=== PATIENT | male | born 1975 | race Caucasian/White ===

== ENCOUNTER 2016-11-11 07:56 | Emergency (ER) | payer BC ==
[~2016-11-11] VITALS: Ht 182.9 cm; Wt 151.4 kg
[~2016-11-11 07:56] MED LIST: CLIN300C10 PO; INSDGI SC; LCTX PO; METF-383 PO; NVLGI SC; OMEP40CA41 PO; ZOLP10TA6 PO
[2016-11-11 08:00] VITALS: TEMP 37.1; Ht 182.9 cm; Wt 151.4 kg
[2016-11-11] MEDS ORDERED: SULF1TAB92 PO (08:16)
[2016-11-11] MEDS ORDERED: TERB1CRE TOP (08:17)
[2016-11-11] MEDS ORDERED: METH4PAK PO (09:12)
[2016-11-11 09:22] VITALS: BP 142/102; PULSE 85; O2SAT 93
--- NOTE | 2016-11-11 15:18 | EMERGENCY ROOM VISIT NOTE ---
History First contact with patient: 08:17 Chief Complaint: RASH Stated Complaint: RASH ON LEG AFTER STARTING NEW MEDICATION History of Present Illness The patient is a 41 year old male who presents to the Emergency Room with complaints of rash in his right proximal leg. He was started on Bactrim yesterday after having an ingrown toe on the right great toe as well as a possible infection behind his left ear. these infections both have better. he' s had no fever or systemic complaints here. he has no chest pain or shortness of breath. No headache, neck pain, or stiffness. No chest pain or shortness breath. Minimal nausea which he tends to get. He has never had problems like this before. No other new all her kids or exposures. Review of Systems As above. All other systems reviewed were negative unless otherwise stated in history. At least 10 were reviewed Past Medical/Surgical History Medical Problems: (1) Hardy esophagus (2) Cellulitis (3) Chest pain (4) DM2 (diabetes mellitus, type 2) (5) GERD (gastroesophageal reflux disease) (6) HLD (hyperlipidemia) (7) Left bundle branch block (LBBB) on electrocardiogram (8) Obesity (9) Sarcoidosis (10) Second degree AV block, Mobitz type II Surgical Problems: (1) H/O esophagogastroduodenoscopy (2) Hx of tonsillectomy (3) S/P cholecystectomy Old medical records were reviewed. Nurse's notes were reviewed and I agree with. Family History Diabetes mellitus FHx: gallbladder disease FHx: heart disease Social History Smoking Status: Never Smoker Alcohol Use: none Drug Use: none Marital Status: Housing Status: lives with family Occupation Status: employed Current/Historical Medications Scheduled Insulin Aspart (Novolog), 50 UNITS SC WM Insulin Glargine (Lantus), 50 UNITS SC BID Metformin Hcl (Glucophage), 850 MG PO BID Methylprednisolone (Medrol Dosepak), 0 PO DAILY Omeprazole (Prilosec), 40 MG PO BID Terbinafine Hcl (Topical) ([facility]il [facility]), Unknown Dose TOP DAILY Trimethoprim/Sulfamethoxazole (Bactrim 400MG/80MG), 1 TAB PO Q12H Scheduled PRN Zolpidem Tartrate (Zolpidem Tartrate), 10 MG PO HS PRN for Insomnia Allergies Coded Allergies: Perflutren (Unverified Allergy, Severe, BACK PAIN, 11/11/16) Propylene Glycol (Unverified Allergy, Severe, BACK PAIN, 11/11/16) Exenatide (Verified Allergy, Unknown, RASH, 11/11/16) Phenol (Verified Allergy, Unknown, RASH, 11/11/16) Statins (Unverified Allergy, Unknown, ACHE PAIN , 11/11/16) Physical Exam Vital Signs Date Time Temp Pulse Resp B/P Pulse Ox O2 Delivery O2 Flow Rate FiO2 11/11/16 09:22 85 20 142/102 93 11/11/16 08:00 37.1 107 20 157/94 94 Room Air Pain Rating (0-10): 0 Physical Exam General: Well developed well nourished in no acute distress, breathing comfortably on room air. Normal speech HEENT: Normal cephalic atraumatic. Pupils are equal round and reactive to light. Scxlera anicteric. Posterior oropharynx is wide open. Speaking and swallowing without difficulty.. Extraocular movements are intact. Oropharynx is pink with moist mucous membranes. No swelling of the mouth lips or tongue. Neck: Supple with a midline trachea. No meningeal signs or stiffness, no JVD or bruits. No Stridor. Chest: Clear to auscultation bilaterally. No wheezes or rhonchi. No increased work of breathing. Heart: Regular rate and rhythm without murmurs or gallops. Abdomen: Soft nontender, nondistended without rebound guarding or rigidity. Extremities: No cyanosis clubbing or edema. No calf tenderness or assymetry Spine/Back. Non tender to palpation. No CVA tenderness Skin: Good turgor without rashes. Neurologic exam: Cranial nerves two through 12 are intact. Motor and sensation are intact and symmetrical throughout. Medical Decision & Procedures Medications Administered Medications (Trade) Dose Ordered Sig/Jhon Route Start Time Stop Time Status Last Admin Dose Admin Prednisone (PredniSONE TAB) 60 mg NOW STAT PO 11/11/16 09:09 11/11/16 09:10 DC 11/11/16 09:18 60 MG Medical Decision Differential diagnosis includes: Allergic reaction, infection, rash This patient comes in having noticed a rash in his right groin. On closer exam ,he does have some circular spots on his torso as well and extremities. It does not involve the mucous membranes or palms or soles. I think this is most likely drug eruption from the Bactrim. His ingrown toenail looks looks great and without infection and his ear also well. I will have him stop the Bactrim. He was given prednisone here as well as for Medrol Dosepak and he drove so could not give him any Benadryl but I told him to take this when he gets home and do not take before drinking, driving, working. He was encouraged to return if: Shortness of breath, worsening of symptoms, fever or chills, any new problems concerns. he was also told that he is likely allergic to sulfa/ Bactrim and do not take these medications until recheck by parts identification technician. The patient follow with his doctor within the next couple days for recheck and return ER if: Worsening of symptoms, not tolerating fluids, short of breath, any new problems concerns Impression Primary Impression: Allergic reaction caused by a drug Additional Impression: Rash Departure Information Dispostion Home / Self-Care Condition FAIR Prescriptions Methylprednisolone (MEDROL DOSEPAK) 4 Mg Jacoby 0 PO DAILY, #1 PKT Prov: Robert Mitchell M.D. 11/11/16 Referrals Tj Mace M.D. (PCP) Forms WORK / SCHOOL INSTRUCTIONS, HOME CARE DOCUMENTATION FORM, IMPORTANT VISIT INFORMATION Patient Instructions My [facility] Additional Instructions Stop the Bactrim. You are likely allergic to Bactrim (sulfa). Do not take these medications and less to get rechecked by an parts identification technician first. Itching or rash -Use Benadryl/diphenhydramine 25-50 mg every 8 hours. It may make you drowsy do not take before drinking, driving, working. Use Medrol Dosepak as directed- steroid. It may make your blood sugar run a little high. Return if: Worsening of symptoms, shortness of breath, fever or chills, if occultly speaking or swallowing, difficulty speaking or swallowing, any new problems or concerns. Problem Qualifiers
[2017-04-26] MEDS ORDERED: METF1000 PO (08:15)
== END 2016-11-11 09:25 | disposition home or self-care (01) ==
LOC: C.EDB 07:57 → C.EDA 09:25
DX: T78.40XA Allergy, unspecified, initial encounter (principal); X58.XXXA Exposure to other specified factors, initial encounter; R21 Rash and other nonspecific skin eruption; K21.9 Gastro-esophageal reflux disease without esophagitis; E11.9 Type 2 diabetes mellitus without complications; E78.5 Hyperlipidemia, unspecified; Z86.19 Personal history of other infectious and parasitic diseases; Z90.49 Acquired absence of other specified parts of digestive tract; Z98.890 Other specified postprocedural states; Z79.4 Long term (current) use of insulin; Z79.84 Long term (current) use of oral hypoglycemic drugs; Z79.899 Other long term (current) drug therapy; Z88.8 Allergy status to other drugs, medicaments and biological substances; Z83.3 Family history of diabetes mellitus; Z83.79 Family history of other diseases of the digestive system; Z82.49 Family history of ischemic heart disease and other diseases of the circulatory system

== ENCOUNTER 2017-07-31 19:28 | Emergency (ER) | payer BC ==
[~2017-07-31] VITALS: Ht 182.9 cm; Wt 151.6 kg
[~2017-07-31 19:28] MED LIST changes: -CLIN300C10 PO; -LCTX PO; -METF-383 PO; +METF1000 PO; +TERB1CRE TOP
[2017-07-31 19:33] VITALS: TEMP 36.7; Ht 182.9 cm; Wt 151.6 kg
[2017-07-31] MEDS ORDERED: PROPARACAINE HCL 0.5% OP SOLN 15 ML BTL OP STA (19:44)
[2017-07-31] MEDS ORDERED: NVLGI/PEN SC (19:51)
[2017-07-31] MEDS ORDERED: INSDGIPEN SC (19:51)
[2017-07-31] MEDS ORDERED: CPROT OPR (19:52)
[2017-07-31] MEDS ORDERED: KETOROLAC TROMETHAMINE 60 MG/2 ML VIAL IM STA (20:04)
[2017-07-31 20:34] VITALS: BP 145/76; PULSE 72; O2SAT 98
--- NOTE | 2017-07-31 23:13 | EMERGENCY ROOM VISIT NOTE ---
ED Visit Note First contact with patient: 19:42 CHIEF COMPLAINT: Eye pain HISTORY OF PRESENT ILLNESS: This 41-year-old male patient presents to the emergency department complaining of pain in the right eye that began earlier today when he accidentally was struck by his car door. Evidently the wind blew his car door shut as he was exiting, causing injury to the eye.. There has been a constant moderate pain and irritation, redness and tearing in the eye. There is a mild blurring of vision at times and light bothers the eye. The vision has been decreased over all. The patient does not wear contacts. He initially went to a local urgent care clinic, where he was diagnosed with a corneal abrasion and started on Ciloxan eyedrops. The patient went home, and states that he had severe worsening of his pain. The patient rates the pain as sharp and 9/10. The patient has not had previous injuries to this eye. Tetanus shot is reporteldly up to date. REVIEW OF SYSTEMS: A 6 system review of systems was completed with positives and pertinent negatives listed in the HPI. ALLERGIES: See EMR MEDICATIONS: See EMR PMH: No pertinent chronic medical disease SOCIAL HISTORY: Lives locally PHYSICAL EXAM: Vital Signs: Reviewed Nurse's notes, vital signs stable. Visual acuity unable to perform the right eye. GENERAL: This is a white male, in no acute distress, but who is uncomfortable from the eye problem. Well-developed well-nourished. EYES: The pupils are equal round and reactive to light and accommodation. EOMs are full and without tenderness. There is discharge of clear tears from the right eye which is injected. There is no foreign body visible under the eyelid even after lid eversion. Funduscopic exam reveals no hemorrhages, papilledema, or other abnormalities. No foreign body was seen embedded in the cornea under slit lamp exam. The cornea was clear and no hyphema was seen. Fluorescein uptake was observed with ultraviolet light significant for a corneal abrasion essentially from 3:00 to 9:00. EMERGENCY DEPARTMENT COURSE: Physical exam and history were performed. Nursing notes and EMR were reviewed. The patient has a clear corneal abrasion involving roughly 50% of the inferior aspect of the cornea. There does not appear to be perforation, foreign body, or laceration. The patient's primary concern is pain control, and Alcaine drops did completely resolve his discomfort. I discussed options of care with the patient, and will give him 60 mg IM Toradol here in the department. The patient was offered a home narcotics as his abrasion is rather large, and he may feel better with this. The patient evidently is extremely sensitive to narcotics, and does not wish to take any of these. He may continue ibuprofen and Tylenol at home. The patient will likely need to see ophthalmology in the morning, and he was given information to help facilitate this. The patient was certainly invited back to the ER with any new , worsening, or concerning symptoms. Problem List Medical Problems: (1) Hardy esophagus Status: Chronic (2) DM2 (diabetes mellitus, type 2) Status: Chronic (3) GERD (gastroesophageal reflux disease) Status: Chronic (4) HLD (hyperlipidemia) Status: Chronic (5) Obesity Status: Chronic (6) Sarcoidosis Status: Chronic Surgical Problems: (1) H/O esophagogastroduodenoscopy Status: Chronic (2) Hx of tonsillectomy Status: Chronic (3) S/P cholecystectomy Status: Chronic Current/Historical Medications Scheduled Ciprofloxacin-Hydrocortisone (Cipro Hc Otic), 1 DOSE OPR UD Insulin Aspart (Novolog Flexpen), 50 UNITS SC TIDM Insulin Glargine (Lantus Solostar), 50 UNITS SC BID Metformin Hcl (Glucophage), 1,000 MG PO BID Omeprazole (Prilosec), 40 MG PO BID Scheduled PRN Zolpidem Tartrate (Zolpidem Tartrate), 10 MG PO HS PRN for Insomnia Allergies Coded Allergies: Perflutren (Unverified Allergy, Severe, BACK PAIN, 07/31/17) Propylene Glycol (Unverified Allergy, Severe, BACK PAIN, 07/31/17) Exenatide (Verified Allergy, Unknown, RASH, 07/31/17) Phenol (Verified Allergy, Unknown, RASH, 07/31/17) Statins (Unverified Allergy, Unknown, ACHE PAIN , 07/31/17) Sulfa Antibiotics (Verified Allergy, Unknown, HIVES, 07/31/17) Vital Signs Date Time Temp Pulse Resp B/P (MAP) Pulse Ox O2 Delivery O2 Flow Rate FiO2 07/31/17 20:34 72 16 145/76 98 07/31/17 19:33 36.7 96 18 154/90 93 Room Air Medications Administered Medications (Trade) Dose Ordered Sig/Jhon Route Start Time Stop Time Status Last Admin Dose Admin Proparacaine HCl (Alcaine 0.5% Oph Soln) 2 drops NOW STAT OP 07/31/17 19:44 07/31/17 19:45 DC 07/31/17 19:44 2 DROPS Ketorolac Tromethamine (Toradol Inj) 60 mg NOW STAT IM 07/31/17 20:04 07/31/17 20:05 DC 07/31/17 20:04 60 MG Departure Information Impression Primary Impression: Right corneal abrasion Dispostion Home / Self-Care Condition GOOD Referrals Primitivo Woodward D.O. Forms HOME CARE DOCUMENTATION FORM, IMPORTANT VISIT INFORMATION Patient Instructions My [facility] Additional Instructions You were seen and evaluated today on an emergency basis only. This is not a substitute for, or an effort to provide, complete comprehensive medical care. It is not possible to recognize and treat all injuries or illnesses in a single emergency department visit. For this reason it is recommended that you followup with Ophthalmology, Dr. Woodward's office, for ongoing care and evaluation. Call the office first thing tomorrow and let them know you were seen in the emergency department to help facilitate care. For baseline pain relief you may alternate ibuprofen and acetaminophen every 4 hours for pain control. Take 600 mg ibuprofen (Advil) and then 4 hours later take 1000 mg acetaminophen (Tylenol). Do not take more than 3000 mg acetaminophen in a single day. Continue your Cipro eyedrops as prescribed You are welcome to return to the emergency department anytime with new, worsening, or concerning symptoms.
== END 2017-07-31 20:35 | disposition home or self-care (01) ==
LOC: C.EDB 19:28 → C.EDD 20:35
DX: S05.01XA Injury of conjunctiva and corneal abrasion without foreign body, right eye, initial encounter (principal); V48.4XXA Person boarding or alighting a car injured in noncollision transport accident, initial encounter; K22.70 Barrett's esophagus without dysplasia; E11.9 Type 2 diabetes mellitus without complications; K21.9 Gastro-esophageal reflux disease without esophagitis; E78.5 Hyperlipidemia, unspecified; E66.9 Obesity, unspecified; D86.9 Sarcoidosis, unspecified; Z79.4 Long term (current) use of insulin; Z79.84 Long term (current) use of oral hypoglycemic drugs

== ENCOUNTER 2017-09-05 20:18 | Emergency (ER) | payer BC ==
[~2017-09-05] VITALS: Ht 182.9 cm; Wt 127.1 kg
[~2017-09-05 20:18] MED LIST changes: +CPROT OPR; -INSDGI SC; -METF1000 PO; -NVLGI SC; -OMEP40CA41 PO; -TERB1CRE TOP; -ZOLP10TA6 PO
[2017-09-05 20:21] VITALS: TEMP 36.9; Ht 182.9 cm; Wt 127.1 kg
[2017-09-05] MEDS ORDERED: CLOTRIMAZOLE 1% CR 15 GM TUBE EXT ONE (20:45)
--- NOTE | 2017-09-05 20:47 | EMERGENCY ROOM VISIT NOTE ---
History First contact with patient: 20:25 Chief Complaint: RASH Stated Complaint: RASH ON INSIDE OF R GROIN History of Present Illness The patient is a 42 year old male who presents to the Emergency Room with complaints of a rash in the groin area for the last 3 days. It does not itch. It eisenberg when he washes it. He has been trying Lotrimin cream once daily with no relief. The patient has a history of diabetes. He was recently on an antibiotic. He denies any fever or chills. His blood sugars have been high. Review of Systems 6 system review negative. Please see pertinent positives in the history of present illness section. Past Medical/Surgical History Medical Problems: (1) Hardy esophagus (2) Cellulitis (3) Chest pain (4) DM2 (diabetes mellitus, type 2) (5) GERD (gastroesophageal reflux disease) (6) HLD (hyperlipidemia) (7) Left bundle branch block (LBBB) on electrocardiogram (8) Obesity (9) Sarcoidosis (10) Second degree AV block, Mobitz type II Surgical Problems: (1) H/O esophagogastroduodenoscopy (2) Hx of tonsillectomy (3) S/P cholecystectomy Family History Diabetes mellitus FHx: gallbladder disease FHx: heart disease Social History Smoking Status: Never Smoker Alcohol Use: none Drug Use: none Marital Status: Housing Status: lives with family Occupation Status: employed Current/Historical Medications Scheduled Insulin Aspart (Novolog Flexpen), 50 UNITS SC TIDM Insulin Glargine (Lantus Solostar), 50 UNITS SC BID Metformin Hcl (Glucophage), 1,000 MG PO BID Omeprazole (Prilosec), 40 MG PO BID Scheduled PRN Zolpidem Tartrate (Zolpidem Tartrate), 10 MG PO HS PRN for Insomnia Physical Exam Vital Signs Date Time Temp Pulse Resp B/P (MAP) Pulse Ox O2 Delivery O2 Flow Rate FiO2 09/05/17 21:17 96 18 146/92 96 09/05/17 20:21 36.9 101 20 162/108 95 Room Air Physical Exam VITALS: Vitals are noted on the nurse's note and reviewed by myself. Vital signs stable. GENERAL: 42-year-old male, in no acute distress, nondiaphoretic, well-developed well-nourished. SKIN: Erythematous, well demarcated, slightly raised area approximately 8 cm in diameter in the right groin extending into the right testicle. Skin is intact. HEAD: Normocephalic atraumatic. MUSCULOSKELETAL: Strength 5/5 throughout. NEURO: Patient was alert and oriented to person place and time. Normal sensation to touch. No focal neurological deficits. Medical Decision & Procedures Medications Administered Medications (Trade) Dose Ordered Sig/Jhon Route Start Time Stop Time Status Last Admin Dose Admin Clotrimazole (Lotrimin 1% Crm) 1 appln NOW ONCE EXT 09/05/17 20:45 09/05/17 20:46 DC 09/05/17 20:45 1 APPLN ED Course The patient was seen and examined He was given clotrimazole cream. Discharge instructions were reviewed, and he was discharged in good condition Medical Decision Differential diagnosis: Tinea cruris, Milana dermatitis, bacterial etiology This patient is a 42-year-old male that presents to the emergency department with a rash in the groin area. He has a history of diabetes. His blood sugars have been elevated. His physical exam was consistent with tinea cruris. He was given clotrimazole cream to use twice daily for 2-3 weeks. He will be discharged home with close follow-up from his primary care physician. He was comfortable with this plan. He agrees to return with any new or worsening symptoms. This chart was completed in part utilizing [employer] Speech Voice Recognition software. Attempts were made to minimize the grammatical errors, random word insertions, pronoun errors and incomplete sentences. Any formal questions or concerns about the content, text or information contained within the body of this dictation should be directly addressed to the provider for clarification. Medication Reconcilliation Current Medication List: was personally reviewed by [place] Blood Pressure Screening Patient's blood pressure: Elevated blood pressure Blood pressure disposition: Did not require urgent referral Impression Primary Impression: Tinea cruris Departure Information Dispostion Home / Self-Care Condition GOOD Referrals Tj Mace M.D. (PCP) Patient Instructions My [facility] Additional Instructions Please apply the cream to the affected area twice daily for 2-3 weeks. Try to keep the area clean and dry. Please follow-up with your primary care physician within one week for recheck. Do not hesitate to return to the emergency department with any new, worsening or concerning symptoms.
[2017-09-05 21:17] VITALS: BP 146/92; PULSE 96; O2SAT 96
[2017-12-02] MEDS ORDERED: METF1000 PO (08:15)
[2018-02-01] MEDS ORDERED: Lamisil Cream TD (07:22)
[2018-02-01] MEDS ORDERED: Cephalexin PO (07:22)
[2018-02-01] MEDS ORDERED: ALUMSUS2 PO (07:22)
[2018-02-01] MEDS ORDERED: BCTROWC EXT (07:22)
[2018-02-01] MEDS ORDERED: IBUP-1050 PO (07:23)
[2018-02-01] MEDS ORDERED: POLY335019 PO (07:23)
[2018-02-01] MEDS ORDERED: [UNRECOGNIZED DRUG - CODE] (07:23)
[2018-02-01] MEDS ORDERED: MOML PO (07:23)
[2018-02-01] MEDS ORDERED: ONDA4TAB65 PO (07:23)
[2018-02-01] MEDS ORDERED: TPRSR25 PO (11:04)
== END 2017-09-05 21:18 | disposition home or self-care (01) ==
LOC: C.EDB 20:19 → C.EDD 21:18
DX: B35.6 Tinea cruris (principal); E11.9 Type 2 diabetes mellitus without complications; E78.5 Hyperlipidemia, unspecified; K21.9 Gastro-esophageal reflux disease without esophagitis; K22.70 Barrett's esophagus without dysplasia; Z86.19 Personal history of other infectious and parasitic diseases; Z90.49 Acquired absence of other specified parts of digestive tract; Z98.890 Other specified postprocedural states; Z79.4 Long term (current) use of insulin; Z79.84 Long term (current) use of oral hypoglycemic drugs; Z79.899 Other long term (current) drug therapy; Z83.3 Family history of diabetes mellitus; Z83.79 Family history of other diseases of the digestive system; Z82.49 Family history of ischemic heart disease and other diseases of the circulatory system

== ENCOUNTER 2017-11-17 09:57 | Emergency (ER) | payer BC ==
[~2017-11-17] VITALS: Ht 182.9 cm; Wt 149.6 kg
[~2017-11-17 09:57] MED LIST changes: -CPROT OPR; +INSDGIPEN SC; +METF1000 PO; +NVLGI/PEN SC; +OMEP40CA41 PO; +ZOLP10TA6 PO
[2017-11-17 10:06] VITALS: TEMP 36.7; Ht 182.9 cm; Wt 149.6 kg
[2017-11-17] MEDS ORDERED: SODIUM CHLORIDE 0.9% 1000ML 1,000 ML IV STA (10:23)
[2017-11-17] MEDS ORDERED: GI COCKTAIL PO STA (10:23)
[2017-11-17] MEDS ORDERED: FAMOTIDINE 20 MG TAB PO ONE (10:30)
--- NOTE | 2017-11-17 10:44 | EMERGENCY ROOM VISIT NOTE ---
History Report prepared by Sarah: Mary Jane Mueller Under the Supervision of: Dr. Jeff Infante M.D. First contact with patient: 10:12 Chief Complaint: THROAT PAIN/INJURY Stated Complaint: TIGHTNESS IN THROAT AND JAW PAIN History of Present Illness The patient is a 42 year old male who presents to the Emergency Room with complaints of persistent throat tightness starting this morning. The patient woke up with this throat tightness and jaw pain which he describes as a muscle ache. He has a history of reflux and feels that his symptoms are consistent with his reflux. The patient presents to the ED today because he has a history of 2nd degree heart block and pacemaker placement. With his heart block, he felt like he would pass out and notes that today's symptoms are different. He does feel fatigued, like he has a cold without the congestion. He denies any fever, chills, cough, congestion, nausea, or vomiting. He has not noticed any abdominal pain. He has a history of cholecystectomy and sarcoidosis. He becomes SOB with his sarcoidosis, but has not experienced this in several years. He denies any history of [place]. Source of History: patient Onset: this morning Position: throat Quality: other (tightness) Timing: other (persistent) Associated Symptoms: + fatigue, No fevers, No chills, No cough, No SOB, No nausea, No vomiting, No abdominal pain Note: Pt reports jaw pain. Review of Systems See HPI for pertinent positives and negatives. A total of ten systems were reviewed and were otherwise negative. Past Medical & Surgical Medical Problems: (1) Hardy esophagus (2) Cellulitis (3) Chest pain (4) DM2 (diabetes mellitus, type 2) (5) GERD (gastroesophageal reflux disease) (6) HLD (hyperlipidemia) (7) Left bundle branch block (LBBB) on electrocardiogram (8) Obesity (9) Sarcoidosis (10) Second degree AV block, Mobitz type II Surgical Problems: (1) H/O esophagogastroduodenoscopy (2) Hx of tonsillectomy (3) S/P cholecystectomy Family History Diabetes mellitus FHx: gallbladder disease FHx: heart disease Social History Smoking Status: Never Smoker Alcohol Use: none Drug Use: none Marital Status: Housing Status: lives with family Occupation Status: employed Current/Historical Medications Scheduled Insulin Aspart (Novolog Flexpen), 50 UNITS SC TIDM Insulin Glargine (Lantus Solostar), 50 UNITS SC BID Metformin Hcl (Glucophage), 1,000 MG PO BID Omeprazole (Prilosec), 40 MG PO BID Zolpidem Tartrate (Zolpidem Tartrate), 10 MG PO HS Allergies Coded Allergies: Exenatide (Verified Allergy, Unknown, RASH, 11/17/17) Phenol (Verified Allergy, Unknown, RASH, 11/17/17) Sulfa Antibiotics (Verified Allergy, Unknown, HIVES, 11/17/17) Perflutren (Unverified Adverse Reaction, Unknown, BACK PAIN, 11/17/17) Propylene Glycol (Unverified Adverse Reaction, Unknown, BACK PAIN, 11/17/17 ) Statins (Unverified Adverse Reaction, Unknown, ACHE PAIN , 11/17/17) Physical Exam Vital Signs Date Time Temp Pulse Resp B/P (MAP) Pulse Ox O2 Delivery O2 Flow Rate FiO2 11/17/17 13:31 88 18 146/93 93 11/17/17 12:01 167/97 11/17/17 12:00 89 19 94 Room Air 11/17/17 11:31 153/96 11/17/17 11:30 90 20 93 Room Air 11/17/17 11:01 175/111 11/17/17 11:00 Room Air 93 11/17/17 11:00 96 11/17/17 10:59 99 18 188/100 93 Room Air 11/17/17 10:58 94 Room Air 11/17/17 10:06 36.7 87 17 173/113 96 Room Air Physical Exam GENERAL: Awake, alert, well-appearing, in no distress HENT: Normocephalic, atraumatic. Dry mucous membranes. EYES: Normal conjunctiva. Sclera non-icteric. NECK: Supple. No nuchal rigidity. FROM. No JVD. RESPIRATORY: Clear to auscultation. CARDIAC: Regular rate, normal rhythm. Extremities warm and well perfused. Pulses equal. ABDOMEN: Soft, non-distended. Mild epigastric discomfort. No discrete tenderness. No rebound or guarding. No masses. RECTAL: Deferred. MUSCULOSKELETAL: Chest examination reveals no tenderness. The back is symmetrical on inspection without obvious abnormality. There is no CVA tenderness to palpation. No joint edema. LOWER EXTREMITIES: Calves are equal size bilaterally and non-tender. No edema. No discoloration. NEURO: Normal sensorium. No sensory or motor deficits noted. SKIN: No rash or jaundice noted. Medical Decision & Procedures ER Provider Diagnostic Interpretation: Radiology results as stated below per my review and radiologist interpretation: CHEST ONE VIEW PORTABLE CLINICAL HISTORY: 42 years-old Male presenting with CHEST PAIN. TECHNIQUE: Portable upright AP view of the chest was obtained. COMPARISON: 02/24/2016. FINDINGS: Image quality degraded by patient body habitus and portable technique. Left subclavian pacer with leads to the right atrium and right ventricular apex. Cardiac silhouette moderately enlarged as on prior exam. Mild pulmonary vascular prominence, unchanged. Lungs and pleural spaces clear. Osseous structures normal. Upper abdomen normal. IMPRESSION: 1. Cardiomegaly. Otherwise no acute cardiopulmonary disease. Electronically signed by: Erlin Galindo M.D. 11/17/2017 10:41 AM Dictated Date/Time: 11/17/2017 10:40 AM Laboratory Results 11/17/17 11:05 Red Blood Count 6.00, Mean Corpuscular Volume 78.0, Mean Corpuscular Hemoglobin 28.7, Mean Corpuscular Hemoglobin Concent 36.8, Mean Platelet Volume 9.3, Neutrophils (%) (Auto) 63.4, Lymphocytes (%) (Auto) 26.2, Monocytes (%) (Auto) 7.6, Eosinophils (%) (Auto) 2.0, Basophils (%) (Auto) 0.5, Neutrophils # (Auto) 4.20, Lymphocytes # (Auto) 1.73, Monocytes # (Auto) 0.50, Eosinophils # (Auto) 0.13, Basophils # (Auto) 0.03 11/17/17 11:05 Test 11/17/17 11:05 11/17/17 11:18 White Blood Count 6.61 K/uL (4.8-10.8) Red Blood Count 6.00 M/uL (4.7-6.1) Hemoglobin 17.2 g/dL (14.0-18.0) Hematocrit 46.8 % (42-52) Mean Corpuscular Volume 78.0 fL (80-100) Mean Corpuscular Hemoglobin 28.7 pg (25-34) Mean Corpuscular Hemoglobin Concent 36.8 g/dl (32-36) Platelet Count 205 K/uL (130-400) Mean Platelet Volume 9.3 fL (7.4-10.4) Neutrophils (%) (Auto) 63.4 % Lymphocytes (%) (Auto) 26.2 % Monocytes (%) (Auto) 7.6 % Eosinophils (%) (Auto) 2.0 % Basophils (%) (Auto) 0.5 % Neutrophils # (Auto) 4.20 K/uL (1.4-6.5) Lymphocytes # (Auto) 1.73 K/uL (1.2-3.4) Monocytes # (Auto) 0.50 K/uL (0.11-0.59) Eosinophils # (Auto) 0.13 K/uL (0-0.5) Basophils # (Auto) 0.03 K/uL (0-0.2) RDW Standard Deviation 36.5 fL (36.4-46.3) RDW Coefficient of Variation 13.0 % (11.5-14.5) Immature Granulocyte % (Auto) 0.3 % Immature Granulocyte # (Auto) 0.02 K/uL (0.00-0.02) Anion Gap 9.0 mmol/L (3-11) Est Creatinine Clear Calc Drug Dose 144.8 ml/min Estimated GFR () 108.2 Estimated GFR (Non- 93.4 BUN/Creatinine Ratio 17.0 (10-20) Calcium Level 9.2 mg/dl (8.5-10.1) Total Bilirubin 0.8 mg/dl (0.2-1) Direct Bilirubin 0.2 mg/dl (0-0.2) Aspartate Amino Transf (AST/SGOT) 20 U/L (15-37) Alanine Aminotransferase (ALT/SGPT) 39 U/L (12-78) Alkaline Phosphatase 145 U/L (45-117) Troponin I < 0.015 ng/ml (0-0.045) Total Protein 7.5 gm/dl (6.4-8.2) Albumin 3.8 gm/dl (3.4-5.0) Lipase 196 U/L (73-393) Bedside Glucose 293 mg/dl (70-99) Laboratory results reviewed by me Medications Administered Medications (Trade) Dose Ordered Sig/Jhon Route Start Time Stop Time Status Last Admin Dose Admin Sodium Chloride 1,000 ml @ 999 mls/hr Q1H1M STAT IV 11/17/17 10:23 11/17/17 11:23 DC 11/17/17 11:21 999 MLS/HR Famotidine (Pepcid Tab) 20 mg NOW ONCE PO 11/17/17 10:30 11/17/17 10:31 DC 11/17/17 11:14 20 MG Lidocaine HCl (Viscous Lidocaine 2% Soln) 20 ml STK-MED ONCE .ROUTE 11/17/17 11:11 11/17/17 11:12 DC 11/17/17 11:38 10 ML Al Hydroxide/Mg Hydroxide (Maalox Susp) 30 ml ONE ONCE PO 11/17/17 11:33 11/17/17 11:34 DC 11/17/17 11:37 30 ML ECG Per My Interpretation Indication: chest pain Rate (beats per minute): 89 Rhythm: other (atrially sensed, ventricularly paced) Findings: no acute ischemic change, no ectopy, other (normal axis) ED Course 1016: The patient was evaluated in room C12B. A complete history and physical exam was performed. 1244: I reevaluated the patient. Discussed results and discharge instructions: He verbalized understanding and agreement. The patient is ready for discharge. Medical Decision I reviewed the patient's past medical history, medications, and the nursing notes as described above. Differential diagnosis: Etiologies such as cardiac ischemia, aortic dissection, pulmonary embolism, pneumonia, pneumothorax, musculoskeletal, infections, pericarditis, myocarditis , esophageal rupture, gastrointestinal, as well as others were entertained. The patient is a 42-year-old gentleman with a past medical history of heart block status post pacemaker who presents emergency department with neck pain/ burning that began since he woke this morning per hpi. Of note the patient reports a history of reflux and has had similar symptoms like this in the past however wanted to make sure everything else was "okay". The patient is well- appearing, no acute distress, afebrile stable vital signs. On exam, the patient has mild epigastric discomfort but no discrete tenderness. EKG negative for acute ischemia. Troponin negative in the setting of greater than 6 hours of symptoms. Thus unlikely to be cardiac related. Chest x-ray negative. Labs otherwise unremarkable including WBC within normal limits. Patient with resolved symptoms after Pepcid and GI cocktail. Thus, symptoms most likely related to reflux. Findings and plan for follow-up reviewed with patient. Patient agreeable and d/c'd per discharge instructions. Medication Reconcilliation Current Medication List: was personally reviewed by me Blood Pressure Screening Patient's blood pressure: Elevated blood pressure Blood pressure disposition: Referred to PCP Impression Primary Impression: Chest pain Additional Impression: GERD (gastroesophageal reflux disease) Scribe Attestation The scribe's documentation has been prepared under my direction and personally reviewed by me in its entirety. I confirm that the note above accurately reflects all work, treatment, procedures, and medical decision making performed by me. Departure Information Dispostion Home / Self-Care Referrals Tj Mace M.D. (PCP) Patient Instructions ED GERD, My [facility] Additional Instructions Please follow up with your primary care physician in the next 1-3 days for re- evaluation. Your symptoms were most likely due to your reflux. Otherwise, your exam, EKG, chest xray, and lab results did not show signs of an emergent condition at this time. Continue your Prilosec. Add Mylanta as needed. If symptoms persist he may additionally try Pepcid. Drink plenty of fluids to ensure hydration. Return to the emergency department for worsening symptoms as described in the accompanying instructions. Problem Qualifiers
[2017-11-17 10:58] VITALS: O2SAT 94
[2017-11-17] MEDS ORDERED: LIDOCAINE HCL 2% VISC SOLN 20 ML UDC ONE (11:11)
[2017-11-17] MEDS ORDERED: ALUMINUM/MAGNESIUM SUSP 30 ML UDC ONE (11:12)
[2017-11-17 11:24] LABS: BASO % 0.5 %; BASO ABS # 0.03 K/uL (0-0.2); EOS ABS # 0.13 K/uL (0-0.5); HEMATOCRIT 46.8 % (42-52); HEMOGLOBIN 17.2 g/dL (14.0-18.0); IG# 0.02 K/uL (0.00-0.02); LYMPH % 26.2 %; LYMPH ABS # 1.73 K/uL (1.2-3.4); MEAN CORPUSCULAR HEMOGLOBIN 28.7 pg (25-34); MEAN CORPUSCULAR HGB CONC 36.8 g/dl (32-36); MEAN PLATELET VOLUME 9.3 fL (7.4-10.4); MONO % 7.6 %; NEUT % 63.4 %; PLATELET COUNT 205 K/uL (130-400); RED CELL DISTRIBUTION WIDTH SD 36.5 fL (36.4-46.3); WHITE BLOOD COUNT 6.61 K/uL (4.8-10.8)
[2017-11-17] MEDS ORDERED: ALUMINUM/MAGNESIUM SUSP 30 ML UDC PO ONE (11:33)
[2017-11-17 11:49] LABS: ALBUMIN 3.8 gm/dl (3.4-5.0); ALT/SGPT 39 U/L (12-78); BLOOD UREA NITROGEN 17 mg/dl (7-18); CALCIUM 9.2 mg/dl (8.5-10.1); CARBON DIOXIDE 27 mmol/L (21-32); CREATININE 0.98 mg/dl (0.60-1.40); GLUCOSE 294 mg/dl (70-99); LIPASE 196 U/L (73-393); SODIUM 135 mmol/L (136-145)
[2017-11-17 11:54] LABS: ALKALINE PHOSPHATASE 145 U/L (45-117); AST/SGOT 20 U/L (15-37); TOTAL PROTEIN 7.5 gm/dl (6.4-8.2)
[2017-11-17 13:31] VITALS: BP 146/93; PULSE 88; O2SAT 93
== END 2017-11-17 13:15 | disposition home or self-care (01) ==
LOC: C.EDB 09:59 → C.EDC 13:15
DX: R07.89 Other chest pain (principal); K21.9 Gastro-esophageal reflux disease without esophagitis; R03.0 Elevated blood-pressure reading, without diagnosis of hypertension; E11.9 Type 2 diabetes mellitus without complications; Z79.4 Long term (current) use of insulin; I44.7 Left bundle-branch block, unspecified; I44.1 Atrioventricular block, second degree; E66.9 Obesity, unspecified; D86.9 Sarcoidosis, unspecified; K22.70 Barrett's esophagus without dysplasia; E78.5 Hyperlipidemia, unspecified; Z90.49 Acquired absence of other specified parts of digestive tract; Z95.0 Presence of cardiac pacemaker; Z87.2 Personal history of diseases of the skin and subcutaneous tissue; Z83.3 Family history of diabetes mellitus; Z82.49 Family history of ischemic heart disease and other diseases of the circulatory system; Z83.79 Family history of other diseases of the digestive system; Z88.2 Allergy status to sulfonamides; Z91.041 Radiographic dye allergy status; Z88.8 Allergy status to other drugs, medicaments and biological substances

== ENCOUNTER 2017-12-02 19:29 | Emergency (ER) | payer BC ==
[~2017-12-02] VITALS: Ht 182.9 cm; Wt 152.6 kg
[~2017-12-02 19:29] MED LIST changes: -INSDGIPEN SC; -NVLGI/PEN SC; -OMEP40CA41 PO; -ZOLP10TA6 PO
[2017-12-02 19:34] VITALS: TEMP 36.7; Ht 182.9 cm; Wt 152.6 kg
[2017-12-02] MEDS ORDERED: NVLGI/PEN SC (19:51)
[2017-12-02] MEDS ORDERED: INSDGIPEN SC (19:51)
--- NOTE | 2017-12-02 20:11 | EMERGENCY ROOM VISIT NOTE ---
History Report prepared by Sarah: Ann Smith Under the Supervision of: Dr. Unruly Franco M.D. First contact with patient: 19:47 Chief Complaint: SHORTNESS OF BREATH Stated Complaint: SHORT OF BREATH History of Present Illness The patient is a 42 year old male who presents to the Emergency Room with complaints of shortness of breath beginning at [address]. He reports he was watching a baseball game when he suddenly began coughing and feeling short of breath. He states his episodes of intermittent SOB start with a cough and then end in a wheeze. He denies any hematochezia, chest pain, hemoptysis, melena, syncope, nausea vomiting or diarrhea. Patient does have a history of having hypertension, sarcoidosis, and having a pacemaker placed. Source of History: patient Onset: [address] [employer] Position: chest Symptom Intensity: Timing: intermittent Associated Symptoms: No LOC, No chest pain, No hematochezia Review of Systems See HPI for pertinent positives and negatives. A total of ten systems were reviewed and were otherwise negative. Past Medical & Surgical Medical Problems: (1) Hardy esophagus (2) Cellulitis (3) Chest pain (4) DM2 (diabetes mellitus, type 2) (5) GERD (gastroesophageal reflux disease) (6) HLD (hyperlipidemia) (7) Left bundle branch block (LBBB) on electrocardiogram (8) Obesity (9) Sarcoidosis (10) Second degree AV block, Mobitz type II Surgical Problems: (1) H/O esophagogastroduodenoscopy (2) Hx of tonsillectomy (3) S/P cholecystectomy Family History Diabetes mellitus FHx: gallbladder disease FHx: heart disease Social History Smoking Status: Never Smoker Alcohol Use: none Drug Use: none Marital Status: Housing Status: lives with family Occupation Status: employed Current/Historical Medications Scheduled Insulin Aspart (Novolog Flexpen), 50 UNITS SC TIDM Insulin Glargine (Lantus Solostar), 50 UNITS SC BID Metformin Hcl (Glucophage), 1,000 MG PO BID Omeprazole (Prilosec), 40 MG PO BID Zolpidem Tartrate (Zolpidem Tartrate), 10 MG PO HS Allergies Coded Allergies: Exenatide (Verified Allergy, Unknown, RASH, 11/17/17) Phenol (Verified Allergy, Unknown, RASH, 11/17/17) Sulfa Antibiotics (Verified Allergy, Unknown, HIVES, 3/15/18) Perflutren (Unverified Adverse Reaction, Unknown, BACK PAIN, 11/17/17) Propylene Glycol (Unverified Adverse Reaction, Unknown, BACK PAIN, 11/17/17 ) Statins (Unverified Adverse Reaction, Unknown, ACHE PAIN , 11/17/17) Physical Exam Vital Signs Date Time Temp Pulse Resp B/P (MAP) Pulse Ox O2 Delivery O2 Flow Rate FiO2 12/03/17 00:28 100 16 176/105 97 12/02/17 22:25 99 18 184/102 95 Room Air 12/02/17 21:22 99 12/02/17 21:17 100 18 172/101 94 Room Air 12/02/17 20:36 101 18 169/107 95 Room Air 12/02/17 20:30 95 Room Air 12/02/17 20:30 95 Room Air 12/02/17 19:34 36.7 100 24 165/106 94 Room Air Physical Exam Physical Exam GENERAL: he is oriented to person, place, and time. he appears well-developed and well-nourished. He does not appear distressed. ____ HENT: Exam performed. Head: Normocephalic and atraumatic. Right Ear: External ear normal. No mastoid tenderness. Left Ear: External ear normal. No mastoid tenderness. Mouth/Throat: The oropharynx is clear and moist. No trismus in the jaw. No dental abscesses or uvula swelling. No oropharyngeal exudate or tonsillar abscesses. ____ EYES: Conjunctivae and EOM are normal. Pupils are equal, round, and reactive to light. Right eye exhibits no discharge. Left eye exhibits no discharge. No scleral icterus. ____ NECK: Normal range of motion. Neck supple. No JVD present. No spinous process tenderness present. No carotid bruit present. No rigidity. No tracheal deviation and normal range of motion present. No Brudzinski's sign and no Kernig 's sign noted. ____ CV: Normal rate, regular rhythm, normal heart sounds and intact distal pulses. There is no peripheral edema. Palpable radial pulses bue. ____ PULM/CHEST: Effort normal and breath sounds normal. No respiratory distress. No stridor. He has no wheezes. He has no rales. Chest Wall: He exhibits no tenderness. ____ ABD: The abdomen is soft and obese. Bowel sounds are normal. He has no distension. No mass is present. There is no tenderness. There is no rebound, no guarding, no Gonzalez's sign and no tenderness at McBurney's point. Rovsig negative MUSC/SKEL: Normal range of motion. There is no peripheral edema, tenderness or deformity. LYMPH: No cervical adenopathy. ____ NEURO: He is alert and oriented to person, place, and time. He has normal strength. No cranial nerve deficit or sensory deficit. Coordination and gait normal. GCS eye subscore is 4. GCS verbal subscore is 5. GCS motor subscore is 6. Cerebellar tests wnl. ____ SKIN: Skin is warm and dry. He is not diaphoretic. ____ PSYCH: He has a normal mood and affect. His behavior is normal. Judgment and thought content normal. ____ Medical Decision & Procedures ER Provider Diagnostic Interpretation: Radiology results as stated below per my review and radiologist interpretation: CT ANGIOGRAM OF THE CHEST CLINICAL HISTORY: Dyspnea. COMPARISON STUDY: Chest x-ray dated 12/02/2017. Chest CT dated 09/05/2007. TECHNIQUE: Following the IV administration of 106 cc of Optiray 320, CT angiogram of the chest was performed from the upper abdomen to the thoracic inlet utilizing the pulmonary embolus protocol. Images are reviewed in the axial, sagittal, and coronal planes. 3-D MIPS images are created and assessed. IV contrast was administered without complication. A dose lowering technique was utilized adhering to the principles of ALARA. The examination is modestly degraded by motion artifact. CT DOSE: 831.33 mGy.cm FINDINGS: Thyroid: Imaged portions of the thyroid gland appear enlarged and heterogeneous and attenuation. Thoracic aorta: The thoracic aorta is normal in caliber and demonstrates standard 3-vessel arch anatomy. No dissection is seen. Pulmonary vasculature: The pulmonary trunk is normal in caliber. There are no filling defects identified in main, lobar, or segmental pulmonary branches to suggest pulmonary embolus. Heart: A 2-lead cardiac pacemaker is in place. The heart is enlarged and without pericardial effusion. Lungs and pleural spaces: No airspace consolidation or pleural effusion is identified. Diffuse intralobular septal thickening is identified and there is dependent atelectasis. Mild diffuse bronchial thickening is observed. Scattered tiny calcified granulomas are identified. The trachea and central airways are clear. Mediastinum: There is mediastinal lymphadenopathy. Right peritracheal nodes measure up to 2.4 cm short axis. Prevascular nodes measure up to 2.1 cm in short axis. A subcarinal node measures up to 3.5 cm in short axis. Shara: There is hilar adenopathy. Right hilar nodes measure up to 2.7 cm in short axis, and left hilar nodes measure up to 2.2 cm in short axis. Axillae: There is no axillary lymphadenopathy. Upper abdomen: Cholecystectomy clips are noted. There is a small hiatal hernia. The liver is enlarged and steatotic. The spleen is enlarged, measuring over 15 cm in length. Skeletal structures: No lytic or blastic bony lesions are seen. IMPRESSION: 1. There is no evidence of pulmonary embolus in the main, lobar, or segmental pulmonary arteries. 2. Cardiomegaly and cardiac pacemaker. Findings suggest congestive failure. Clinical correlation will be required. 3. There is bulky mediastinal and hilar adenopathy. This is nonspecific and has significantly increased from 2008, and could be on a reactive basis, represent a lymphoproliferative disorder, or possibly sarcoidosis. Correlation with clinical findings and the patient medical history will be required. Consider pulmonology follow-up. 4. Splenomegaly. 5. Hepatomegaly and hepatic steatosis. 6. There is no airspace consolidation or pleural effusion. Electronically signed by: Gulshan Zhong M.D. 12/02/2017 9:18 PM Dictated Date/Time: 12/02/2017 9:11 PM SINGLE VIEW CHEST CLINICAL HISTORY: Atypical chest pain. FINDINGS: An AP, portable, upright chest radiograph is compared to study dated 11/17/2017. A 2-lead cardiac pacemaker is unchanged in position and partially obscures the left mid chest. The heart is enlarged. There is pulmonary vascular congestion with evidence of mild interstitial edema. There is bibasilar atelectasis. No large pleural effusion is identified. No pneumothorax is seen. The bony thorax is grossly intact. IMPRESSION: 1. Cardiomegaly and cardiac pacemaker. There is evidence of congestive failure and mild interstitial edema. 2. No airspace consolidation or large pleural effusion is identified. Electronically signed by: Gulshan Zhong M.D. 12/02/2017 8:53 PM Dictated Date/Time: 12/02/2017 8:52 PM Laboratory Results 12/02/17 20:00 Red Blood Count 6.32, Mean Corpuscular Volume 79.3, Mean Corpuscular Hemoglobin 28.6, Mean Corpuscular Hemoglobin Concent 36.1, Mean Platelet Volume 9.9, Neutrophils (%) (Auto) 67.9, Lymphocytes (%) (Auto) 22.4, Monocytes (%) (Auto) 7.5, Eosinophils (%) (Auto) 1.7, Basophils (%) (Auto) 0.1, Neutrophils # (Auto) 4.71, Lymphocytes # (Auto) 1.56, Monocytes # (Auto) 0.52, Eosinophils # (Auto) 0.12, Basophils # (Auto) 0.01 12/02/17 20:00 Test 12/02/17 20:00 12/02/17 23:08 White Blood Count 6.95 K/uL (4.8-10.8) Red Blood Count 6.32 M/uL (4.7-6.1) Hemoglobin 18.1 g/dL (14.0-18.0) Hematocrit 50.1 % (42-52) Mean Corpuscular Volume 79.3 fL (80-100) Mean Corpuscular Hemoglobin 28.6 pg (25-34) Mean Corpuscular Hemoglobin Concent 36.1 g/dl (32-36) Platelet Count 204 K/uL (130-400) Mean Platelet Volume 9.9 fL (7.4-10.4) Neutrophils (%) (Auto) 67.9 % Lymphocytes (%) (Auto) 22.4 % Monocytes (%) (Auto) 7.5 % Eosinophils (%) (Auto) 1.7 % Basophils (%) (Auto) 0.1 % Neutrophils # (Auto) 4.71 K/uL (1.4-6.5) Lymphocytes # (Auto) 1.56 K/uL (1.2-3.4) Monocytes # (Auto) 0.52 K/uL (0.11-0.59) Eosinophils # (Auto) 0.12 K/uL (0-0.5) Basophils # (Auto) 0.01 K/uL (0-0.2) RDW Standard Deviation 37.2 fL (36.4-46.3) RDW Coefficient of Variation 13.1 % (11.5-14.5) Immature Granulocyte % (Auto) 0.4 % Immature Granulocyte # (Auto) 0.03 K/uL (0.00-0.02) Anion Gap 6.0 mmol/L (3-11) Est Creatinine Clear Calc Drug Dose 130.4 ml/min Estimated GFR () 94.1 Estimated GFR (Non- 81.2 BUN/Creatinine Ratio 13.0 (10-20) Calcium Level 8.7 mg/dl (8.5-10.1) Pro-B-Type Natriuretic Peptide 246 pg/ml (0-450) Troponin I < 0.015 ng/ml (0-0.045) Laboratory results reviewed by me Medications Administered Medications (Trade) Dose Ordered Sig/Jhon Route Start Time Stop Time Status Last Admin Dose Admin Aspirin (Aspirin Chew) 324 mg NOW STAT PO 12/02/17 20:27 12/02/17 20:29 DC 12/02/17 20:35 324 MG ECG Per My Interpretation Indication: SOB/dyspnea Rate (beats per minute): 99 Rhythm: other (atrial sense paced rhythm) Findings: other (IL intervals 154, QRS 206, QTC 556) Comparison ECG Date: 02/24/2016 Change: no significant change ED Course 1951: The patient was evaluated in room B9. A complete history and physical exam was performed. EMR reviewed. Patient had a cardiac cath done by Dr. Allen on January 20, 2016 which showed no significant coronary artery disease. 2026: Aspirin 324 mg PO 2204: Vital signs are stable. Patients CTA of the chest negative for PE. Troponin negative. CTA of the chest did show cardiomegaly with findings suggestive of congestive heart failure. Patient states he has no history of congestive heart failure. He has not been experiencing any swelling. Pro BNP was added which was 246. Patient was offered observation in the hospital to rule out ACS. Patient states he prefers not to be admitted to the hospital. Repeat troponin will be ordered and if negative, he will be discharged and will follow up with cardiology. If troponin positive, the patient will be admitted to the hospital. Patient is in agreement with this plan. Medical Decision Vital signs are stable. Patients CTA of the chest negative for PE. Troponin negative. CTA of the chest did show cardiomegaly with findings suggestive of congestive heart failure. Patient states he has no history of congestive heart failure. He has not been experiencing any swelling. Pro BNP was added which was 246. Patient was offered observation in the hospital to rule out ACS. Patient states he prefers not to be admitted to the hospital. Repeat troponin will be ordered and if negative, he will be discharged and will follow up with cardiology. If troponin positive, the patient will be admitted to the hospital. Patient is in agreement with this plan. Medication Reconcilliation Current Medication List: was personally reviewed by me Blood Pressure Screening Patient's blood pressure: Elevated blood pressure Blood pressure disposition: Elevated BP felt to be situational Impression Primary Impression: Dyspnea Scribe Attestation The scribe's documentation has been prepared under my direction and personally reviewed by me in its entirety. I confirm that the note above accurately reflects all work, treatment, procedures, and medical decision making performed by me. The chart was completed utilizing [employer] Speech voice recognition software. Grammatical errors, random word insertions, pronoun errors, and incomplete sentences are an occasional consequence of this system due to software limitations, ambient noise, and hardware issues. Any formal questions or concerns about the content, text, or information contained within the body of this dictation should be directly addressed to the physician for clarification. Departure Information Referrals Tj Mace M.D. (PCP) Patient Instructions My [facility] Problem Qualifiers Primary Impression: Dyspnea Dyspnea type: unspecified Qualified Codes: R06.00 - Dyspnea, unspecified
[2017-12-02] MEDS ORDERED: ASPIRIN 81 MG CHEW PO STA (20:27)
[2017-12-02 20:30] VITALS: O2SAT 95
[2017-12-02 20:34] LABS: BASO % 0.1 %; BASO ABS # 0.01 K/uL (0-0.2); EOS % 1.7 %; EOS ABS # 0.12 K/uL (0-0.5); HEMATOCRIT 50.1 % (42-52); HEMOGLOBIN 18.1 g/dL (14.0-18.0); IG# 0.03 K/uL (0.00-0.02); LYMPH % 22.4 %; LYMPH ABS # 1.56 K/uL (1.2-3.4); MEAN CELL VOLUME 79.3 fL (80-100); MEAN CORPUSCULAR HEMOGLOBIN 28.6 pg (25-34); MEAN CORPUSCULAR HGB CONC 36.1 g/dl (32-36); MEAN PLATELET VOLUME 9.9 fL (7.4-10.4); MONO % 7.5 %; MONO ABS # 0.52 K/uL (0.11-0.59); NEUT % 67.9 %; NEUT ABS # 4.71 K/uL (1.4-6.5); PLATELET COUNT 204 K/uL (130-400); RED CELL DISTRIBUTION WIDTH CV 13.1 % (11.5-14.5); RED CELL DISTRIBUTION WIDTH SD 37.2 fL (36.4-46.3); WHITE BLOOD COUNT 6.95 K/uL (4.8-10.8)
[2017-12-02] MEDS ORDERED: OPTIRAY 320 IV PRN (20:45)
[2017-12-02 20:49] LABS: BLOOD UREA NITROGEN 14 mg/dl (7-18); CALCIUM 8.7 mg/dl (8.5-10.1); CARBON DIOXIDE 29 mmol/L (21-32); GLUCOSE 293 mg/dl (70-99)
[2017-12-02 20:53] LABS: POTASSIUM 4.1 mmol/L (3.5-5.1); SODIUM 133 mmol/L (136-145)
--- NOTE | 2017-12-02 20:54 | DIAGNOSTIC IMAGING REPORT ---
SINGLE VIEW CHEST CLINICAL HISTORY: Atypical chest pain. FINDINGS: An AP, portable, upright chest radiograph is compared to study dated 11/17/2017. A 2-lead cardiac pacemaker is unchanged in position and partially obscures the left mid chest. The heart is enlarged. There is pulmonary vascular congestion with evidence of mild interstitial edema. There is bibasilar atelectasis. No large pleural effusion is identified. No pneumothorax is seen. The bony thorax is grossly intact. IMPRESSION: 1. Cardiomegaly and cardiac pacemaker. There is evidence of congestive failure and mild interstitial edema. 2. No airspace consolidation or large pleural effusion is identified. Electronically signed by: Gulshan Zhong M.D. 12/02/2017 8:53 PM Dictated Date/Time: 12/02/2017 8:52 PM
--- NOTE | 2017-12-02 21:20 | DIAGNOSTIC IMAGING REPORT ---
CT ANGIOGRAM OF THE CHEST CLINICAL HISTORY: Dyspnea. COMPARISON STUDY: Chest x-ray dated 12/02/2017. Chest CT dated 09/05/2007. TECHNIQUE: Following the IV administration of 106 cc of Optiray 320, CT angiogram of the chest was performed from the upper abdomen to the thoracic inlet utilizing the pulmonary embolus protocol. Images are reviewed in the axial, sagittal, and coronal planes. 3-D MIPS images are created and assessed. IV contrast was administered without complication. A dose lowering technique was utilized adhering to the principles of ALARA. The examination is modestly degraded by motion artifact. CT DOSE: 831.33 mGy.cm FINDINGS: Thyroid: Imaged portions of the thyroid gland appear enlarged and heterogeneous and attenuation. Thoracic aorta: The thoracic aorta is normal in caliber and demonstrates standard 3-vessel arch anatomy. No dissection is seen. Pulmonary vasculature: The pulmonary trunk is normal in caliber. There are no filling defects identified in main, lobar, or segmental pulmonary branches to suggest pulmonary embolus. Heart: A 2-lead cardiac pacemaker is in place. The heart is enlarged and without pericardial effusion. Lungs and pleural spaces: No airspace consolidation or pleural effusion is identified. Diffuse intralobular septal thickening is identified and there is dependent atelectasis. Mild diffuse bronchial thickening is observed. Scattered tiny calcified granulomas are identified. The trachea and central airways are clear. Mediastinum: There is mediastinal lymphadenopathy. Right peritracheal nodes measure up to 2.4 cm short axis. Prevascular nodes measure up to 2.1 cm in short axis. A subcarinal node measures up to 3.5 cm in short axis. Shara: There is hilar adenopathy. Right hilar nodes measure up to 2.7 cm in short axis, and left hilar nodes measure up to 2.2 cm in short axis. Axillae: There is no axillary lymphadenopathy. Upper abdomen: Cholecystectomy clips are noted. There is a small hiatal hernia. The liver is enlarged and steatotic. The spleen is enlarged, measuring over 15 cm in length. Skeletal structures: No lytic or blastic bony lesions are seen. IMPRESSION: 1. There is no evidence of pulmonary embolus in the main, lobar, or segmental pulmonary arteries. 2. Cardiomegaly and cardiac pacemaker. Findings suggest congestive failure. Clinical correlation will be required. 3. There is bulky mediastinal and hilar adenopathy. This is nonspecific and has significantly increased from 2007, and could be on a reactive basis, represent a lymphoproliferative disorder, or possibly sarcoidosis. Correlation with clinical findings and the patient medical history will be required. Consider pulmonology follow-up. 4. Splenomegaly. 5. Hepatomegaly and hepatic steatosis. 6. There is no airspace consolidation or pleural effusion. Electronically signed by: Gulshan Zhong M.D. 12/02/2017 9:18 PM Dictated Date/Time: 12/02/2017 9:11 PM
[2017-12-02] MEDS ORDERED: ZOLP10TA6 PO (22:34)
[2017-12-02] MEDS ORDERED: OMEP40CA41 PO (22:34)
[2017-12-03 00:28] VITALS: BP 176/105; PULSE 100; O2SAT 97
--- NOTE | 2017-12-03 00:28 | EMERGENCY ROOM VISIT NOTE ---
ED Visit Note First contact with patient: 23:52 This patient was signed out to me at change of shift awaiting results of the second troponin. This value remained negative and unchanged from the first troponin. I reviewed instructions with the patient. I also reviewed the results of his CAT scan again as he had some specific questions. The patient was asked to follow-up with Dr. Sosa who is his machinist helper.
== END 2017-12-03 00:26 | disposition home or self-care (01) ==
LOC: C.EDB 19:31
DX: R06.00 Dyspnea, unspecified (principal); I10 Essential (primary) hypertension; D86.9 Sarcoidosis, unspecified; Z95.0 Presence of cardiac pacemaker; E11.9 Type 2 diabetes mellitus without complications; K21.9 Gastro-esophageal reflux disease without esophagitis; E78.5 Hyperlipidemia, unspecified; E66.9 Obesity, unspecified; Z90.49 Acquired absence of other specified parts of digestive tract; Z83.3 Family history of diabetes mellitus; Z79.4 Long term (current) use of insulin; Z79.84 Long term (current) use of oral hypoglycemic drugs; Z79.899 Other long term (current) drug therapy; Z88.2 Allergy status to sulfonamides; Z88.8 Allergy status to other drugs, medicaments and biological substances

== ENCOUNTER 2017-12-12 09:04 | Emergency (ER) | payer BC ==
[~2017-12-12] VITALS: Ht 182.9 cm; Wt 147.6 kg
[~2017-12-12 09:04] MED LIST changes: +INSDGIPEN SC; +NVLGI/PEN SC; +OMEP40CA41 PO; +ZOLP10TA6 PO
[2017-12-12 09:12] VITALS: TEMP 37; O2SAT 94; Ht 182.9 cm; Wt 147.6 kg
--- NOTE | 2017-12-12 09:45 | EMERGENCY ROOM VISIT NOTE ---
History Report prepared by Sarah: Lior Michele Under the Supervision of: Dr. Paolo Marcus M.D. First contact with patient: 09:35 Chief Complaint: DIARRHEA Stated Complaint: DIARRHEA Nursing Triage Summary: Pt states last night was admitted with c. diff. States diarrhea started at 0600, has had 3-4 episodes. Mild nausea. Denies pain. History of Present Illness The patient is a 42 year old white male with a past medical history of wright esophagus, cellulitis, chest pain, DM2 (diabetes mellitus, type 2), GERD ( gastroesophageal reflux disease), HLD (hyperlipidemia), left bundle branch block (LBBB) on electrocardiogram, obesity, sarcoidosis, second degree AV block , Mobitz type II who presents to the Emergency Room with concerns over intermittent bouts of diarrhea this morning that first onset at 0600, 3.5 hours ago. The patient states that he woke up from sleep this morning with the urge to have a bowel movement, this stool was loose. Since 0600 the patient has had 3 further bowel movements that were "close to watery." He is concerned as his was in the department last night and diagnosed with C. difficile. He has experienced a little bit of nausea but has not vomited. There has not been any blood in the stool. The patient noted that he was actually constipated over the past couple of days. He has not had any recent antibiotic use, and he has not traveled recently. Source of History: patient Onset: 3.5 hours [employer] Position: abdomen Quality: other (Diarrhea) Timing: intermittent Associated Symptoms: + nausea, No vomiting Review of Systems See HPI for pertinent positives and negatives. A total of ten systems were reviewed and were otherwise negative. Past Medical & Surgical Medical Problems: (1) Wright esophagus (2) Cellulitis (3) Chest pain (4) DM2 (diabetes mellitus, type 2) (5) GERD (gastroesophageal reflux disease) (6) HLD (hyperlipidemia) (7) Left bundle branch block (LBBB) on electrocardiogram (8) Obesity (9) Sarcoidosis (10) Second degree AV block, Mobitz type II Surgical Problems: (1) H/O esophagogastroduodenoscopy (2) Hx of tonsillectomy (3) S/P cholecystectomy Family History Diabetes mellitus FHx: gallbladder disease FHx: heart disease Social History Smoking Status: Never Smoker Alcohol Use: none Drug Use: none Marital Status: Housing Status: lives with family Occupation Status: employed Current/Historical Medications Scheduled Insulin Aspart (Novolog Flexpen), 50 UNITS SC TIDM Insulin Glargine (Lantus Solostar), 50 UNITS SC BID Metformin Hcl (Glucophage), 1,000 MG PO BID Omeprazole (Prilosec), 40 MG PO BID Zolpidem Tartrate (Zolpidem Tartrate), 10 MG PO HS Allergies Coded Allergies: Exenatide (Verified Allergy, Unknown, RASH, 11/17/17) Phenol (Verified Allergy, Unknown, RASH, 11/17/17) Sulfa Antibiotics (Verified Allergy, Unknown, HIVES, 11/17/17) Perflutren (Unverified Adverse Reaction, Unknown, BACK PAIN, 11/17/17) Propylene Glycol (Unverified Adverse Reaction, Unknown, BACK PAIN, 11/17/17 ) Statins (Unverified Adverse Reaction, Unknown, ACHE PAIN , 11/17/17) Physical Exam Vital Signs Date Time Temp Pulse Resp B/P (MAP) Pulse Ox O2 Delivery O2 Flow Rate FiO2 12/12/17 11:51 78 19 151/101 Room Air 12/12/17 09:12 37.0 99 18 152/91 94 Room Air Physical Exam GENERAL: Awake, alert, well-appearing, NAD HENT: Normocephalic, atraumatic. EYES: Normal conjunctiva. Sclera non-icteric. NECK: Supple. No nuchal rigidity. FROM. RESPIRATORY: CTAB, no rhonchi, wheezing, crackles CARDIAC: RRR, no MRG, device in L chest ABDOMEN: Obese, Soft, NTND, BS+ MSK: No chest wall TTP, no LE edema NEURO: GCS 15, CN 2-12 intact, moves all 4s on command SKIN: No rash or jaundice noted. Medical Decision & Procedures Laboratory Results Date/Time Source Procedure Growth Status 12/12/17 09:50 Stool C.difficile Toxin B Gene (PCR) - Final No C. difficile toxin B gene detected Complete ED Course 0939: The patient was evaluated in room A3. A complete history and physical exam was performed. 1204: I reevaluated the patient. Discussed results and discharge instructions: He verbalized understanding and agreement. The patient is ready for discharge. Medical Decision The patient is a 42 year old white male with a past medical history of wright esophagus, cellulitis, chest pain, DM2 (diabetes mellitus, type 2), GERD ( gastroesophageal reflux disease), HLD (hyperlipidemia), left bundle branch block (LBBB) on electrocardiogram, obesity, sarcoidosis, second degree AV block , Mobitz type II who presents to the Emergency Room with concerns over intermittent bouts of diarrhea this morning that first onset at 0600, 3.5 hours ago. Differential diagnosis: Etiologies such as metabolic, infection, hypo/hyperglycemia, electrolyte abnormalities, cardiac sources, intracerebral event, toxicologic, neurologic, as well as others were entertained. Patient was seen and evaluated the bedside. Patient to present as the patient is noted that they have had worsening bowel movements 3 this morning that were loose and watery. Of note the patient's was recently admitted for C. difficile colitis. Patient denies any nausea vomiting. Patient denies any blood in the stool. Patient did have a stool sample sent for C. difficile. This was negative. Patient was told to continue good hand hygiene and was discharged home. Patient was given strict follow-up, discharge, and return precautions. All questions were answered. Patient was deemed suitable for outpatient follow-up at this time. Patient agreed with the plan of care and was safely discharged home. Medication Reconcilliation Current Medication List: was personally reviewed by me Blood Pressure Screening Patient's blood pressure: Elevated blood pressure Blood pressure disposition: Referred to PCP Impression Primary Impression: Acute diarrhea Scribe Attestation The scribe's documentation has been prepared under my direction and personally reviewed by me in its entirety. I confirm that the note above accurately reflects all work, treatment, procedures, and medical decision making performed by me. Departure Information Dispostion Home / Self-Care Referrals Tj Mace M.D. (PCP) Patient Instructions Diarrhea, Diet High Fiber, My [facility] [employer] Additional Instructions Please return to the emergency department if you have worsening or recurrent symptoms not amenable to at-home treatment. Please call for a follow-up appointment with her primary care physician. Please take your medications as prescribed. If you have other concerns and/or complaints please feel free to also call your primary care physician's office or return the ED for further evaluation, management, and treatment. Take your medications as prescribed. You have been examined and treated today on an emergency basis only. This is not a substitute for, or an effort to provide, complete comprehensive medical care. It is impossible to recognize and treat all injuries or illnesses in a single emergency department visit. It is therefore important that you follow up closely with [facility], your PCP, and/or your specialist(s). Call as soon as possible for an appointment. Thank you for your time and consideration. I look forward to speaking with you again soon. Please don't hesitate to call us if you have any questions.
[2017-12-12 11:51] VITALS: BP 151/101; PULSE 78
== END 2017-12-12 12:06 | disposition home or self-care (01) ==
LOC: C.EDB 09:05 → C.EDA 12:06
DX: R19.7 Diarrhea, unspecified (principal); K22.70 Barrett's esophagus without dysplasia; K21.9 Gastro-esophageal reflux disease without esophagitis; E78.5 Hyperlipidemia, unspecified; E11.9 Type 2 diabetes mellitus without complications; D86.9 Sarcoidosis, unspecified; Z83.79 Family history of other diseases of the digestive system; Z79.4 Long term (current) use of insulin; Z79.899 Other long term (current) drug therapy; Z88.2 Allergy status to sulfonamides; Z88.8 Allergy status to other drugs, medicaments and biological substances; Z91.048 Other nonmedicinal substance allergy status

== ENCOUNTER 2017-12-31 00:38 | Emergency (ER) | payer BC ==
[~2017-12-31] VITALS: Ht 182.9 cm; Wt 143.2 kg
[2017-12-31 00:40] VITALS: TEMP 37; Ht 182.9 cm; Wt 143.2 kg
--- NOTE | 2017-12-31 01:07 | EMERGENCY ROOM VISIT NOTE ---
History Report prepared by Sarah: Iza Cross Under the Supervision of: Dr. Mylene Hopkins D.O. First contact with patient: 00:57 Chief Complaint: CARDIAC ASSESSMENT Stated Complaint: NAUSEA, UNCOMFORTABLE FEELING IN CHEST History of Present Illness The patient is a 42 year old male who presents to the Emergency Room with complaints of intermittent heaviness sensation in his chest since 0700 yesterday morning. He reports back pain as well. He has a history of CHF. He states that he does not feel right. He had an echocardiogram December 22, 2017, which showed an EF of 32%. He also reports nausea that began at the same time as the chest fullness yesterday morning. He reports having these symptoms six times a day. He states that he has taken Zofran. He took baby Aspirin at 1600 yesterday, though no relief. He usually takes Ambien at night, though he did not take it tonight. He states that he has a pacemaker and he was catheterized in January 2016. He states that he is expected to have another stress test next week. He denies any recent shortness of breath. He states that he has felt better since his last visit to the ED. He notes that he felt "shitty" after finding out he has CHF. He notes that his chest pain may be related to anxiety. He reports a recent 15 pound weight loss. He denies any cough. He notes the pain is worsened when he lies down. He denies any clutching pain in his chest. He has a history Hardy's esophagus and acid reflux. Source of History: patient Onset: 0700 yesterday morning Position: chest Quality: other (heaviness) Timing: intermittent Associated Symptoms: + nausea, + back pain, No SOB Note: Notes recent weight loss and anxiety. Review of Systems See HPI for pertinent positives & negatives. A total of 10 systems reviewed and were otherwise negative. Past Medical & Surgical Medical Problems: (1) Allergic reaction caused by a drug (2) Hardy esophagus (3) Cellulitis (4) Chest pain (5) CHF (congestive heart failure) (6) DM2 (diabetes mellitus, type 2) (7) GERD (gastroesophageal reflux disease) (8) HLD (hyperlipidemia) (9) Left bundle branch block (LBBB) on electrocardiogram (10) Obesity (11) Pacemaker (12) Rash (13) Sarcoidosis (14) Second degree AV block, Mobitz type II Surgical Problems: (1) H/O esophagogastroduodenoscopy (2) Hx of tonsillectomy (3) S/P cholecystectomy Family History Diabetes mellitus FHx: gallbladder disease FHx: heart disease Social History Smoking Status: Never Smoker Alcohol Use: none Drug Use: none Marital Status: Housing Status: lives with family Occupation Status: employed Current/Historical Medications Scheduled Aspirin (Aspirin Ec), 81 MG PO DAILY Insulin Aspart (Novolog Flexpen), 50 UNITS SC TIDM Insulin Glargine (Lantus Solostar), 50 UNITS SC BID Metformin Hcl (Glucophage), 1,000 MG PO BID Omeprazole (Prilosec), 40 MG PO BID Zolpidem Tartrate (Zolpidem Tartrate), 10 MG PO HS Allergies Coded Allergies: Exenatide (Verified Allergy, Unknown, RASH, 11/17/17) Phenol (Verified Allergy, Unknown, RASH, 11/17/17) Sulfa Antibiotics (Verified Allergy, Unknown, HIVES, 11/17/17) Perflutren (Unverified Adverse Reaction, Unknown, BACK PAIN, 11/17/17) Propylene Glycol (Unverified Adverse Reaction, Unknown, BACK PAIN, 11/17/17 ) Statins (Unverified Adverse Reaction, Unknown, ACHE PAIN , 11/17/17) Physical Exam Vital Signs Date Time Temp Pulse Resp B/P (MAP) Pulse Ox O2 Delivery O2 Flow Rate FiO2 12/31/17 03:30 92 20 130/72 95 12/31/17 01:38 92 18 133/77 96 Room Air 12/31/17 00:58 98 12/31/17 00:40 37.0 93 20 153/111 95 Room Air Physical Exam HEENT: Head - normocephalic and atraumatic Pupils are equal, round, and reactive to light. Extraocular eye muscles are intact, and sclera are anicteric. Nose - moist nasal mucosa without discharge. Mouth - moist buccal mucosa. Oropharynx is nonerythematous and there is no tonsillar exudate or edema noted. Neck: Supple; no JVD, nuchal rigidity, cervical lymphadenopathy, or auscultated bruits. Heart: Regular rate and rhythm. There is a normal S1 and S2 with no murmurs, clicks, or gallops appreciated. Lungs: Clear to auscultation bilaterally with no wheezes, rales, or rhonchi. Abdomen: Soft, completely nontender, nondistended, with good bowel sounds. There are no palpable pulsatile masses or hepatosplenomegaly. There is no guarding, rigidity, or rebound noted. Extremities: No evidence of cyanosis, clubbing, or edema. There are easily palpable peripheral pulses. Skin: warm and dry with good turgor and no rashes. Medical Decision & Procedures Laboratory Results 12/31/17 00:55 Red Blood Count 6.29, Mean Corpuscular Volume 78.1, Mean Corpuscular Hemoglobin 28.6, Mean Corpuscular Hemoglobin Concent 36.7, Mean Platelet Volume 9.4, Neutrophils (%) (Auto) 65.3, Lymphocytes (%) (Auto) 23.6, Monocytes (%) (Auto) 9.0, Eosinophils (%) (Auto) 1.7, Basophils (%) (Auto) 0.1, Neutrophils # (Auto) 5.09, Lymphocytes # (Auto) 1.84, Monocytes # (Auto) 0.70, Eosinophils # (Auto) 0.13, Basophils # (Auto) 0.01 12/31/17 00:55 Test 12/31/17 00:55 12/31/17 01:11 White Blood Count 7.79 K/uL (4.8-10.8) Red Blood Count 6.29 M/uL (4.7-6.1) Hemoglobin 18.0 g/dL (14.0-18.0) Hematocrit 49.1 % (42-52) Mean Corpuscular Volume 78.1 fL (80-100) Mean Corpuscular Hemoglobin 28.6 pg (25-34) Mean Corpuscular Hemoglobin Concent 36.7 g/dl (32-36) Platelet Count 214 K/uL (130-400) Mean Platelet Volume 9.4 fL (7.4-10.4) Neutrophils (%) (Auto) 65.3 % Lymphocytes (%) (Auto) 23.6 % Monocytes (%) (Auto) 9.0 % Eosinophils (%) (Auto) 1.7 % Basophils (%) (Auto) 0.1 % Neutrophils # (Auto) 5.09 K/uL (1.4-6.5) Lymphocytes # (Auto) 1.84 K/uL (1.2-3.4) Monocytes # (Auto) 0.70 K/uL (0.11-0.59) Eosinophils # (Auto) 0.13 K/uL (0-0.5) Basophils # (Auto) 0.01 K/uL (0-0.2) RDW Standard Deviation 36.8 fL (36.4-46.3) RDW Coefficient of Variation 13.1 % (11.5-14.5) Immature Granulocyte % (Auto) 0.3 % Immature Granulocyte # (Auto) 0.02 K/uL (0.00-0.02) Anion Gap 6.0 mmol/L (3-11) Est Creatinine Clear Calc Drug Dose 135.8 ml/min Estimated GFR () 103.1 Estimated GFR (Non- 89.0 BUN/Creatinine Ratio 14.5 (10-20) Calcium Level 9.3 mg/dl (8.5-10.1) Pro-B-Type Natriuretic Peptide 268 pg/ml (0-450) Bedside Troponin I < 0.030 ng/ml (0-0.045) Laboratory results per my review. Medications Administered Medications (Trade) Dose Ordered Sig/Jhon Route Start Time Stop Time Status Last Admin Dose Admin Ondansetron HCl (Zofran Inj) 4 mg NOW STAT IV 12/31/17 01:46 12/31/17 01:47 DC 12/31/17 02:41 4 MG Al Hydroxide/Mg Hydroxide (Maalox Susp) 30 ml NOW STAT PO 12/31/17 01:46 12/31/17 01:47 DC 12/31/17 02:41 30 ML Procedure 0146: Ordered Maalox 30 ml PO, Lidocaine 10 ml PO, and Zofran 4 mg IV ECG Per My Interpretation Indication: chest pain Rate (beats per minute): 100 Rhythm: other (AV-paced rhythm ) Findings: nonspecific-ST abn, no acute ischemic change, no ectopy ED Course 0100: Past medical records reviewed. The patient was evaluated in room B5. A complete history and physical exam was performed. IV lock was established. Laboratory studies were drawn as above. A 12-lead EKG was obtained. 0146: The patient began to complain of heartburn and nausea. I ordered Maalox 30 ml PO, Lidocaine 10 ml PO, and Zofran 4 mg IV 0254: I reassessed the patient at this time. I ordered a GI cocktail, though he only wanted the Maalox portion. He states that this instantly relieved his symptoms in his chest. I discussed the results and treatment plan with the patient. I answered all pertaining questions that he had. He expressed understanding and verbalized agreement. The patient will be discharged home. Medical Decision The patient is a 42 year old male who presents to the ED with chest heaviness. Differential diagnosis includes cardiac ischemia, ACS, anxiety, and worsening heart failure. Lab results showed: BNP 268. POC Troponin <0.030. Glucose 212. Normal renal function. Stable H&H. Normal WBC. \\\\This is a 42-year-old male patient with a who was recently diagnosed with congestive heart failure. He presents to the emergency department with some substernal chest discomfort and epigastric pain. He admits that he has become quite anxious with regards to symptoms in his chest after recently being diagnosed with heart failure. I explained to the patient that he has a normal-appearing paced cardiac rhythm and a negative troponin. The patient is scheduled to have a cardiac stress test next week and then Dr. Sosa plans to arrange for an update to his pacemaker. The patient was told return to the emergency department if he had any worsening symptoms. Medication Reconcilliation Current Medication List: was personally reviewed by me Blood Pressure Screening Patient's blood pressure: Elevated blood pressure Blood pressure disposition: Elevated BP felt to be situational Impression Primary Impression: Substernal chest pain Additional Impression: Epigastric pain Scribe Attestation The scribe's documentation has been prepared under my direction and personally reviewed by me in its entirety. I confirm that the note above accurately reflects all work, treatment, procedures, and medical decision making performed by me. Departure Information Dispostion Home / Self-Care Referrals Tj Mace M.D. (PCP) Forms IMPORTANT VISIT INFORMATION Patient Instructions ED Epigastric Pain [facility], GERD, [facility] Additional Instructions Rest. Take blood sugar meds. Follow up with your stress test next week Problem Qualifiers
[2017-12-31 01:20] LABS: BASO % 0.1 %; BASO ABS # 0.01 K/uL (0-0.2); EOS % 1.7 %; EOS ABS # 0.13 K/uL (0-0.5); HEMATOCRIT 49.1 % (42-52); IG# 0.02 K/uL (0.00-0.02); LYMPH % 23.6 %; LYMPH ABS # 1.84 K/uL (1.2-3.4); MEAN CELL VOLUME 78.1 fL (80-100); MEAN CORPUSCULAR HEMOGLOBIN 28.6 pg (25-34); MEAN CORPUSCULAR HGB CONC 36.7 g/dl (32-36); MEAN PLATELET VOLUME 9.4 fL (7.4-10.4); NEUT % 65.3 %; NEUT ABS # 5.09 K/uL (1.4-6.5); PLATELET COUNT 214 K/uL (130-400); RED CELL DISTRIBUTION WIDTH CV 13.1 % (11.5-14.5); RED CELL DISTRIBUTION WIDTH SD 36.8 fL (36.4-46.3); WHITE BLOOD COUNT 7.79 K/uL (4.8-10.8)
[2017-12-31 01:28] LABS: CALCIUM 9.3 mg/dl (8.5-10.1); CREATININE 1.02 mg/dl (0.60-1.40); POTASSIUM 3.7 mmol/L (3.5-5.1)
[2017-12-31] MEDS ORDERED: LIDOCAINE HCL 2% VISC SOLN 20 ML UDC PO STA (01:46)
[2017-12-31] MEDS ORDERED: ALUMINUM/MAGNESIUM SUSP 30 ML UDC PO STA (01:46)
[2017-12-31] MEDS ORDERED: ONDANSETRON INJ 2 MG/ML 2 ML VIAL IV STA (01:46)
[2017-12-31] MEDS ORDERED: ASPI81TA28 PO (02:00)
[2017-12-31 03:30] VITALS: BP 130/72; PULSE 92; O2SAT 95
== END 2017-12-31 03:30 | disposition home or self-care (01) ==
LOC: C.EDB 00:40
DX: R07.2 Precordial pain (principal); R10.13 Epigastric pain; R11.0 Nausea; K21.9 Gastro-esophageal reflux disease without esophagitis; I50.9 Heart failure, unspecified; K22.70 Barrett's esophagus without dysplasia; E11.9 Type 2 diabetes mellitus without complications; Z79.4 Long term (current) use of insulin; E66.9 Obesity, unspecified; I44.7 Left bundle-branch block, unspecified; I44.1 Atrioventricular block, second degree; Z95.0 Presence of cardiac pacemaker; Z79.82 Long term (current) use of aspirin; Z82.49 Family history of ischemic heart disease and other diseases of the circulatory system; Z88.8 Allergy status to other drugs, medicaments and biological substances; Z88.2 Allergy status to sulfonamides; Z91.041 Radiographic dye allergy status

== ENCOUNTER 2018-01-04 21:58 | Emergency (ER) | payer BC ==
[~2018-01-04] VITALS: Ht 182.9 cm; Wt 143.6 kg
[~2018-01-04 21:58] MED LIST changes: +ASPI81TA28 PO
[2018-01-04 22:11] VITALS: TEMP 36.8; Ht 182.9 cm; Wt 143.6 kg
[2018-01-04] MEDS ORDERED: ONDANSETRON INJ 2 MG/ML 2 ML VIAL IV STA (22:25)
[2018-01-04] MEDS ORDERED: ALUMINUM/MAGNESIUM SUSP 30 ML UDC PO STA (22:25)
--- NOTE | 2018-01-04 22:35 | EMERGENCY ROOM VISIT NOTE ---
History Report prepared by Sarah: Iza Cross Under the Supervision of: Dr. Robert Mitchell M.D. First contact with patient: 22:19 Chief Complaint: CARDIAC ASSESSMENT Stated Complaint: NAUSEA,SWEATING, L ARM NUMBNESS History of Present Illness The patient is a 42 year old male who presents to the Emergency Room with complaints of persistent epigastric abdominal pain since this afternoon. He was recently seen in the ED for similar symptoms. He notes the pain is similar to his previous symptoms. He has acid reflux. He takes Prilosec twice a day. He has a history of DM. He denies any fever, chest pain, or cough. He reports nausea for one month. He has a history of CHF. He recently had an echocardiogram and had 32% EF. He states he recently had a stress test today, though is pacemaker shut down and his blood pressure dropped. He notes he felt so lightheaded he nearly passed out. He reports current lightheadedness and arm numbness. He reports anxiety. He denies any shortness of breath. Source of History: patient Onset: since this afternoon Position: abdomen (epigastric) Timing: other (persistent) Associated Symptoms: + nausea, + numbness (arm), No fevers, No cough, No chest pain, No SOB Note: Notes lightheadedness, anxiety, and near-syncope. Review of Systems See HPI for pertinent positives & negatives. A total of 10 systems reviewed and were otherwise negative. Past Medical & Surgical Medical Problems: (1) Allergic reaction caused by a drug (2) Hardy esophagus (3) Cellulitis (4) Chest pain (5) CHF (congestive heart failure) (6) DM2 (diabetes mellitus, type 2) (7) GERD (gastroesophageal reflux disease) (8) HLD (hyperlipidemia) (9) Left bundle branch block (LBBB) on electrocardiogram (10) Obesity (11) Pacemaker (12) Rash (13) Sarcoidosis (14) Second degree AV block, Mobitz type II Surgical Problems: (1) H/O esophagogastroduodenoscopy (2) Hx of tonsillectomy (3) S/P cholecystectomy Old medical records were reviewed. Nurse's notes were reviewed and I agree with. Family History Diabetes mellitus FHx: gallbladder disease FHx: heart disease Social History Smoking Status: Never Smoker Alcohol Use: none Drug Use: none Marital Status: Housing Status: lives with family Occupation Status: employed Current/Historical Medications Scheduled Aspirin (Aspirin Ec), 81 MG PO DAILY Insulin Aspart (Novolog Flexpen), 50 UNITS SC TIDM Insulin Glargine (Lantus Solostar), 50 UNITS SC BID Metformin Hcl (Glucophage), 1,000 MG PO BID Omeprazole (Prilosec), 40 MG PO BID Zolpidem Tartrate (Zolpidem Tartrate), 10 MG PO HS Allergies Coded Allergies: Exenatide (Verified Allergy, Unknown, RASH, 11/17/17) Phenol (Verified Allergy, Unknown, RASH, 11/17/17) Sulfa Antibiotics (Verified Allergy, Unknown, HIVES, 11/17/17) Perflutren (Unverified Adverse Reaction, Unknown, BACK PAIN, 11/17/17) Propylene Glycol (Unverified Adverse Reaction, Unknown, BACK PAIN, 11/17/17 ) Statins (Unverified Adverse Reaction, Unknown, ACHE PAIN , 11/17/17) Physical Exam Vital Signs Date Time Temp Pulse Resp B/P (MAP) Pulse Ox O2 Delivery O2 Flow Rate FiO2 01/05/18 00:32 86 20 165/86 96 01/04/18 23:38 87 16 150/86 96 Room Air 01/04/18 22:26 97 01/04/18 22:24 96 Room Air 01/04/18 22:11 36.8 93 19 161/98 96 Room Air Physical Exam General: Non-ill appearing middle-aged male in no acute distress. HEENT: Normal cephalic atraumatic. Pupils are equal round and reactive to light. Extraocular movements are intact. Oropharynx is pink with moist mucous membranes. No swelling of the mouth lips or tongue. Neck: Supple with a midline trachea. No meningeal signs or stiffness, no JVD or bruits. No Stridor. Chest: Clear to auscultation bilaterally. No wheezes or rhonchi. No increased work of breathing. Pacemaker in left chest. Heart: regular rate and rhythm. Abdomen: Soft nontender, nondistended without rebound guarding or rigidity. Extremities: No cyanosis clubbing or edema. No calf tenderness or assymetry Spine/Back. Non tender to palpation. No CVA tenderness Skin: Good turgor without rashes. Neurologic exam: Cranial nerves two through 12 are intact. Motor and sensation are intact and symmetrical throughout. Medical Decision & Procedures ER Provider Diagnostic Interpretation: Radiology results as stated below per my review and radiologist interpretation: SINGLE VIEW CHEST CLINICAL HISTORY: Atypical chest pain. FINDINGS: An AP, portable, upright chest radiograph is compared to chest x-ray and chest CT dated 12/02/2017. The examination is degraded by portable technique and apical lordotic positioning. A 2-lead cardiac pacemaker is unchanged in position and partially obscures the left upper chest. The heart is enlarged. The pulmonary vasculature is noncongested. The lungs and pleural spaces are clear. No pneumothorax is seen. The bony thorax is grossly intact. IMPRESSION: 1. Cardiomegaly and cardiac pacemaker. There is no radiographic evidence of congestive failure. 2. No airspace consolidation or large pleural effusion is identified. Electronically signed by: Gulshan Zhong M.D. 01/04/2018 11:18 PM Dictated Date/Time: 01/04/2018 11:17 PM Laboratory Results 01/04/18 22:41 Red Blood Count 6.20, Mean Corpuscular Volume 78.1, Mean Corpuscular Hemoglobin 28.2, Mean Corpuscular Hemoglobin Concent 36.2, Mean Platelet Volume 9.6 01/04/18 22:33 Test 01/04/18 22:33 01/04/18 22:41 01/04/18 22:42 Anion Gap 9.0 mmol/L (3-11) Est Creatinine Clear Calc Drug Dose 134.6 ml/min Estimated GFR () 101.9 Estimated GFR (Non- 87.9 BUN/Creatinine Ratio 12.9 (10-20) Calcium Level 8.9 mg/dl (8.5-10.1) Total Bilirubin 1.1 mg/dl (0.2-1) Direct Bilirubin 0.2 mg/dl (0-0.2) Aspartate Amino Transf (AST/SGOT) 19 U/L (15-37) Alanine Aminotransferase (ALT/SGPT) 35 U/L (12-78) Alkaline Phosphatase 139 U/L (45-117) Pro-B-Type Natriuretic Peptide 575 pg/ml (0-450) Total Protein 7.9 gm/dl (6.4-8.2) Albumin 4.0 gm/dl (3.4-5.0) Lipase 141 U/L (73-393) White Blood Count 7.01 K/uL (4.8-10.8) Red Blood Count 6.20 M/uL (4.7-6.1) Hemoglobin 17.5 g/dL (14.0-18.0) Hematocrit 48.4 % (42-52) Mean Corpuscular Volume 78.1 fL (80-100) Mean Corpuscular Hemoglobin 28.2 pg (25-34) Mean Corpuscular Hemoglobin Concent 36.2 g/dl (32-36) Platelet Count 228 K/uL (130-400) Mean Platelet Volume 9.6 fL (7.4-10.4) RDW Standard Deviation 36.8 fL (36.4-46.3) RDW Coefficient of Variation 13.1 % (11.5-14.5) Neutrophils % (Manual) 62.5 % Lymphocytes % (Manual) 11.6 % Monocytes % (Manual) 8.0 % Eosinophils % (Manual) 3.6 % Neutrophils # (Manual) 4.38 K/uL (1.4-6.5) Total Absolute Neutrophils 4.38 K/uL (1.4-6.5) Lymphocytes # (Manual) 0.81 K/uL (1.2-3.4) Total Absolute Lymphocytes 1.82 K/uL (1.2-3.4) Monocytes # (Manual) 0.56 K/uL (0.11-0.59) Eosinophils # (Manual) 0.25 K/uL (0-0.5) Percent Large Granular Lymphocytes 14.3 % Absolute Large Granular Lymphocytes 1.00 K/uL Red Blood Cell Morphology Unremarkable Bedside Troponin I < 0.030 ng/ml (0-0.045) Laboratory studies as stated above per my review. Medications Administered Medications (Trade) Dose Ordered Sig/Jhon Route Start Time Stop Time Status Last Admin Dose Admin Ondansetron HCl (Zofran Inj) 4 mg NOW STAT IV 01/04/18 22:25 01/04/18 22:27 DC 01/04/18 22:45 4 MG Al Hydroxide/Mg Hydroxide (Maalox Susp) 30 ml NOW STAT PO 01/04/18 22:25 01/04/18 22:27 DC 01/04/18 22:45 30 ML ECG Per My Interpretation Indication: abdominal pain Rate (beats per minute): 94 Rhythm: other (ventricular paced ) Findings: no acute ischemic change, no ectopy Change: no significant change (when compared to 12/31/2017) ED Course 2220: Past medical records reviewed. The patient was evaluated in room C3, and a complete history and physical examination were performed. 2225: Ordered Maalox 30 ml PO and Zofran 4 mg IV 0031: I reassessed the patient at this time. He is feeling better and resting comfortably. I discussed the results and treatment plan with the patient. I answered all pertaining questions that he had. He expressed understanding and verbalized agreement. The patient will be discharged home. Medical Decision Differentials include, but are not limited to: ACS, arrhythmia anxiety, GERD, and electrolyte or metabolic abnormality. This patient comes in as described above. He has some epigastric discomfort and nausea. He has had this frequently lately. He does have anxiety and has these symptoms when he has anxiety. He has been seen here several times for this . he had a stress test done yesterday and today however he was unable to complete it due to his pacemaker not being able to achieve adequate heart rate. He had a negative cath done 2 years ago without any blockages. He was given a GI cocktail and Zofran is feeling better. EKG shows a paced rhythm. troponin is normal .chest x-ray shows cardiomegaly without congestive heart failure changes. he has no acute electrolyte or metabolic abnormality. We did interrogate his pacemaker and there is no issues with this. 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 Medication Reconcilliation Current Medication List: was personally reviewed by me Blood Pressure Screening Patient's blood pressure: Elevated blood pressure Blood pressure disposition: Referred to PCP Impression Primary Impression: Epigastric abdominal pain Additional Impression: Anxiety Scribe Attestation The scribe's documentation has been prepared under my direction and personally reviewed by me in its entirety. I confirm that the note above accurately reflects all work, treatment, procedures, and medical decision making performed by me. Departure Information Dispostion Home / Self-Care Referrals Oesterling, Tj,M.D. (PCP) Forms IMPORTANT VISIT INFORMATION Patient Instructions My [facility] Additional Instructions Rest. Use Maalox if needed Return if: Worsening of symptoms, increasing pain, any new problems or concerns Follow-up with your doctor tomorrow for recheck Problem Qualifiers
[2018-01-04 23:12] LABS: CALCIUM 8.9 mg/dl (8.5-10.1); CREATININE 1.03 mg/dl (0.60-1.40); POTASSIUM 3.9 mmol/L (3.5-5.1)
[2018-01-04 23:17] LABS: TOTAL PROTEIN 7.9 gm/dl (6.4-8.2)
--- NOTE | 2018-01-04 23:19 | DIAGNOSTIC IMAGING REPORT ---
SINGLE VIEW CHEST CLINICAL HISTORY: Atypical chest pain. FINDINGS: An AP, portable, upright chest radiograph is compared to chest x-ray and chest CT dated 12/02/2017. The examination is degraded by portable technique and apical lordotic positioning. A 2-lead cardiac pacemaker is unchanged in position and partially obscures the left upper chest. The heart is enlarged. The pulmonary vasculature is noncongested. The lungs and pleural spaces are clear. No pneumothorax is seen. The bony thorax is grossly intact. IMPRESSION: 1. Cardiomegaly and cardiac pacemaker. There is no radiographic evidence of congestive failure. 2. No airspace consolidation or large pleural effusion is identified. Electronically signed by: Gulshan Zhong M.D. 01/04/2018 11:18 PM Dictated Date/Time: 01/04/2018 11:17 PM
[2018-01-04 23:24] LABS: HEMATOCRIT 48.4 % (42-52); HEMOGLOBIN 17.5 g/dL (14.0-18.0); MEAN CELL VOLUME 78.1 fL (80-100); MEAN CORPUSCULAR HEMOGLOBIN 28.2 pg (25-34); MEAN CORPUSCULAR HGB CONC 36.2 g/dl (32-36); MEAN PLATELET VOLUME 9.6 fL (7.4-10.4); PLATELET COUNT 228 K/uL (130-400); RED CELL DISTRIBUTION WIDTH CV 13.1 % (11.5-14.5); RED CELL DISTRIBUTION WIDTH SD 36.8 fL (36.4-46.3); WHITE BLOOD COUNT 7.01 K/uL (4.8-10.8)
[2018-01-05 00:32] VITALS: BP 165/86; PULSE 86; O2SAT 96
== END 2018-01-05 00:40 | disposition home or self-care (01) ==
LOC: C.EDB 22:00 → C.EDC 01-05 00:40
DX: R10.13 Epigastric pain (principal); F41.9 Anxiety disorder, unspecified; R03.0 Elevated blood-pressure reading, without diagnosis of hypertension; R11.0 Nausea; K21.9 Gastro-esophageal reflux disease without esophagitis; E11.9 Type 2 diabetes mellitus without complications; I50.9 Heart failure, unspecified; E78.5 Hyperlipidemia, unspecified; Z95.0 Presence of cardiac pacemaker; Z79.899 Other long term (current) drug therapy; Z79.82 Long term (current) use of aspirin; Z79.4 Long term (current) use of insulin; Z79.84 Long term (current) use of oral hypoglycemic drugs; Z88.2 Allergy status to sulfonamides; Z91.041 Radiographic dye allergy status; Z91.048 Other nonmedicinal substance allergy status; Z82.49 Family history of ischemic heart disease and other diseases of the circulatory system

== ENCOUNTER 2018-01-17 03:07 | Emergency (ER) | payer BC ==
[~2018-01-17] VITALS: Ht 182.9 cm; Wt 142.6 kg
[2018-01-17 03:11] VITALS: TEMP 36.5; Ht 182.9 cm; Wt 142.6 kg
[2018-01-17] MEDS ORDERED: ALUMINUM/MAGNESIUM SUSP 30 ML UDC PO STA (03:41)
[2018-01-17] MEDS ORDERED: LOSA1TAB PO (04:04)
[2018-01-17 04:10] LABS: BASO % 0.3 %; BASO ABS # 0.02 K/uL (0-0.2); EOS % 1.7 %; EOS ABS # 0.11 K/uL (0-0.5); HEMATOCRIT 48.7 % (42-52); HEMOGLOBIN 17.9 g/dL (14.0-18.0); IG# 0.01 K/uL (0.00-0.02); LYMPH ABS # 1.44 K/uL (1.2-3.4); MEAN CELL VOLUME 77.4 fL (80-100); MEAN CORPUSCULAR HEMOGLOBIN 28.5 pg (25-34); MEAN CORPUSCULAR HGB CONC 36.8 g/dl (32-36); MEAN PLATELET VOLUME 9.2 fL (7.4-10.4); MONO % 8.8 %; MONO ABS # 0.58 K/uL (0.11-0.59); PLATELET COUNT 224 K/uL (130-400); RED CELL DISTRIBUTION WIDTH CV 12.9 % (11.5-14.5); RED CELL DISTRIBUTION WIDTH SD 36.3 fL (36.4-46.3); WHITE BLOOD COUNT 6.56 K/uL (4.8-10.8)
[2018-01-17 04:30] LABS: ALBUMIN 3.8 gm/dl (3.4-5.0); ALT/SGPT 37 U/L (12-78); AST/SGOT 20 U/L (15-37); BLOOD UREA NITROGEN 9 mg/dl (7-18); CALCIUM 8.7 mg/dl (8.5-10.1); CARBON DIOXIDE 26 mmol/L (21-32); CREATININE 0.93 mg/dl (0.60-1.40); GLUCOSE 183 mg/dl (70-99); LIPASE 111 U/L (73-393); POTASSIUM 3.8 mmol/L (3.5-5.1); SODIUM 137 mmol/L (136-145)
[2018-01-17 04:35] LABS: ALKALINE PHOSPHATASE 138 U/L (45-117); TOTAL PROTEIN 7.9 gm/dl (6.4-8.2)
[2018-01-17] MEDS ORDERED: OPTIRAY 320 IV PRN (05:30)
--- NOTE | 2018-01-17 06:30 | EMERGENCY ROOM VISIT NOTE ---
History First contact with patient: 03:19 Chief Complaint: ABDOMINAL PAIN Stated Complaint: SPASMS AND MILD PAIN JUST BELOW CHEST Nursing Triage Summary: pt c/o epigastric "spasms" that began tuesday, worse last night, and continued this morning. states "positioning" makes pain worse. pt associates nausea and constipation. denies diarrhea, vomiting, urinary symptoms. pt with cardiac hx, has pacemaker with schedule to replace it on . upon assessment, pt alert and oriented x4. breathing WNL, lungs clear, diminished in bases. abd rounded, bowel sounds WNL, abd soft, nontender. pt rates pain 2/10. History of Present Illness The patient is a 42 year old male who presents to the Emergency Room with complaints of epigastric abdominal pain. The patient reports he has been here multiple times within the past few months for some similar complaints. He states that he is having spasms in his epigastric region. He rates the discomfort a 3/10. His symptoms started 3 days ago but were initially intermittent. They have become worse tonight. He does report a history of Hardy's esophagus and acid reflux and takes Prilosec, 40 mg twice daily for this. He additionally takes Maalox as needed for symptoms, but has not taken it recently. He does report a cardiac history and has a pacemaker, which is scheduled to be replaced in 2 weeks. He has had an echocardiogram and stress test recently. He denies nausea/vomiting, constipation or diarrhea. He denies urinary symptoms. Review of Systems A complete 10 point review of systems was reviewed with the patient with pertinent positives and negatives as per history of present illness. All else were negative. Past Medical/Surgical History Medical Problems: (1) Allergic reaction caused by a drug (2) Hardy esophagus (3) Cellulitis (4) Chest pain (5) CHF (congestive heart failure) (6) DM2 (diabetes mellitus, type 2) (7) GERD (gastroesophageal reflux disease) (8) HLD (hyperlipidemia) (9) Left bundle branch block (LBBB) on electrocardiogram (10) Obesity (11) Pacemaker (12) Rash (13) Sarcoidosis (14) Second degree AV block, Mobitz type II Surgical Problems: (1) H/O esophagogastroduodenoscopy (2) Hx of tonsillectomy (3) S/P cholecystectomy Family History Diabetes mellitus FHx: gallbladder disease FHx: heart disease Social History Smoking Status: Never Smoker Alcohol Use: none Drug Use: none Marital Status: Housing Status: lives with family Occupation Status: employed Current/Historical Medications Scheduled Aspirin (Aspirin Ec), 81 MG PO QPM Insulin Aspart (Novolog Flexpen), 50 UNITS SC TIDM Insulin Glargine (Lantus Solostar), 50 UNITS SC BID Losartan Potassium (Cozaar), 25 MG PO DAILY Metformin Hcl (Glucophage), 1,000 MG PO BID Omeprazole (Prilosec), 40 MG PO BID Zolpidem Tartrate (Zolpidem Tartrate), 10 MG PO HS Scheduled PRN Aluminum/Magnesium/Simeth (Maalox Max Susp), 1 DOSE PO TID PRN for HEARTBURN Physical Exam Vital Signs Date Time Temp Pulse Resp B/P (MAP) Pulse Ox O2 Delivery O2 Flow Rate FiO2 01/17/18 06:54 89 18 150/86 97 01/17/18 06:36 89 18 150/86 97 Room Air 01/17/18 04:44 85 16 140/81 96 Room Air 01/17/18 03:11 36.5 90 20 160/94 95 Room Air Physical Exam VITALS: Vitals are noted on the nurse's note and reviewed by myself. Vital signs stable. GENERAL: This is a 42-year-old male, in no acute distress, nondiaphoretic, well- developed well-nourished. SKIN: The skin was without rashes. MOUTH: Mucous membranes moist. HEART: Regular rate and rhythm without murmurs gallops or rubs. LUNGS: Clear to auscultation bilaterally without wheezes, rales or rhonchi. ABDOMEN: Positive bowel sounds x 4. Soft, mild epigastric tenderness to palpation. No guarding or rebound tenderness. NEURO: Patient was alert and oriented to person place and time. Medical Decision & Procedures ER Provider Diagnostic Interpretation: CT ABDOMEN & PELVIS With Contrast: COMPARISON: CT abdomen and pelvis 07/26/2010 IMPRESSION: Grossly stable right greater than left perinephric reticulation which may reflect chronic renal disease. No clear CT evidence of pyelonephritis, however, correlate clinically. Diverticulosis without diverticulitis. No free fluid, free air, small bowel obstruction, acute appendicitis, hydroureteronephrosis, or biliary ductal dilatation. Mild diffuse soft tissue edema. INCIDENTAL FINDINGS: Possible small sliding hiatus hernia. Stable 4.4 mm noncalcified right lower lobe pulmonary nodule. Stable partially visualized posterior mediastinal lymph nodes or other soft tissue density. Prior cholecystectomy. Small fat-containing umbilical and inguinal hernias. Atherosclerosis without abdominal aortic aneurysm. Radiologist: Jesus Dempsey M.D. Laboratory Results 01/17/18 03:55 Red Blood Count 6.29, Mean Corpuscular Volume 77.4, Mean Corpuscular Hemoglobin 28.5, Mean Corpuscular Hemoglobin Concent 36.8, Mean Platelet Volume 9.2, Neutrophils (%) (Auto) 67.0, Lymphocytes (%) (Auto) 22.0, Monocytes (%) (Auto) 8.8, Eosinophils (%) (Auto) 1.7, Basophils (%) (Auto) 0.3, Neutrophils # (Auto) 4.40, Lymphocytes # (Auto) 1.44, Monocytes # (Auto) 0.58, Eosinophils # (Auto) 0.11, Basophils # (Auto) 0.02 01/17/18 03:55 Test 01/17/18 03:55 White Blood Count 6.56 K/uL (4.8-10.8) Red Blood Count 6.29 M/uL (4.7-6.1) Hemoglobin 17.9 g/dL (14.0-18.0) Hematocrit 48.7 % (42-52) Mean Corpuscular Volume 77.4 fL (80-100) Mean Corpuscular Hemoglobin 28.5 pg (25-34) Mean Corpuscular Hemoglobin Concent 36.8 g/dl (32-36) Platelet Count 224 K/uL (130-400) Mean Platelet Volume 9.2 fL (7.4-10.4) Neutrophils (%) (Auto) 67.0 % Lymphocytes (%) (Auto) 22.0 % Monocytes (%) (Auto) 8.8 % Eosinophils (%) (Auto) 1.7 % Basophils (%) (Auto) 0.3 % Neutrophils # (Auto) 4.40 K/uL (1.4-6.5) Lymphocytes # (Auto) 1.44 K/uL (1.2-3.4) Monocytes # (Auto) 0.58 K/uL (0.11-0.59) Eosinophils # (Auto) 0.11 K/uL (0-0.5) Basophils # (Auto) 0.02 K/uL (0-0.2) RDW Standard Deviation 36.3 fL (36.4-46.3) RDW Coefficient of Variation 12.9 % (11.5-14.5) Immature Granulocyte % (Auto) 0.2 % Immature Granulocyte # (Auto) 0.01 K/uL (0.00-0.02) Anion Gap 9.0 mmol/L (3-11) Est Creatinine Clear Calc Drug Dose 148.5 ml/min Estimated GFR () 115.3 Estimated GFR (Non- 99.5 BUN/Creatinine Ratio 9.7 (10-20) Calcium Level 8.7 mg/dl (8.5-10.1) Total Bilirubin 1.1 mg/dl (0.2-1) Aspartate Amino Transf (AST/SGOT) 20 U/L (15-37) Alanine Aminotransferase (ALT/SGPT) 37 U/L (12-78) Alkaline Phosphatase 138 U/L (45-117) Troponin I < 0.015 ng/ml (0-0.045) Total Protein 7.9 gm/dl (6.4-8.2) Albumin 3.8 gm/dl (3.4-5.0) Globulin 4.1 gm/dl (2.5-4.0) Albumin/Globulin Ratio 0.9 (0.9-2) Lipase 111 U/L (73-393) Medications Administered Medications (Trade) Dose Ordered Sig/Jhon Route Start Time Stop Time Status Last Admin Dose Admin Al Hydroxide/Mg Hydroxide (Maalox Susp) 30 ml NOW STAT PO 01/17/18 03:41 01/17/18 03:43 DC 01/17/18 03:51 30 ML ECG Per My Interpretation Indication: abdominal pain Rate (beats per minute): 84 Rhythm: other (paced rhythm) Change: no significant change Medical Decision Differential diagnosis includes GERD, gastritis, pancreatitis, aortic dissection , ruptured aortic aneurysm, diverticulitis, bowel obstruction, among others. The patient is a 42-year-old male who presents today complaining of epigastric abdominal pain. Patient has been here multiple times in the past few months with some similar complaints. He does have Hardy's esophagus and GERD and takes Prilosec twice daily. Labs revealed no leukocytosis, anemia or concerning electrolyte abnormalities. Alkaline phosphatase is slightly elevated but appears to be baseline for the patient. Troponin is not elevated. EKG shows a paced rhythm. Abdominal CT does not show any apparent acute findings, specifically no aortic dissection. Patient felt slightly better after receiving Maalox. He is extremely anxious regarding his symptoms and I do feel this is likely contributing somewhat to his symptoms. He was reassured regarding today's workup and encouraged to follow-up with his PCP as an outpatient. The patient's case was reviewed with Dr. Ordaz, ED attending physician, who agreed with my assessment and treatment plan. Based on the patient's presentation and work up, I feel the patient is stable for outpatient treatment. The patient was educated to return to the emergency department for any worsening of their current condition or new/concerning symptoms. He will follow up with his PCP. Medication Reconcilliation Current Medication List: was personally reviewed by me Blood Pressure Screening Patient's blood pressure: Elevated blood pressure Blood pressure disposition: Elevated BP felt to be situational Impression Primary Impression: Epigastric abdominal pain Departure Information Dispostion Home / Self-Care Condition GOOD Referrals Tj Mace M.D. (PCP) Patient Instructions My [facility] Additional Instructions You have been treated in the Emergency Department for your Abdominal Pain. Laboratory results and imaging studies have ruled out any emergent causes for your abdominal pain which would warrant admission or surgery. For pain control, you can use the following [id number] medicines (if >12 yo): - Regular strength (325mg/tab) Tylenol (acetaminophen) 2 tabs every 4-6 hours as needed. Do not exceed 12 tablets in a 24 hour period. Avoid taking more than 4 grams (4000 mg) of Tylenol per day. This includes any other sources of acetaminophen you may take on a regular basis. Drink plenty of water and stay well hydrated. As with any trip to the Emergency Department, you should follow-up with your Primary Care Provider from today's visit. Contact them this morning to schedule a follow-up appointment. Return to the emergency department if your symptoms persist despite treatment plan outlined above or if the following symptoms occur: Worsening pain, vomiting , fevers, or any other new/concerning symptoms.
[2018-01-17 06:54] VITALS: BP 150/86; PULSE 89; O2SAT 97
--- NOTE | 2018-01-17 07:35 | DIAGNOSTIC IMAGING REPORT ---
ABDOMEN AND PELVIS CT WITH IV CONTRAST CT DOSE: 1740.97 mGy.cm HISTORY: epigastric pain TECHNIQUE: Multiaxial CT images of the abdomen and pelvis were performed following the use of intravenous contrast. A dose lowering technique was utilized adhering to the principles of ALARA. COMPARISON STUDY: Pelvis CT 02/24/2016. Abdomen and pelvis CT 07/26/2010. FINDINGS: Stable 5 mm nodule within the right lower lobe. Therefore, this is likely benign. Pacemaker wires are noted. Mild lower mediastinal and hilar lymphadenopathy remains unchanged. No pneumoperitoneum. No pneumatosis. No suspicious lytic or blastic osseous lesions. Cholecystectomy. The liver, pancreas, and adrenal glands are unremarkable. The kidneys enhance normally. No hydronephrosis. Table bilateral perinephric edema which is likely chronic. A single mildly enlarged left perirectal lymph node has increased in size. This measures 18 x 11 mm. The bladder is unremarkable. Colonic diverticulosis. No bowel wall thickening or obstruction. Normal appendix. Increase in size in the single gastric pattern lymph node which measures 13 mm, previous measuring 10 mm. The spleen remains enlarged measuring 14 cm in length. Slight increase in size and a single right external iliac lymph node measuring 18 x 13 mm. IMPRESSION: 1. No bowel wall thickening or obstruction. 2. Normal appendix. 3. Colonic diverticulosis. 4. Stable partially visualized mediastinal and bilateral hilar lymphadenopathy. There are 3 abdominal/pelvic lymph nodes which have increased in size as described above. The spleen remains mildly enlarged. These findings are nonspecific, however, a low-grade lymphoma cannot be excluded. Electronically signed by: Daljit Nuñez M.D. 01/17/2018 7:34 AM Dictated Date/Time: 01/17/2018 7:25 AM
[2018-01-17] MEDS ORDERED: ALUMSUS2 PO (08:53)
== END 2018-01-17 06:57 | disposition home or self-care (01) ==
LOC: C.EDB 03:08 → C.EDA 06:57
DX: R10.13 Epigastric pain (principal); Z95.0 Presence of cardiac pacemaker; K21.9 Gastro-esophageal reflux disease without esophagitis; K22.70 Barrett's esophagus without dysplasia; I50.9 Heart failure, unspecified; E11.9 Type 2 diabetes mellitus without complications; E78.5 Hyperlipidemia, unspecified; E66.9 Obesity, unspecified; Z90.49 Acquired absence of other specified parts of digestive tract; Z83.3 Family history of diabetes mellitus; Z83.79 Family history of other diseases of the digestive system; Z79.82 Long term (current) use of aspirin; Z79.4 Long term (current) use of insulin; Z79.84 Long term (current) use of oral hypoglycemic drugs

== ENCOUNTER 2018-04-30 06:08 | Emergency (ER) | payer BC ==
[~2018-04-30] VITALS: Ht 182.9 cm; Wt 146.2 kg
[~2018-04-30 06:08] MED LIST changes: +ALUMSUS2 PO; +BCTROWC EXT; +Cephalexin PO; +IBUP-1050 PO; +LOSA1TAB PO; +Lamisil Cream TD; +MOML PO; +ONDA4TAB65 PO; +POLY335019 PO; +TPRSR25 PO; +[UNRECOGNIZED DRUG - CODE]
[2018-04-30 06:12] VITALS: TEMP 36.5; Ht 182.9 cm; Wt 146.2 kg
[2018-04-30] MEDS ORDERED: KETOROLAC TROMETHAMINE 60 MG/2 ML VIAL IM STA (06:59)
[2018-04-30] MEDS ORDERED: AMOXICILLIN/CLAVULANATE TAB 875 MG TAB PO ONE (07:00)
[2018-04-30] MEDS ORDERED: AMOX875T PO (07:07)
[2018-04-30] MEDS ORDERED: KETO10TA PO (07:08)
--- NOTE | 2018-04-30 07:09 | EMERGENCY ROOM VISIT NOTE ---
History Report prepared by Scribe: Michelle Rausch Under the Supervision of: Dr. Kieran Desai D.O. First contact with patient: 06:50 Chief Complaint: DENTAL PAIN Stated Complaint: DENTAL PAIN Nursing Triage Summary: left lower tooth pain, seen t urgent care last night and wanted him to started on antibiotic but unable to get it filled and tylenol not helping the pain, pt c/o pain now into nack and whole face History of Present Illness The patient is a 42 year old male who presents to the Emergency Room with complaints of constant tooth and facial pain beginning 2 days ago. He describes the pain as throbbing, and notes Tylenol did not relieve his symptoms. The patient was seen in [facility] last night, but has not begun taking the antibiotic as prescribed as all the pharmacies were close following his appointment. Source of History: patient Onset: 2 days ago Position: teeth, other (face) Quality: other (throbbing) Timing: constant Modifying Factors (Relieving): other (not relieved by Tylenol) Review of Systems See HPI for pertinent positives & negatives. A total of 10 systems reviewed and were otherwise negative. Past Medical & Surgical Medical Problems: (1) Allergic reaction caused by a drug (2) Hardy esophagus (3) Cellulitis (4) Chest pain (5) CHF (congestive heart failure) (6) DM2 (diabetes mellitus, type 2) (7) GERD (gastroesophageal reflux disease) (8) HLD (hyperlipidemia) (9) Left bundle branch block (LBBB) on electrocardiogram (10) NICM (nonischemic cardiomyopathy) (11) Obesity (12) Pacemaker (13) Rash (14) Sarcoidosis (15) Second degree AV block, Mobitz type II Surgical Problems: (1) H/O esophagogastroduodenoscopy (2) Hx of tonsillectomy (3) S/P cholecystectomy Family History Diabetes mellitus FHx: gallbladder disease FHx: heart disease Social History Smoking Status: Never Smoker Alcohol Use: none Drug Use: none Marital Status: Housing Status: lives with family Occupation Status: employed Current/Historical Medications Scheduled Amoxicillin & Pot Clavulanate (Augmentin 875-125 mg), 875 MG PO BID Aspirin (Aspirin Ec), 81 MG PO QPM Ibuprofen (Advil), 200-600 MG PO Q4H Insulin Aspart (Novolog Flexpen), 50 UNITS SC TIDM Insulin Glargine (Lantus Solostar), 50 UNITS SC BID Losartan Potassium (Cozaar), 25 MG PO DAILY Metformin Hcl (Glucophage), 1,000 MG PO BID Metoprolol Succinate (Metoprolol Succinate ER), 25 MG PO QAM Omeprazole (Prilosec), 40 MG PO BID Polyethylene Glycol 3350 (Miralax), 17 GM PO DAILY Zolpidem Tartrate (Zolpidem Tartrate), 10 MG PO HS [Cephalexin], 1 TAB PO TID [Lamisil Cream], 1 APPLN TD BID Scheduled PRN Aluminum/Magnesium/Simeth (Maalox Max Susp), 1 DOSE PO TID PRN for HEARTBURN Ketorolac (Toradol), 10 MG PO Q6H PRN for Pain Magnesium Hydroxide (Milk Of Magnesia), 30 ML PO DAILY PRN for Heartburn Mupirocin (Bactroban 2% Oint), 1 APPLN EXT BID PRN for Affected Skin Folds Ondansetron Hcl (Zofran), 1 TAB PO Q6H PRN for Nausea Oxymetazoline HCl (Vicks Sinex Severe Nasal), 1 SPRAY NA DAILY PRN for Nasal Congestion Allergies Coded Allergies: Exenatide (Verified Allergy, Unknown, DIFFICULTY BREATHING, 01/17/18) Phenol (Verified Allergy, Unknown, DIFFICULTY BREATHING, 01/17/18) Sulfa Antibiotics (Verified Allergy, Unknown, HIVES, 01/17/18) Perflutren (Verified Adverse Reaction, Severe, BACK PAIN, 02/01/18) Propylene Glycol (Verified Adverse Reaction, Unknown, BACK PAIN, 02/01/18) Statins (Verified Adverse Reaction, Unknown, ACHE PAIN , 02/01/18) Physical Exam Vital Signs Date Time Temp Pulse Resp B/P (MAP) Pulse Ox O2 Delivery O2 Flow Rate FiO2 04/30/18 07:11 99 18 154/102 95 Room Air 04/30/18 06:12 36.5 97 18 159/93 94 Room Air Physical Exam CONSTITUTIONAL/VITAL SIGNS: Reviewed / noted above. GENERAL: Non-toxic in appearance. INTEGUMENTARY: Warm, dry, and Wolverine. HEAD: Normocephalic. EYES: without scleral icterus or trauma. ENT/OROPHARYNX: clear and moist. LYMPHADENOPATHY/NECK: Is supple without lymphadenopathy or meningismus. RESPIRATORY: Lungs clear and equal. CARDIOVASCULAR: Regular rate and rhythm. GI/ABDOMEN: Soft and nontender. No organomegaly or pulsatile mass. No rebound or guarding. Normal bowel sounds. EXTREMITIES: Warm and well perfused. BACK: No CVA tenderness. NEUROLOGICAL: Intact without focal deficits. PSYCHIATRIC: normal affect. MUSCULOSKELETAL: Normally developed with good muscle tone. Medical Decision & Procedures Medications Administered Medications (Trade) Dose Ordered Sig/Jhon Route Start Time Stop Time Status Last Admin Dose Admin Ketorolac Tromethamine (Toradol Inj) 60 mg NOW STAT IM 04/30/18 06:59 04/30/18 07:02 DC 04/30/18 07:08 60 MG Amoxicillin/ Clavulanate Potassium (Augmentin Tab) 875 mg ONE ONCE PO 04/30/18 07:00 04/30/18 07:02 DC 04/30/18 07:09 875 MG ED Course 0656: Previous medical records were reviewed. The patient was evaluated in room B11B. A complete history and physical examination was performed. I discussed the results and findings with the patient. He verbalized agreement of the treatment plan. The patient was discharged home. 0659: Ordered Toradol Inj 60 mg IM, Augmentin Tab 875 mg PO. Medical Decision Differential considered: dental abscess, dental caries, infection. This is a 42-year-old male who presents to the ED with a chief complaint of left lower jaw pain. The patient states that he has had the symptoms for a couple of days. He was seen in urgent care yesterday and was given a prescription for clindamycin but has not yet started. He came here because he was not able to get the prescription filled last night. The patient still having pain in his pain seems to be worse with laying down. His physical exam was unremarkable. He has no obvious abscess on exam. He has no significant facial swelling. He does have some sensitivity to the left posterior molar just anterior to the last tooth. The patient's exam is otherwise unremarkable. There is no swelling under the tongue, swelling of the face, neck or any redness. He was started on Augmentin. He was given an IM shot of Toradol. He was felt to be stable for discharge. Prescriptions for Augmentin and Toradol. Medication Reconcilliation Current Medication List: was personally reviewed by me Blood Pressure Screening Patient's blood pressure: Elevated blood pressure Blood pressure disposition: Elevated BP felt to be situational Impression Primary Impression: Face pain Additional Impression: Pain, dental Scribe Attestation The scribe's documentation has been prepared under my direction and personally reviewed by me in its entirety. I confirm that the note above accurately reflects all work, treatment, procedures, and medical decision making performed by me. Departure Information Dispostion Home / Self-Care Prescriptions Ketorolac (Toradol) 10 Mg Tab 10 MG PO Q6H Y for Pain, #20 TAB Prov: Kieran Desai D.O. 04/30/18 Amoxicillin & Pot Clavulanate (Augmentin 875-125 mg) 1 Tab Tab 875 MG PO BID, #20 TAB Prov: Kieran Desai D.O. 04/30/18 Referrals Tj Mace M.D. (PCP) Forms HOME CARE DOCUMENTATION FORM, IMPORTANT VISIT INFORMATION Patient Instructions My [facility] Additional Instructions Augmentin as prescribed for infection. Toradol as prescribed for pain. Don't take Motrin or Advil when on Toradol. See a dentist VANESA. Problem Qualifiers
[2018-04-30 07:11] VITALS: BP 154/102; PULSE 99; O2SAT 95
== END 2018-04-30 07:23 | disposition home or self-care (01) ==
LOC: C.EDB 06:08
DX: K08.89 Other specified disorders of teeth and supporting structures (principal); R51 Headache; I50.9 Heart failure, unspecified; E11.9 Type 2 diabetes mellitus without complications; K21.9 Gastro-esophageal reflux disease without esophagitis; E78.5 Hyperlipidemia, unspecified; E66.9 Obesity, unspecified; Z95.0 Presence of cardiac pacemaker; D86.9 Sarcoidosis, unspecified; K22.70 Barrett's esophagus without dysplasia; Z79.82 Long term (current) use of aspirin; Z79.4 Long term (current) use of insulin; Z79.899 Other long term (current) drug therapy; Z88.2 Allergy status to sulfonamides; Z88.8 Allergy status to other drugs, medicaments and biological substances

== ENCOUNTER 2018-05-02 20:50 | Emergency (ER) | payer BC ==
[~2018-05-02] VITALS: Ht 182.9 cm; Wt 146.6 kg
[~2018-05-02 20:50] MED LIST changes: +AMOX875T PO; +KETO10TA PO
[2018-05-02 20:58] VITALS: TEMP 37; Ht 182.9 cm; Wt 146.6 kg
[2018-05-02] MEDS ORDERED: KETO10TA PO (21:39)
[2018-05-02] MEDS ORDERED: NVLG SC (21:39)
[2018-05-02] MEDS ORDERED: LOSA1TAB38 PO (21:39)
[2018-05-02] MEDS ORDERED: METF-384 PO (21:39)
[2018-05-02] MEDS ORDERED: INSDGI SC (21:39)
[2018-05-02] MEDS ORDERED: CHOL20007 PO (21:39)
[2018-05-02] MEDS ORDERED: ZOLP10TA PO (21:39)
[2018-05-02] MEDS ORDERED: ASPI81TA28 PO (21:39)
[2018-05-02] MEDS ORDERED: CLIN150C PO (21:39)
[2018-05-02] MEDS ORDERED: OMEP40CA41 PO (21:39)
[2018-05-02] MEDS ORDERED: SPIR25TA PO (21:39)
--- NOTE | 2018-05-02 22:05 | EMERGENCY ROOM VISIT NOTE ---
History First contact with patient: 21:17 Chief Complaint: ALLERGIC REACTION Stated Complaint: TINGLING MOUTH SORE THROAT AFTER TAKING ANTIBIOTIC Nursing Triage Summary: dentist changed augmentin to clindamycin now tongue is " burning" denies resp difficulty. History of Present Illness The patient is a 42 year old male who presents to the Emergency Room with complaints of tingling and burning sensation in his mouth after taking clindamycin. The patient denies any throat or chest tightness. Patient denies any lip swelling. The patient states that he was seen here on Tuesday for a tooth abscess and was placed on Augmentin. He saw his dentist yesterday and was told to continue the Augmentin and he has an appointment with the oral surgeon tomorrow. This morning when he woke up he had more swelling in the left lower jaw and therefore he called his dentist. He was instructed to discontinue the Augmentin which she had already taken 1 dose in the a.m. yesterday prior to calling his dentist. His dentist placed him on clindamycin. He took 2 doses initially earlier today and then at approximately 730 he took another dose and then noticed the tingling and burning in his mouth. The patient states he always has some difficulty with breathing because he has sarcoidosis and a heart condition. Review of Systems 10 system review was performed and was negative unless stated otherwise history of present illness. Past Medical/Surgical History Medical Problems: (1) Allergic reaction caused by a drug (2) Hardy esophagus (3) Cellulitis (4) Chest pain (5) CHF (congestive heart failure) (6) DM2 (diabetes mellitus, type 2) (7) GERD (gastroesophageal reflux disease) (8) HLD (hyperlipidemia) (9) Left bundle branch block (LBBB) on electrocardiogram (10) NICM (nonischemic cardiomyopathy) (11) Obesity (12) Pacemaker (13) Rash (14) Sarcoidosis (15) Second degree AV block, Mobitz type II Surgical Problems: (1) H/O esophagogastroduodenoscopy (2) Hx of tonsillectomy (3) S/P cholecystectomy Family History Diabetes mellitus FHx: gallbladder disease FHx: heart disease Social History Smoking Status: Never Smoker Alcohol Use: none Drug Use: none Marital Status: Housing Status: lives with family Occupation Status: employed Current/Historical Medications Scheduled Aspirin (Aspirin Ec), 81 MG PO DAILY Cholecalciferol (Vitamin D3), 2,000 INTER.UNIT PO DAILY Clindamycin Hcl (Cleocin), Unknown Dose PO UD Insulin Aspart (Novolog), 50 UNITS SC WM Insulin Glargine (Lantus), 50 UNITS SC BID Losartan Potassium (Cozaar), 100 MG PO DAILY Metformin Hcl (Glucophage), 1,000 MG PO BID Omeprazole (Prilosec), 40 MG PO BID Spironolactone (Aldactone), 25 MG PO DAILY Zolpidem Tartrate (Ambien), 10 MG PO HS Scheduled PRN Ketorolac Tromethamine (Toradol), 10 MG PO UD PRN for Pain Physical Exam Vital Signs Date Time Temp Pulse Resp B/P (MAP) Pulse Ox O2 Delivery O2 Flow Rate FiO2 05/02/18 20:58 37.0 94 18 208/120 94 Room Air Physical Exam GENERAL: 42-year-old obese white male appears in no acute distress. MENTAL Status: Alert and oriented 3. MOUTH: No lip swelling noted. Left lower molar with surrounding edema but no palpable abscess. PHARYNX: No erythema or edema noted. Airway is adequate. FACE: Some facial swelling noted over the left jaw consistent with a left lower molar. No erythema noted NECK: Supple, no lymphadenopathy noted. No carotid bruits noted. LUNGS: Breath sounds are distant bilaterally. No audible wheezes CARDIAC: Regular rate and rhythm without murmur. Pulses is full and equal throughout. SKIN: No rashes noted Medical Decision & Procedures ED Course The patient was evaluated. The patient drove himself to the emergency room therefore he was not given any Benadryl while in the emergency room. He did not have any serious signs of allergic reaction. I instructed the patient not to take clindamycin in the future. He was discharged home in stable condition. Medical Decision Differential diagnosis include allergic reaction to antibiotic, food allergy, [place] Drug Monitoring Program Search Results: patient reviewed within database Medication Reconcilliation Current Medication List: was personally reviewed by me Impression Primary Impression: Allergic reaction caused by a drug Additional Impression: Elevated blood pressure reading Departure Information Dispostion Home / Self-Care Condition GOOD Referrals Tj Mace M.D. (PCP) Forms HOME CARE DOCUMENTATION FORM, IMPORTANT VISIT INFORMATION Patient Instructions ED Allergic Reaction Drug [facility] Additional Instructions Discontinue the clindamycin. Do not take clindamycin in the future. Resume Augmentin tomorrow. Keep scheduled appointment with oral surgeon tomorrow. Take Benadryl 50 mg before you go to bed tonight. If you experience any throat tightness, chest tightness return to the ER immediately. Also recommend follow- up with your family doctor in the next 1-2 days for blood pressure check. Your blood pressure was elevated while in the emergency room. Problem Qualifiers Primary Impression: Allergic reaction caused by a drug Encounter type: initial encounter Qualified Codes: T78.40XA - Allergy, unspecified, initial encounter
[2018-05-02 22:35] VITALS: BP 175/108; PULSE 78; O2SAT 98
== END 2018-05-02 22:15 | disposition home or self-care (01) ==
LOC: C.EDB 20:51 → C.EDD 22:15
DX: T78.40XA Allergy, unspecified, initial encounter (principal); X58.XXXA Exposure to other specified factors, initial encounter; R03.0 Elevated blood-pressure reading, without diagnosis of hypertension; K22.70 Barrett's esophagus without dysplasia; I50.9 Heart failure, unspecified; E11.9 Type 2 diabetes mellitus without complications; K21.9 Gastro-esophageal reflux disease without esophagitis; E78.5 Hyperlipidemia, unspecified; I44.7 Left bundle-branch block, unspecified; E66.9 Obesity, unspecified; Z79.82 Long term (current) use of aspirin; Z79.4 Long term (current) use of insulin; Z79.899 Other long term (current) drug therapy

== ENCOUNTER 2021-01-06 18:36 | Inpatient (IN) ==
[2021-01-06 19:13] LABS: Basophils # (auto) 0.01 K/uL (0-0.2); Basophils % (auto) 0.1 %; Eosinophils # (auto) 0.18 K/uL (0-0.5); Eosinophils % (auto) 2.7 %; Hematocrit (blood only) 43.1 % (42-52); Hemoglobin 15.5 g/dL (14.0-18.0); Immature Granulocytes # (auto) 0.01 K/uL (0.00-0.02); Immature Granulocytes % (auto) 0.1 %; Lymphocytes # (auto) 1.24 K/uL (1.2-3.4); Lymphocytes % (auto) 18.5 %; Mean Corpuscular Hemoglobin 28.5 pg (25-34); Mean Corpuscular Volume 79.2 fL (80-100); Mean Platelet Volume 9.6 fL (7.4-10.4); Monocytes # (auto) 0.66 K/uL (0.11-0.59); Monocytes % (auto) 9.9 %; Neutrophils % (auto) 68.7 %; Platelet Count 256 K/uL (130-400); RDW Coefficient of Variation 13.2 % (11.5-14.5); RDW Standard Deviation 37.9 fL (36.4-46.3); Red Blood Count 5.44 M/uL (4.7-6.1)
[2021-01-06] MEDS ORDERED: SODIUM CHLORIDE 0.9% 1000ML 1,000 ML IV SCH (19:15)
[2021-01-06 19:16] LABS: iSTAT Creatinine 1.8 mg/dl (0.6-1.3); iSTAT Hemoglobin 15.3 g/dl (14.0-18.0); iSTAT Ionized Calcium 1.22 mmol/l (1.12-1.32); iSTAT Potassium 4.3 mmol/L (3.3-5.0)
--- NOTE | 2021-01-06 19:19 | Emergency Department Note ---
History of Present Illness General Chief complaint: Stroke/CVA Symptoms Stated complaint: DOUBLE VISION, STROKE SYMPTOMS Time Seen by Provider: 01/06/21 18:44 History of Present Illness Provider complaint: Vision problem Onset (ago): day(s) 9 Location: head and eyes Maximum Pain Intensity: 0 Current Pain Intensity: 0 45-year-old male presents emergency department difficulty seeing. Patient reports he has been having blurry vision with distance for the last 9 days. He is now saying that he is also having some double vision. Patient is reporting some difficulty walking and talking also which are new. Patient states he followed up with the eye doctor after his ER visit over the weekend and the eye doctor told him his eyes were fine he had an outpatient CAT scan done today which showed abnormalities and he was referred to the emergency department. Home Medications Medication Instructions Recorded Confirmed Type Lantus Solostar U-100 Insulin See Rx Instructions .ROUTE .COMPLEX 05/13/18 01/06/21 History aspirin 81 mg PO QAM 05/13/18 01/06/21 History cholecalciferol (vitamin D3) 2,000 unit PO QAM 05/13/18 01/06/21 History [Vitamin D3] insulin aspart U-100 [Novolog 16 - 20 unit SUBCUT AC 05/13/18 01/06/21 History Flexpen U-100 Insulin] omeprazole 40 mg PO QAM 05/13/18 01/06/21 History zolpidem [Ambien] 10 mg PO HS PRN 05/13/18 01/06/21 History amlodipine 10 mg tablet 10 mg PO PM tab 08/05/20 01/06/21 History carvedilol 25 mg PO BID 11/05/20 01/06/21 History ezetimibe 10 mg PO DAILY 01/06/21 01/06/21 History losartan 50 mg PO QAM 01/06/21 01/06/21 History omega-3 acid ethyl esters 1 cap PO BID 01/06/21 01/06/21 History spironolactone 25 mg PO QAM 01/06/21 01/06/21 History torsemide 20 mg PO UD PRN 01/06/21 01/06/21 History Allergies Allergy/AdvReac Type Severity Reaction Status Date / Time doxycycline Allergy Mild Hives Verified 01/06/21 19:37 exenatide Allergy Unknown DIFFICULTY Verified 01/06/21 19:37 BREATHING phenol Allergy Unknown DIFFICULTY Verified 01/06/21 19:37 BREATHING Sulfa (Sulfonamide Allergy Unknown HIVES Verified 01/06/21 19:37 Antibiotics) perflutren AdvReac Severe BACK PAIN Verified 01/06/21 19:37 clindamycin AdvReac Mild other Verified 01/06/21 19:37 ciprofloxacin [From Cipro] AdvReac Unknown fast heart Verified 01/06/21 19:37 rate propylene glycol AdvReac Unknown BACK PAIN Verified 01/06/21 19:37 Khgaast-Wes-Buo Reductase AdvReac Unknown ACHE PAIN Verified 01/06/21 19:37 Inhibitor Past Med/Surg History Medical History Acquired deformity of left foot Acquired deformity of right foot 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 Sosa Nausea and vomiting after administration of anesthetic agent Neuropathic ulcer of toe of left foot Neuropathic ulcer of toe of left foot NICM (nonischemic cardiomyopathy) Obesity Obstructive sleep apnea Pacemaker 01/2016 Pancreatitis Pulmonary sarcoidosis Second degree AV block, Mobitz type II Tinea cruris Surgical History H/O esophagogastroduodenoscopy History of cardiac cath 01/2016 @ [facility]--no stents History of lung biopsy sarcoidosis History of tonsillectomy and adenoidectomy History of wisdom tooth extraction Hx of appendectomy (12/07/19) Laparoscopic Appendectomy Dr. Bañuelos 12/07/19 Hx of tonsillectomy S/P cholecystectomy Family History Father Family history of diabetes mellitus Mother Family history of diabetes mellitus Aunt Family history of diabetes mellitus Uncle Family history of diabetes mellitus Grandmother (Maternal) Family history of diabetes mellitus Other No family history of adverse response to anesthesia Social History Smoking Status: Never smoker Second Hand Exposure: Yes (FATHER SMOKED); Hx Alcohol Use: No Hx Substance Use: No Preferred Language: Omani Communication Ability: Effective [employer] [place] Required: No Beliefs That Will Affect Care: None Current Living Situation: Family Current Living Situation Comment: Yeyo Son Feels Safe at Home: Yes Assistive Devices: None Review of Systems A total of 10 systems reviewed and were otherwise negative Physical Exam Vital Signs Vital Signs - 24 hr 01/06/21 18:39 01/06/21 18:44 01/06/21 18:47 Temperature 37 C Temperature Source Temporal Artery Scan Pulse Rate 71 77 78 Pulse Rate [Apical] Pulse Rate from SpO2 Sensor 77 78 Pulse Rhythm [Apical] Pulse Strength [Apical] Respiratory Rate 18 15 16 Respiratory Effort / Characteristics Non-Labored Respiratory Depth Normal Respiratory Pattern Blood Pressure 171/93 H 175/100 H Blood Pressure [Right Arm] Blood Pressure Mean 119 125 Blood Pressure Mean [Right Arm] Blood Pressure Position [Right Arm] Pulse Oximetry 97 97 97 Oxygen Delivery Method Sepsis Recent Fever Within 48 Hours No Sepsis New/Unexplained Change in Mental Status No Sepsis Action Taken by Nursing No Action Required 01/06/21 18:50 01/06/21 19:00 01/06/21 19:10 Temperature Temperature Source Pulse Rate 75 71 74 Pulse Rate [Apical] Pulse Rate from SpO2 Sensor 75 70 Pulse Rhythm [Apical] Pulse Strength [Apical] Respiratory Rate 14 18 16 Respiratory Effort / Characteristics Respiratory Depth Respiratory Pattern Blood Pressure 188/90 H Blood Pressure [Right Arm] Blood Pressure Mean 122 Blood Pressure Mean [Right Arm] Blood Pressure Position [Right Arm] Pulse Oximetry 95 94 Oxygen Delivery Method Sepsis Recent Fever Within 48 Hours Sepsis New/Unexplained Change in Mental Status Sepsis Action Taken by Nursing 01/06/21 19:20 01/06/21 19:30 01/06/21 19:40 Temperature Temperature Source Pulse Rate 64 69 67 Pulse Rate [Apical] Pulse Rate from SpO2 Sensor 66 70 67 Pulse Rhythm [Apical] Pulse Strength [Apical] Respiratory Rate 16 14 17 Respiratory Effort / Characteristics Respiratory Depth Respiratory Pattern Blood Pressure 161/84 H Blood Pressure [Right Arm] Blood Pressure Mean 109 Blood Pressure Mean [Right Arm] Blood Pressure Position [Right Arm] Pulse Oximetry 93 93 96 Oxygen Delivery Method Sepsis Recent Fever Within 48 Hours Sepsis New/Unexplained Change in Mental Status Sepsis Action Taken by Nursing 01/06/21 19:50 01/06/21 20:00 01/06/21 20:01 Temperature Temperature Source Pulse Rate 70 76 65 Pulse Rate [Apical] Pulse Rate from SpO2 Sensor 70 Pulse Rhythm [Apical] Pulse Strength [Apical] Respiratory Rate 19 18 18 Respiratory Effort / Characteristics Respiratory Depth Respiratory Pattern Blood Pressure 202/114 H Blood Pressure [Right Arm] Blood Pressure Mean 143 Blood Pressure Mean [Right Arm] Blood Pressure Position [Right Arm] Pulse Oximetry 95 Oxygen Delivery Method Sepsis Recent Fever Within 48 Hours Sepsis New/Unexplained Change in Mental Status Sepsis Action Taken by Nursing 01/06/21 20:44 Temperature Temperature Source Pulse Rate Pulse Rate [Apical] 63 Pulse Rate from SpO2 Sensor Pulse Rhythm [Apical] Regular Pulse Strength [Apical] Normal Respiratory Rate 18 Respiratory Effort / Characteristics Non-Labored Respiratory Depth Normal Respiratory Pattern Regular Blood Pressure Blood Pressure [Right Arm] 189/109 H Blood Pressure Mean Blood Pressure Mean [Right Arm] 135 Blood Pressure Position [Right Arm] Sitting Pulse Oximetry 96 Oxygen Delivery Method Room Air Sepsis Recent Fever Within 48 Hours Sepsis New/Unexplained Change in Mental Status Sepsis Action Taken by Nursing Physical Exam GENERAL: He is oriented to person, place, and time. He appears well-developed and well-nourished. He does not appear distressed. HENT: Exam performed. - Head: Normocephalic and atraumatic. - Right Ear: External ear normal. No mastoid tenderness. - Left Ear: External ear normal. No mastoid tenderness. - Mouth/Throat: The oropharynx is clear and moist. No trismus in the jaw. No dental abscesses or uvula swelling. No oropharyngeal exudate or tonsillar abscesses. EYES: Conjunctivae and EOM are normal. Pupils are equal, round, and reactive to light. Right eye exhibits no discharge. Left eye exhibits no discharge. No scleral icterus. NECK: Normal range of motion. Neck supple. No JVD present. No spinous process tenderness present. No carotid bruit present. No rigidity. No tracheal deviation and normal range of motion present. No Brudzinski's sign and no Kernig's sign noted. CV: Normal rate, regular rhythm, normal heart sounds and intact distal pulses. There is no peripheral edema. Palpable radial pulses bue. PULM/CHEST: Effort normal and breath sounds normal. No respiratory distress. No stridor. He has no wheezes. He has no rales. - Chest Wall: He exhibits no tenderness. ABD: The abdomen is soft. Bowel sounds are normal. He has no distension. No mass is present. There is no tenderness. There is no rebound, no guarding, no Gonzalez's sign and no tenderness at McBurney's point. Rovsig negative. MUSC/SKEL: Normal range of motion. There is no peripheral edema, tenderness or deformity. LYMPH: No cervical adenopathy. NEURO: He is alert and oriented to person, place, and time. He has normal strength. No cranial nerve deficit or sensory deficit. GCS eye subscore is 4. GCS verbal subscore is 5. GCS motor subscore is 6. Cerebellar tests wnl. NIHSS: 0 SKIN: Skin is warm and dry. He is not diaphoretic. PSYCH: He has a normal mood and affect. Behavior is normal. Judgment and thought content normal. Course Course 1843: The patient was evaluated in room A1. A complete history and physical exam was performed Vital signs stable. NIHSS 0. EMR reviewed. I evaluated this patient in the emergency department 2 days ago on January 04, 2021. At that time the patient stated he was having troubles with long distance vision for over the last week. That time he had a stroke scale of 0 and no neurological deficit. Given the stroke scale is 0 and his symptoms were going on for the last week it is not thought that the patient was having an acute stroke and thus it was thought that the patient was having problems with vision he was discharged and diagnosed with myopia told to follow-up with his PCP and eye doctor. The patient states he went to his eye doctor today who told him his eyes were fine. Patient states he went to his PCP ordered a CT scan of his head today. [employer] resource conservation manager was able to obtain the CT scan those conductreinaldo Yuan and it reads as follows: Bilateral occipital lobe hypodensity and loss of desai-white differentiation is incompletely evaluated, and could represent cytotoxic edema due to CVA or artifact from adjacent skull base, among other entities. Pacemaker device noted on November 2019 chest x-ray. Brain MR without contrast under cardiology supervision is recommended, provided pacemaker device is MR-compatible, and no additional contraindication to MR aside from pacemaker device is present. Head/neck CT angiogram with contrast is recommended if pacemaker device is not MR-compatible. The CT scan was read by Dr. Figueroa at 1723. Patient states that he has a loose pacemaker lead in his chest and his been denied MRIs in the past due to this. Chest x-ray is reviewed in the past there is no mention of leads that are out of place. I did discuss this with radiology Dr. Mcmillan and both he and I agree that if the patient has a history of having a loose lead we should not proceed with MRI at this time especially since patient is not a TPA candidate since his symptoms were gone for more than a week. Were planning on conducting a CT angio of the head and neck however the patient has a POC creatinine of 1.8. Patient does have a history of CKD and in the past his creatinine has been elevated in the 1.8-2.4 range. I did discuss this with the patient and both he and I feel that given that his symptoms have been off the last week and he is not a TPA candidate we did not want a proceed with CT angio and damage to keep patient's kidneys even further. We will plan on admitting the patient to the [facility] team. If the lab creatinine is within normal limits we will proceed with angios however if not will admit to the [facility] team for neurology evaluation. 1953: Vital signs improved. On reassessment the patient continues have no focal neurological deficit. NIHSS 0. Patient reports he feels much better. I did inform him of the plan to admit him to the hospital under the [facility] hospitalist team. Patient states his symptoms have resolved and he feels much better and is asking if he can go home. I explained to him that given the readings of his CAT scan that were done outpatient would be best to have him evaluated by neurology in the morning. Patient is not a TPA candidate today or when he presented to ER 2 days ago given that he stated his symptoms all began more than 7 days ago. Administered Medications Sodium Chloride (Nss 1000ml) 1,000 mls @ 125 mls/hr IV .Q8H BRENNAN Stop: 02/05/21 19:14 Last Admin: 01/06/21 19:45 Dose: 125 mls/hr Documented by: [id number] Medical Decision Making Laboratory Data Result diagrams: 01/06/21 18:56 01/06/21 18:56 Lab Results 01/06/21 01/06/21 01/06/21 Range/Units 18:56 18:56 18:56 WBC 6.70 (4.8-10.8) K/uL RBC 5.44 (4.7-6.1) M/uL Hgb 15.5 (14.0-18.0) g/dL POC Hgb (14.0-18.0) g/dl Hct 43.1 (42-52) % POC Hct (42-52) % MCV 79.2 L (80-100) fL MCH 28.5 (25-34) pg MCHC 36.0 (32-36) g/dL RDW Std Deviation 37.9 (36.4-46.3) fL RDW Coeff of Titi 13.2 (11.5-14.5) % Plt Count 256 (130-400) K/uL MPV 9.6 (7.4-10.4) fL Immature Gran % (Auto) 0.1 % Neut % (Auto) 68.7 % Lymph % (Auto) 18.5 % [place] % (Auto) 9.9 % Eos % (Auto) 2.7 % Baso % (Auto) 0.1 % Neut # (Auto) 4.60 (1.4-6.5) K/uL Lymph # (Auto) 1.24 (1.2-3.4) K/uL [place] # (Auto) 0.66 H (0.11-0.59) K/uL Eos # (Auto) 0.18 (0-0.5) K/uL Baso # (Auto) 0.01 (0-0.2) K/uL Immature Gran # (Auto) 0.01 (0.00-0.02) K/uL PT 10.3 (9.0-12.0) Seconds INR 1.0 (0.9-1.1) APTT 27.3 (21.0-31.0) Seconds PTT Ratio 1.0 POC Sodium (135-144) mmol/L Sodium 139 (136-145) mmol/L POC Potassium (3.3-5.0) mmol/L Potassium 4.2 (3.5-5.1) mmol/L POC Chloride (101-112) mmol/L Chloride 107 (98-107) mmol/L Carbon Dioxide 26 (21-32) mmol/L POC Total CO2 (24-31) mmol/L Anion Gap 6.0 (3-11) POC Anion Gap (16-25) mmol/L POC BUN (7-18) mg/dl BUN 25 H (7-18) mg/dl Creatinine 1.81 H (0.6-1.4) mg/dl POC Creatinine (0.6-1.3) mg/dl Est Cr Clr Drug Dosing 74.3 ml/min Est GFR ( Amer) 50.5 Est GFR (Non-Af Amer) 43.5 BUN/Creatinine Ratio 13.5 (10-20) Glucose 122 H (70-99) mg/dl POC Glucose (other) (70-99) mg/dl Calcium 9.7 (8.5-10.1) mg/dl POC Ioniz Calcium Jason (1.12-1.32) mmol/l COVID-19 Eval Order SARS-CoV-2 (PCR) (Negative) Influenza Type A (PCR) (Neg) Influenza Type B (PCR) (Neg) RSV (RT-PCR) (Neg) 01/06/21 01/06/21 01/06/21 Range/Units 19:04 19:55 19:55 WBC (4.8-10.8) K/uL RBC (4.7-6.1) M/uL Hgb (14.0-18.0) g/dL POC Hgb 15.3 (14.0-18.0) g/dl Hct (42-52) % POC Hct 45 (42-52) % MCV (80-100) fL MCH (25-34) pg MCHC (32-36) g/dL RDW Std Deviation (36.4-46.3) fL RDW Coeff of Titi (11.5-14.5) % Plt Count (130-400) K/uL MPV (7.4-10.4) fL Immature Gran % (Auto) % Neut % (Auto) % Lymph % (Auto) % [place] % (Auto) % Eos % (Auto) % Baso % (Auto) % Neut # (Auto) (1.4-6.5) K/uL Lymph # (Auto) (1.2-3.4) K/uL [place] # (Auto) (0.11-0.59) K/uL Eos # (Auto) (0-0.5) K/uL Baso # (Auto) (0-0.2) K/uL Immature Gran # (Auto) (0.00-0.02) K/uL PT (9.0-12.0) Seconds INR (0.9-1.1) APTT (21.0-31.0) Seconds PTT Ratio POC Sodium 140 (135-144) mmol/L Sodium (136-145) mmol/L POC Potassium 4.3 (3.3-5.0) mmol/L Potassium (3.5-5.1) mmol/L POC Chloride 105 (101-112) mmol/L Chloride (98-107) mmol/L Carbon Dioxide (21-32) mmol/L POC Total CO2 26 (24-31) mmol/L Anion Gap (3-11) POC Anion Gap 14.0 L (16-25) mmol/L POC BUN 25 H (7-18) mg/dl BUN (7-18) mg/dl Creatinine (0.6-1.4) mg/dl POC Creatinine 1.8 H (0.6-1.3) mg/dl Est Cr Clr Drug Dosing ml/min Est GFR ( Amer) Est GFR (Non-Af Amer) BUN/Creatinine Ratio (10-20) Glucose (70-99) mg/dl POC Glucose (other) 125 H (70-99) mg/dl Calcium (8.5-10.1) mg/dl POC Ioniz Calcium Jason 1.22 (1.12-1.32) mmol/l COVID-19 Eval Order CovFluRsv at [facility] SARS-CoV-2 (PCR) NEGATIVE (Negative) Influenza Type A (PCR) Negative (Neg) Influenza Type B (PCR) Negative (Neg) RSV (RT-PCR) Negative (Neg) Imaging Data Radiologist's Impression: Chest X-Ray 01/06/21 19:06 XR chest 1V portable CLINICAL HISTORY: Difficulty with speech vision and gait COMPARISON STUDY: 10/22/2020 FINDINGS: The heart is enlarged. There is a left subclavian pacer/defibrillator. There is no failure. There is no focal pulmonary consolidation. There are no pleural effusions.[ IMPRESSION: Mild cardiomegaly. No acute findings. ACT 112: Negative or not required by law. Electronically signed by: Rory Aguirre M.D. 01/06/2021 7:32 PM MDM Narrative 1844: The patient was evaluated in room A1. A complete history and physical exam was performed Vital signs stable. NIHSS 0. EMR reviewed. I evaluated this patient in the emergency department 2 days ago on January 04, 2021. At that time the patient stated he was having troubles with long distance vision for over the last week. That time he had a stroke scale of 0 and no neurological deficit. Given the stroke scale is 0 and his symptoms were going on for the last week it is not thought that the patient was having an acute stroke and thus it was thought that the patient was having problems with vision he was discharged and diagnosed with myopia told to follow-up with his PCP and eye doctor. The patient states he went to his eye doctor today who told him his eyes were fine. Patient states he went to his PCP ordered a CT scan of his head today. [employer] resource conservation manager was able to obtain the CT scan those elver Yuan and it reads as follows: Bilateral occipital lobe hypodensity and loss of desai-white differentiation is incompletely evaluated, and could represent cytotoxic edema due to CVA or artifact from adjacent skull base, among other entities. Pacemaker device noted on November 2019 chest x-ray. Brain MR without contrast under cardiology supervision is recommended, provided pacemaker device is MR-compatible, and no additional contraindication to MR aside from pacemaker device is present. Head/neck CT angiogram with contrast is recommended if pacemaker device is not MR-compatible. The CT scan was read by Dr. Figueroa at 1723. Patient states that he has a loose pacemaker lead in his chest and his been denied MRIs in the past due to this. Chest x-ray is reviewed in the past there is no mention of leads that are out of place. I did discuss this with radiology Dr. Mcmillan and both he and I agree that if the patient has a history of having a loose lead we should not proceed with MRI at this time especially since patient is not a TPA candidate since his symptoms were gone for more than a week. Were planning on conducting a CT angio of the head and neck however the patient has a POC creatinine of 1.8. Patient does have a history of CKD and in the past his creatinine has been elevated in the 1.8-2.4 range. I did discuss this with the patient and both he and I feel that given that his symptoms have been off the last week and he is not a TPA candidate we did not want a proceed with CT angio and damage to keep patient's kidneys even further. We will plan on admitting the patient to the [facility] team. If the lab creatinine is within normal limits we will proceed with angios however if not will admit to the [facility] team for neurology evaluation. 1953: Vital signs improved. On reassessment the patient continues have no focal neurological deficit. NIHSS 0. Patient reports he feels much better. I did inform him of the plan to admit him to the hospital under the [facility] hospitalist team. Patient states his symptoms have resolved and he feels much better and is asking if he can go home. I explained to him that given the readings of his CAT scan that were done outpatient would be best to have him evaluated by neurology in the morning. Patient is not a TPA candidate today or when he presented to ER 2 days ago given that he stated his symptoms all began more than 7 days ago. Impression & Plan Visual problems, Abnormal CT of the head, Stroke-like symptoms Discharge Plan Visit Data Chief Complaint: Stroke/CVA Symptoms Stated Complaint: DOUBLE VISION, STROKE SYMPTOMS ED Provider: Unruly Franco Discharge Problem: Visual problems, Abnormal CT of the head, Stroke-like symptoms Patient Disposition: Admitted As Inpatient Forms Stand Alone Forms: My [facility] Prescriptions Prescriptions: No Action omeprazole 40 mg Capsule,Delayed Release(Dr/Ec) 40 mg PO QAM RF: 0 aspirin 81 mg Tablet,Delayed Release (Dr/Ec) 81 mg PO QAM RF: 0 zolpidem [Ambien] 10 mg Tablet 10 mg PO HS PRN (Reason: Insomnia) RF: 0 insulin aspart U-100 [Novolog Flexpen U-100 Insulin] 100 unit/mL Insulin Pen 16 - 20 unit SUBCUT AC RF: 0 Lantus Solostar U-100 Insulin 100 unit/mL (3 mL) Insulin Pen See Rx Instructions .ROUTE .COMPLEX RF: 0 cholecalciferol (vitamin D3) [Vitamin D3] 2,000 unit Capsule 2,000 unit PO QAM RF: 0 amlodipine 10 mg tablet 10 mg PO PM RF: 0 carvedilol 25 mg tablet 25 mg PO BID RF: 0 torsemide 20 mg tablet 20 mg PO UD PRN (Reason: Fluid Retention) RF: 0 ezetimibe 10 mg tablet 10 mg PO DAILY RF: 0 omega-3 acid ethyl esters 1 gram capsule 1 cap PO BID RF: 0 losartan 50 mg tablet 50 mg PO QAM RF: 0 spironolactone 25 mg tablet 25 mg PO QAM RF: 0 Referrals Referrals: Tj Mace MD [Primary Care Provider] -
[2021-01-06 19:24] LABS: Partial Thromboplastin Time 27.3 Seconds (21.0-31.0); Prothrombin Time 10.3 Seconds (9.0-12.0)
[2021-01-06 19:30] LABS: BUN Creatinine Ratio 13.5 (10-20); Calcium 9.7 mg/dl (8.5-10.1); Creatinine Clr Calc Pharmacy 74.3 ml/min; Est GFR (African American) 50.5; Est GFR (Non-African American) 43.5; Potassium 4.2 mmol/L (3.5-5.1)
--- NOTE | 2021-01-06 19:33 | XRay Report ---
XR chest 1V portable CLINICAL HISTORY: Difficulty with speech vision and gait COMPARISON STUDY: 10/22/2020 FINDINGS: The heart is enlarged. There is a left subclavian pacer/defibrillator. There is no failure. There is no focal pulmonary consolidation. There are no pleural effusions.[ IMPRESSION: Mild cardiomegaly. No acute findings. ACT 112: Negative or not required by law. Electronically signed by: Rory Aguirre M.D. 01/06/2021 7:32 PM
[2021-01-06 20:51] LABS: Influenza A virus by PCR Negative (Neg); Influenza B virus by PCR Negative (Neg); RSV by PCR Negative (Neg); SARS CoV2 RNA(COVID-19) InHosp NEGATIVE (Negative)
[2021-01-06] MEDS ORDERED: ACETAMINOPHEN 325 MG TAB PO PRN (22:11)
[2021-01-06] MEDS ORDERED: hydrALAZINE HCL 20 MG/ML VIAL IV PRN (22:11)
[2021-01-06] MEDS ORDERED: ONDANSETRON INJ 2 MG/ML 2 ML VIAL IV PRN (22:11)
[2021-01-06] MEDS ORDERED: CLOPIDOGREL BISULFATE 75 MG TAB PO ONE (22:11)
[2021-01-06] MEDS ORDERED: amLODIPine BESYLATE 5 MG TAB PO SCH (22:11)
[2021-01-06] MEDS ORDERED: NITROGLYCERIN SL 0.4 MG/TAB TAB SL PRN (22:11)
[2021-01-06] MEDS ORDERED: TORSEMIDE 20 MG TAB PO PRN (22:11)
[2021-01-06] MEDS ORDERED: ZOLPIDEM TARTRATE 10 MG TAB PO PRN (22:11)
[2021-01-06] MEDS ORDERED: PHARMACIST DISCHARGE MED REC CONSULT PRN (22:11)
[2021-01-06] MEDS ORDERED: POLYETHYLENE (MIRALAX) 17 GM PACK PO PRN (22:11)
[2021-01-06] MEDS ORDERED: INSULIN GLARGINE SOLOSTAR 100 UNITS/ML 3 ML PEN SC STA (23:03)
[2021-01-06] MEDS ORDERED: CARBOHYDRATES FOR HYPOGLYCEMIA PO PRN (23:15)
[2021-01-06] MEDS ORDERED: GLUCOSE 40% GEL 15 GM TUBE PO PRN (23:15)
[2021-01-06] MEDS ORDERED: GLUCAGON FOR INJ 1 MG VIAL IM PRN (23:15)
[2021-01-06] MEDS ORDERED: DEXTROSE 50% 50 ML SYRINGE IV PRN (23:15)
[2021-01-06] MEDS ORDERED: GLUCOSE 10 TABS/TUBE PO PRN (23:15)
[2021-01-06] MEDS: INSULIN ASPART 100 UNITS/ML 3 ML PEN SC SCH (23:30)
[2021-01-06] MEDS: carvediloL 25 MG TAB PO SCH (23:30)
[2021-01-06] MEDS: INSULIN GLARGINE 100 UNIT/ML VIAL SC SCH (23:31)
--- NOTE | 2021-01-07 03:38 | History and Physical Report ---
DATE OF ADMISSION: 01/06/2021 CHIEF COMPLAINT: Stroke-like symptoms. 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 The patient since about 9 days ago, a couple of Saturdays ago started having problem with distant vision and was advised by PCP to see ophthalmology, but as he was not getting ophthalmology appointment soon, he came to he ER On 01/04/2021, as rest of the exam was fine he was advised to follow with ophthalmology, saw funeral assistant and they said that vision was okay.But since weekend having possibly double vision and some slight weakness in the right side and also some slurred speech and then he went to PCP yesterday and CAT scan was done as outpatient, which is showing questionable lesions in the bilateral occipital region, so he was advised to come to the ER. In the ER currently, his speech is improved. He still has some blurred/ double vision. Right sided weakness is same. He is talking fine, alert and oriented. He could not get MRI in the past because of his pacemaker was upgraded to bilateral pacemaker, he has a pacemaker lead present in the chest and he was denied MRIs in the past. ER talked to the radiologist and also they did not want to proceed with MRI at this time. Since he is also not a Tpa candidate as he has symptoms for some time CT with contrast was not done because of his renal function. Currently, patient is resting comfortably and hemodynamically stable. Denies any headache, no earache, no runny nose, no sore throat, no cough, no dysphagia. No chest pain, no shortness of breath, no nausea, no abdominal pain. Normal bowel and bladder movements. No blood in the stools or black stools. No swelling in the legs. No rash seen. The patient was somewhat tearful that his in last September. He is currently living alone. ALLERGIES: DOXYCYCLINE, SULFA, BYETTA, CIPROFLOXACIN, CLINDAMYCIN, CRESTOR, DEFINITY, FLAGYL, PHENOL, PROPYLENE GLYCOL, SIMVASTATIN. PAST MEDICAL HISTORY: As mentioned above. PAST SURGICAL HISTORY: Upper endoscopy, bronchoscopy, insertion of dual chamber pacemaker, laparoscopic cholecystectomy, tonsillectomy. MEDICATIONS: Currently the patient is on amlodipine 10 mg p.o. p.m., aspirin 81 mg p.o. a.m., Coreg 25 mg p.o. b.i.d., vitamin B12 2000 units p.o. a.m., Zetia 10 mg p.o. daily, insulin NovoLog sliding scale, Lantus 60 units b.i.d., losartan 50 mg p.o. a.m., omega fish oil 1 capsule p.o. b.i.d., omeprazole 40 mg p.o. a.m., spironolactone 25 mg p.o. a.m., furosemide as needed, Ambien 10 mg p.o. at bedtime p.r.n. FAMILY HISTORY: Significant for father had alcoholism, heart disorder, at age of 49; mother has alcoholism, obesity, diabetes; maternal grandmother had diabetes. SOCIAL HISTORY: Currently . No smoking, no alcohol, no drug use. REVIEW OF SYSTEMS: As per HPI. Rest of the review of systems negative. PHYSICAL EXAMINATION: GENERAL: The patient is morbidly obese, not in acute distress. VITAL SIGNS: Temperature 37, pulse 63, respiratory rate 18, blood pressure 189/109, oxygen 96% on room air. HEENT: Pupils equal, round, and reactive to light. Oral mucosa moist. vision is fine. peripheral vision ok. no nystagmus NECK: No JVD or neck masses. CARDIOVASCULAR: S1, S2 heard, regular rate and rhythm. No murmur, no gallop. RESPIRATORY SYSTEM: Normal AP diameter. No accessory muscle use. No wheezing, no crackles. ABDOMEN: Soft, bowel sounds present, nontender. No distension seen. CENTRAL NERVOUS SYSTEM: Cranial nerves II-XII grossly intact. No facial droop seen. Speech clear. Power 5/5 in all extremities. Sensation is intact. No pronator drift. Able to lift lower extremities and hold. Coordination was normal. Position sense intact. EXTREMITIES: No edema, no erythema. LABORATORY DATA: WBC 6.7, hemoglobin 15.5, hematocrit 43.1, platelets 256. PT 10.3, INR 1, APTT 27.3. Sodium 139, potassium 4.2, chloride 107, bicarbonate 26, BUN 25, creatinine 1.8, serum glucose 102, calcium 9.7. SARS-CoV-2 PCR negative. Influenza A and B PCR negative, RSV PCR negative. IMAGING DATA: Chest x-ray, mild cardiomegaly, no acute findings. ASSESSMENT AND PLAN: This is a 45-year-old male who presents with stroke-like symptoms. 1. Stroke-like symptoms going on for last 9 days. The patient initially had distant vision problems and since last weekend is having some double vision and also some slurred speech. The slurred speech improved. Having subjective right-sided weakness. CAT as an outpatient yesterday showed some bilateral occipital lesions. Could not do MRI because of retained pacemaker lead and also could not do CT scan with contrast because of his kidney function and also the patient is out time window for any intervention. Patient on aspirin and Zetia. Will add Plavix. We will do the stroke workup with repeat CT of the head in the morning, echocardiogram, carotid Doppler, speech evaluation, and neuro evaluation in a.m. and PT and OT. Monitor in the tele floor. 2. History of diabetes: Continue home Lantus 60units bid and ISS. Follow hba1c levels 3. History of nonischemic cardiomyopathy: EF of about 45%, on Coreg and spironolactone and Losartan. Torsemide as needed. Will monitor. 4. History of hypertension: On amlodipine, Coreg, losartan, spironolactone. will place on IV hydralazine p.r.n. Monitor the blood pressure. 5. Morbid obesity: Needs counseling. 6. Gastroesophageal reflux disease: Continue omeprazole. 7. History of Mobitz type 2 block status post permanent pacemaker and upgraded to biventricular ICD on 01/22/2016. 8. History of pulmonary sarcoidosis. 9. History of diabetic neuropathy: PT and OT when stable. 10. History of pulmonary hypertension: Currently stable. 11. History of chronic kidney disease stage III: Baseline creatinine around 1.9-2.0, currently creatinine of 1.8. Will follow the labs. 12. Deep venous thrombosis prophylaxis: Sequential compression devices for now. 13. Disposition: Closely monitor in the tele floor. Level 1 full code. Expect to discharge home and follow with the family doctor. PT and OT prior to discharge. Social service to help with discharge planning. TEDDY
[2021-01-07 06:44] LABS: Basophils # (auto) 0.01 K/uL (0-0.2); Basophils % (auto) 0.1 %; Eosinophils # (auto) 0.23 K/uL (0-0.5); Eosinophils % (auto) 3.2 %; Hematocrit (blood only) 41.3 % (42-52); Hemoglobin 14.2 g/dL (14.0-18.0); Immature Granulocytes # (auto) 0.01 K/uL (0.00-0.02); Immature Granulocytes % (auto) 0.1 %; Lymphocytes # (auto) 1.39 K/uL (1.2-3.4); Mean Corpuscular Hemoglobin 27.4 pg (25-34); Mean Corpuscular Hgb Conc 34.4 g/dL (32-36); Mean Corpuscular Volume 79.6 fL (80-100); Mean Platelet Volume 9.6 fL (7.4-10.4); Monocytes # (auto) 0.79 K/uL (0.11-0.59); Monocytes % (auto) 10.8 %; Neutrophils # (auto) 4.87 K/uL (1.4-6.5); Neutrophils % (auto) 66.8 %; Platelet Count 206 K/uL (130-400); RDW Coefficient of Variation 13.1 % (11.5-14.5); RDW Standard Deviation 37.8 fL (36.4-46.3); Red Blood Count 5.19 M/uL (4.7-6.1)
--- NOTE | 2021-01-07 06:45 | Ultrasound Report ---
CAROTID ARTERY ULTRASOUND CLINICAL HISTORY: cva? COMPARISON STUDY: None. TECHNIQUE: Real-time, grayscale, and color Doppler sonography of the carotid and vertebral arteries w as performed. Images were viewed in the transverse and longitudinal planes. FINDINGS: There is minimal atherosclerotic plaque. Velocity measurements are listed below. COMMON CAROTID PEAK SYSTOLIC VELOCITY (CM/S): RIGHT 83 LEFT 81 ICA PEAK SYSTOLIC VELOCITY (CM/S): RIGHT 74 LEFT 101 Systolic ratios between the internal to common carotid arteries are normal. Antegrade flow is seen in the vertebral arteries. The external carotid arteries are patent. Incidental note is made of a 3.6 x 1.7 x 1.7 cm hypoechoic mass which contains calcifications within the right lateral neck. This is located lateral to the right common carotid artery. A few echogenic n odules within the left neck are also noted. These are indeterminate. Note is made of a 3.6 x 2.5 x 1. 7 cm ill-defined hypoechoic nodule within the posterior aspect of the right thyroid lobe which contai ns numerous calcifications. IMPRESSION: 1. No evidence for a hemodynamically significant stenosis. 2. 3.6 x 2.5 x 1.7 cm ill-defined right lobe thyroid nodule which contains numerous calcifications. I n addition, 3.6 x 1.7 x 1.7 cm hypoechoic right neck mass which favors a pathologic lymph node. Overa ll, these findings are suspicious for right lobe thyroid malignancy with pathologic lymphadenopathy. However, the lymphadenopathy is nonspecific given thoracic lymphadenopathy on chest CT of December [address] of the neck with contrast is recommended. In addition, nonemergent ultrasound guided fine-n eedle aspiration of the right level 4 lymph node and right lobe thyroid nodule is recommended. ACT 112: Positive. There are findings on this exam that require communication between the performing entity and the patient following Patient Test Result Information Act ([place] Act 112) guidelines. Electronically signed by: Arden Vidal M.D. 01/07/2021 6:44 AM
[2021-01-07 07:49] LABS: BUN Creatinine Ratio 14.4 (10-20); Calcium 8.9 mg/dl (8.5-10.1); Creatinine Clr Calc Pharmacy 78.3 ml/min; Est GFR (African American) 54.1; Est GFR (Non-African American) 46.6; Potassium 3.4 mmol/L (3.5-5.1)
[2021-01-07] MEDS: carvediloL 25 MG TAB PO SCH (08:06)
[2021-01-07] MEDS: INSULIN ASPART 100 UNITS/ML 3 ML PEN SC SCH ×3 (08:07→17:34)
[2021-01-07] MEDS: INSULIN GLARGINE 100 UNIT/ML VIAL SC SCH (08:08)
--- NOTE | 2021-01-07 08:59 | CT Scan Report ---
CT OF THE HEAD WITHOUT CONTRAST CLINICAL HISTORY: cva? COMPARISON STUDY: Head CT September 09, 2020. CT DOSE: 614.27 mGy.cm TECHNIQUE: Helical axial images of the head were obtained without IV contrast. Automated exposure con trol was utilized for the study. A dose lowering technique was utilized adhering to the principles o f ALARA. FINDINGS: No acute intracranial hemorrhage, midline shift or mass effect is present. Ventricular syst em is normal. Basilar cisterns are patent. There are no extra-axial collections. Note is made of a 1. 1 cm hypodensity within the central neftaly on image 1232. This is new since prior head CT. There are no findings to suggest acute dural sinus thrombosis or acute territorial infarct. There are no signific ant calvarial abnormalities. IMPRESSION: 1.1 cm hypodensity within the central neftaly. This is new since CT of September 09, 2020. Thi s could reflect an age indeterminate infarct or pontine myelinolysis. MRI of the brain is recommended . ACT 112: Negative or not required by law. Electronically signed by: Arden Vidal M.D. 01/07/2021 8:58 AM
[2021-01-07] MEDS ORDERED: CHOLECALCIFEROL 1,000 UNITS 25 MCG TAB PO SCH (09:00)
[2021-01-07] MEDS ORDERED: LOSARTAN POTASSIUM 50 MG TAB PO SCH (09:00)
[2021-01-07] MEDS ORDERED: EZETIMIBE 10 MG TABLET PO SCH (09:00)
[2021-01-07] MEDS ORDERED: CLOPIDOGREL BISULFATE 75 MG TAB PO SCH (09:00)
[2021-01-07] MEDS ORDERED: ASPIRIN 81 MG ECTAB PO SCH (09:00)
[2021-01-07] MEDS ORDERED: SPIRONOLACTONE 25 MG TAB PO SCH (09:00)
[2021-01-07] MEDS ORDERED: PANTOprazole 40 MG TAB PO SCH (09:00)
[2021-01-07] MEDS ORDERED: POTASSIUM CHLORIDE CRTAB 20 MEQ TABCR PO ONE (09:30)
[2021-01-07 09:32] LABS: Estimated Average Glucose 220 mg/dl; Hemoglobin A1C 9.3 % (4.5-5.6)
--- NOTE | 2021-01-07 11:22 | Electrocardiogram Report ---
Test Reason : Blood Pressure : / mmHG Vent. Rate : 073 BPM Atrial Rate : 073 BPM P-R Int : 140 ms QRS Dur : 172 ms QT Int : 470 ms P-R-T Axes : 010 -73 077 degrees QTc Int : 517 ms Atrial-sensed ventricular-paced rhythm Biventricular pacemaker detected Abnormal ECG When compared with ECG of 05-NOV-2020 20:17, Vent. rate has decreased BY 15 BPM Confirmed by Jean Marie Herrera ([id number]) on 01/07/2021 11:22:43 AM Referred By: REFERRED SELF Confirmed By:Jean Marie Herrera
--- NOTE | 2021-01-07 12:08 | Consultation Report ---
DATE OF CONSULTATION: 01/07/2021 NEUROLOGY CONSULTATION NOTE CHIEF COMPLAINT: Dysarthria, double vision. HISTORY OF PRESENT ILLNESS: A 45-year-old male admitted to the Emergency Department last evening for intermittent and persistent symptoms over the last 7-10 days, described as intermittent speech difficulty and double vision that improves with closing one eye. He denies any history of similar symptoms. He does have multiple comorbidities including sarcoidosis resulting in a cardiac pacemaker as well as a known diabetic polyneuropathy with known history of dizziness and gait difficulty. Today or this morning, he reports feeling much better, although he does not feel like his speech is back to baseline. His vision has also improved to some degree and he is able to keep both eyes open. Vision still improved with closing one eye. He is seeing double. He denies any weakness in the arms or legs. He denies any facial droop. He denies any trouble swallowing. He has not been compliant with his aspirin at home as he states he had ran out of this medication. His blood glucoses have been out of control in the past, although somewhat improved recently with hemoglobin A1c in the 8s. He was recently seen by Krysta Gama with a normal eye exam. He was referred by his PCP for a CAT scan, which showed an abnormal finding in the bilateral posterior fossa area and then was directed to go to the Emergency Department for further evaluation. The outside CT scan showed bilateral occipital lobe hypodensities and loss of desai-white differentiation is incompletely evaluated and could represent cytotoxic edema due to stroke or artifact from the skull base. It was recommended to consider an MRI if possible pending the cardiac pacemaker. Neurology was consulted upon admission. ALLERGIES: DOXYCYCLINE, PHENOL, SULFA ANTIBIOTICS, CLINDAMYCIN, CIPROFLOXACIN, PROPYLENE GLYCOL, STATIN MEDICATIONS, EXENATIDE. PAST MEDICAL HISTORY: Insulin-dependent diabetes, obesity, diabetic polyneuropathy, hyperlipidemia, pulmonary sarcoidosis, nonischemic cardiomyopathy, Mobitz type 2 second-degree heart block, intraventricular block, hypertension, gastroesophageal reflux disease, and history of chronic cholecystitis. PAST SURGICAL HISTORY: Upper endoscopy, bronchoscopy, insertion of dual chamber pacemaker, laparoscopic cholecystectomy, tonsillectomy. HOME MEDICATIONS: Amlodipine 10 mg, aspirin 81 mg daily, Coreg 25 mg twice daily, vitamin B12, Zetia, insulin Lantus 60 units twice daily, losartan, omeprazole, spironolactone, furosemide, Ambien. FAMILY HISTORY: Significant for father had alcoholism, heart disorder and at the age of 49. Mother had alcoholism, obesity, diabetes. Maternal grandmother had diabetes. SOCIAL HISTORY: He is currently . He is a nonsmoker. No alcohol, no drug use. He drives a van for living. REVIEW OF SYSTEMS: All review of systems was performed and negative except as noted above in the HPI including dizziness, gait difficulty, diplopia, dysarthria, numbness. PHYSICAL EXAMINATION: VITAL SIGNS: Blood pressure 134/70, pulse is 67, respiratory rate is 20, temperature is 36.6 degrees Celsius, oxygen saturation is 96% on room air. Of note, earlier in the admission, blood pressures were systolics in the 180s and diastolics in the low 100s. GENERAL: The patient appears stated age, he is obese and appears well-nourished. He is in no acute distress. HEENT: His head is normocephalic and atraumatic. His eyes showed normal conjunctivae with a mild left eye ptosis. NECK: Supple. LUNGS: Respiratory effort is normal. CARDIAC: Pulses are normal. ABDOMEN: Nontender. SKIN: Shows no rash. PSYCHIATRIC: Shows a normal mood and affect. Appearance: He is in no distress. NEUROLOGIC: He is awake, alert and oriented to person, place and time. His memory is normal. His attention is normal. His knowledge is appropriate. His comprehension is intact and he can repeat. His speech is clear. No visual defect on confrontation. His pupils are symmetric and reactive to light. His extraocular muscles are intact. No facial asymmetry. Intact hearing. Palate is symmetric. Good shoulder shrug. Tongue is midline without abrasion. Gait is wide based and he is able to stand with his feet together. He has some mild ataxia with [id number] testing bilaterally with no tremor. Sensation is reduced in the feet. Muscle tone is normal. Muscle strength is 5/5 throughout. Reflexes are hypoactive. Edwardo sign is negative. DIAGNOSTIC TESTING AND LABORATORY VALUES: WBC 7.30, RBC 5.19, platelet count 206. Sodium is 139, potassium 3.4, BUN is 25, creatinine is 1.71, estimated GFR is 46.6, glucose is 104. Hemoglobin A1c is 9.3. Triglycerides are 335, cholesterol is 246. Urinalysis shows 3+ glucose. COVID-19 is negative. IMAGING: Head CT non-contrast: No acute intracranial hemorrhage, midline shift or mass effect is present. Ventricular system is normal. There are no extraaxial collections. A 1.1 cm hypodensity within the central neftaly. This is new since the CT on 09/09/2020. This could reflect an age-indeterminate infarct or pontine myelinolysis. MRI of the brain is recommended. Carotid ultrasound showed no evidence for hemodynamically significant stenosis. There is a 3.6 x 2.5 x 1.7 cm ill-defined right lobe thyroid nodule in addition to a 3.6 x 1.7 x 1.7 right neck mass, which favors a pathologic lymph node. Overall, these findings are suspicious for a right lobe thyroid malignancy with pathological lymphadenopathy. CT head non-contrast performed on 01/06/2021 shows bilateral occipital lobe hypodensity and loss of desai-white differentiation is incompletely evaluated and could represent cytotoxic edema due to CVA or artifact from adjacent skull base. Mild chronic brain parenchymal volume loss. ASSESSMENT AND PLAN: A 45-year-old male with multiple medical comorbidities including poorly controlled insulin-dependent type 2 diabetes with diabetic polyneuropathy and chronic kidney disease as well as pulmonary sarcoidosis and nonischemic cardiomyopathy with heart block, status post a pacemaker, admitted with acute-onset binocular diplopia, dysarthria, and intermittent right arm weakness. Symptoms have been ongoing for the last 10 days, although improving. On admission, the patient's blood pressures were elevated with systolic blood pressures in the 180s and the diastolics above 100s. Outside CT head noncontrast showed some ill-defined lucencies in the bilateral occipital lobes, which were likely artifactual, although cannot completely exclude PRES in the setting of high blood pressure. However, the PRES is less consistent with his clinical history. Clinical history is concerning for an acute stroke. I did review both his CT head noncontrast this morning as well as his previous scan on the and there is a small lacunar-appearing infarct in the neftaly or brainstem. This does appear to be a small vessel ischemic stroke. He certainly does have risk factors including poorly controlled diabetes. Given his glomerular filtration rate in the 40s as well as his creatinine of 1.71, I do believe the patient would be eligible for a CTA of the head and neck with contrast. It may be of benefit to discuss with nephrology prior to administration of contrast. For now, the patient does appear improved, although still having double vision that improves with closing one eye and left eye ptosis. No noticeable weakness. Overall, his gait does appear consistent with a sensory neuropathy. I would recommend starting dual antiplatelet therapy for 21 days, aspirin 81 mg daily and Plavix 75 mg daily. After 21 days, I would recommend continuing Plavix 75 mg daily. Most recent hemoglobin A1c was 9.1. Goal hemoglobin A1c is 7. The patient may benefit from an endocrinology consultation at some point. Although as I said the patient is intolerant of statins due to muscle aches, the patient may benefit from starting a low-dose Lipitor 20 mg daily. Blood pressure is currently improved. Would recommend systolic blood pressure less than 140, diastolic blood pressure less than 90. Otherwise, would recommend physical therapy and occupational therapy for any rehabilitation needs. The patient will require outpatient neurology followup in 8 weeks. Neurology will continue to follow while the patient is admitted, although he is requesting to leave. Should the patient be discharged, I will arrange for followup in my office as an outpatient.
--- NOTE | 2021-01-07 17:20 | Hospitalist Progress Note ---
Date of Service January 07, 2021 Assessment & Plan (1) Stroke-like symptoms: Present on admission with double vision associated with right side weakness and slurred speech Possible related to CVA CT head showed 1.1 cm hypodensity within the central neftaly. This is new since CT of September 09, 2020. Carotid doppler showed No evidence for a hemodynamically significant stenosis. Echo showed grossly normal valvular structure and function. Left ventricular systolic function is low normal with ejection fraction 45 to 50%. The interatrial septum is intact with no evidence for atrial septal defect Neuro on board recommended to continue aspirin and plavix for 21 days; hen After 21 days to continue Plavix 75 mg daily. Hx statin intolerance (Pt said that he tried 3 statins in the past), She was started on Zetia PT/OT eval Will continue PT/OT outpatient Follow up with neurology in 8 weeks Thyroid Nodule carotid doppler showed 3.6 x 2.5 x 1.7 cm ill-defined right lobe thyroid nodule which contains numerous calcifications. In addition, 3.6 x 1.7 x 1.7 cm hypoechoic right neck mass which favors a pathologic lymph node. CT of the neck with contrast is recommended but pt has hx CKD with creatinine 1.7 Will need a nonemergent ultrasound guided fine-needle aspiration of the right level 4 lymph node and right lobe thyroid nodule is recommended, pcp will refer it HTN Continue Amlodipine and spironolactone and carvedilol Will increase Losartan to 100mg daily BP goal to be under 140 sbp Continue monitor BP Diabetes type 2 Hab1c 9.3 on 05/10/21 Continue insulin Continue monitor BS History of Mobitz type 2 block status post permanent pacemaker and upgraded to biventricular ICD on 01/22/2016. Stable Chronic kidney disease stage III: Baseline creatinine around 1.9-2.0, currently creatinine of 1.7 Continue to avoid nephrotoxic agents DVT px on SCDs Disposition Discharge home today Admission and Anticipated Discharge Date Admission Date: January 06, 2021 Subjective Pt was seen and examined for follow for stroke like symptoms Sitting at the edge of the bed with no distress Pt said that he feels much better He said double vision improves He wants to go home today He said that he did not sleep last night by being in the hospital He requested to be discharge home today Denies any chest pain, palpitation, dizziness and SOB Review of Systems Review of Systems: All systems reviewed & are unremarkable except as noted in Subjective Physical Exam Physical Exam: General- No acute distress Head- atraumatic Eyes- PERRL, EOMI, ENT- oropharynx clear Neck- supple, no JVD Lungs- clear to auscultation Heart- regular rhythm; no murmur Abdomen- normal bowel sounds, soft, nontender Extremities- no calf tenderness Neuro- alert, oriented x 3; PERRL, EOMI; no facial palsy; no dysarthria Skin- warm & dry Results & Data Results & Data ([facility]) Vital Signs (Past 12 Hours) Vital Signs Temp Pulse Resp BP Pulse Ox 01/07/21 15:56 36.8 C 61 20 155/83 H 94 01/07/21 11:26 36.3 C L 62 18 111/64 97 01/07/21 07:33 36.6 C 67 20 134/70 96
[2021-01-07] MEDS ORDERED: STROKE PATIENT DISCHARGE STA (17:56)
--- NOTE | 2021-01-11 07:57 | Discharge Summary ---
Date of Service January 07, 2021 Admission HPI Per Admitting Provider CHIEF COMPLAINT: Stroke-like symptoms. 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 The patient since about 9 days ago, a couple of days ago started having problem with distant vision and was advised by PCP to see ophthalmology, but as he was not getting ophthalmology appointment soon, he came to he ER On 01/04/2021, as rest of the exam was fine he was advised to follow with ophthalmology, saw briquetter operator and they said that vision was okay.But since weekend having possibly double vision and some slight weakness in the right side and also some slurred speech and then he went to PCP yesterday and CAT scan was done as outpatient, which is showing questionable lesions in the bilateral occipital region, so he was advised to come to the ER. In the ER currently, his speech is improved. He still has some blurred/ double vision. Right sided weakness is same. He is talking fine, alert and oriented. He could not get MRI in the past because of his pacemaker was upgraded to bilateral pacemaker, he has a pacemaker lead present in the chest and he was denied MRIs in the past. ER talked to the radiologist and also they did not want to proceed with MRI at this time. Since he is also not a Tpa candidate as he has symptoms for some time CT with contrast was not done because of his renal function. Currently, patient is resting comfortably and hemodynamically stable. Denies any headache, no earache, no runny nose, no sore throat, no cough, no dysphagia. No chest pain, no shortness of breath, no nausea, no abdominal pain. Normal bowel and bladder movements. No blood in the stools or black stools. No swelling in the legs. No rash seen. The patient was somewhat tearful that his in last September. He is currently living alone. Admission Exam Per Admitting Provider GENERAL: The patient is morbidly obese, not in acute distress. VITAL SIGNS: Temperature 37, pulse 63, respiratory rate 18, blood pressure 189/109, oxygen 96% on room air. HEENT: Pupils equal, round, and reactive to light. Oral mucosa moist. vision is fine. peripheral vision ok. no nystagmus NECK: No JVD or neck masses. CARDIOVASCULAR: S1, S2 heard, regular rate and rhythm. No murmur, no gallop. RESPIRATORY SYSTEM: Normal AP diameter. No accessory muscle use. No wheezing, no crackles. ABDOMEN: Soft, bowel sounds present, nontender. No distension seen. CENTRAL NERVOUS SYSTEM: Cranial nerves II-XII grossly intact. No facial droop seen. Speech clear. Power 5/5 in all extremities. Sensation is intact. No pronator drift. Able to lift lower extremities and hold. Coordination was normal. Position sense intact. EXTREMITIES: No edema, no erythema. Principal Diagnosis Stroke-like symptoms Thyroid Nodule Hypertension Diabetes type 2 History of Mobitz type 2 block Chronic kidney disease stage III: Discharge Exam General- No acute distress Head- atraumatic Eyes- PERRL, EOMI, ENT- oropharynx clear Neck- supple, no JVD Lungs- clear to auscultation Heart- regular rhythm; no murmur Abdomen- normal bowel sounds, soft, nontender Extremities- no calf tenderness Neuro- alert, oriented x 3; PERRL, EOMI; no facial palsy; no dysarthria Skin- warm & dry Discharge Data Allergies Allergy/AdvReac Type Severity Reaction Status Date / Time doxycycline Allergy Mild Hives Verified 01/06/21 19:37 exenatide Allergy Unknown DIFFICULTY Verified 01/06/21 19:37 BREATHING phenol Allergy Unknown DIFFICULTY Verified 01/06/21 19:37 BREATHING Sulfa (Sulfonamide Allergy Unknown HIVES Verified 01/06/21 19:37 Antibiotics) perflutren AdvReac Severe BACK PAIN Verified 01/06/21 19:37 clindamycin AdvReac Mild other Verified 01/06/21 19:37 ciprofloxacin [From Cipro] AdvReac Unknown fast heart Verified 01/06/21 19:37 rate propylene glycol AdvReac Unknown BACK PAIN Verified 01/06/21 19:37 Akyfsqc-Xww-Hht Reductase AdvReac Unknown ACHE PAIN Verified 01/06/21 19:37 Inhibitor Consultations 01/06/21 19:31 ED Decision to Admit Stat 01/07/21 08:00 Consult Neurology Routine Ordered Studies 01/06/21 22:11 US carotid doppler BI Routine 01/07/21 08:00 CT head/brain wo con Routine CT OF THE HEAD WITHOUT CONTRAST CLINICAL HISTORY: cva? COMPARISON STUDY: Head CT September 09, 2020. CT DOSE: 614.27 mGy.cm TECHNIQUE: Helical axial images of the head were obtained without IV contrast. Automated exposure control was utilized for the study. A dose lowering technique was utilized adhering to the principles of ALARA. FINDINGS: No acute intracranial hemorrhage, midline shift or mass effect is present. Ventricular system is normal. Basilar cisterns are patent. There are no extra-axial collections. Note is made of a 1.1 cm hypodensity within the central neftaly on image 1232. This is new since prior head CT. There are no findings to suggest acute dural sinus thrombosis or acute territorial infarct. There are no significant calvarial abnormalities. IMPRESSION: 1.1 cm hypodensity within the central neftaly. This is new since CT of September 09, 2020. This could reflect an age indeterminate infarct or pontine my elinolysis. MRI of the brain is recommended. ACT 112: Negative or not required by law. Electronically signed by: Arden Vidal M.D. 01/07/2021 8:58 AM Dictated: 01/07/21 0833Transcribed: 01/07/21 0849 CAROTID ARTERY ULTRASOUND CLINICAL HISTORY: cva? COMPARISON STUDY: None. TECHNIQUE: Real-time, grayscale, and color Doppler sonography of the carotid and vertebral arteries was performed. Images were viewed in the transverse and longitudinal planes. FINDINGS: There is minimal atherosclerotic plaque. Velocity measurements are listed below. COMMON CAROTID PEAK SYSTOLIC VELOCITY (CM/S): RIGHT 83 LEFT 81 ICA PEAK SYSTOLIC VELOCITY (CM/S): RIGHT 74 LEFT 101 Systolic ratios between the internal to common carotid arteries are normal. Antegrade flow is seen in the vertebral arteries. The external carotid arteries are patent. Incidental note is made of a 3.6 x 1.7 x 1.7 cm hypoechoic mass which contains calcifications within the right lateral neck. This is located lateral to the right common carotid artery. A few echogenic nodules within the left neck are also noted. These are indeterminate. Note is made of a 3.6 x 2.5 x 1.7 cm ill- defined hypoechoic nodule within the posterior aspect of the right thyroid lobe which contains numerous calcifications. IMPRESSION: 1. No evidence for a hemodynamically significant stenosis. 2. 3.6 x 2.5 x 1.7 cm ill-defined right lobe thyroid nodule which contains numerous calcifications. In addition, 3.6 x 1.7 x 1.7 cm hypoechoic right neck mass which favors a pathologic lymph node. Overall, these findings are suspicious for right lobe thyroid malignancy with pathologic lymphadenopathy. However, the lymphadenopathy is nonspecific given thoracic lymphadenopathy on chest CT of December 02, 2017. A CT of the neck with contrast is recommended. In addition, nonemergent ultrasound guided fine-needle aspiration of the right level 4 lymph node and right lobe thyroid nodule is recommended. ACT 112: Positive. There are findings on this exam that require communication between the performing entity and the patient following Patient Test Result Information Act ([place] Act 112) guidelines. Electronically signed by: Arden Vidal M.D. 01/07/2021 6:44 AM Dictated: 01/07/21631Transcribed: 01/07/21631 XR chest 1V portable CLINICAL HISTORY: Difficulty with speech vision and gait COMPARISON STUDY: 10/22/2020 FINDINGS: The heart is enlarged. There is a left subclavian pacer/defibrillator. There is no failure. There is no focal pulmonary consolidation. There are no pleural effusions.[ IMPRESSION: Mild cardiomegaly. No acute findings. ACT 112: Negative or not required by law. Electronically signed by: Rory Aguirre M.D. 01/06/2021 7:32 PM Dictated: 01/06/211929Transcribed: 01/06/211929 Diabetes Follow up Diabetes Follow-up Needed for HgbA1c >9% Hospital Course (1) Stroke-like symptoms: Present on admission with double vision associated with right side weakness and slurred speech Possible related to CVA CT head showed 1.1 cm hypodensity within the central neftaly. This is new since CT of September 09, 2020. Carotid doppler showed No evidence for a hemodynamically significant stenosis. Echo showed grossly normal valvular structure and function. Left ventricular systolic function is low normal with ejection fraction 45 to 50%. The interatrial septum is intact with no evidence for atrial septal defect Neuro on board recommended to continue aspirin and plavix for 21 days; hen After 21 days to continue Plavix 75 mg daily. Hx statin intolerance (Pt said that he tried 3 statins in the past), She was started on Zetia PT/OT eval Will continue PT/OT outpatient Follow up with neurology in 8 weeks Thyroid Nodule carotid doppler showed 3.6 x 2.5 x 1.7 cm ill-defined right lobe thyroid nodule which contains numerous calcifications. In addition, 3.6 x 1.7 x 1.7 cm hypoechoic right neck mass which favors a pathologic lymph node. CT of the neck with contrast is recommended but pt has hx CKD with creatinine 1.7 Will need a nonemergent ultrasound guided fine-needle aspiration of the right level 4 lymph node and right lobe thyroid nodule is recommended, pcp will refer it HTN Continue Amlodipine and spironolactone and carvedilol Will increase Losartan to 100mg daily BP goal to be under 140 sbp Continue monitor BP Diabetes type 2 Hab1c 9.3 on 05/10/21 Continue insulin Continue monitor BS History of Mobitz type 2 block status post permanent pacemaker and upgraded to biventricular ICD on 01/22/2016. Stable Chronic kidney disease stage III: Baseline creatinine around 1.9-2.0, currently creatinine of 1.7 Continue to avoid nephrotoxic agents DVT px on SCDs Disposition Discharge home today Total Time Total Time Spent Total Time Spent (In Minutes): 35 minutes Total Time Includes: Examination of the Patient, Discharge Planning, Medication Reconciliation, Communication With Other Providers and Other Discharge Plan Discharge Items Patient Disposition: Home - Self-Care Reason For Visit: STROKE LIKE SYMPTOMS Discharge Diagnosis: Stroke-like symptoms Thyroid Nodule Hypertension Diabetes type 2 History of Mobitz type 2 block Chronic kidney disease stage III: Activity: Resume your previous activity Non-emergency contact: Primary Care Provider, Neurologist and Cloth Dyeing Range Tender Call non-emergency contact if: your temperature is above 101 Follow-up/Referrals: Tj Mace MD [Primary Care Provider] - Diet: Carb Consistent or DM2 Addtl Attending Provider Instructions: Follow up with your primary care provider in 1 week ( Office will call you for the appointment) Follow up with neurology in [address] Dempsey ( Office will call you for the appointment) You have a right lobe thyroid nodule which contains numerous calcifications. You will need referral from your primary care provider to get arranged for ultrasound guided fine-needle aspiration. Losartan for your blood pressure increased to 100mg daily Continue monitor your blood pressure and bring your blood pressure log at your next appointment with your provider Continue monitor your blood sugar and bring your blood sugar log at your next appointment with your provider Follow a healthy diabetes diet and limited your concentrated sweet intake Continue physical therapy outpatient Continue Plavix and aspirin for 21 days; then after 21 days, continue Plavix alone Fall precaution Pending Studies at Discharge: No Stand-Alone Forms: [facility] [email or web address], Smoking Cessation Medications and DC Order Prescriptions: New clopidogrel 75 mg Tablet 75 mg PO QAM 30 Days Qty: 30 RF: 0 losartan 100 mg tablet 100 mg PO DAILY Qty: 30 RF: 0 Continued omeprazole 40 mg Capsule,Delayed Release(Dr/Ec) 40 mg PO QAM RF: 0 aspirin 81 mg Tablet,Delayed Release (Dr/Ec) 81 mg PO QAM RF: 0 zolpidem [Ambien] 10 mg Tablet 10 mg PO HS PRN (Reason: Insomnia) RF: 0 insulin aspart U-100 [Novolog Flexpen U-100 Insulin] 100 unit/mL Insulin Pen 16 - 20 unit SUBCUT AC RF: 0 Lantus Solostar U-100 Insulin 100 unit/mL (3 mL) Insulin Pen See Rx Instructions .ROUTE .COMPLEX RF: 0 cholecalciferol (vitamin D3) [Vitamin D3] 2,000 unit Capsule 2,000 unit PO QAM RF: 0 amlodipine 10 mg tablet 10 mg PO PM RF: 0 carvedilol 25 mg tablet 25 mg PO BID RF: 0 torsemide 20 mg tablet 20 mg PO UD PRN (Reason: Fluid Retention) RF: 0 ezetimibe 10 mg tablet 10 mg PO DAILY RF: 0 omega-3 acid ethyl esters 1 gram capsule 1 cap PO BID RF: 0 spironolactone 25 mg tablet 25 mg PO QAM RF: 0 Discontinued losartan 50 mg tablet 50 mg PO QAM RF: 0 Discharge Orders: Discharge Order (Routine); Ordered 01/07/21 Ordered By: Henok Thomas Admission Data Admit Date/Time: 01/06/21 20:32 Attending Provider: Henok Thomas Admit Provider: Mitchell Wilkerson Primary Care Provider: Tj Mace Other Providers: Mitchell Wilkerson ; Loan Luna ; Leonardo Cortes ; Loan Dominguez ; Jono Dempsey Other Interventions: Discharge Summary Assessment (RN) Last Done: 01/07/21 17:58
== END 2021-01-07 18:40 | disposition home or self-care (01) | DRG 65 ==
LOC: ED 18:36 → 2S 20:32

== ENCOUNTER 2022-11-18 12:43 | Observation (INO) ==
--- NOTE | 2022-11-18 13:23 | CT Scan Report ---
CT OF THE HEAD WITHOUT CONTRAST CLINICAL HISTORY: Neuro deficit, acute, stroke suspected. Right-sided weakness. COMPARISON STUDY: Head CT January 28, 2021 and November 17, 2021. CT DOSE: 1575.59 mGy.cm TECHNIQUE: Helical axial images of the head were obtained without IV contrast. Automated exposure con trol was utilized for the study. A dose lowering technique was utilized adhering to the principles o f ALARA. FINDINGS: No acute intracranial hemorrhage, midline shift or mass effect is present. The ventricular system is unremarkable. The basal cisterns are patent. No extra-axial collections are present. There are no findings to suggest acute dural sinus thrombosis or acute territorial infarct. No significant calvarial abnormalities are present. Visualized portions of the sinuses and mastoid air cells are marcell ar. IMPRESSION: No acute intracranial findings. ACT 112: Negative or not required by law. Electronically signed by: Arden Vidal M.D. 11/18/2022 1:22 PM
--- NOTE | 2022-11-18 13:27 | XRay Report ---
XR chest 1V portable HISTORY: Stroke symptoms. Altered mental status. COMPARISON: Chest 10/18/2022. FINDINGS: No pneumothorax. No pleural effusions. There is left-sided pacemaker/defibrillator. The hea rt remains top normal in size. The left lung is clear. No evidence for pulmonary edema. There is a ri ght basilar airspace opacity which is new from the prior study. IMPRESSION: A new right basilar airspace opacity consistent with a pneumonia. Recommend one month chest x-ray fol low-up to ensure resolution. ACT 112: Negative or not required by law. Electronically signed by: Daljit Nuñez M.D. 11/18/2022 1:26 PM
--- NOTE | 2022-11-18 14:55 | Emergency Department Note ---
Impression & Plan Brain TIA ED Provider Note INFORMANT: Patient ED PROVIDER(S): Kieran Desai DO CHIEF COMPLAINT: TIA symptoms PLAN: Disposition: Admission Outpatient prescription management: none Discussion with: I spoke with the hospitalist, who will see the patient for admission/observation and further evaluation and consultation. I spoke with the teleneurologist, Dr. Florez, who recommended some IV fluids but otherwise continue current management and work up for TIA. MEDICAL DECISION MAKING: This is a 47-year-old male who presents to the ED with a chief complaint of TIA symptoms. The patient states that around noon. He came in about 1-1 and half hours after onset of symptoms. His main symptoms at onset were inability to control his right arm and hand, right leg weakness and difficulty with speaking. He states that he was not able to come up with the right words to say when he wanted to say them. The symptoms had mostly resolved upon his arrival. His only symptoms upon my evaluation was some mild diminished right articulation officer strength and a little bit of word finding issues but otherwise nothing significant. Stroke scale is 2-3. A stroke alert was called in triage. The patient had a noncontrast CT scan of the brain that did not show any acute findings. His t welve-lead EKG shows a paced ventricular rhythm at a rate of 79. Patient had a previous stroke per his history. He was unable to have MRIs due to his pacemaker. The patient states that he is significantly improved. His vital signs here reveal some hypertension. BSG here was 337. A chest x-ray did show a right lower lobe infiltrate per radiologist, however the patient denies having any respiratory symptoms that would be concerning for pneumonia. He states that he did have a cold with a runny nose a couple of weeks ago but that has since improved. CBC did not show any concerning leukocytosis or anemia. Coagulation studies were normal. I did speak with the hospitalist about the patient. They will see the patient for further inpatient evaluation and care. Triage Nursing notes reviewed. Vital Signs: reviewed Prior /Outside records reviewed: Internal medicine note from January 2021 shows previous stroke. Differential diagnosis: CVA, TIA, intracranial hemorrhage, other. Diagnostics, as interpreted by me: 12 lead ECG: Paced ventricular rhythm at a rate of 79. No ST elevation. No PVCs. Cardiac Monitoring ordered: Paced ventricular rhythm in the 70s. Medical decision rules: none Imaging studies: Noncontrast CT scan of the brain: No acute disease. No intracranial hemorrhage. Chest x-ray: Right lower lobe infiltrate. Procedures: none. Critical care: none. HPI: See MDM above. PAST MEDICAL HISTORY: See Below PAST SURGICAL HISTORY: See Below SOCIAL HISTORY: See Below HOME MEDICATIONS: See Below ALLERGIES: See Below VITALS: See Below PHYSICAL EXAMINATION: See MDM for positive findings otherwise unremarkable. CONSTITUTIONAL/VITAL SIGNS: Reviewed GENERAL:done as appropriate INTEGUMENTARY: done as appropriate HEAD: done as appropriate EYES: done as appropriate RESPIRATORY: done as appropriate CARDIOVASCULAR:done as appropriate GI/ABDOMEN:done as appropriate EXTREMITIES: done as appropriate NEUROLOGICAL: done as appropriate PSYCHIATRIC:done as appropriate MUSCULOSKELETAL:done as appropriate TRIAGE NURSING DOCUMENTATION REVIEWED. 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 Sosa Nausea and vomiting after administration of anesthetic agent Neuropathic ulcer of toe of left foot Neuropathic ulcer of toe of left foot NICM (nonischemic cardiomyopathy) Obesity Obstructive sleep apnea Pacemaker 01/2016 Pancreatitis Pulmonary sarcoidosis Second degree AV block, Mobitz type II Stroke-like symptoms Tinea cruris Visual problems Surgical History H/O esophagogastroduodenoscopy History of cardiac cath 01/2016 @ [facility]--no stents History of lung biopsy sarcoidosis History of tonsillectomy and adenoidectomy History of wisdom tooth extraction Hx of appendectomy (12/07/19) Laparoscopic Appendectomy Dr. Bañuelos 12/07/19 Hx of tonsillectomy S/P cholecystectomy Family History Father Family history of diabetes mellitus Mother Family history of diabetes mellitus Aunt Family history of diabetes mellitus Uncle Family history of diabetes mellitus Grandmother (Maternal) Family history of diabetes mellitus Other No family history of adverse response to anesthesia Social History Smoking Status: Never smoker Second Hand Exposure: No; Hx Alcohol Use: No Hx Substance Use: No Preferred Language: Belarusian Communication Ability: Effective Hem Marker Required: No Beliefs That Will Affect Care: None Current Living Situation: Family Current Living Situation Comment: Step Son Feels Safe at Home: Yes Assistive Devices: None Allergies Allergies Allergy/AdvReac Type Severity Reaction Status Date / Time exenatide Allergy Severe DIFFICULTY Verified 02/23/22 17:49 BREATHING phenol Allergy Severe DIFFICULTY Verified 02/23/22 17:49 BREATHING Sulfa (Sulfonamide Allergy Intermediate HIVES Verified 02/23/22 17:49 Antibiotics) doxycycline Allergy Mild Hives Verified 02/23/22 17:49 perflutren AdvReac Severe BACK PAIN Verified 02/23/22 17:49 ciprofloxacin [From Cipro] AdvReac Intermediate fast heart Verified 02/23/22 17:49 rate propylene glycol AdvReac Intermediate BACK PAIN Verified 02/23/22 17:49 Dvcizvb-LQT-[id number] Reductase AdvReac Intermediate ACHE PAIN Verified 02/23/22 17:49 Inhibitor [Hytsams-Uzq-Dtl Reductase Inhibitor] clindamycin AdvReac Mild MOUTH Verified 02/23/22 17:49 BURNING Home Meds Home Medications Medication Instructions Recorded Confirmed cholecalciferol (vitamin D3) 50 2,000 unit PO QAM 05/13/18 02/23/22 mcg (2,000 unit) capsule (Vitamin D3) insulin aspart U-100 100 unit/mL 0 unit subcut AC 05/13/18 02/23/22 (3 mL) subcutaneous pen (Novolog FlexPen U-100 Insulin aspart) insulin glargine 100 unit/mL (3 60 unit subcut BID 05/13/18 02/23/22 mL) subcutaneous pen (Lantus Solostar U-100 Insulin) omeprazole 40 mg capsule,delayed 40 mg PO QAM 05/13/18 02/23/22 release zolpidem 10 mg tablet (Ambien) 10 mg PO HS 05/13/18 02/23/22 carvedilol 25 mg tablet 50 mg PO BID 11/05/20 02/23/22 ezetimibe 10 mg tablet 10 mg PO QAM 05/04/21 06/21/22 spironolactone 25 mg tablet 12.5 mg PO 3XWK 01/06/21 02/23/22 amlodipine 5 mg tablet 5 mg PO HS 06/30/21 02/23/22 clopidogrel 75 mg tablet 75 mg PO QAM 06/30/21 02/23/22 loratadine 10 mg tablet (Claritin) 10 mg PO DAILY PRN Allergy Symptoms 06/30/21 02/23/22 famotidine 20 mg tablet 20 mg PO HS 09/01/21 02/23/22 losartan 100 mg tablet 100 mg PO QAM 09/01/21 02/23/22 levothyroxine 175 mcg tablet 175 mcg PO DAILYBB 02/23/22 02/23/22 Previous Rx's Medication Instructions Recorded amoxicillin 875 mg-potassium 1 tab PO BID #14 tabs 02/23/22 clavulanate 125 mg tablet amoxicillin 875 mg-potassium 1 tab PO BID #6 tabs 02/27/22 clavulanate 125 mg tablet Results & Data (ED) Vital Signs Vital Signs - 24 hr 11/18/22 12:48 11/18/22 13:09 11/18/22 12:56 Temperature 36.3 C L Temperature Source Skin Pulse Rate 76 Pulse Rate [Apical] 80 Pulse Rhythm [Apical] Regular Respiratory Rate 20 22 Respiratory Effort / Characteristics Non-Labored Spontaneous Non-Labored Spontaneous Respiratory Depth Normal Normal Blood Pressure 103/65 Blood Pressure [Left Arm] 166/82 H Blood Pressure Mean 77 Blood Pressure Mean [Left Arm] 110 Pulse Oximetry 94 93 Oxygen Delivery Method Room Air Room Air Room Air Oxygen Flow Rate 94 Sepsis Recent Fever Within 48 Hours No Sepsis New/Unexplained Change in Mental Status N/A Sepsis Action Taken by Nursing No Action Required 11/18/22 13:08 11/18/22 13:17 11/18/22 13:18 Temperature Temperature Source Pulse Rate 79 81 80 Pulse Rate [Apical] Pulse Rhythm [Apical] Respiratory Rate 20 20 Respiratory Effort / Characteristics Respiratory Depth Blood Pressure 156/81 H Blood Pressure [Left Arm] Blood Pressure Mean 106 Blood Pressure Mean [Left Arm] Pulse Oximetry 93 93 Oxygen Delivery Method Room Air Room Air Oxygen Flow Rate Sepsis Recent Fever Within 48 Hours Sepsis New/Unexplained Change in Mental Status Sepsis Action Taken by Nursing 11/18/22 14:19 Temperature Temperature Source Pulse Rate 78 Pulse Rate [Apical] Pulse Rhythm [Apical] Respiratory Rate 20 Respiratory Effort / Characteristics Respiratory Depth Blood Pressure 163/77 H Blood Pressure [Left Arm] Blood Pressure Mean 105 Blood Pressure Mean [Left Arm] Pulse Oximetry 94 Oxygen Delivery Method Room Air Oxygen Flow Rate Sepsis Recent Fever Within 48 Hours Sepsis New/Unexplained Change in Mental Status Sepsis Action Taken by Nursing Laboratory Data 11/18/22 13:06 11/18/22 13:06 Lab Results 11/18/22 11/18/22 11/18/22 Range/Units 13:06 13:06 13:06 WBC 11.36 H (4.8-10.8) K/ul RBC 5.01 (4.70-6.10) M/uL Hgb 13.9 L (14.0-18.0) g/dl Hct 39.8 L (42.0-52.0) % MCV 79.4 L (80.0-100.0) fL MCH 27.7 (25.0-34.0) pg MCHC 34.9 (32.0-36.0) g/dL RDW Std Deviation 35.4 L (36.4-46.3) fL RDW Coeff of Titi 12.4 (11.5-14.5) % Plt Count 209 (130-400) K/uL MPV 10.3 (9.4-12.4) fL PT 10.4 (9.0-12.0) Seconds INR 1.0 (0.9-1.1) APTT 26.3 (21.0-31.0) Seconds PTT Ratio 1.0 POC Glucose 337 H* (70-99) mg/dl Imaging Data Radiologist's Impression: Chest X-Ray 11/18/22 12:56 XR chest 1V portable HISTORY: Stroke symptoms. Altered mental status. COMPARISON: Chest 10/18/2022. FINDINGS: No pneumothorax. No pleural effusions. There is left-sided pacemaker/defibrillator. The heart remains top normal in size. The left lung is clear. No evidence for pulmonary edema. There is a right basilar airspace opacity which is new from the prior study. IMPRESSION: A new right basilar airspace opacity consistent with a pneumonia. Recommend one month chest x-ray follow-up to ensure resolution. ACT 112: Negative or not required by law. Electronically signed by: Daljit Nuñez M.D. 11/18/2022 1:[address] 11/18/22 12:56 CT OF THE HEAD WITHOUT CONTRAST CLINICAL HISTORY: Neuro deficit, acute, stroke suspected. Right-sided weakness. COMPARISON STUDY: Head CT January 28, 2021 and November 17, 2021. CT DOSE: 1575.59 mGy.cm TECHNIQUE: Helical axial images of the head were obtained without IV contrast. Automated exposure control was utilized for the study. A dose lowering technique was utilized adhering to the principles of ALARA. FINDINGS: No acute intracranial hemorrhage, midline shift or mass effect is present. The ventricular system is unremarkable. The basal cisterns are patent. No extra-axial collections are present. There are no findings to suggest acute dural sinus thrombosis or acute territorial infarct. No significant calvarial abnormalities are present. Visualized portions of the sinuses and mastoid air cells are clear. IMPRESSION: No acute intracranial findings. ACT 112: Negative or not required by law. Electronically signed by: Arden Vidal M.D. 11/18/2022 1:22 PM Discharge Plan Visit Data Chief Complaint: TIA Symptoms Stated Complaint: TIA SYMPTOMS ED Provider: Kieran Desai Discharge Problem: Brain TIA Patient Disposition: Being Evaluated by Hospitalist Forms Stand Alone Forms: My [facility] [employer] Prescriptions Prescriptions: No Action omeprazole 40 mg Capsule,Delayed Release(Dr/Ec) 40 mg PO QAM zolpidem [Ambien] 10 mg Tablet 10 mg PO HS insulin aspart U-100 [Novolog FlexPen U-100 Insulin] 100 unit/mL Insulin Pen 0 unit SUBCUT AC Rx Instructions: PER PT "DON'T TAKE DIRECTED". insulin glargine [Lantus Solostar U-100 Insulin] 100 unit/mL (3 mL) Insulin Pen 60 unit subcut BID Rx Instructions: 60 unit subcutaneously every morning,60 units subcutanelously every evening cholecalciferol (vitamin D3) [Vitamin D3] 2,000 unit Capsule 2,000 unit PO QAM carvedilol 25 mg tablet 50 mg PO BID ezetimibe 10 mg tablet 10 mg PO QAM spironolactone 25 mg tablet 12.5 mg PO 3XWK Rx Instructions: PT TAKES Tue famotidine 20 mg Tablet 20 mg PO HS losartan 100 mg tablet 100 mg PO QAM levothyroxine 175 mcg tablet 175 mcg PO DAILYBB amoxicillin-pot clavulanate 875-125 mg tablet 1 tab PO BID Qty: 14 0RF amlodipine 5 mg Tablet 5 mg PO HS clopidogrel 75 mg tablet 75 mg PO QAM loratadine [Claritin] 10 mg Tablet 10 mg PO DAILY PRN (Reason: Allergy Symptoms) amoxicillin-pot clavulanate 875-125 mg tablet 1 tab PO BID Qty: 6 0RF Referrals Referrals: Tj Mace MD [Primary Care Provider] -
[2022-11-18 14:57] LABS: Partial Thromboplastin Time 26.3 Seconds (21.0-31.0); Prothrombin Time 10.4 Seconds (9.0-12.0)
[2022-11-18 14:58] LABS: Hematocrit (blood only) 39.8 % (42.0-52.0); Hemoglobin 13.9 g/dl (14.0-18.0); Mean Corpuscular Hemoglobin 27.7 pg (25.0-34.0); Mean Corpuscular Hgb Conc 34.9 g/dL (32.0-36.0); Mean Corpuscular Volume 79.4 fL (80.0-100.0); Mean Platelet Volume 10.3 fL (9.4-12.4); Platelet Count 209 K/uL (130-400); RDW Coefficient of Variation 12.4 % (11.5-14.5); RDW Standard Deviation 35.4 fL (36.4-46.3); Red Blood Count 5.01 M/uL (4.70-6.10); White Blood Count 11.36 K/ul (4.8-10.8)
[2022-11-18] MEDS ORDERED: SODIUM CHLORIDE 0.9% 1000ML 500 ML IV ONE (15:00)
--- NOTE | 2022-11-18 15:06 | History & Physical Report ---
Date of Service November 18, 2022 Assessment & Plan (1) Brain TIA: Plan: - Admit to med tele observation - Stroke order set completed, no indication for thrombolytic - CT head reviewed and is negative, repeat tomorrow at noon - MRI cannot be done secondary to pacemaker/defibrillator - Tele-neurology contacted by the ER- Recs continuing plavix, will give dose now along with baby aspirin and continue with morning meds - Neurology consulted - PT/OT consults placed - Symptoms have resolved at this point (2) HTN (hypertension): Plan: - Hold antihypertensives, will place on IV labetalol as needed with holding parameters with blood pressure acutely elevated 203/148, allowing for some permissive hypertension in the setting of possible acute stroke (3) Diabetes mellitus: Plan: - Cont Lantus 60 mg BID, novolog 22 U TID with meals as outpatient but will use ISS here - A1C and lipids with am labs -Consult glycemic pharmacy and cosmetology educator (4) HLD (hyperlipidemia): Plan: - Cont statin therapy (5) Second degree AV block, Mobitz type II: (6) ICD (implantable cardioverter-defibrillator) in place: (7) Pacemaker: Plan: - Check 2 D echo with recurrent TIA like symptoms - No chest pain, shortness of breath - EKG reviewed and is negative for acute signs of ischemia -shows atrial sensed ventricular paced rhythm, biventricular pacemaker, QTc is 511, avoid QTc prolonging agents - Patient notes that he has been taking Zofran at home, will require discussion of other antiemetic if needed at home (8) Obesity: Plan: - BMI of 45.4, diet and exercise to be encouraged throughout hospital stay (9) Hypothyroidism: Plan: - Check TSH - Levothyroxine 250 mcg daily DVT ppx: - teds, scds, Plavix CODE: DNR/DNI Dispo: From home, likely to remain in the hospital x 1-2 days A total of 79 minutes were spent with greater than 50% of that time face to face with the patient, personally reviewing all current laboratories, imaging studies, past medication reconciliation, outpatient chart review, and discussion with specialists to collaborate care for the patient with attending. Please see attending documentation for corrections and/or additions. History of Present Illness Chief Complaint: Stroke like symptoms Primary Care Provider: Tj Mace MD This is a 47-year-old male with PMHx of nonischemic cardiomyopathy, HTN, HLD, cardioverter/defibrillator and biventricular pacemaker, Mobitz type II, GERD, morbid obesity with a BMI of 45, history of CVA in January 2020, chronic tyrel cystitis, who presents to the ER with acute onset of right arm, hand and leg weakness and inability to speak this morning right before noon. He has been maintained on Plavix and is taking it regularly. Patient notes that he woke up around 10 AM in his normal state of health and took his morning levothyroxine, without difficulty. Then within the hour he noticed he had difficulty moving his right hand his right arm, and had weakness in the right leg. He was unable to ambulate. He admitted to having some dizziness but is at this point resolved. He also found that he was unable to speak. These are all symptoms which were similar from his previous stroke, except at that point he also had double vision. He denies any visual disturbances today. Patient arrived via EMS and states that his symptoms slowly improved once he arrived to the ER. He is unable to have an MRI secondary to pacemaker. At present his symptoms have completely resolved. He notes that he has some residual dysarthria where he occasionally slurs a word here or there which is from previous stroke as well. He also notes he has some baseline numbness in the right extremities residual from that time as well. CT of the head is negative. He admits to having COVID around October 17, and had cold-like symptoms at that point time however these are completely resolved. CXR shows a possible right lower lobe pneumonia, patient denies any fevers, chills or sweats, respiratory symptoms or any shortness of breath or chest pain. Pt notes his sugar has not been able to be read because his apolinar sensor stopped working approximately 1.5 weeks ago. He has had 3 apolinar sensors fail in the past few months for unknown reason. He does take his Lantus twice daily as scheduled, but reports poor compliance with NovoLog during the day. Patient notes that his 3 years ago, and occasionally there is a stepchild that stays with him in his home. He becomes tearful when telling me about this event. Allergies Allergy/AdvReac Type Severity Reaction Status Date / Time exenatide Allergy Severe DIFFICULTY Verified 11/18/22 16:14 BREATHING phenol Allergy Severe DIFFICULTY Verified 11/18/22 16:14 BREATHING Sulfa (Sulfonamide Allergy Intermediate HIVES Verified 11/18/22 16:14 Antibiotics) doxycycline Allergy Mild Hives Verified 11/18/22 16:14 perflutren AdvReac Severe BACK PAIN Verified 11/18/22 16:14 ciprofloxacin [From Cipro] AdvReac Intermediate fast heart Verified 11/18/22 16:14 rate propylene glycol AdvReac Intermediate BACK PAIN Verified 11/18/22 16:14 Mhnxkmc-IUF-MxF Reductase AdvReac Intermediate ACHE PAIN Verified 11/18/22 16:14 Inhibitor [Gsdciit-Hpr-Eya Reductase Inhibitor] clindamycin AdvReac Mild MOUTH Verified 11/18/22 16:14 BURNING cefuroxime AdvReac Severe Verified 11/18/22 16:14 heart burn Home Medications Medication Instructions Recorded Confirmed Type azelastine 137 mcg (0.1 %) nasal 1 spray intranasal AMHS 11/18/22 11/18/22 History spray aerosol carvedilol 25 mg tablet 50 mg PO BID 11/18/22 11/18/22 History cholecalciferol (vitamin D3) 50 50 mcg PO DAILY 11/18/22 11/18/22 History mcg (2,000 unit) capsule (Vitamin D3) clopidogrel 75 mg tablet 75 mg PO DAILY 11/18/22 11/18/22 History ezetimibe 10 mg tablet 10 mg PO DAILY 11/18/22 11/18/22 History famotidine 20 mg tablet 20 mg PO BID 11/18/22 11/18/22 History insulin aspart U-100 100 unit/mL 22 unit subcut TIDM 11/18/22 11/18/22 History (3 mL) subcutaneous pen insulin glargine 100 unit/mL (3 60 unit subcut BID 11/18/22 11/18/22 History mL) subcutaneous pen (Lantus Solostar U-100 Insulin) ipratropium bromide 21 mcg (0.03 2 spray intranasal BID 11/18/22 11/18/22 History %) nasal spray levothyroxine 200 mcg tablet 200 mcg PO DAILY 11/18/22 11/18/22 History levothyroxine 50 mcg tablet 50 mcg PO DAILY 11/18/22 11/18/22 History losartan 100 mg tablet 50 mg PO AMPM 11/18/22 11/18/22 History omeprazole 40 mg capsule,delayed 40 mg PO QAM 11/18/22 11/18/22 History release ondansetron 4 mg disintegrating 4 mg PO TID PRN Nausea 11/18/22 11/18/22 History tablet zolpidem 10 mg tablet 10 mg PO HS 11/18/22 11/18/22 History Past Med/Surg History Medical History (Updated 11/18/22 @ 16:25 by Cecilia Duffy PA-C) Abnormal CT of the head Acquired deformity of left foot Acquired deformity of right foot 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 Sosa Nausea and vomiting after administration of anesthetic agent Neuropathic ulcer of toe of left foot Neuropathic ulcer of toe of left foot NICM (nonischemic cardiomyopathy) Obesity Obstructive sleep apnea Pacemaker 01/2016 Pancreatitis Pulmonary sarcoidosis Second degree AV block, Mobitz type II Stroke-like symptoms Tinea cruris Visual problems Surgical History H/O esophagogastroduodenoscopy History of cardiac cath 01/2016 @ [facility]--no stents History of lung biopsy sarcoidosis History of tonsillectomy and adenoidectomy History of wisdom tooth extraction Hx of appendectomy (12/07/19) Laparoscopic Appendectomy Dr. Bañuelos 12/07/19 Hx of tonsillectomy S/P cholecystectomy Family History Father Family history of diabetes mellitus Mother Family history of diabetes mellitus Aunt Family history of diabetes mellitus Uncle Family history of diabetes mellitus Grandmother (Maternal) Family history of diabetes mellitus Other No family history of adverse response to anesthesia Social History Smoking Status: Never smoker Second Hand Exposure: No; Hx Alcohol Use: No Hx Substance Use: No Preferred Language: Togolese Communication Ability: Effective Shop Coordinator Required: No Beliefs That Will Affect Care: None Current Living Situation: Family Current Living Situation Comment: Step Son Feels Safe at Home: Yes Assistive Devices: None Review of Systems Review of Systems: Constitutional: No fever, sweats or chills Eyes: No diplopia, no worsening or blurred vision ENT: normal hearing, no trouble swallowing Respiratory: No cough, sputum, dyspnea at rest or on exertion Cardiovascular: No chest pain, tightness or palpitations Abdomen: No pain, nausea, vomiting, diarrhea or constipation Musculoskeletal: No joint pain, calf pain, swelling Neurologic: As per HPI. Psychiatric: No anxiety or depression, appropriate tearfulness when discussing his 's which occurred 3 years ago. Skin: No rash or itch Physical Exam Physical Exam: General: awake, alert, no apparent distress, obese with BMI of 45 Head: Normocephalic, atraumatic ENT: PERRL, EOMI, no pharyngeal exudate, mucous membranes moist, + large neck, unable to appreciate if any JVD Chest: Clear to auscultation, on room air, no adventitious breath sounds Cardiac: Regular rate and rhythm, no murmur, no JVD, normal peripheral pulses, good capillary refill Abdominal: NABS x 4 quadrants, soft, nondistended, nontender to palpation, no rebound or guarding Extremities: Normal inspection, no peripheral edema or erythema, calfs nontender to palpation Psych: Normal mood and affect Neuro: AAO x 3, strength intact bilaterally and rated 5/5, cranial nerves II through XII intact, negative pronator drift, able to perform [id number] testing, can perform rapid alternating movements without difficulty, no motor deficits, speech is clear with occasional slurred word, no peripheral sensory deficits Results & Data Results & Data Vital Signs (Past 12 Hours) Vital Signs Temp Pulse Pulse Resp BP BP Pulse Ox 11/18/22 14:19 78 20 163/77 H 94 11/18/22 13:18 80 20 156/81 H 93 11/18/22 13:17 81 20 93 11/18/22 13:08 79 11/18/22 12:56 11/18/22 13:09 80 22 166/82 H 93 11/18/22 12:48 36.3 C L 76 20 103/65 94 O2 Del Method O2 Flow Rate 11/18/22 14:19 Room Air 11/18/22 13:18 Room Air 11/18/22 13:17 Room Air 11/18/22 13:08 11/18/22 12:56 Room Air 94 11/18/22 13:09 Room Air 11/18/22 12:48 Room Air Laboratory Results 11/18/22 11/18/22 11/18/22 13:06 13:06 13:06 WBC RBC Hgb Hct MCV MCH MCHC RDW Std Deviation RDW Coeff of Titi Plt Count MPV PT 10.4 INR 1.0 APTT 26.3 PTT Ratio 1.0 Sodium 133 L Potassium 4.5 Chloride 100 Carbon Dioxide 25 Anion Gap 8 BUN 35 H Creatinine 2.26 H Est Cr Clr Drug Dosing 60.0 Est GFR ( Amer) 38.1 Est GFR (Non-Af Amer) 32.8 BUN/Creatinine Ratio 15.5 Glucose 338 H* POC Glucose 337 H* Calcium 8.9 Magnesium 1.7 Total Bilirubin 0.7 AST 18 ALT 20 Alkaline Phosphatase 124 H Total Protein 7.6 Albumin 4.0 Globulin 3.6 Albumin/Globulin Ratio 1.1 11/18/22 13:06 WBC 11.36 H RBC 5.01 Hgb 13.9 L Hct 39.8 L MCV 79.4 L MCH 27.7 MCHC 34.9 RDW Std Deviation 35.4 L RDW Coeff of Titi 12.4 Plt Count 209 MPV 10.3 PT INR APTT PTT Ratio Sodium Potassium Chloride Carbon Dioxide Anion Gap BUN Creatinine Est Cr Clr Drug Dosing Est GFR ( Amer) Est GFR (Non-Af Amer) BUN/Creatinine Ratio Glucose POC Glucose Calcium Magnesium Total Bilirubin AST ALT Alkaline Phosphatase Total Protein Albumin Globulin Albumin/Globulin Ratio Diagnostic Findings Chest X-Ray 11/18/22 12:56 XR chest 1V portable HISTORY: Stroke symptoms. Altered mental status. COMPARISON: Chest 10/18/2022. FINDINGS: No pneumothorax. No pleural effusions. There is left-sided pacemaker/defibrillator. The heart remains top normal in size. The left lung is clear. No evidence for pulmonary edema. There is a right basilar airspace opacity which is new from the prior study. IMPRESSION: A new right basilar airspace opacity consistent with a pneumonia. Recommend one month chest x-ray follow-up to ensure resolution. ACT 112: Negative or not required by law. Electronically signed by: Daljit Nuñez M.D. 11/18/2022 1:[address] 11/18/22 12:56 CT OF THE HEAD WITHOUT CONTRAST CLINICAL HISTORY: Neuro deficit, acute, stroke suspected. Right-sided weakness. COMPARISON STUDY: Head CT January 28, 2021 and November 17, 2021. CT DOSE: 1575.59 mGy.cm TECHNIQUE: Helical axial images of the head were obtained without IV contrast. Automated exposure control was utilized for the study. A dose lowering technique was utilized adhering to the principles of ALARA. FINDINGS: No acute intracranial hemorrhage, midline shift or mass effect is present. The ventricular system is unremarkable. The basal cisterns are patent. No extra-axial collections are present. There are no findings to suggest acute dural sinus thrombosis or acute territorial infarct. No significant calvarial abnormalities are present. Visualized portions of the sinuses and mastoid air cells are clear. IMPRESSION: No acute intracranial findings. ACT 112: Negative or not required by law. Electronically signed by: Arden Vidal M.D. 11/18/2022 1:22 PM Code Status & VTE Plan Code Status DNR/DNI-discussed with the patient at bedside. Reports that he would not want any aggressive measures. Supervising Physician Co-Signing Physician Notes Patient is a 47-year-old male with history of nonischemic cardiomyopathy, hypertension, hyperlipidemia, recent COVID infection in October, GERD, sarcoidosis, heart block S/P AICD, CKD stage III, diabetes mellitus and other medical problems presents with history of strokelike symptoms. Patient admits to have sudden onset of right upper and lower extremity weakness associated with aphasia when she noticed today afternoon. He regularly takes Plavix. Given history of statin intolerance, currently patient takes ezetimibe. Patient states having similar symptoms in the past associated with double vision but currently denies any change in vision during this episode. Currently speech is clear and back to baseline and he states that his aphasia lasted for about 1-1/2 to 2 hours. Denies any history of fall, head trauma, bowel or bladder incontinence. States having chronic diabetic neuropathy resulting in upper extremity numbness which she feels is slightly worse today. Please review HPI for complete details of presentation. I personally reviewed blood work, imaging studies, EKG. CT head showed no acute intracranial abnormalities. Chest x-ray showed right basilar opacity, patient denies any respiratory symptoms. On exam patient is obese, no apparent distress, normocephalic atraumatic, EOMI, normal breath sounds, clear to auscultation, S1-S2, no murmur, no pedal edema, abdomen soft, nontender, normal bowel sounds, alert, awake, oriented, grossly no focal deficits, clear speech. Patient is admitted for management of TIA. Cannot obtain MRI due to pacemaker. CTA head and neck pending. We will repeat CT head tomorrow. We will add aspirin and continue Plavix. Neurology consulted. Hold home antihypertensives to allow permissive hypertension. Echo ordered. No indication for antibiotics currently for opacity on chest x-ray given asymptomatic. Check procalcitonin. Patient has poorly controlled diabetes. clinical trial educator consulted. I personally reviewed the record. Patient is interviewed and examined at bedside. Patient's care is coordinated with Cecilia Duffy PA-C. Please refer to the documentation above for details of patient's presentation and for discussion of other issues. (2) HTN (hypertension) Hypertension type: unspecified Qualified Code(s): I10 - Essential (primary) hypertension (8) Obesity Obesity classification: unspecified obesity classification Obesity type: unspecified obesity type Serious obesity comorbidity presence: unspecified whether serious comorbidity present Qualified Code(s): E66.9 - Obesity, unspecified
[2022-11-18 15:13] LABS: Albumin Globulin Ratio 1.1 (0.9-2); BUN Creatinine Ratio 15.5 (10-20); Bilirubin,Total 0.7 mg/dl (0.2-1.0); Calcium 8.9 mg/dl (8.5-10.1); Est GFR (African American) 38.1 ml/min; Est GFR (Non-African American) 32.8 ml/min; Globulin 3.6 gm/dl (2.5-4.0); Magnesium 1.7 mg/dl (1.7-2.4); Potassium 4.5 mmol/L (3.5-5.1); Total Protein 7.6 gm/dl (6.0-8.3)
[2022-11-18 15:59] LABS: Influenza A virus by PCR Negative (Neg); Influenza B virus by PCR Negative (Neg); RSV by PCR Negative (Neg)
[2022-11-18 16:02] LABS: SARS CoV2 RNA(COVID-19) Ceph POSITIVE (Negative)
[2022-11-18] MEDS ORDERED: CLOPIDOGREL BISULFATE 75 MG TAB PO ONE (16:27)
[2022-11-18] MEDS ORDERED: ASPIRIN 81 MG ECTAB PO STA ×2 (17:35→18:20)
[2022-11-18] MEDS ORDERED: PHARMACIST DISCHARGE MED REC CONSULT PRN (18:20)
[2022-11-18] MEDS ORDERED: GLUCOSE 10 TAB/TUBE PO PRN (18:20)
[2022-11-18] MEDS ORDERED: ACETAMINOPHEN 325 MG TAB PO PRN (18:20)
[2022-11-18] MEDS ORDERED: PHARMACY GLYCEMIC MGMT CONSULT PRN (18:20)
[2022-11-18] MEDS ORDERED: GLUCOSE 40% GEL 15 GM TUBE PO PRN (18:20)
[2022-11-18] MEDS ORDERED: GLUCAGON FOR INJ 1 MG VIAL SQ PRN (18:20)
[2022-11-18] MEDS ORDERED: DEXTROSE 50% 50 ML SYRINGE IV PRN (18:20)
[2022-11-18] MEDS ORDERED: CARBOHYDRATES FOR HYPOGLYCEMIA PO PRN (18:20)
[2022-11-18] MEDS ORDERED: LABETALOL HCL IV 5 MG/ML 20ML IV PRN (18:20)
[2022-11-18] MEDS ORDERED: LANTUS PER UNIT CHARGE SQ SCH (20:00)
[2022-11-18] MEDS ORDERED: ZOLPIDEM TARTRATE 10 MG TAB PO SCH (21:00)
[2022-11-18] MEDS: IPRATROPIUM BROMIDE NASAL SPRAY 0.06% 15ML NAE SCH (21:07)
[2022-11-18] MEDS: AZELASTINE HCL 0.1% NASAL 200 SPRAYS/27,400 MCG BTL SCH (21:14)
[2022-11-18] MEDS: FAMOTIDINE 20 MG TAB PO SCH (21:15)
[2022-11-18] MEDS: INSULIN ASPART PER UNIT CHARGE SC SCH (22:35)
[2022-11-19] MEDS: INSULIN ASPART PER UNIT CHARGE SC SCH ×4 (00:12→17:00)
[2022-11-19] MEDS ORDERED: INSULIN ASPART PER UNIT CHARGE SC SCH ×2 (02:00→07:30)
[2022-11-19] MEDS ORDERED: LEVOTHYROXINE SODIUM 200 MCG TABLET PO SCH (06:30)
[2022-11-19] MEDS ORDERED: LEVOTHYROXINE SODIUM 50 MCG TABLET PO SCH (06:30)
[2022-11-19 08:15] LABS: Basophils # (auto) 0.03 K/uL (0-0.2); Basophils % (auto) 0.5 %; Eosinophils # (auto) 0.16 K/uL (0-0.50); Eosinophils % (auto) 2.4 %; Hematocrit (blood only) 39.2 % (42.0-52.0); Hemoglobin 13.8 g/dl (14.0-18.0); Immature Granulocytes # (auto) 0.04 K/uL (0.01-0.20); Immature Granulocytes % (auto) 0.6 %; Lymphocytes # (auto) 0.87 K/uL (1.2-3.4); Lymphocytes % (auto) 13.2 %; Mean Corpuscular Hgb Conc 35.2 g/dL (32.0-36.0); Mean Corpuscular Volume 79.7 fL (80.0-100.0); Monocytes % (auto) 9.1 %; Neutrophils # (auto) 4.91 K/uL (1.40-6.50); Neutrophils % (auto) 74.2 %; Platelet Count 220 K/uL (130-400); RDW Coefficient of Variation 12.5 % (11.5-14.5); RDW Standard Deviation 35.7 fL (36.4-46.3); Red Blood Count 4.92 M/uL (4.70-6.10); White Blood Count 6.61 K/ul (4.8-10.8)
[2022-11-19] MEDS: FAMOTIDINE 20 MG TAB PO SCH (08:24)
[2022-11-19] MEDS: IPRATROPIUM BROMIDE NASAL SPRAY 0.06% 15ML NAE SCH (08:25)
[2022-11-19] MEDS: AZELASTINE HCL 0.1% NASAL 200 SPRAYS/27,400 MCG BTL SCH (08:25)
[2022-11-19 08:33] LABS: BUN Creatinine Ratio 16.1 (10-20); Calcium 8.7 mg/dl (8.5-10.1); Chol HDL Ratio 5.4 (0-5); Creatinine Clr Calc Pharmacy 63.9 ml/min; Est GFR (African American) 44.4 ml/min; Est GFR (Non-African American) 38.3 ml/min; Magnesium 1.8 mg/dl (1.7-2.4); Phosphorus 3.1 mg/dl (2.5-4.9); Potassium 3.9 mmol/L (3.5-5.1)
--- NOTE | 2022-11-19 08:55 | Pharmacy Report ---
Pharmacy Glycemic Short Note 2 - Date of Service November 19, 2022 - Glycemic Short BSG Results (Last 24 hours): 11/18/22 11/18/22 11/18/22 13:06 13:06 17:24 Glucose 338 H* POC Glucose 337 H* 300 H 11/18/22 11/18/22 11/19/22 20:11 20:56 02:30 Glucose POC Glucose 279 H 285 H 218 H 11/19/22 11/19/22 07:17 07:29 Glucose 158 H POC Glucose 174 H OUTPATIENT ANTIDIABETIC REGIMEN: * Lantus 60 units SC BID * Novolog 22 units SC TIDM HbA1c: 10.9% (11/19/22) ASSESSMENT: * MM is a 47 year old male who presented to ED on 11/18/22 with stroke-like symptoms (right arm, hand, and leg weakness + inability to speak) * Patient with insulin-dependent T2DM on large doses of insulin (A1c currently pending) * Hyperglycemia noted on presentation (> 300 mg/dL) * Per admitting provider, patient is noncompliant with Novolog and Lizz sensor is currently broken * supervisor hand silvering consulted * Will utilize home insulin total daily dose to develop initial insulin regimen (~50/50 basal/bolus split) * Downtrend noted at lunch to 110 mg/dL, will loosen Novolog now and scale evening Lantus to reduce risk of hypoglycemia PLAN FOR INPATIENT GLYCEMIC CONTROL: * Basal insulin * Lantus 45 units SC x 1 this morning * Lantus 0-45 units SC HS * Bolus insulin * NovoLog per scale ACHS or Q6hrs while NPO * Goal Range: Low 110 mg/dL - High 140 mg/dL * Correction Factor: 15 mg/dL/unit * Nutritional / Prandial insulin per carb ratio of 1 unit per 6 grams CHO consumed
[2022-11-19] MEDS ORDERED: CLOPIDOGREL BISULFATE 75 MG TAB PO SCH (09:00)
[2022-11-19] MEDS ORDERED: CHOLECALCIFEROL 1,000 UNITS 25 MCG TAB PO SCH (09:00)
[2022-11-19] MEDS ORDERED: ASPIRIN 81 MG ECTAB PO SCH (09:00)
[2022-11-19] MEDS ORDERED: PANTOprazole 40 MG TAB PO SCH (09:00)
[2022-11-19] MEDS ORDERED: LANTUS PER UNIT CHARGE SQ SCH ×2 (09:00→21:00)
[2022-11-19] MEDS ORDERED: EZETIMIBE 10 MG TABLET PO SCH (09:00)
--- NOTE | 2022-11-19 10:06 | Neurology Consultation ---
Date of Consultation November 19, 2022 Assessment & Plan (1) Brain TIA: Plan 47-year-old male presenting with TIA characterized by right hemiparesis and aphasia, largely resolved, back to baseline. Does have chronic residual very mild right hemiparesis and aphasia due to a previous left hemispheric stroke per history. Unable to have MRI as ICD wires are not MRI compatible. Unable to have CT angiography due to renal failure. A carotid ultrasound completed nearly 2 years ago did not reveal any evidence of significant stenosis at that time. No known history of atrial fibrillation in this patient. Stroke risk factors include insulin-dependent diabetes mellitus, hypertension and hyperlipidemia. He has a history of intolerance to statins and has been taking Zetia as an outpatient. He has also been taking clopidogrel. I agree with the addition of daily low-dose aspirin to patient's current medication regimen. We will continue with dual antiplatelet therapy, daily low- dose aspirin and clopidogrel for 3 weeks, after which we will transition back to clopidogrel monotherapy. Continue medical management of hypertension, permissive hypertension appropriate for the time being, systolic blood pressure 140 to 160 mmHg. Would recommend checking an up-to-date carotid Doppler. Follow-up with repeat CT of the head to be done this afternoon. Reconsider utilizing a statin in this patient to improve his LDL, goal LDL less than 70. (Currently on Zetia only.) Consultations with PT/OT/speech therapy. No further immediate recommendations. History of Present Illness Reason for Consultation: TIA Requesting Physician: Cecilia Duffy PA-C Attending Physician: Masood Upton MD History of Present Illness The patient is a 47-year-old male who presented to the emergency department yesterday with a chief complaint of inability to move the right arm and leg and difficulty speaking beginning about 90 minutes prior. He had difficulty with word finding and had near complete flaccid weakness of the right arm, perhaps only moderate weakness of the right leg. His symptoms were perhaps improved by the time he was evaluated in the emergency department exhibiting only mild reduced strategic debriefing officer strength for the right hand and subtle word finding difficulty. Patient does have a prior history of stroke with residual mild weakness for the right hand and arm and subtle difficulty with expressive speech at baseline. He was not considered an appropriate candidate for thrombolytic therapy. He was admitted for further evaluation and management of TIA. He has been fairly hypertensive with a blood pressure as high as 216/114 in the context of his current admission, although improved this morning. He has been afebrile. A CT of the head was negative for hemorrhage or acute process. He has been unable to have IV contrast/CT angiography due to renal failure. I did independently review the CT of the head. Again, there is no evidence of hemorrhage or acute process. Furthermore, there does not appear to be any evidence of a significant chronic large territory infarct. The patient remarks that he feels as if he is back to his baseline with no recurrence of significant right-sided weakness. Again, he does have mild chronic weakness or loss of facility of the right hand and chronic mild difficulty with expressive speech which are evident at baseline. Allergies Allergy/AdvReac Type Severity Reaction Status Date / Time exenatide Allergy Severe DIFFICULTY Verified 11/18/22 16:14 BREATHING phenol Allergy Severe DIFFICULTY Verified 11/18/22 16:14 BREATHING Sulfa (Sulfonamide Allergy Intermediate HIVES Verified 11/18/22 16:14 Antibiotics) doxycycline Allergy Mild Hives Verified 11/18/22 16:14 perflutren AdvReac Severe BACK PAIN Verified 11/18/22 16:14 ciprofloxacin [From Cipro] AdvReac Intermediate fast heart Verified 11/18/22 16:14 rate propylene glycol AdvReac Intermediate BACK PAIN Verified 11/18/22 16:14 Huyxuym-KVK-ExA Reductase AdvReac Intermediate ACHE PAIN Verified 11/18/22 16:14 Inhibitor [Grtxtox-Wcg-Qdn Reductase Inhibitor] clindamycin AdvReac Mild MOUTH Verified 11/18/22 16:14 BURNING cefuroxime AdvReac Severe Verified 11/18/22 16:14 heart burn Home Medications Medication Instructions Recorded Confirmed Type azelastine 137 mcg (0.1 %) nasal 1 spray intranasal AMHS 11/18/22 11/18/22 History spray aerosol carvedilol 25 mg tablet 50 mg PO BID 11/18/22 11/18/22 History cholecalciferol (vitamin D3) 50 50 mcg PO DAILY 11/18/22 11/18/22 History mcg (2,000 unit) capsule (Vitamin D3) clopidogrel 75 mg tablet 75 mg PO DAILY 11/18/22 11/18/22 History ezetimibe 10 mg tablet 10 mg PO DAILY 11/18/22 11/18/22 History famotidine 20 mg tablet 20 mg PO BID 11/18/22 11/18/22 History insulin aspart U-100 100 unit/mL 22 unit subcut TIDM 11/18/22 11/18/22 History (3 mL) subcutaneous pen insulin glargine 100 unit/mL (3 60 unit subcut BID 11/18/22 11/18/22 History mL) subcutaneous pen (Lantus Solostar U-100 Insulin) ipratropium bromide 21 mcg (0.03 2 spray intranasal BID 11/18/22 11/18/22 History %) nasal spray levothyroxine 200 mcg tablet 200 mcg PO DAILY 11/18/22 11/18/22 History levothyroxine 50 mcg tablet 50 mcg PO DAILY 11/18/22 11/18/22 History losartan 100 mg tablet 50 mg PO AMPM 11/18/22 11/18/22 History omeprazole 40 mg capsule,delayed 40 mg PO QAM 11/18/22 11/18/22 History release ondansetron 4 mg disintegrating 4 mg PO TID PRN Nausea 11/18/22 11/18/22 History tablet zolpidem 10 mg tablet 10 mg PO HS 11/18/22 11/18/22 History Patient History Medical History (Updated 11/18/22 @ 16:25 by Cecilia Duffy PA-C) Abnormal CT of the head Acquired deformity of left foot Acquired deformity of right foot 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 Sosa Nausea and vomiting after administration of anesthetic agent Neuropathic ulcer of toe of left foot Neuropathic ulcer of toe of left foot NICM (nonischemic cardiomyopathy) Obesity Obstructive sleep apnea Pacemaker 01/2016 Pancreatitis Pulmonary sarcoidosis Second degree AV block, Mobitz type II Stroke-like symptoms Tinea cruris Visual problems Surgical History H/O esophagogastroduodenoscopy History of cardiac cath 01/2016 @ [facility]--no stents History of lung biopsy sarcoidosis History of tonsillectomy and adenoidectomy History of wisdom tooth extraction Hx of appendectomy (12/07/19) Laparoscopic Appendectomy Dr. Bañuelos 12/07/19 Hx of tonsillectomy S/P cholecystectomy Family History Father Family history of diabetes mellitus Mother Family history of diabetes mellitus Aunt Family history of diabetes mellitus Uncle Family history of diabetes mellitus Grandmother (Maternal) Family history of diabetes mellitus Other No family history of adverse response to anesthesia Social History Smoking Status: Never smoker Second Hand Exposure: Yes (Father); Tobacco Cessation Education Requested by Patient: No Hx Alcohol Use: No Hx Substance Use: No Preferred Language: Bulgarian Communication Ability: Effective Stamping Die Maker Bench Required: No Beliefs That Will Affect Care: None Current Living Situation: Family Current Living Situation Comment: Stepchild lives with him Other Information That Helps Us Care for You: No Feels Safe at Home: Yes Safety Concerns: Feels Safe At This Time Assistive Devices: None Review of Systems Constitutional: no fever and no chills Eyes: no blind spots and no diplopia Ear, Nose, Mouth, Throat: no hearing loss Respiratory: no cough and no dyspnea Cardiovascular: no chest pain and no palpitations Gastrointestinal: no nausea and no vomiting Genitourinary: no dysuria Musculoskeletal: no neck pain and no myalgia Integumentary: no rash and no lesions Neurologic: as per Subjective / HPI Psychiatric: no depression and no anxiety Hematologic / Lymphatic: no easy bleeding and no easy bruising Exam (Neuro) Constitutional: well developed and well nourished; no acute distress Eyes: normal visual franco by confrontation, PERRL and EOM intact bilaterally; no papilledema Cardiovascular: Vessels: no carotid bruit Neurologic: Oriented to:: Person, Place and Time Memory: Short Term Intact and Remote Intact Attention: Span Intact and Concentration Intact Speech Fluency: Dysfluency; negative Dysarthria Speech Aphasia: Aphasia (mild expressive aphasia, few paraphasic errors) Fund of Knowledge: Current Events, Past History and Vocabulary Cranial Nerves: Normal II, III, IV, , V, VII, VIII, IX, X, XI and XII Motor Strength: Normal Lower Extremities, Normal Upper Extremities and Hemiparesis (mild, decreased facility right hand) Laterality: Right Motor Tone: Normal Lower Extremities and Normal Upper Extremities Muscle Bulk/Involuntary Movements: No Involuntary Movements; negative Muscle Atrophy Sensation: Light Touch Intact, Pain/Temperature Intact, Vibration Intact and Proprioception Intact Coordination: Normal and Finger-Nose Abnormal Laterality: Right; negative Limited Balance or Heel-Larose Abnormal Deep Tendon Reflexes: Rt Triceps: 2+, Lt Triceps: 2+, Rt Biceps: 1+, Lt Biceps: 2+, Rt Brachioradialis: 2+, Lt Brachioradialis: 2+, Rt Patellar: 1+, Lt Patellar: 2+, Rt Ankle: 1+ and Lt Ankle: 1+ Details: Gait cannot be tested Results & Data Vital Signs (Past 12 Hours) Vital Signs Temp Pulse Pulse Resp BP Pulse Ox O2 Del Method 11/19/22 07:51 67 11/19/22 06:30 36.5 C 72 20 138/72 95 Room Air 11/18/22 21:59 65 11/18/22 22:44 Room Air 11/18/22 22:44 36.9 C 72 14 143/87 H 95 Room Air Laboratory Results WBC 6.61, hemoglobin 13.8, hematocrit 39.2, platelet count 220, sodium 137, potassium 3.9, BUN 32, creatinine 1.99, glucose 158, calcium 8.7, magnesium 1.8, triglycerides 186, cholesterol 182, LDL 111, VLDL 37, HDL 34, TSH 3.191, SARS-CoV-[address] PCR [address] Findings [address] of the head reviewed and is as described in the HPI. I independently reviewed the images. Carotid Doppler completed in January 2021 was negative for vascular stenosis although did reveal a right thyroid nodule, suspicious for malignancy. Electrocardiogram revealed an atrial sensed ventricular paced rhythm, 79 bpm PG Care Time/CCT Total # of Minutes Spent Total Time Spent with Patient: 60 minutes Coding Level of Care Code 49127 INT INP/OBS CARE 2/55MIN Diagnoses Brain TIA G45.9
[2022-11-19 10:33] LABS: Estimated Average Glucose 266 mg/dl; Hemoglobin A1C 10.9 % (4.5-5.6)
--- NOTE | 2022-11-19 13:31 | CT Scan Report ---
CT head/brain wo con CLINICAL HISTORY: 47 years-old Male with Stroke like symptoms. Acute strokelike symptoms TECHNIQUE: Multiple axial CT images of the head were obtained without contrast. A dose lowering tech nique was utilized adhering to the principles of ALARA. CT DOSE: 614.27 mGy.cm COMPARISON: 11/18/2022. FINDINGS: No acute intracranial hemorrhage, midline shift, intracranial mass, hydrocephalus, territorial ischem ia or abnormal extra-axial collection. Mildly motion degraded exam. Cerebral vascular calcifications. The calvarium is intact. The paranasal sinuses, mastoid air cells, and middle ear cavities are clear . IMPRESSION: No acute intracranial abnormality. ACT 112: Negative or not required by law. The above report was generated using voice recognition software. It may contain grammatical, syntax o r spelling errors. Electronically signed by: Sahil Trammell M.D. 11/19/2022 1:30 PM
--- NOTE | 2022-11-19 14:46 | Ultrasound Report ---
US carotid doppler BI CLINICAL HISTORY: 47 years-old Male with TIA. Acute strokelike symptoms COMPARISON: 01/06/2021 TECHNIQUE: Multiple real time sonographic images of the carotid bifurcations were obtained assessing desai scale, color Doppler and spectral wave form appearance FINDINGS: RIGHT CAROTID: The peak systolic velocity measured within the right ICA is 67 cm/sec. The end diast olic velocity measured 20 cm/sec. The ICA to CCA ratio measured 1.0 which correlates with a stenosis of 0-50%. LEFT CAROTID: The peak systolic velocity measured within the left ICA is 77 cm/sec. The end diastol ic velocity measured 27 cm/sec. The ICA to CCA ratio measured 1.0 which correlates with a stenosis of 0-50%. There is normal antegrade vertebral flow bilaterally. IMPRESSION: 1. No hemodynamically significant stenosis or significant atherosclerotic plaquing. 2. Normal antegrade vertebral flow bilaterally. ACT 112: Negative or not required by law. The above report was generated using voice recognition software. It may contain grammatical, syntax o r spelling errors. Electronically signed by: Sahil Trammell M.D. 11/19/2022 2:44 PM
--- NOTE | 2022-11-19 14:48 | Pharmacy Report ---
- Date of Service November 19, 2022 - Pharmacy CVA/TIA Medication Review Medications to Prevent Stroke handout has been added to the patients discharge packet. Antiplatelet(s) * Aspirin 81 mg PO daily + clopidogrel 75 mg PO daily x 3 weeks, then clopidogrel monotherapy Cholesterol * Ezetimibe 10 mg PO daily * Patient reports statin intolerance, neurology recommending for patient to reconsider using statin given LDL goal of 70 not achieved currently DVT Prophylaxis * SCD knee Therapeutic Anticoagulation * No history of Afib/Aflutter noted Type 2 Diabetes * Patient has T2DM, but per Dr. Upton, a diabetes medication with proven CVD benefit will be deferred to their outpatient provider due to familiarity with risks/benefits of such therapies. "Medications to prevent stroke" handout has already been added to the patient's discharge packet, which instructs the patient to follow up with their outpatient provider to evaluate which diabetes medication with proven CVD benefit is best for them
[2022-11-19] MEDS ORDERED: STROKE PATIENT DISCHARGE STA ×2 (14:54→16:13)
--- NOTE | 2022-11-19 14:58 | Discharge Summary ---
Date of Service November 19, 2022 Admission HPI Per Admitting Provider This is a 47-year-old male with PMHx of nonischemic cardiomyopathy, HTN, HLD, cardioverter/defibrillator and biventricular pacemaker, Mobitz type II, GERD, morbid obesity with a BMI of 45, history of CVA in January 2020, chronic cholecystitis, who presents to the ER with acute onset of right arm, hand and leg weakness and inability to speak this morning right before noon. He has been maintained on Plavix and is taking it regularly. Patient notes that he woke up around 10 AM in his normal state of health and took his morning levothyroxine, without difficulty. Then within the hour he noticed he had difficulty moving his right hand his right arm, and had weakness in the right leg. He was unable to ambulate. He admitted to having some dizziness but is at this point resolved. He also found that he was unable to speak. These are all symptoms which were similar from his previous stroke, except at that point he also had double vision. He denies any visual disturbances today. Patient arrived via EMS and states that his symptoms slowly improved once he arrived to the ER. He is unable to have an MRI secondary to pacemaker. At present his symptoms have completely resolved. He notes that he has some residual dysarthria where he occasionally slurs a word here or there which is from previous stroke as well. He also notes he has some baseline numbness in the right extremities residual from that time as well. CT of the head is negative. He admits to having COVID around October 17, and had cold-like symptoms at that point time however these are completely resolved. CXR shows a possible right lower lobe pneumonia, patient denies any fevers, chills or sweats, respiratory symptoms or any shortness of breath or chest pain. Pt notes his sugar has not been able to be read because his apolinar sensor stopped working approximately 1.5 weeks ago. He has had 3 apolinar sensors fail in the past few months for unknown reason. He does take his Lantus twice daily as scheduled, but reports poor compliance with NovoLog during the day. Patient notes that his 3 years ago, and occasionally there is a stepchild that stays with him in his home. He becomes tearful when telling me about this event. Admission Exam Per Admitting Provider General: awake, alert, no apparent distress, obese with BMI of 45 Head: Normocephalic, atraumatic ENT: PERRL, EOMI, no pharyngeal exudate, mucous membranes moist, + large neck, unable to appreciate if any JVD Chest: Clear to auscultation, on room air, no adventitious breath sounds Cardiac: Regular rate and rhythm, no murmur, no JVD, normal peripheral pulses, good capillary refill Abdominal: NABS x 4 quadrants, soft, nondistended, nontender to palpation, no rebound or guarding Extremities: Normal inspection, no peripheral edema or erythema, calfs nontender to palpation Psych: Normal mood and affect Neuro: AAO x 3, strength intact bilaterally and rated 5/5, cranial nerves II through XII intact, negative pronator drift, able to perform sxzv-ch-lbgp testing, can perform rapid alternating movements without difficulty, no motor deficits, speech is clear with occasional slurred word, no peripheral sensory deficits Principal Diagnosis Transient ischemic attack Discharge Exam Constitutional: WD/WN, vitals as above, NAD, sitting up in bed, pleasant, conversing easily Respiratory: normal respiratory effort, lungs clear to auscultation, no wheeze, rales, rhonchi. Normal insp/exp effort, no accessory muscle use Cardiovascular: RRR, no murmur, no edema Vessels: no JVD or carotid bruit Chest: normal inspection of chest Abdomen: normal bowel sounds, soft, nontender, no hepatosplenomegaly Musculoskeletal: no cyanosis or clubbing, extremities motor strength 5/5 Skin: no rashes, warm and dry normal turgor Neurologic: Mild expressive aphasia. Cranial nerves II through XII normal. Slight weakness noted in right hand. Sensation grossly intact. Psychiatric: A+Ox3, euthymic affect Lymphatic: no cervical or axillary lymphadenopathy : deferred Discharge Data Allergies Allergy/AdvReac Type Severity Reaction Status Date / Time exenatide Allergy Severe DIFFICULTY Verified 11/18/22 16:14 BREATHING phenol Allergy Severe DIFFICULTY Verified 11/18/22 16:14 BREATHING Sulfa (Sulfonamide Allergy Intermediate HIVES Verified 11/18/22 16:14 Antibiotics) doxycycline Allergy Mild Hives Verified 11/18/22 16:14 perflutren AdvReac Severe BACK PAIN Verified 11/18/22 16:14 ciprofloxacin [From Cipro] AdvReac Intermediate fast heart Verified 11/18/22 16:14 rate propylene glycol AdvReac Intermediate BACK PAIN Verified 11/18/22 16:14 Dmjarxz-RKY-KgL Reductase AdvReac Intermediate ACHE PAIN Verified 11/18/22 16:14 Inhibitor [Bmyqagy-Vgi-Itl Reductase Inhibitor] clindamycin AdvReac Mild MOUTH Verified 11/18/22 16:14 BURNING cefuroxime AdvReac Severe Verified 11/18/22 16:14 heart burn Consultations 11/18/22 14:57 ED Decision to Admit Stat 11/18/22 18:20 Consult Neurology Routine Ordered Studies 11/18/22 12:56 CT head/brain wo con Stat 11/19/22 10:34 US carotid doppler BI Routine 11/19/22 12:00 CT head/brain wo con Routine Hospital Course (1) Brain TIA: (2) HTN (hypertension): (3) Diabetes mellitus: (4) HLD (hyperlipidemia): (5) Second degree AV block, Mobitz type II: (6) ICD (implantable cardioverter-defibrillator) in place: (7) Pacemaker: (8) Obesity: (9) Hypothyroidism: Plan Patient is a 47-year-old male with PMHx of nonischemic cardiomyopathy, HTN, HLD, cardioverter/defibrillator and biventricular pacemaker, Mobitz type II, GERD, morbid obesity with a BMI of 45, history of CVA in January 2020, chronic cholecystitis, who presents to the ER with acute onset of right arm, hand and leg weakness and inability to speak this morning right before noon. Patient arrived to ED via EMS; his symptoms had resolved once he arrived to the ED. Stroke alert was called in the ED; he was evaluated by telestroke. CT head on admission did not show any acute intracranial findings. MRI was not able to performed as his pacemaker was not compatible. He was admitted to telemetry floor for further monitoring and an evaluation. Permissive hypertension was allowed. Patient was evaluated by neurology. He was recommended to undergo repeat CT head; no significant findings were seen. He also underwent carotid Doppler which were negative for any significant finding. Patient was started on aspirin; to be taken for 21 days with Plavix. His A1c was found to be 10.9; he was counseled regarding diet and exercise. Patient was discharged home with instruction to follow-up with his primary care doctor to discuss long-term care regarding diabetes mellitus Patient has a follow-up with cardiology to discuss lipid-lowering agents and blood pressure management. Total Time Total Time Spent Total Time Spent (In Minutes): 40 Total Time Includes: Examination of the Patient, Discharge Planning, Medication Reconciliation, Communication With Other Providers and Other Discharge Plan Discharge Items Patient Disposition: Home - Self-Care Reason For Visit: STROKE RULE OUT Discharge Diagnosis: Transient ischemic attack Activity: Resume your previous activity Non-emergency contact: Primary Care Provider Call non-emergency contact if: you have any medication questions and your symptoms worsen Follow-up/Referrals: Tj Mace MD [Primary Care Provider] - (Your doctor's office will call you with a hospital follow up appointment. ) Diet: Regular Addtl Attending Provider Instructions: You were admitted to the hospital with transient ischemic attack. CT of the head was done which ruled out stroke. You were evaluated by neurologist during the hospitalization. You are prescribed aspirin 81 mg to be taken till December 08 (total of 3 weeks) along with Plavix. After that, continue to take Plavix. Start taking your antihypertensive medication tomorrow. Your hemoglobin A1c was found to be 10.9; you will benefit from addition of GLP1 agonist or SGLT 2 inhibitor. Please discuss this with her primary care doctor/certified novell administrator. A follow-up with your primary care doctor will be set up for you. Pending Studies at Discharge: No Stand-Alone [facility], Smoking Cessation, Medications to Prevent Stroke Medications and DC Order Prescriptions: New aspirin 81 mg tablet,chewable 81 mg PO DAILY 20 Days Qty: 20 0RF Continued carvedilol 25 mg tablet 50 mg PO BID clopidogrel 75 mg tablet 75 mg PO DAILY omeprazole 40 mg capsule,delayed release(DR/EC) 40 mg PO QAM famotidine 20 mg tablet 20 mg PO BID levothyroxine 50 mcg tablet 50 mcg PO DAILY Rx Instructions: Take with 200 mcg tab levothyroxine 200 mcg tablet 200 mcg PO DAILY zolpidem 10 mg tablet 10 mg PO HS ondansetron 4 mg tablet,disintegrating 4 mg PO TID PRN (Reason: Nausea) insulin aspart U-100 100 unit/mL (3 mL) insulin pen 22 unit SUBCUT TIDM insulin glargine [Lantus Solostar U-100 Insulin] 100 unit/mL (3 mL) insulin pen 60 unit SUBCUT BID azelastine 137 mcg (0.1 %) aerosol,spray 1 spray INTRANASAL AMHS losartan 100 mg tablet 50 mg PO AMPM ipratropium bromide 21 mcg (0.03 %) spray,non-aerosol 2 spray INTRANASAL BID ezetimibe 10 mg tablet 10 mg PO DAILY cholecalciferol (vitamin D3) [Vitamin D3] 50 mcg (2,000 unit) Capsule 50 mcg PO DAILY Discharge Orders: Discharge Order (Routine); Ordered 11/19/22 Ordered By: Masood Upton Admission Data Admit Date/Time: 11/18/22 15:46 Attending Provider: Masood Upton Admit Provider: Lev Wilson Primary Care Provider: Tj Mace Other Providers: Lev Wilson ; Leonardo Garcias
--- NOTE | 2022-11-20 00:42 | Electrocardiogram Report ---
Test Reason : Blood Pressure : / mmHG Vent. Rate : 079 BPM Atrial Rate : 079 BPM P-R Int : 172 ms QRS Dur : 132 ms QT Int : 446 ms P-R-T Axes : -02 234 047 degrees QTc Int : 511 ms Poor data quality, interpretation may be adversely affected Atrial-sensed ventricular-paced rhythm Biventricular pacemaker detected Abnormal ECG When compared with ECG of 18-OCT-2022 07:06, No significant change was found Confirmed by Young Allen ([id number]) on 11/20/2022 12:42:29 AM Referred By: REFERRED SELF Confirmed By:Young Allen
== END 2022-11-19 17:15 | disposition home or self-care (01) | DRG 69 ==
LOC: ED 12:43 → SUATTDRO 15:46 → EDINP 15:46 → INTOOBSV 15:46 → 2W 20:06

== ENCOUNTER 2025-07-24 20:22 | Inpatient (IN) ==
[2025-07-24] MEDS: MIDAZOLAM HCL 1 MG/ML 2ML VIAL IV STA (20:37)
--- NOTE | 2025-07-24 21:03 | Emergency Department Note ---
Impression & Plan Closed fracture dislocation of right ankle, Fall from standing ED Provider Note HISTORY OF PRESENT ILLNESS: Patient is a 49-year-old male presenting with right ankle deformity after a fall. Patient reports he was walking when he slipped on ice and his ankle had an immediate pain and deformity. He states that he fell onto his buttocks. Denies striking his head or loss of consciousness. Reports that the fall happened about 20 to 30 minutes ago. He states he is on aspirin and Plavix. Patient states that he has had a stroke previously and has deficits on his right side. He states he is normally ambulatory without any assistive devices. He states that he has neuropathy so he does not feel much in his right lower extremity. He is complaining of a 1 out of 10 pressure-like pain sensation in his right ankle. He states that with his obvious deformity, he decided to come be evaluated. ROS: as above PHYSICAL EXAM: Constitutional: Patient appears in no acute distress. HENT: Head: Normocephalic and atraumatic. Eyes: EOMI, PERRL Mouth/Throat: Mucous membranes moist. Neck: Trachea midline. Neck supple. Cardiovascular: Paced rhythm. No murmurs, rubs or gallops. Intact distal pulses. Pulmonary/Chest: No respiratory distress. Breath sounds clear and equal bilaterally. No wheezes or rales. No chest wall tenderness to palpation. Abdominal: Abdomen soft, no tenderness, rebound or guarding. Musculoskeletal: - RLE: Obvious deformity to the right lower extremity. Patient's ankle is externally rotated. Intact DP pulse. Patient is able to wiggle toes. Foot is warm to the touch. Patient does have an old scab without any active bleeding or significant burrowing of the wound at the medial malleolus. Skin: Warm and dry. No rash, erythema, pallor or cyanosis Psychiatric: Appropriate mood and affect for situation. Neurological: Alert and keenly responsive. CN II-XII grossly intact, moving all extremities equally and fully. MDM: - Vitals signs showed hypertension - History obtained via patient. History as above. - Chronic conditions affecting care: morbid obesity; CVA; GERD; HTN; HLD; DM-2; CKD - Differential diagnoses include, but are not limited to: Ankle fracture; ligamentous injury; ankle dislocation; vascular injury - Order placed for continuous cardiac monitoring. At this time, monitor showed rate of 73 bpm with paced rhythm, per my interpretation. - External medical records reviewed. Discharge summary dated 11/19/2022 was reviewed. Patient was admitted at that time for strokelike symptoms and diagnosed with a TIA. - EKG image interpreted by myself showed paced rhythm. Rate 65 bpm. - Laboratory workup interpreted by myself showed normal WBC; stable electrolytes; CKD (Cr 3.10) - Xray imaging of right ankle shows a fracture dislocation, per my interpretation. - Patient was given 100 mcg of IV fentanyl and 2 mg IV Versed. His ankle was reduced by myself. Please see procedure note. Post reduction x-ray showed improved alignment. However, on application of the splint and then repeat imaging after the splint application, it does appear that the patient dislocated again slightly. 3 attempts were made to reduce the ankle by myself again, but still unable to fully anatomically aligned the fracture dislocation. - Discussed case with ortho maintenance controller, Dr. Rendon, at 21:12. Plans to come and attempt to reduce the ankle as well. - Patient attempted to ambulate with crutches to remain nonweightbearing on his right lower extremity. However, given his previous stroke deficits, he is quite unstable on the crutches. Will plan to admit to hospitalist service. - Discussed case with orthopedist, Dr. Jordan, at 21:41. He agrees with splint application and admission to medicine and he will see the as consult in the morning. Recommended the patient be n.p.o. at midnight. - Patient was hypertensive in the emergency department. He was given his home antihypertensive medications, he reports he has not taken them yet this evening. - Discussion was had with nurse outreach case manager about patient's case and need for admission - Hospitalist, Dr. Fish, consulted for admission - Patient admitted to [facility] hospitalist service for further evaluation and management. 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 Ian CASTILLO-19 (Acute) Brain TIA (Acute) Acute renal failure superimposed on stage 3b chronic kidney disease Labile blood pressure VELMA (acute kidney injury) (Acute) HTN (hypertension) (Acute) Pulmonary sarcoidosis Acute renal failure Diabetes mellitus (Acute) Sleep disturbances (Acute) Obstructive sleep apnea Loss of protective sensation of skin of foot Tinea pedis Diabetic peripheral neuropathy associated with type 2 diabetes mellitus Diabetic foot ulcer associated with type 2 diabetes mellitus Hypertension (Chronic) NICM (nonischemic cardiomyopathy) GERD (gastroesophageal reflux disease) (Chronic) HLD (hyperlipidemia) (Chronic) Obesity (Chronic) Hardy esophagus (Chronic) Pacemaker (Chronic) 01/2016 S/P cholecystectomy (Chronic) H/O esophagogastroduodenoscopy (Chronic) Medical History Stroke-like symptoms Abnormal CT of the head Visual problems Pulmonary sarcoidosis Obstructive sleep apnea Neuropathic ulcer of toe of left foot Neuropathic ulcer of toe of left foot Acquired hallux valgus of right foot Acquired deformity of left foot Acquired deformity of right foot Diabetes mellitus with diabetic polyneuropathy Callus Hallux valgus (acquired), left foot Nausea and vomiting after administration of anesthetic agent History of anesthesia reaction difficulty getting enough anesthesia to get asleep and then stay asleep Chronic back pain Pancreatitis Hypertension 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 Ian ANSARI (nonischemic cardiomyopathy) Second degree AV block, Mobitz type II Tinea cruris Pacemaker 01/2016 Hardy esophagus Obesity HLD (hyperlipidemia) GERD (gastroesophageal reflux disease) Surgical History Hx of appendectomy (12/07/19) Laparoscopic Appendectomy Dr. Bañuelos 12/07/19 History of lung biopsy sarcoidosis History of wisdom tooth extraction History of tonsillectomy and adenoidectomy History of cardiac cath 01/[address] [facility]--no stents H/O esophagogastroduodenoscopy S/P cholecystectomy Hx of tonsillectomy Family History Father Family history of diabetes mellitus Mother Family history of diabetes mellitus Aunt Family history of diabetes mellitus Uncle Family history of diabetes mellitus Grandmother (Maternal) Family history of diabetes mellitus Other No family history of adverse response to anesthesia Social History Smoking Status: Never smoker Second Hand Exposure: Yes (Father); Do You Dip or Chew Tobacco: No; Hx Alcohol Use: No Hx Substance Use: No Preferred Language: Faroese Communication Ability: Effective Open [employer] Required: No Beliefs That Will Affect Care: None Current Living Situation: Family Current Living Situation Comment: Stepchild lives with him Feels Safe at Home: Yes Assistive Devices: None Allergies Allergies Allergy/AdvReac Type Severity Reaction Status Date / Time exenatide Allergy Severe DIFFICULTY Verified 07/24/23 12:29 BREATHING phenol Allergy Severe DIFFICULTY Verified 07/24/23 12:29 BREATHING Sulfa (Sulfonamide Allergy Intermediate HIVES Verified 07/24/23 12:29 Antibiotics) doxycycline Allergy Mild Hives Verified 07/24/23 12:29 perflutren AdvReac Severe BACK PAIN Verified 07/24/23 12:29 ciprofloxacin [From Cipro] AdvReac Intermediate fast heart Verified 07/24/23 12:29 rate propylene glycol AdvReac Intermediate BACK PAIN Verified 07/24/23 12:29 Jodokad-ZAL-EhZ Reductase AdvReac Intermediate ACHE PAIN Verified 07/24/23 12:29 Inhibitor [Oqvwqiw-Cbt-Zdf Reductase Inhibitor] clindamycin AdvReac Mild MOUTH Verified 07/24/23 12:29 BURNING cefuroxime AdvReac Severe Verified 07/24/23 12:29 heart burn Home Meds Home Medications Medication Instructions Recorded Confirmed azelastine 137 mcg (0.1 %) nasal 1 spray intranasal AMHS PRN 11/18/22 07/24/25 spray Congestion carvedilol 25 mg tablet 50 mg PO BID 11/18/22 07/24/25 cholecalciferol (vitamin D3) 50 50 mcg PO HS 11/18/22 07/24/25 mcg (2,000 unit) capsule (Vitamin D3) clopidogrel 75 mg tablet 75 mg PO DAILY 11/18/22 07/24/25 ezetimibe 10 mg tablet (Zetia) 10 mg PO DAILY 11/18/22 07/24/25 famotidine 20 mg tablet 20 mg PO HS 11/18/22 07/24/25 insulin aspart U-100 100 unit/mL 22 - 30 unit subcut TIDM 11/18/22 07/24/25 (3 mL) subcutaneous pen (Novolog FlexPen U-100 Insulin aspart) insulin glargine 100 unit/mL (3 60 - 70 unit subcut BID 11/18/22 07/24/25 mL) subcutaneous pen (Lantus Solostar U-100 Insulin) ipratropium bromide 21 mcg (0.03 2 spray intranasal BID 11/18/22 07/24/25 %) nasal spray levothyroxine 200 mcg tablet See Rx Instructions .Route .COMPLEX 11/18/22 07/24/25 omeprazole 40 mg capsule,delayed 40 mg PO QAM 11/18/22 07/24/25 release ondansetron 4 mg disintegrating 4 mg PO TID PRN Nausea 11/18/22 07/24/25 tablet zolpidem 10 mg tablet (Ambien) 10 mg PO HS 11/18/22 07/24/25 amlodipine 2.5 mg tablet See Rx Instructions .Route .COMPLEX 07/24/23 07/24/25 atorvastatin 10 mg tablet 10 mg PO QAM 07/24/23 07/24/25 furosemide 20 mg tablet 20 mg PO .// PRN Sleep 07/24/23 07/24/25 levothyroxine 75 mcg tablet See Rx Instructions .Route .COMPLEX 07/24/23 07/24/25 losartan 50 mg tablet 50 mg PO DAILY 07/24/23 07/24/25 metformin 500 mg tablet,extended 1,000 mg PO BID 07/24/23 07/24/25 release 24 hr Results & Data (ED) Vital Signs Vital Signs - 24 hr 07/24/25 20:23 07/24/25 20:28 07/24/25 20:33 Temperature 36.5 C 36.9 C Temperature Source Temporal Artery Scan Axillary Pulse Rate 72 72 Pulse Rate from SpO2 Sensor 71 Pulse Rhythm Regular Pulse Strength Normal Respiratory Rate 18 13 Respiratory Effort / Characteristics Non-Labored Spontaneous Respiratory Depth Normal Respiratory Pattern Regular Blood Pressure 198/95 H 186/94 H Blood Pressure Mean 129 124 Pulse Oximetry 99 99 Oxygen Delivery Method Room Air Room Air Oxygen Flow Rate Sepsis Recent Fever Within 48 Hours No Sepsis New/Unexplained Change in Mental Status No Sepsis Action Taken by Nursing No Action Required Oxygen Flow Rate - Titration Pulse Oximetry Post Tiitration 07/24/25 20:39 07/24/25 20:42 07/24/25 20:50 Temperature Temperature Source Pulse Rate 74 70 68 Pulse Rate from SpO2 Sensor 68 69 68 Pulse Rhythm Pulse Strength Respiratory Rate 18 17 14 Respiratory Effort / Characteristics Respiratory Depth Respiratory Pattern Blood Pressure 202/93 H 192/94 H Blood Pressure Mean 129 128 Pulse Oximetry 97 99 99 Oxygen Delivery Method Nasal Cannula Room Air Nasal Cannula Oxygen Flow Rate 2 2 Sepsis Recent Fever Within 48 Hours Sepsis New/Unexplained Change in Mental Status Sepsis Action Taken by Nursing Oxygen Flow Rate - Titration Pulse Oximetry Post Tiitration 07/24/25 21:00 07/24/25 21:00 07/24/25 21:00 Temperature 36.7 C Temperature Source Oral Pulse Rate 67 Pulse Rate from SpO2 Sensor 66 Pulse Rhythm Pulse Strength Respiratory Rate 14 Respiratory Effort / Characteristics Respiratory Depth Respiratory Pattern Blood Pressure 186/92 H Blood Pressure Mean 123 Pulse Oximetry 100 100 Oxygen Delivery Method Room Air Room Air Nasal Cannula Oxygen Flow Rate 2 Sepsis Recent Fever Within 48 Hours Sepsis New/Unexplained Change in Mental Status Sepsis Action Taken by Nursing Oxygen Flow Rate - Titration 0 Pulse Oximetry Post Tiitration 98 07/24/25 21:06 07/24/25 21:30 07/24/25 22:00 Temperature 36.9 C Temperature Source Oral Pulse Rate 65 67 Pulse Rate from SpO2 Sensor 64 66 Pulse Rhythm Pulse Strength Respiratory Rate 14 15 Respiratory Effort / Characteristics Respiratory Depth Respiratory Pattern Blood Pressure 188/79 H 183/104 H Blood Pressure Mean 115 130 Pulse Oximetry 99 98 Oxygen Delivery Method Room Air Room Air Oxygen Flow Rate Sepsis Recent Fever Within 48 Hours Sepsis New/Unexplained Change in Mental Status Sepsis Action Taken by Nursing Oxygen Flow Rate - Titration Pulse Oximetry Post Tiitration 07/24/25 22:00 Temperature Temperature Source Pulse Rate 73 Pulse Rate from SpO2 Sensor 73 Pulse Rhythm Pulse Strength Respiratory Rate 19 Respiratory Effort / Characteristics Respiratory Depth Respiratory Pattern Blood Pressure 186/100 H Blood Pressure Mean 128 Pulse Oximetry 98 Oxygen Delivery Method Room Air Oxygen Flow Rate Sepsis Recent Fever Within 48 Hours Sepsis New/Unexplained Change in Mental Status Sepsis Action Taken by Nursing Oxygen Flow Rate - Titration Pulse Oximetry Post Tiitration Laboratory Data 07/24/25 20:33 07/24/25 20:33 Lab Results 07/24/25 07/24/25 Range/Units 20:33 20:35 WBC 6.61 (4.8-10.8) K/ul RBC 4.48 L (4.70-6.10) M/uL Hgb 12.8 L (14.0-18.0) g/dL POC Hgb 12.6 L (14.0-18.0) g/dl Hct 36.7 L (42.0-52.0) % POC Hct 37 L (42-52) % MCV 81.9 (80.0-100.0) fL MCH 28.6 (25.0-34.0) pg MCHC 34.9 (32.0-36.0) g/dL RDW Std Deviation 38.0 (36.4-46.3) fL RDW Coeff of [place]iti 12.6 (11.5-14.5) % Plt Count 224 (130-400) K/uL MPV 9.9 (9.4-12.4) fL Immature Gran % (Auto) 0.3 % Neut % (Auto) 72.6 % Lymph % (Auto) 12.3 % [place] % (Auto) 11.8 % Eos % (Auto) 2.7 % Baso % (Auto) 0.3 % Neut # (Auto) 4.80 (1.40-6.50) K/uL Lymph # (Auto) 0.81 L (1.20-3.40) K/uL [place] # (Auto) 0.78 H (0.11-0.59) K/uL Eos # (Auto) 0.18 (0.00-0.50) K/uL Baso # (Auto) 0.02 (0.00-0.20) K/uL Immature Gran # (Auto) 0.02 (0.01-0.20) K/uL POC Sodium 138 (135-144) mmol/L Sodium 137 (136-145) mmol/L POC Potassium 4.8 (3.3-5.0) mmol/L Potassium 4.7 (3.5-5.1) mmol/L POC Chloride 107 (101-112) mmol/L Chloride 103 (98-107) mmol/L Carbon Dioxide 24 (21-32) mmol/L POC Total CO2 22 L (24-31) mmol/L Anion Gap 10 (3-11) POC Anion Gap 15.0 L (16-25) mmol/L POC BUN 48 H (7-18) mg/dl BUN 47 H (6-23) mg/dl Creatinine 3.10 H (0.6-1.4) mg/dl POC Creatinine 3.4 H (0.6-1.3) mg/dl Est Cr Clr Drug Dosing 40.8 ml/min eGFR 23.44 BUN/Creatinine Ratio 15.2 (10-20) Glucose 262 H (70-99(Fasting)) mg/dl POC Glucose (other) 252 H (70-99) mg/dl Calcium 9.5 (8.6-10.3) mg/dl POC Ioniz Calcium Jason 1.19 (1.12-1.32) mmol/l Total Bilirubin 0.6 (0.2-1.0) mg/dl AST 16 (13-39) U/L ALT 20 (7-52) U/L Alkaline Phosphatase 136 H (34-104) U/L Total Protein 7.7 (6.0-8.3) gm/dl Albumin 3.9 (3.4-5.0) gm/dl Globulin 3.8 (2.5-4.0) gm/dl Albumin/Globulin Ratio 1.0 (0.9-2) Administered Medications Discontinued Medications Fentanyl Citrate (Fentanyl Citrate Pf 100 Mcg/2 Ml Vial) 100 mcg IV NOW STA Stop: 07/24/25 20:31 Last Admin: 07/24/25 20:36 Dose: 100 mcg Documented By: YAMILE Midazolam HCl (Midazolam Hcl 1 Mg/Ml 2ml Vial) 2 mg IV NOW STA Stop: 07/24/25 20:31 Last Admin: 07/24/25 20:37 Dose: 2 mg Documented By: YAMILE Imaging Data Radiologist's Impression: Ankle X-Ray 07/24/25 20:29 Exam(s): XR RIGHT ANKLE, 2 views EXAM: XR Right Ankle, 2 Views CLINICAL HISTORY: R ankle pain. TECHNIQUE: Frontal and lateral views of the right ankle. COMPARISON: No relevant prior studies available. FINDINGS: Bones/joints: Fracture dislocation involving the ankle. There are displaced fractures involving the medial and lateral malleoli. The talus is completely posterolaterally displaced in relation to the distal tibia. Soft tissues: Dysmorphic soft tissues overlying the fracture. No obvious bone exposure subcutaneous emphysema. Vasculature: Regional arterial calcification. IMPRESSION: Fracture dislocation involving the ankle. There are displaced fractures involving the medial and lateral malleoli. The talus is completely posterolaterally displaced in relation to the distal tibia. Electronically signed by: Dick Malin MD 07/24/25 21:44 PM Ankle X-Ray 07/24/25 20:52 Exam(s): XR RIGHT ANKLE, 2 views EXAM: XR Right Ankle, 2 Views CLINICAL HISTORY: post reduction. TECHNIQUE: Frontal and lateral views of the right ankle. COMPARISON: 2030 FINDINGS: Bones/joints: There has been interval reduction in the right ankle dislocation with some persistent lateral subluxation of the talus in relation to the tibia. The avulsed medial malleolar fracture fragment in the oblique fracture involving the distal fibular metaphysis are better delineated with improved alignment. There is approximately 25% posterior displacement of the distal fibular fracture fragment without significant angulation. Soft tissues: Soft tissue fullness. No radiopaque foreign body or subcutaneous emphysema. IMPRESSION: Interval reduction in the previously noted right ankle dislocation fracture, as detailed above. Electronically signed by: Dick Malin MD 07/24/25 21:47 PM Discharge Plan Visit Data Chief Complaint: Fall Stated Complaint: RT ANKLE INJURY, SLIPPED ON ICE 0.5 HR AGO, ON BT ED Provider: Kayla Diaz Discharge Problem: Closed fracture dislocation of right ankle, Fall from standing Patient Disposition: Admitted As Inpatient Condition: Fair Forms Stand Alone Forms: [facility] Prescriptions Prescriptions: No Action losartan 50 mg tablet 50 mg PO DAILY atorvastatin 10 mg tablet 10 mg PO QAM Rx Instructions: Tuesday ONLY amlodipine 2.5 mg tablet See Rx Instructions .ROUTE .COMPLEX Rx Instructions: 2.5mg at bedtime levothyroxine 75 mcg tablet See Rx Instructions .ROUTE .COMPLEX Rx Instructions: Take 75mcg tablet w/ 200mcg tablet by mouth once every morning to equal 275mcg furosemide 20 mg tablet 20 mg PO .M/W/F PRN (Reason: Sleep) metformin 500 mg tablet extended release 24 hr 1,000 mg PO BID carvedilol 25 mg tablet 50 mg PO BID clopidogrel 75 mg tablet 75 mg PO DAILY omeprazole 40 mg capsule,delayed release(DR/EC) 40 mg PO QAM famotidine 20 mg tablet 20 mg PO HS levothyroxine 200 mcg tablet See Rx Instructions .ROUTE .COMPLEX Rx Instructions: Take 200mcg tablet w/ 75mcg tablet by mouth once every morning to equal 275mcg zolpidem [Ambien] 10 mg tablet 10 mg PO HS ondansetron 4 mg tablet,disintegrating 4 mg PO TID PRN (Reason: Nausea) insulin aspart U-100 [Novolog FlexPen U-100 Insulin] 100 unit/mL (3 mL) insulin pen 22 - 30 unit SUBCUT TIDM insulin glargine [Lantus Solostar U-100 Insulin] 100 unit/mL (3 mL) insulin pen 60 - 70 unit SUBCUT BID Rx Instructions: 80 units at night azelastine 137 mcg (0.1 %) aerosol,spray 1 spray INTRANASAL AMHS PRN (Reason: Congestion) ipratropium bromide 21 mcg (0.03 %) spray,non-aerosol 2 spray INTRANASAL BID ezetimibe [Zetia] 10 mg tablet 10 mg PO DAILY cholecalciferol (vitamin D3) [Vitamin D3] 50 mcg (2,000 unit) Capsule 50 mcg PO HS Referrals Referrals: Tj Mace MD [Primary Care Provider] -
[2025-07-24 21:46] LABS: Alanine Aminotransferase 20.0 U/L (7-52); Albumin Globulin Ratio 1.0 (0.9-2); Albumin Level 3.9 gm/dl (3.4-5.0); Alkaline Phosphatase 136.0 U/L (34-104); Anion Gap 10.0 (3-11); Bilirubin,Total 0.6 mg/dl (0.2-1.0); Blood Urea Nitrogen 47.0 mg/dl (6-23); Calcium 9.5 mg/dl (8.6-10.3); Carbon Dioxide 24.0 mmol/L (21-32); Chloride 103.0 mmol/L (98-107); Creatinine Clr Calc Pharmacy 40.8 ml/min; Globulin 3.8 gm/dl (2.5-4.0); Glucose 262.0 mg/dl (70-99(Fasting)); Hematocrit (blood only) 36.7 % (42.0-52.0); Hemoglobin 12.8 g/dL (14.0-18.0); Immature Granulocytes # (auto) 0.02 K/uL (0.01-0.20); Immature Granulocytes % (auto) 0.3 %; Mean Corpuscular Hemoglobin 28.6 pg (25.0-34.0); Mean Corpuscular Volume 81.9 fL (80.0-100.0); Platelet Count 224 K/uL (130-400); Potassium 4.7 mmol/L (3.5-5.1); RDW Standard Deviation 38.0 fL (36.4-46.3); Red Blood Count 4.48 M/uL (4.70-6.10); Sodium 137.0 mmol/L (136-145); Total Protein 7.7 gm/dl (6.0-8.3); White Blood Count 6.61 K/ul (4.8-10.8)
--- NOTE | 2025-07-24 21:46 | XRay Report ---
Exam(s): XR RIGHT ANKLE, 2 views EXAM: XR Right Ankle, 2 Views CLINICAL HISTORY: R ankle pain. TECHNIQUE: Frontal and lateral views of the right ankle. COMPARISON: No relevant prior studies available. FINDINGS: Bones/joints: Fracture dislocation involving the ankle. There are displaced fractures involving the medial and lateral malleoli. The talus is completely posterolaterally displaced in relation to the distal tibia. Soft tissues: Dysmorphic soft tissues overlying the fracture. No obvious bone exposure subcutaneous emphysema. Vasculature: Regional arterial calcification. IMPRESSION: Fracture dislocation involving the ankle. There are displaced fractures involving the medial and lateral malleoli. The talus is completely posterolaterally displaced in relation to the distal tibia. Electronically signed by: Dick Malin MD 07/24/25 21:44 PM
--- NOTE | 2025-07-24 21:48 | XRay Report ---
Exam(s): XR RIGHT ANKLE, 2 views EXAM: XR Right Ankle, 2 Views CLINICAL HISTORY: post reduction. TECHNIQUE: Frontal and lateral views of the right ankle. COMPARISON: 2030 FINDINGS: Bones/joints: There has been interval reduction in the right ankle dislocation with some persistent lateral subluxation of the talus in relation to the tibia. The avulsed medial malleolar fracture fragment in the oblique fracture involving the distal fibular metaphysis are better delineated with improved alignment. There is approximately 25% posterior displacement of the distal fibular fracture fragment without significant angulation. Soft tissues: Soft tissue fullness. No radiopaque foreign body or subcutaneous emphysema. IMPRESSION: Interval reduction in the previously noted right ankle dislocation fracture, as detailed above. Electronically signed by: Dick Malin MD 07/24/25 21:47 PM
[2025-07-24] MEDS ORDERED: HYDROmorphone INJ 1 MG/ML SYRINGE IV PRN (22:38)
--- NOTE | 2025-07-24 22:53 | XRay Report ---
Exam(s): XR RIGHT ANKLE, 2 views EXAM: XR Right Ankle, 2 Views CLINICAL HISTORY: post reduction. TECHNIQUE: Frontal and lateral views of the right ankle. COMPARISON: 2036 hours FINDINGS: Artifacts: Overlying splint artifact. Bones/joints: No appreciable alteration in appearance in the alignment of the right ankle when compared to the previous examination. The previously noted avulsion fracture involving the medial malleolus and distal fibular metaphysis is again noted. Soft tissues: Limited. No change. IMPRESSION: In splint views. Electronically signed by: Dick Malin MD 07/24/25 22:52 PM
[2025-07-24] MEDS: ATORVASTATIN 10 MG TAB PO ONE (22:56)
--- NOTE | 2025-07-24 22:58 | History & Physical Report ---
Date of Service July 24, 2025 Assessment & Plan (1) Asymptomatic hypertensive urgency: Plan: Assessment and plan below following discussion of case with ED provider and reviewing patient history/pertinent normal/abnormal diagnostic test results. Hypertensive urgency Traumatic right ankle fracture chronic systolic heart failure secondary to nonischemic cardiomyopathy status post ICD (EF 40%, TTE 2024), patient euvolemic to dry 2AVB status post PPM hyperlipidemia, on statin Rx pulmonary sarcoidosis, pulmonary hypertension, probable GONZALO (not on CPAP), no recent follow-up with [facility] specialist hx CVA, patient describes TIA symptoms from 2 weeks ago, imaging negative for new stroke ARF on CRI chronic anemia, hemoglobin at baseline DM 2 insulin requiring, suboptimal control as of recent hemoglobin A1c of 9.7 last July 2025 papillary cancer status post RAIU/surgery postsurgical hypothyroidism, low TSH with normal free T4 on today's blood work hx right great toe osteomyelitis status post antibiotic Rx (2024) Admit to med/tele given uncontrolled BP Facilitate nighttime blood pressure meds and titrate as needed Orthopedics consult re: traumatic right ankle fracture (Patient already seen at the ER by Dr. Rendon. N.p.o. status after midnight and holding off antiplatelet/anticoagulant medications recommended in anticipation of procedure in AM.) High risk for cardiac complications resulting from prospective procedure Revised Cardiac Risk Index (RCRI): 1. High-risk type of surgery (examples include vascular and any open intraperitoneal or intrathoracic procedures). No 2. History of ischemic heart disease (history of myocardial infarction or positive exercise test, current compliant of chest pain considered to be secondary to myocardial ischemia, use of nitrate therapy, or ECG with pathological Q waves; do not count prior coronary revascularization procedure unless one of the other criteria for ischemic heart disease is present). No 3. History of heart failure. Yes 4. History of cerebrovascular disease. Yes 5. Diabetes mellitus requiring treatment with insulin. Yes 6. Preoperative serum creatinine >2.0. Yes Pt has revised cardiac index score of 4 points. (Class IV Risk.) 10 % 30-day risk of , MO, or cardiac arrest. Cardiology consult for preop eval given significant RCRI. Resume antiplatelet Rx for secondary stroke prevention once bleeding risk is deemed to be minimal/negligible following Orthopedics follow-up eval. Baseline UA, monitor creatinine response to IVF, hold ARB for now until creatinine back to baseline, renal ultrasound if with progressive kidney dysfunction Basal bolus insulin adjusted for n.p.o. status after midnight, ISS BG goal 110- 140, carb count coverage DVT prophylaxis. SCDs re: possible procedure Full code Text document was generated using [employer] voice recognition software. It may contain grammatical or spelling errors. Kindly contact undersigned for clarification of any documentation item in question. History of Present Illness Chief Complaint: Fall, right ankle deformity Primary Care Provider: Tj Mace MD History obtained from patient, family, and records. Medical history significant for chronic systolic heart failure secondary to nonischemic cardiomyopathy status post ICD (EF 40%, TTE 2024), second-degree AV block status post PPM, hypertension, hyperlipidemia, pulmonary sarcoidosis, pulmonary hypertension, probable GONZALO (not on CPAP), CVA, CRI (baseline creatinine 2s), chronic anemia (baseline hemoglobin 11-12), DM 2 insulin requiring, papillary cancer status post surgery, postsurgical hypothyroidism, hi story of right great toe osteomyelitis status post antibiotic Rx, anxiety disorder. Last confinement November 2022 for TIA presenting as transient right sided weakness. 2 weeks ago, patient had transient aphasia symptoms associated with bilateral hand and feet numbness. Claims to be compliant with home medications. PCP recommended ED evaluation for possible recurrent TIA. Patient refused ER evaluation. No CT evidence of acute intracranial abnormality on outpatient imaging. Patient slipped on ice while walking outside. Patient noted right ankle deformity without unusual pain. Denies head trauma, LOC, chest pain, SOB. Highest SBP of 200s documented at the ER. Medical History as above Surgical History : Tonsillectomy/adenoidectomy, appendectomy, cholecystectomy, PPM, total thyroidectomy and neck dissection, dental surgery Family History : DM, heart disease, alcoholism Personal/Social history : Non-smoker, no EtOH intake, disabled Allergies Allergy/AdvReac Type Severity Reaction Status Date / Time exenatide Allergy Severe DIFFICULTY Verified 07/24/23 12:29 BREATHING phenol Allergy Severe DIFFICULTY Verified 07/24/23 12:29 BREATHING Sulfa (Sulfonamide Allergy Intermediate HIVES Verified 07/24/23 12:29 Antibiotics) doxycycline Allergy Mild Hives Verified 07/24/23 12:29 perflutren AdvReac Severe BACK PAIN Verified 07/24/23 12:29 ciprofloxacin [From Cipro] AdvReac Intermediate fast heart Verified 07/24/23 12:29 rate propylene glycol AdvReac Intermediate BACK PAIN Verified 07/24/23 12:29 Faooebd-HIJ-MnC Reductase AdvReac Intermediate ACHE PAIN Verified 07/24/23 12 :29 Inhibitor [Lprclmh-Srv-Hpx Reductase Inhibitor] clindamycin AdvReac Mild MOUTH Verified 07/24/23 12:29 BURNING cefuroxime AdvReac Severe Verified 07/24/23 12:29 heart burn Home Medications Medication Instructions Recorded Confirmed Type azelastine 137 mcg (0.1 %) nasal 1 spray intranasal AMHS PRN 11/18/22 07/24/25 History spray Congestion carvedilol 25 mg tablet 50 mg PO BID 11/18/22 07/24/25 History cholecalciferol (vitamin D3) 50 50 mcg PO HS 11/18/22 07/24/25 History mcg (2,000 unit) capsule (Vitamin D3) clopidogrel 75 mg tablet 75 mg PO DAILY 11/18/22 07/24/25 History ezetimibe 10 mg tablet (Zetia) 10 mg PO DAILY 11/18/22 07/24/25 History famotidine 20 mg tablet 20 mg PO HS 11/18/22 07/24/25 History insulin aspart U-100 100 unit/mL 22 - 30 unit subcut TIDM 11/18/22 07/24/25 History (3 mL) subcutaneous pen (Novolog FlexPen U-100 Insulin aspart) insulin glargine 100 unit/mL (3 60 - 70 unit subcut BID 11/18/22 07/24/25 History mL) subcutaneous pen (Lantus Solostar U-100 Insulin) ipratropium bromide 21 mcg (0.03 2 spray intranasal BID 11/18/22 07/24/25 History %) nasal spray levothyroxine 200 mcg tablet See Rx Instructions .Route .COMPLEX 11/18/22 07/24/25 History omeprazole 40 mg capsule,delayed 40 mg PO QAM 11/18/22 07/24/25 History release ondansetron 4 mg disintegrating 4 mg PO TID PRN Nausea 11/18/22 07/24/25 History tablet zolpidem 10 mg tablet (Ambien) 10 mg PO HS 11/18/22 07/24/25 History amlodipine 2.5 mg tablet See Rx Instructions .Route .COMPLEX 07/24/23 07/24/25 History atorvastatin 10 mg tablet 10 mg PO QAM 07/24/23 07/24/25 History furosemide 20 mg tablet 20 mg PO .M/W/F PRN Sleep 07/24/23 07/24/25 History levothyroxine 75 mcg tablet See Rx Instructions .Route .COMPLEX 07/24/23 07/24/25 History losartan 50 mg tablet 50 mg PO DAILY 07/24/23 07/24/25 History metformin 500 mg tablet,extended 1,000 mg PO BID 07/24/23 07/24/25 History release 24 hr Past Med/Surg History Problem List Asymptomatic hypertensive urgency Bimalleolar ankle fracture Fall from standing (Acute) Closed fracture dislocation of right ankle (Acute) Hypothyroidism 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 Ian CASTILLO-19 (Acute) Brain TIA (Acute) Acute renal failure superimposed on stage 3b chronic kidney disease Labile blood pressure VELMA (acute kidney injury) (Acute) HTN (hypertension) (Acute) Pulmonary sarcoidosis Acute renal failure Diabetes mellitus (Acute) Sleep disturbances (Acute) Obstructive sleep apnea Loss of protective sensation of skin of foot Tinea pedis Diabetic peripheral neuropathy associated with type 2 diabetes mellitus Diabetic foot ulcer associated with type 2 diabetes mellitus Hypertension (Chronic) NICM (nonischemic cardiomyopathy) GERD (gastroesophageal reflux disease) (Chronic) HLD (hyperlipidemia) (Chronic) Obesity (Chronic) Hardy esophagus (Chronic) Pacemaker (Chronic) 01/2016 S/P cholecystectomy (Chronic) H/O esophagogastroduodenoscopy (Chronic) Medical History Stroke-like symptoms Abnormal CT of the head Visual problems Neuropathic ulcer of toe of left foot Neuropathic ulcer of toe of left foot Acquired hallux valgus of right foot Acquired deformity of left foot Acquired deformity of right foot Diabetes mellitus with diabetic polyneuropathy Callus Hallux valgus (acquired), left foot Nausea and vomiting after administration of anesthetic agent History of anesthesia reaction difficulty getting enough anesthesia to get asleep and then stay asleep Chronic back pain Pancreatitis Hypertension NICM (nonischemic cardiomyopathy) Tinea cruris Surgical History Hx of appendectomy (12/07/19) Laparoscopic Appendectomy Dr. Bañuelos 12/07/19 History of lung biopsy sarcoidosis History of wisdom tooth extraction History of tonsillectomy and adenoidectomy History of cardiac cath 01/2016 @ [facility]--no stents H/O esophagogastroduodenoscopy S/P cholecystectomy Hx of tonsillectomy Family History Father Family history of diabetes mellitus Mother Family history of diabetes mellitus Aunt Family history of diabetes mellitus Uncle Family history of diabetes mellitus Grandmother (Maternal) Family history of diabetes mellitus Other No family history of adverse response to anesthesia Social History Smoking Status: Never smoker Second Hand Exposure: Yes (childhood); Do You Dip or Chew Tobacco: No; Hx Alcohol Use: No Hx Substance Use: No Preferred Language: Zimbabwean Communication Ability: Effective 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 Beliefs That Will Affect Care: None Current Living Situation: Family Current Living Situation Comment: lives with his stepson Feels Safe at Home: Yes Assistive Devices: None Review of Systems Review of Systems: As per HPI, all other systems reviewed and negative Physical Exam Physical Exam: GENERAL: Comfortable, morbidly obese, no respiratory distress SKIN: Pallor,, warm HEENT: Pale palpebral conjunctivae, no ptosis, moist buccal mucosa NECK : Supple, short neck, no tenderness CHEST : Decreased breath sounds, no tenderness HEART : RRR, no obvious murmurs ABDOMEN: Some distention, nontender EXTREMITIES : RLE splint, palpable pulses, minimal LLE swelling without tenderness NEUROLOGIC : Coherent, no facial asymmetry, no other gross focality Results & Data Results & Data Vital Signs (Past 12 Hours) Vital Signs Temp Pulse Resp BP Pulse Ox O2 Del Method O2 Flow Rate 07/24/25 22:30 69 17 183/94 H 98 Room Air 07/24/25 22:00 73 19 186/100 H 98 Room Air 07/24/25 22:00 36.9 C 07/24/25 21:30 67 15 183/104 H 98 Room Air 07/24/25 21:06 65 14 188/79 H 99 Room Air 07/24/25 21:00 100 Room Air, Nasal Cannula 2 07/24/25 21:00 67 14 186/92 H 100 Room Air 07/24/25 21:00 36.7 C 07/24/25 20:50 68 14 192/94 H 99 Nasal Cannula 2 07/24/25 20:42 70 17 99 Room Air 07/24/25 20:39 74 18 202/93 H 97 Nasal Cannula 2 07/24/25 20:33 72 13 186/94 H 99 Room Air 07/24/25 20:28 36.9 C 07/24/25 20:23 36.5 C 72 18 198/95 H 99 Room Air Laboratory Results Laboratory Results WBC 6.61 K/ul (4.8-10.8) 07/24/25 20:33 RBC 4.48 M/uL (4.70-6.10) L 07/24/25 20:33 Hgb 12.8 g/dL (14.0-18.0) L 07/24/25 20:33 POC Hgb 12.6 g/dl (14.0-18.0) L 07/24/25 20:35 Hct 36.7 % (42.0-52.0) L 07/24/25 20:33 POC Hct 37 % (42-52) L 07/24/25 20:35 MCV 81.9 fL (80.0-100.0) 07/24/25 20:33 MCH 28.6 pg (25.0-34.0) 07/24/25 20: MCHC 34.9 g/dL (32.0-36.0) 07/24/25 20:33 RDW Std Deviation 38.0 fL (36.4-46.3) 07/24/25 20: RDW Coeff of Titi 12.6 % (11.5-14.5) 07/24/25 20:33 Plt Count 224 K/uL (130-400) 07/24/25 20:33 MPV 9.9 fL (9.4-12.4) 07/24/25 20:33 Immature Gran % (Auto) 0.3 % 07/24/25 20:33 Neut % (Auto) 72.6 % 07/24/25 20:33 Lymph % (Auto) 12.3 % 07/24/25 20:33 [place] % (Auto) 11.8 % 07/24/25 20:33 Eos % (Auto) 2.7 % 11/19/25 20:33 Baso % (Auto) 0.3 % 07/24/25 20:33 Neut # (Auto) 4.80 K/uL (1.40-6.50) 07/24/25 20:33 Lymph # (Auto) 0.81 K/uL (1.20-3.40) L 07/24/25 20: [place] # (Auto) 0.78 K/uL (0.11-0.59) H 07/24/25 20:33 Eos # (Auto) 0.18 K/uL (0.00-0.50) 07/24/25 20:33 Baso # (Auto) 0.02 K/uL (0.00-0.20) 07/24/25 20: Immature Gran # (Auto) 0.02 K/uL (0.01-0.20) 07/24/25 20:33 POC Sodium 138 mmol/L (135-144) 07/24/25 20:35 Sodium 137 mmol/L (136-145) 07/24/25 20:33 POC Potassium 4.8 mmol/L (3.3-5.0) 07/24/25 20:35 Potassium 4.7 mmol/L (3.5-5.1) 07/24/25 20:33 POC Chloride 107 mmol/L (101-112) 07/24/25 20:35 Chloride 103 mmol/L (98-107) 07/24/25 20:33 Carbon Dioxide 24 mmol/L (21-32) 07/24/25 20:33 POC Total CO2 22 mmol/L (24-31) L 07/24/25 20:35 Anion Gap 10 (3-11) 07/24/25 20:33 POC Anion Gap 15.0 mmol/L (16-25) L 07/24/25 20:35 POC BUN 48 mg/dl (7-18) H 07/24/25 20:35 BUN 47 mg/dl (6-23) H 07/24/25 20:33 Creatinine 3.10 mg/dl (0.6-1.4) H 07/24/25 20:33 POC Creatinine 3.4 mg/dl (0.6-1.3) H 07/24/25 20:35 Est Cr Clr Drug Dosing 40.8 ml/min 07/24/25 20:33 eGFR 23.44 07/24/25 20:33 BUN/Creatinine Ratio 15.2 (10-20) 07/24/25 20:33 Glucose 262 mg/dl (70-99(Fasting)) H 07/24/25 20:33 POC Glucose (other) 252 mg/dl (70-99) H 07/24/25 20:35 Calcium 9.5 mg/dl (8.6-10.3) 07/24/25 20:33 POC Ioniz Calcium Jason 1.19 mmol/l (1.12-1.32) 07/24/25 20:35 Total Bilirubin 0.6 mg/dl (0.2-1.0) 07/24/25 20:33 AST 16 U/L (13-39) 07/24/25 20:33 ALT 20 U/L (7-52) 07/24/25 20:33 Alkaline Phosphatase 136 U/L (34-104) H 07/24/25 20:33 Total Protein 7.7 gm/dl (6.0-8.3) 07/24/25 20:33 Albumin 3.9 gm/dl (3.4-5.0) 07/24/25 20:33 Globulin 3.8 gm/dl (2.5-4.0) 07/24/25 20:33 Albumin/Globulin Ratio 1.0 (0.9-2) 07/24/25 20:33 Right ankle x-ray: Fracture dislocation involving the ankle. There are displaced fractures involving the medial and lateral malleoli. The talus is completely posterolaterally displaced in relation to the distal tibia. Chest x-ray: No focal consolidation or acute cardiopulmonary process identified. CT head: 1. No evidence of acute intracranial abnormality is demonstrated. 2. Chronic microvascular ischemic changes.- mild interval progression noted. 3. Cerebral atrophy.-mild interval progression noted. Diagnostic Findings EKG as per my interpretation : Rate 65, paced rhythm
--- NOTE | 2025-07-24 23:02 | XRay Report ---
Exam(s): XR RIGHT ANKLE, 2 views EXAM: XR Right Ankle, 2 Views CLINICAL HISTORY: reduction. TECHNIQUE: Frontal and lateral views of the right ankle. COMPARISON: 2130 hours FINDINGS: Bones/joints: No alteration. Soft tissues: No alteration. IMPRESSION: No alteration. Electronically signed by: Dick Malin MD 07/24/25 23:01 PM
--- NOTE | 2025-07-24 23:31 | Orthopedic Consultation ---
Date of Consultation July 24, 2025 Assessment & Plan (1) Bimalleolar ankle fracture: Right bimalleolar ankle fracture dislocation, acute. Recommend Multimodal pain control Ice and elevate right ankle for pain and swelling Bedrest, non-weightbearing to affected lower extremity until after surgery Admit under hospitalist service Recommend preoperative labs, EKG, chest x-ray be obtained NPO at midnight, hold any anticoagulation for procedure I discussion with the patient regarding the nature of his injury. I discussed that his fracture appears to be fairly unstable based on multiple reduction attempts. I was able to get it more fully reduced and stable in a splint, however I do think that this is at risk for displacement due to his underlying neuropathy. Will repeat three-view x-rays of the ankle in the morning to assess for displacement. Patient has poorly controlled diabetes most recent A1c was greater than 9. I think he is at risk for significant complications with surgery. I think he would benefit from surgical intervention by a traumatologist or a foot and ankle specialist. Dr. Tim Jordan was contacted by the emergency department provider, and has agreed to take over care of this patient tomorrow. He will see the patient as a consult tomorrow. I will remain available for any acute needs, but ultimately will defer care to Dr. Jordan. History of Present Illness History of Present Illness This patient is a 49-year-old male with past medical history including DM, GONZALO, diabetic neuropathy, hypertension, GERD, HLD, CKD 3B, history of CVA with right- sided deficits, sarcoidosis. He presented to the emergency department after a fall down 1 step on his porch today. He was walking across his porch he slipped and fell twisting his right ankle he had no neuropathy. He tried to get up but noticed that his ankle was severely deformed. He came to the ER for further evaluation. Found to have a right ankle bimalleolar fracture with dislocation. The emergency department provider made multiple attempts to reduce and splint the ankle however it has been significantly unstable. At the time I evaluated the patient he denies any significant pain about the ankle. He states he has neuropathy up to about the mid tena. This has been present for more than 10 years. His most recent A1c was in the 9+ range. He states that his feet are insensate. He denies any history of injury to this ankle in the past. He denies any significant pain about his right knee or hip. He denies any bilateral upper extremity pain. Did not strike his head or lose consciousness. He is on aspirin and Plavix at baseline. PMH: CVA with right-sided deficits, HLD, HTN, GONZALO, DM, sarcoidosis, pancreatitis, CKD 3B, hypothyroidism, GERD PSH: Appendectomy, cholecystectomy, lung biopsy, tonsillectomy, pacemaker insertion, thyroidectomy SH: Denies smoking, denies alcohol use, denies illicit drug use. Independent ambulates without assistive device at baseline. Allergies: Multiple and reviewed Medications: On aspirin and Plavix. Allergies Allergy/AdvReac Type Severity Reaction Status Date / Time exenatide Allergy Severe DIFFICULTY Verified 07/24/23 12:29 BREATHING phenol Allergy Severe DIFFICULTY Verified 07/24/23 12:29 BREATHING Sulfa (Sulfonamide Allergy Intermediate HIVES Verified 07/24/23 12:29 Antibiotics) doxycycline Allergy Mild Hives Verified 07/24/23 12:29 perflutren AdvReac Severe BACK PAIN Verified 07/24/23 12:29 ciprofloxacin [From Cipro] AdvReac Intermediate fast heart Verified 07/24/23 12:29 rate propylene glycol AdvReac Intermediate BACK PAIN Verified 07/24/23 12:29 Rsnmetg-EEN-IaU Reductase AdvReac Intermediate ACHE PAIN Verified 07/24/23 12:29 Inhibitor [Yjllbps-Jen-Wbc Reductase Inhibitor] clindamycin AdvReac Mild MOUTH Verified 07/24/23 12:29 BURNING cefuroxime AdvReac Severe Verified 07/24/23 12:29 heart burn Home Medications Medication Instructions Recorded Confirmed Type azelastine 137 mcg (0.1 %) nasal 1 spray intranasal AMHS PRN 11/18/22 07/24/25 History spray Congestion carvedilol 25 mg tablet 50 mg PO BID 11/18/22 07/24/25 History cholecalciferol (vitamin D3) 50 50 mcg PO HS 11/18/22 07/24/25 History mcg (2,000 unit) capsule (Vitamin D3) clopidogrel 75 mg tablet 75 mg PO DAILY 11/18/22 07/24/25 History ezetimibe 10 mg tablet (Zetia) 10 mg PO DAILY 11/18/22 07/24/25 History famotidine 20 mg tablet 20 mg PO HS 11/18/22 07/24/25 History insulin aspart U-100 100 unit/mL 22 - 30 unit subcut TIDM 11/18/22 07/24/25 History (3 mL) subcutaneous pen (Novolog FlexPen U-100 Insulin aspart) insulin glargine 100 unit/mL (3 60 - 70 unit subcut BID 11/18/22 07/24/25 History mL) subcutaneous pen (Lantus Solostar U-100 Insulin) ipratropium bromide 21 mcg (0.03 2 spray intranasal BID 11/18/22 07/24/25 History %) nasal spray levothyroxine 200 mcg tablet See Rx Instructions .Route .COMPLEX 11/18/22 07/24/25 History omeprazole 40 mg capsule,delayed 40 mg PO QAM 11/18/22 07/24/25 History release ondansetron 4 mg disintegrating 4 mg PO TID PRN Nausea 11/18/22 07/24/25 History tablet zolpidem 10 mg tablet (Ambien) 10 mg PO HS 11/18/22 07/24/25 History amlodipine 2.5 mg tablet See Rx Instructions .Route .COMPLEX 07/24/23 07/24/25 History atorvastatin 10 mg tablet 10 mg PO QAM 07/24/23 07/24/25 History furosemide 20 mg tablet 20 mg PO .M// PRN Sleep 07/24/23 07/24/25 History levothyroxine 75 mcg tablet See Rx Instructions .Route .COMPLEX 07/24/23 07/24/25 History losartan 50 mg tablet 50 mg PO DAILY 07/24/23 07/24/25 History metformin 500 mg tablet,extended 1,000 mg PO BID 07/24/23 07/24/25 History release 24 hr Patient History Medical History Stroke-like symptoms Abnormal CT of the head Visual problems Neuropathic ulcer of toe of left foot Neuropathic ulcer of toe of left foot Acquired hallux valgus of right foot Acquired deformity of left foot Acquired deformity of right foot Diabetes mellitus with diabetic polyneuropathy Callus Hallux valgus (acquired), left foot Nausea and vomiting after administration of anesthetic agent History of anesthesia reaction difficulty getting enough anesthesia to get asleep and then stay asleep Chronic back pain Pancreatitis Hypertension NICM (nonischemic cardiomyopathy) Tinea cruris Surgical History Hx of appendectomy (12/07/19) Laparoscopic Appendectomy Dr. Bañuelos 12/07/19 History of lung biopsy sarcoidosis History of wisdom tooth extraction History of tonsillectomy and adenoidectomy History of cardiac cath 01/2016 @ [facility]--no stents H/O esophagogastroduodenoscopy S/P cholecystectomy Hx of tonsillectomy Family History Father Family history of diabetes mellitus Mother Family history of diabetes mellitus Aunt Family history of diabetes mellitus Uncle Family history of diabetes mellitus Grandmother (Maternal) Family history of diabetes mellitus Other No family history of adverse response to anesthesia Social History Smoking Status: Never smoker Second Hand Exposure: Yes (Father); Do You Dip or Chew Tobacco: No; Hx Alcohol Use: No Hx Substance Use: No Preferred Language: Arabic Communication Ability: Effective [employer] Consultant Required: No Beliefs That Will Affect Care: None Current Living Situation: Family Current Living Situation Comment: Stepchild lives with him Feels Safe at Home: Yes Assistive Devices: None Physical Exam Physical Exam: General: Patient is awake, alert, no acute distress. Is afebrile and vital signs are stable. Musculoskeletal: Right lower extremity: Skin has chronic discoloration about the foot and toes they are reddened in color. There is a small superficial abrasion over the medial ankle. No active bleeding does not appear to be an open injury. Patient has no sensation to light touch throughout the foot and toes up to the mid lower leg Patient is able to actively flex and extend the great toe. He can also actively plantar and dorsiflex ankle DP and PT pulses are palpable There is visible deformity about the ankle with lateral translation of the talus relative to the tibia Lower leg compartments soft and compressible Results & Data Vital Signs (Past 12 Hours) Vital Signs Temp Pulse Resp BP Pulse Ox O2 Del Method O2 Flow Rate 07/24/25 23:00 71 12 168/87 H 97 Room Air 07/24/25 23:00 36.5 C 07/24/25 22:30 69 17 183/94 H 98 Room Air 07/24/25 22:00 73 19 186/100 H 98 Room Air 07/24/25 22:00 36.9 C 07/24/25 21:30 67 15 183/104 H 98 Room Air 07/24/25 21:06 65 14 188/79 H 99 Room Air 07/24/25 21:00 100 Room Air, Nasal Cannula 2 07/24/25 21:00 67 14 186/92 H 100 Room Air 07/24/25 21:00 36.7 C 07/24/25 20:50 68 14 192/94 H 99 Nasal Cannula 2 07/24/25 20:42 70 17 99 Room Air 07/24/25 20:39 74 18 202/93 H 97 Nasal Cannula 2 07/24/25 20:33 72 13 186/94 H 99 Room Air 07/24/25 20:28 36.9 C 07/24/25 20:23 36.5 C 72 18 198/95 H 99 Room Air Diagnostic Findings I personally reviewed and interpreted three-view right ankle x-rays obtained when patient presented to the emergency department that show a bimalleolar ankle fracture with posterior lateral dislocation of the talus relative to the tibia. Lateral malleolus fracture short oblique in nature with mild comminution. Medial malleolus fracture is transverse with significant lateral displacement. I also personally reviewed and interpreted three-view right ankle x-rays post my reduction which show improved alignment of the bimalleolar ankle fracture. Talus is reduced under the tibia. Fracture appears stable. Ankle X-Ray 07/24/25 20:29 Exam(s): XR RIGHT ANKLE, 2 views EXAM: XR Right Ankle, 2 Views CLINICAL HISTORY: R ankle pain. TECHNIQUE: Frontal and lateral views of the right ankle. COMPARISON: No relevant prior studies available. FINDINGS: Bones/joints: Fracture dislocation involving the ankle. There are displaced fractures involving the medial and lateral malleoli. The talus is completely posterolaterally displaced in relation to the distal tibia. Soft tissues: Dysmorphic soft tissues overlying the fracture. No obvious bone exposure subcutaneous emphysema. Vasculature: Regional arterial calcification. IMPRESSION: Fracture dislocation involving the ankle. There are displaced fractures involving the medial and lateral malleoli. The talus is completely posterolaterally displaced in relation to the distal tibia. Electronically signed by: Dick Malin MD 07/24/25 21:44 PM Ankle X-Ray 07/24/25 20:52 Exam(s): XR RIGHT ANKLE, 2 views EXAM: XR Right Ankle, 2 Views CLINICAL HISTORY: post reduction. TECHNIQUE: Frontal and lateral views of the right ankle. COMPARISON: 2030 FINDINGS: Bones/joints: There has been interval reduction in the right ankle dislocation with some persistent lateral subluxation of the talus in relation to the tibia. The avulsed medial malleolar fracture fragment in the oblique fracture involving the distal fibular metaphysis are better delineated with improved alignment. There is approximately 25% posterior displacement of the distal fibular fracture fragment without significant angulation. Soft tissues: Soft tissue fullness. No radiopaque foreign body or subcutaneous emphysema. IMPRESSION: Interval reduction in the previously noted right ankle dislocation fracture, as detailed above. Electronically signed by: Dick Malin MD 07/24/25 21:47 PM Ankle X-Ray 07/24/25 21:18 Exam(s): XR RIGHT ANKLE, 2 views EXAM: XR Right Ankle, 2 Views CLINICAL HISTORY: post reduction. TECHNIQUE: Frontal and lateral views of the right ankle. COMPARISON: 2036 FINDINGS: Artifacts: Overlying splint artifact. Bones/joints: No appreciable alteration in appearance in the alignment of the right ankle when compared to the previous examination. The previously noted avulsion fracture involving the medial malleolus and distal fibular metaphysis is again noted. Soft tissues: Limited. No change. IMPRESSION: In splint views. Electronically signed by: Dick Malin MD 07/24/25 22:52 PM Ankle X-Ray 07/24/25 21:57 Exam(s): XR RIGHT ANKLE, 2 views EXAM: XR Right Ankle, 2 Views CLINICAL HISTORY: reduction. TECHNIQUE: Frontal and lateral views of the right ankle. COMPARISON: 2129 FINDINGS: Bones/joints: No alteration. Soft tissues: No alteration. IMPRESSION: No alteration. Electronically signed by: Dick Malin MD 07/24/25 23:01 PM (1) Bimalleolar ankle fracture Encounter type: initial encounter Fracture type: closed Laterality: right Qualified Code(s): S82.841A - Displaced bimalleolar fracture of right lower leg, initial encounter for closed fracture
--- NOTE | 2025-07-24 23:38 | XRay Report ---
Exam(s): XR RIGHT ANKLE, 3+ views EXAM: XR Right Ankle Complete, 3 or More Views CLINICAL HISTORY: reduction. TECHNIQUE: Frontal, lateral and oblique views of the right ankle. COMPARISON: 2200 hours FINDINGS: Artifacts: Overlying splint artifact. Bones/joints: When compared to the previous examination, there is further reduction in the residual subluxation of the right ankle. There is near anatomic alignment now identified with only minimal widening of the ankle mortise now identified. There is 50% lateral displacement of the avulsed medial malleolar fracture. There is 25-50% lateral displacement of the distal fibular fracture and 25% posterior displacement of the distal fracture fragment in the lateral projection. No angulation. Soft tissues: Soft tissue fullness. IMPRESSION: Further reduction in the previously noted displaced right ankle fracture. Electronically signed by: Dick Malin MD 07/24/25 23:38 PM
[2025-07-24 23:40] LABS: Magnesium 1.5 mg/dl (1.7-2.4)
[2025-07-24 23:56] LABS: Thyroid Stimulating Hormone 0.218 uIu/ml (0.300-4.500)
[2025-07-25] MEDS ORDERED: CARBOHYDRATES FOR HYPOGLYCEMIA PO PRN (00:20)
[2025-07-25] MEDS ORDERED: DEXTROSE 50% 50 ML SYRINGE IV PRN (00:20)
[2025-07-25] MEDS ORDERED: GLUCOSE 40% GEL 15 GM TUBE PO PRN (00:20)
[2025-07-25] MEDS ORDERED: GLUCOSE 10 TAB/TUBE PO PRN (00:20)
[2025-07-25] MEDS ORDERED: GLUCAGON FOR INJ 1 MG VIAL SQ PRN (00:20)
[2025-07-25 00:31] LABS: T4 Free Thyroxine 1.19 ng/dl (0.61-1.60)
--- NOTE | 2025-07-25 00:38 | XRay Report ---
Exam(s): XR CXR 1 VIEW EXAM: XR Chest, 1 View CLINICAL HISTORY: renal failure. TECHNIQUE: Frontal view of the chest. COMPARISON: Portable chest single view 11/18/2022 FINDINGS: Lungs: No focal airspace consolidation. No radiographic evidence for florid pulmonary edema. Shallow inspiration. Pleural space: Unremarkable. No pneumothorax. No large pleural effusion. Heart: Stable cardiomegaly. Mediastinum: The mediastinal contours are stable and unremarkable. The trachea is midline. Bones/joints: Unremarkable. No acute fracture. Tubes, lines and devices: Left subclavian biventricular defibrillator pacer leads noted. IMPRESSION: No focal consolidation or acute cardiopulmonary process identified. Electronically signed by: Dick Malin MD 07/25/25 00:36 AM
[2025-07-25 00:45] LABS: INR 1.0 (0.9-1.1); Partial Thromboplastin Time 29 Seconds (21-31); Prothrombin Time 10.7 Seconds (9.0-12.0)
--- NOTE | 2025-07-25 01:10 | CT Scan Report ---
EXAM: CT head/brain wo con CLINICAL HISTORY: tia ffup TECHNIQUE: Multiple axial images are obtained from the skull base to the vertex without contrast. CT scan was performed according to ALARA (as low as reasonably achievable). 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 FINDINGS: There is cerebral atrophy. No evidence of space occupying lesion, hemorrhage, edema, mass effect, midline shift, extra axial collection, or hydrocephalus is noted. Basal cisterns are symmetric and normal in size and configuration. There are scattered periventricular hypodensities as can be seen with chronic microvascular ischemic changes. The desai-white matter differentiation is preserved. Visualized paranasal sinuses and mastoid air cells are well aerated. Orbital contents are within normal limits. Bony structures are intact. IMPRESSION: 1. No evidence of acute intracranial abnormality is demonstrated. 2. Chronic microvascular ischemic changes.- mild interval progression noted. 3. Cerebral atrophy.-mild interval progression noted. Electronically signed by Luis Antonio Becker 07-25-2025 01:10 AM
[2025-07-25] MEDS: SODIUM CHLORIDE 0.9% 1,000 ML IV ONE (01:25)
[2025-07-25] MEDS: INSULIN ASPART PER UNIT CHARGE SC SCH ×2 (01:26→21:03)
[2025-07-25] MEDS: LANTUS PER UNIT CHARGE SQ SCH (01:26)
[2025-07-25] MEDS: ZOLPIDEM TARTRATE 5 MG TAB PO PRN (01:28)
[2025-07-25] MEDS ORDERED: SODIUM CHLORIDE 0.65% NA SOLN 45 ML (OCEAN) PRN ×2 (04:09→04:24)
[2025-07-25] MEDS ORDERED: IPRATROPIUM BROMIDE NASAL SPRAY 0.06% 15ML NAE PRN (04:13)
[2025-07-25] MEDS: IPRATROPIUM BROMIDE NASAL SPRAY 0.03% 30 ML SCH (04:20)
[2025-07-25] MEDS: AZELASTINE HCL 0.1% NASAL 200 SPRAYS/27,400 MCG BTL PRN (05:17)
[2025-07-25 06:02] LABS: Appearance Urine Clear (Clear); Bacteria Urine Automated None Seen (None Seen); Cast Urine Automated 0-2 /lpf (0-2); Epithelial Cell Urine Auto 0-2 /hpf (0-2); Glucose Urine UA 2+ (Negative); RBC Urine Automated 0-2 /hpf (0-2); WBC Urine Automated 0-5 /hpf (0-5)
[2025-07-25] MEDS: LEVOTHYROXINE SODIUM 75 MCG TABLET PO SCH (06:21)
[2025-07-25] MEDS: LEVOTHYROXINE SODIUM 200 MCG TABLET PO SCH (06:21)
--- NOTE | 2025-07-25 06:21 | XRay Report ---
EXAM: XR ankle RT min 3V routine CLINICAL HISTORY: Assess for fracture displacement in splint TECHNIQUE: X-ray images of the right ankle were obtained in anteroposterior (AP), lateral, and mortise projections. COMPARISON: No prior studies available for comparison. FINDINGS: Bone Structure: Spiral fracture noted involving lateral malleolus. Horizontal displaced fracture is noted involving medial malleolus. Joint Spaces: Joint spaces are normal. No evidence of joint effusion or subluxation. Soft Tissues: Soft tissues appear normal and unremarkable. No soft tissue swelling, calcifications, or foreign bodies noted. Additional Findings: No signs of osteoarthritis, bone spurs, lytic or sclerotic lesions. IMPRESSION: Spiral fracture noted involving lateral malleolus. Horizontal displaced fracture is noted involving medial malleolus. Disclaimer: A subtle bone abnormality or fracture may not be readily apparent on X-rays, thus clinical correlation and further imaging including follow-up CT, MRI, or follow-up X-rays are advised as needed. Electronically signed by Luis Antonio Becker 07-25-2025 06:21 AM
[2025-07-25 06:31] LABS: Hematocrit (blood only) 32.1 % (42.0-52.0); Hemoglobin 11.2 g/dL (14.0-18.0); Immature Granulocytes # (auto) 0.03 K/uL (0.01-0.20); Immature Granulocytes % (auto) 0.4 %; Mean Corpuscular Hemoglobin 28.4 pg (25.0-34.0); Mean Corpuscular Volume 81.3 fL (80.0-100.0); Platelet Count 223 K/uL (130-400); RDW Standard Deviation 36.8 fL (36.4-46.3); Red Blood Count 3.95 M/uL (4.70-6.10); White Blood Count 7.82 K/ul (4.8-10.8)
[2025-07-25 06:52] LABS: Anion Gap 10.0 (3-11); Blood Urea Nitrogen 46.0 mg/dl (6-23); Calcium 9.3 mg/dl (8.6-10.3); Carbon Dioxide 23.0 mmol/L (21-32); Chloride 105.0 mmol/L (98-107); Creatine Kinase 139.0 U/L (30-223); Creatinine Clr Calc Pharmacy 45.8 ml/min; Glucose 191.0 mg/dl (70-99(Fasting)); Potassium 4.3 mmol/L (3.5-5.1); Sodium 138.0 mmol/L (136-145)
[2025-07-25 07:47] LABS: Hemoglobin A1C 9.5 % (4.5-5.6)
[2025-07-25] MEDS: EZETIMIBE 10 MG TAB PO SCH (08:18)
--- NOTE | 2025-07-25 08:46 | Cardiology Consultation ---
Date of Consultation July 25, 2025 Assessment & Plan (1) Bimalleolar ankle fracture: (2) NICM (nonischemic cardiomyopathy): (3) ICD (implantable cardioverter-defibrillator) in place: (4) Labile blood pressure: (5) Preop cardiovascular exam: Plan Assessment: Medically complex 49 year old male admitted after slipping on ice and falling on his bottom step. further imaging shows evidence of bimalleolar right ankle fracture. He is awaiting orthopedic consult with foot/ankle/trauma specialist to determine if surgical intervention is needed. Cardiology has been consulted for request for a preoperative cardiac risk assessment. Plan: 1.Bimalleolar ankle fracture -As per management of primary team and ortho. 2. NICM 3. ICD 4. labile blood pressures 5. Preoperative cardiac risk evaluation -Patient with known history of ICM, ICD in place with recent interrogation noted. Normal device function, no events or alarms. OK battery life -Review of telemetry shows AV paced rhythm with occasional PVCs rates 60's. -Recent echo shows stable mildly reduced EF 40-44%, no significant valvular disease -Hx of cardiac cath in 2016 with normal coronaries; repeat nuclear stress test in 2018 negative for inducible ischemia -Euvolemic on exam, Right LE assessment limited by orthopedic splint. -Patient was advised that based on prior history, testing and today's examination that he would be deemed intermediate risk for surgical intervention. There is no further testing or medication optimization that would further reduce his risk and should he need to undergo surgical repair of his right ankle we are in agreement that he should move forward. -Close monitoring of blood pressures and fluid status both intra-operative and post-operatively. -Continue Atorvastatin, Amlodipine, Coreg, Zetia as per current regimen -Blood pressures trending up; however, elevated Cr and therefore Losartan is on hold. May use hydralazine if needed -Plavix currently on hold per primary team, would recommend restart post operatively due to history of strokes when ok with ortho. Case has been discussed with Dr. Gruber. Further recommendations regarding plan of care as per his assessment. I spent a total of 50 minutes on the date of service in preparation, delivery, documentation of the care provided to the patient excluding any time spent in the performance of separately billed services. SUSANA Ocampo [facility] Cardiology [facility] Supervising Physician Co-Signing Physician Notes Patient seen and examined. Past medical history, surgical history, social history and family history have been reviewed. The medical record and all the above studies have been reviewed. Case DW MIRTA including management. Preop cardiology evaluation Bimalleolar ankle fracture S/P Mechanical fall VELMA on CKD NICM S/P BIVICD HTN Obesity s/p ICD DM- poorly controlled h/o CVA with R hemiparesis recommendations: Patient has greater than 4 METS of activity with no anginal symptoms prior to th is episode of mechanical fall on ice No further cardiac w/u is indicated at this time patient cleared as intermediate risk from cardiac standpoint for stated surgery DM optimization avoid fluid overload GDMT for HFrEF as tolerated correct and f/u electrolytes f/u renal function continue Coreg, statin DC Norvasc start Hydralazine and adjust dose keeping systolic BP between 100-140 mmHg GDMT for HFrEF limited due to renal insufficiency avoid hypovolemia keep patient euvolemic DVT prophylaxis as per surgery restart ASA when and ok with surgery dietary counseling salt restriction History of Present Illness Reason for Consultation: preop eval Requesting Physician: Dottie garrido Attending Physician: aMsood Upton MD History of Present Illness HPI: Patient is a 49 year old medically complex male that presents for right ankle deformity following a fall on the ice. Imaging demonstrates Bimalleolar ankle fracture. Review of orthopedic consultation dated 07/24/2025 notes concern for significantly unstable fracture despite multiple reduction attempts. patient as made NPO and awaiting evaluation by Foot and ankle surgeon Dr. Tim Jordan. Cardiology has been requested to provide preoperative cardiac clearance in the event that surgical intervention is pursued. patient was seen in examined in conjunction with Dr. Gruber. He is resting in bed at this time. Offers no acute cardiac concerns. No recent chest pain, pressure or palpitations. Denies any significant volume overload, but always endorses right lower extremity edema more apparent then left s/p CVA. Serum Cr. 2.79 Serum Mag 1.5 EKG Atrial-sensed V-paced Rate 65bpm, QTC 501ms Review of telemetry shows Paced with occasional PVC's rates 60's. no acute events overnight. Problem list: 1. Nonischemic cardiomyopathy. 2. Volume status: Compensated 3. Symptomatic orthostatic hypotension, probable autonomic neuropathy 4. Conduction system disease with symptomatic Mobitz II, status post permanent pacemaker placement 5. BIV ICD implanted 01/22/2016 6. Status post February 01 generator exchange. 7. Status post September 17, [address] Guerrero at [facility], explanting a Medtronic generator and implanting a Liu Quadra Assura MP; [id number]; SN: [id number] generator. 1. Liu Quadra Assura MP; [id number]; SN: [id number] generator. 2. RA Lead: Medtronic 5076 SN: [id number] implanted 01/22/2016 3. RV Paced sensed Lead: Medtronic; 5076 SN: [id number] implanted 01/22/2016 4. RV ICD Lead: Medronic 6935; SN: [id number]; implanted 02/01/2018 5. Coronary Sinus lead programed bipolar: 4598, serial number [id number] implanted: 02/01/2018 8. Pulmonary sarcoidosis, previously followed by [facility] Pulmonary Medicine. 9. Obesity 10. Pulmonary hypertension, suspected sleep apnea and/or nocturnal hypoxemia, declining evaluation 11. Hypertension 12. Dyslipidemia. Hypertriglyceridemia. Patient with very poor tolerance to multiple statin trials in the past. PCSK9 inhibitor declined. Atorvastatin (10 mg MWF) retried after the November 2022 TIA. Also on ezetimibe 10 mg/day. LDL cholesterol 88 mg/dL on 01/14/2025 13. Type II diabetes mellitus with neuropathy 14. Stage 3 chronic kidney disease 15. Renal calculus 16. Hospitalization in January 2021 with a CVA, likely primary small vessel event. 17. Hospitalization on November 17, 2022, transient ischemic attack 18. Thyroid malignancy, papillary thyroid carcinoma, status post November 2021 total thyroidectomy and central lymph node dissection, right and selective neck dissection for by Dr. Colon at [facility]. 19. GERD with history of esophageal spasm 20. Hiatal hernia 21. Right lower lobe pulmonary nodule 22. Status post cholecystectomy. 23. Right great toe osteomyelitis Allergies Allergy/AdvReac Type Severity Reaction Status Date / Time exenatide Allergy Severe DIFFICULTY Verified 07/25/25 13:23 BREATHING phenol Allergy Severe DIFFICULTY Verified 07/25/25 13:23 BREATHING Sulfa (Sulfonamide Allergy Intermediate HIVES Verified 07/25/25 13:23 Antibiotics) doxycycline Allergy Mild Hives Verified 07/25/25 13:23 perflutren AdvReac Severe BACK PAIN Verified 07/25/25 13:23 ciprofloxacin [From Cipro] AdvReac Intermediate fast heart Verified 07/25/25 13:23 rate propylene glycol AdvReac Intermediate BACK PAIN Verified 07/25/25 13:23 Quprdtb-[id number]-LiK Reductase AdvReac Intermediate ACHE PAIN Verified 07/25/25 13:23 Inhibitor [Bfpfqlb-Mhf-Avr Reductase Inhibitor] clindamycin AdvReac Mild MOUTH Verified 07/25/25 13:23 BURNING cefuroxime AdvReac Severe Verified 07/25/25 13:23 heart burn Home Medications Medication Instructions Recorded Confirmed Type azelastine 137 mcg (0.1 %) nasal 1 spray intranasal AMHS PRN 11/18/22 07/24/25 History spray Congestion carvedilol 25 mg tablet 50 mg PO BID 11/18/22 07/24/25 History cholecalciferol (vitamin D3) 50 50 mcg PO HS 11/18/22 07/24/25 History mcg (2,000 unit) capsule (Vitamin D3) clopidogrel 75 mg tablet 75 mg PO DAILY 11/18/22 07/24/25 History ezetimibe 10 mg tablet (Zetia) 10 mg PO DAILY 11/18/22 07/24/25 History famotidine 20 mg tablet 20 mg PO HS 11/18/22 07/24/25 History insulin aspart U-100 100 unit/mL 22 - 30 unit subcut TIDM 11/18/22 07/24/25 History (3 mL) subcutaneous pen (Novolog FlexPen U-100 Insulin aspart) insulin glargine 100 unit/mL (3 60 - 70 unit subcut BID 11/18/22 07/24/25 H istory mL) subcutaneous pen (Lantus Solostar U-100 Insulin) ipratropium bromide 21 mcg (0.03 2 spray intranasal BID 11/18/22 07/24/25 History %) nasal spray levothyroxine 200 mcg tablet See Rx Instructions .Route .COMPLEX 11/18/22 07/24/25 History omeprazole 40 mg capsule,delayed 40 mg PO QAM 11/18/22 07/24/25 History release ondansetron 4 mg disintegrating 4 mg PO TID PRN Nausea 11/18/22 07/24/25 History tablet zolpidem 10 mg tablet (Ambien) 10 mg PO HS 11/18/22 07/24/25 History amlodipine 2.5 mg tablet See Rx Instructions .Route .COMPLEX 07/24/23 07/24/25 History atorvastatin 10 mg tablet 10 mg PO QAM 07/24/23 07/24/25 History furosemide 20 mg tablet 20 mg PO .M//F PRN Sleep 07/24/23 07/24/25 History levothyroxine 75 mcg tablet See Rx Instructions .Route .COMPLEX 07/24/23 07/24/25 History losartan 50 mg tablet 50 mg PO DAILY 07/24/23 07/24/25 History metformin 500 mg tablet,extended 1,000 mg PO BID 07/24/23 07/24/25 History release 24 hr Patient History Medical History Stroke-like symptoms Abnormal CT of the head Visual problems Neuropathic ulcer of toe of left foot Neuropathic ulcer of toe of left foot Acquired hallux valgus of right foot Acquired deformity of left foot Acquired deformity of right foot Diabetes mellitus with diabetic polyneuropathy Callus Hallux valgus (acquired), left foot Nausea and vomiting after administration of anesthetic agent History of anesthesia reaction difficulty getting enough anesthesia to get asleep and then stay asleep Chronic back pain Pancreatitis Hypertension NICM (nonischemic cardiomyopathy) Tinea cruris Surgical History Hx of appendectomy (12/07/19) Laparoscopic Appendectomy Dr. Bañuelos 12/07/19 History of lung biopsy sarcoidosis History of wisdom tooth extraction History of tonsillectomy and adenoidectomy History of cardiac cath 01/2016 @ [facility]--no stents H/O esophagogastroduodenoscopy S/P cholecystectomy Hx of tonsillectomy Family History Father Family history of diabetes mellitus Mother Family history of diabetes mellitus Aunt Family history of diabetes mellitus Uncle Family history of diabetes mellitus Grandmother (Maternal) Family history of diabetes mellitus Other No family history of adverse response to anesthesia Social History Smoking Status: Never smoker Second Hand Exposure: Yes (childhood); Do You Dip or Chew Tobacco: No; Hx Alcohol Use: No Hx Substance Use: No Preferred Language: Comoran Communication Ability: Effective Tax Agent Required: No Beliefs That Will Affect Care: None Current Living Situation: Family Current Living Situation Comment: lives with his sayon Feels Safe at Home: Yes Assistive Devices: None Review of Systems Review of Systems: All systems reviewed & are unremarkable except as noted in HPI & below Physical Exam Constitutional: well developed, well nourished and + overweight Neck: normal visual inspection and trachea midline Respiratory: normal respiratory effort, lungs clear to auscultation Cardiovascular: RRR, no murmur, no edema Heart Sounds: normal S1 and normal S2; no murmur Vessels: no JVD Skin: no rashes, warm and dry Psychiatric: A+Ox3, euthymic affect Results & Data Vital Signs (Past 12 Hours) Vital Signs Temp Pulse Pulse Resp BP BP BP 07/25/25 07:41 36.5 C 71 16 176/73 H 07/25/25 07:30 67 07/25/25 02:33 36.4 C L 68 16 144/72 H 07/25/25 00:20 36.9 C 66 16 168/80 H 07/25/25 00:11 64 07/24/25 23:56 73 16 168/75 H 07/24/25 23:00 71 12 168/87 H 07/24/25 23:00 36.5 C 07/24/25 22:30 69 17 183/94 H 07/24/25 22:00 73 19 186/100 H 07/24/25 22:00 36.9 C 07/24/25 21:30 67 15 183/104 H 07/24/25 21:06 65 14 188/79 H 07/24/25 21:00 07/24/25 21:00 67 14 186/92 H 07/24/25 21:00 36.7 C 07/24/25 20:50 68 14 192/94 H 07/24/25 20:42 70 17 Pulse Ox O2 Del Method O2 Flow Rate 07/25/25 07:41 71 L Room Air 07/25/25 07:30 07/25/25 02:33 96 Room Air 07/25/25 00:20 97 Room Air 07/25/25 00:11 07/24/25 23:56 98 Room Air 07/24/25 23:00 97 Room Air 07/24/25 23:00 07/24/25 22:30 98 Room Air 07/24/25 22:00 98 Room Air 07/24/25 22:00 07/24/25 21:30 98 Room Air 07/24/25 21:06 99 Room Air 07/24/25 21:00 100 Room Air, Nasal Cannula 2 07/24/25 21:00 100 Room Air 07/24/25 21:00 07/24/25 20:50 99 Nasal Cannula 2 07/24/25 20:42 99 Room Air Laboratory Results Cardiac Enzymes 07/24/25 Range/Units 20:33 AST 16 (13-39) U/L Coagulation 07/24/25 Range/Units 20:33 PT 10.7 (9.0-12.0) Seconds APTT 29 (21-31) Seconds CBC 07/24/25 07/25/25 Range/Units 20:33 06:06 WBC 6.61 7.82 (4.8-10.8) K/ul RBC 4.48 L 3.95 L (4.70-6.10) M/uL Hgb 12.8 L 11.2 L (14.0-18.0) g/dL Hct 36.7 L 32.1 L (42.0-52.0) % Plt Count 224 223 (130-400) K/uL Neut # (Auto) 4.80 5.95 (1.40-6.50) K/uL Lymph # (Auto) 0.81 L 0.80 L (1.20-3.40) K/uL [place] # (Auto) 0.78 H 0.87 H (0.11-0.59) K/uL Eos # (Auto) 0.18 0.15 (0.00-0.50) K/uL Baso # (Auto) 0.02 0.02 (0.00-0.20) K/uL Comprehensive Metabolic Panel 07/24/25 07/25/25 Range/Units 20:33 06:06 Sodium 137 138 (136-145) mmol/L Potassium 4.7 4.3 (3.5-5.1) mmol/L Chloride 103 105 (98-107) mmol/L Carbon Dioxide 24 23 (21-32) mmol/L BUN 47 H 46 H (6-23) mg/dl Creatinine 3.10 H 2.79 H D (0.6-1.4) mg/dl Glucose 262 H 191 H (70-99(Fasting)) mg/dl Calcium 9.5 9.3 (8.6-10.3) mg/dl AST 16 (13-39) U/L ALT 20 (7-52) U/L Alkaline Phosphatase 136 H (34-104) U/L Total Protein 7.7 (6.0-8.3) gm/dl Albumin 3.9 (3.4-5.0) gm/dl Intake and Output 07/24/25 07/25/25 07/25/25 22:59 06:59 14:59 Output Total 800 / 800 Balance -800 / -800 Output: Urine 800 / 800 Other: Other Intake Source NPO Weight 139.4 kg 142.2 kg Weight Measurement Method Built in Bedscale Built in Bedscale Diagnostic Findings Device interrogation 06/27/2025 Normal Device Function Alerts or events: None Battery: Battery is at 86%, 6.08 yrs Sensing, impedance and thresholds reviewed Programmed parameters reviewed Presenting rhythm reviewed Heart Rate Histograms reviewed No significant changes noted [facility] [id number] Quadra Assura Echocardiogram 10/12/24 obtained from [facility] October 12, 2024 TTE Interpretation Summary (as per Dr. Paz): Patient states he has had previous reaction to Definity. Not administered today. The examination is inadequate to evaluate the referral indication due to patient characteristics, poor acoustic windows, and inability to administer an ultrasound enhancement agent. The images were not sufficient to allow for evaluation of regional wall motion. The qualitative LV ejection fraction is 40- 44% (mildly reduced). No significant valvular stenosis or regurgitation was detected on Doppler interrogation. PG Care Time/CCT Total # of Minutes Spent Total Time Spent with Patient: Total time spent is greater than 50% in coordination of care (as documented) at patient's floor/unit and/or counseling patient: Coding Level of Care Code 65420 IN/OBS CONSULT LVL 5,80M Diagnoses Closed bimalleolar fracture of right ankle, initial encounter S82.841A Encounter type: initial encounter Fracture type: closed Laterality: right NICM (nonischemic cardiomyopathy) I42.8 ICD (implantable cardioverter-defibrillator) in place Z95.810 Labile blood pressure R09.89 Preop cardiovascular exam Z01.810 Time Spent (min) 50 (1) Bimalleolar ankle fracture Encounter type: initial encounter Fracture type: closed Laterality: right Qualified Code(s): S82.841A - Displaced bimalleolar fracture of right lower leg, initial encounter for closed fracture
[2025-07-25] MEDS ORDERED: IPRATROPIUM BROMIDE NASAL SPRAY 0.03% 30 ML SCH (09:00)
[2025-07-25] MEDS: PROMETHAZINE 12.5 MG/50.5 ML BAG IV PRN (09:22)
--- NOTE | 2025-07-25 09:30 | Fluoroscopy Report ---
FL ankle RT min 3V RTN CLINICAL HISTORY: Reduction use with ortho-mini C Arm COMPARISON STUDY: 07/24/2025 FLUOROSCOPY TIME: 4 seconds FLUOROSCOPY IMAGES: 3 EXPOSURE DOSE: 0.2 mGy FINDINGS: Fluoroscopy was provided for closed reduction. IMPRESSION: Fluoroscopy for closed reduction. ACT 112: Negative or not required by law. Electronically signed by: Saran Kulkarni M.D. 07/25/2025 9:29 AM
[2025-07-25] MEDS: LORATADINE 10 MG TAB PO ONE (10:02)
[2025-07-25] MEDS: ONDANSETRON INJ 2 MG/ML 2 ML VIAL IV STA (11:11)
--- NOTE | 2025-07-25 11:26 | Hospitalist Progress Note ---
Date of Service July 25, 2025 Assessment & Plan (1) Asymptomatic hypertensive urgency: Plan: Assessment and plan below following discussion of case with ED provider and reviewing patient history/pertinent normal/abnormal diagnostic test results. Hypertensive urgency Traumatic right ankle fracture Patient presented to the hospital with slip is on ice; noted to have right ankle deformity. Denies any other injuries. CT headno acute finding Ankle x-ray shows by Bimalleolar fracture Orthopedic consulted for comanagement; discussed with orthopedicpossible surgery today Cardiology consulted for optimization; patient does not appear to be in decompensated heart failure. Appreciate cardiology input regarding any optimization prior to surgery Pain control PT OT after surgery Hold ARB chronic systolic heart failure secondary to nonischemic cardiomyopathy status post ICD (EF 40%, TTE 2024), patient euvolemic 2AVB status post PPM- monitor on telemetry hyperlipidemia, on statin Rx pulmonary sarcoidosis, pulmonary hypertension, probable GONZALO (not on CPAP), no recent follow-up with [facility] specialist hx CVA, patient describes TIA symptoms from 2 weeks ago, imaging negative for new stroke ARF on CRI - Creatinine at baseline chronic anemia, hemoglobin at baseline DM 2 insulin requiring, suboptimal control as of recent hemoglobin A1c of 9.7 last July 2025 -on SSI here papillary cancer status post RAIU/surgery postsurgical hypothyroidism, low TSH with normal free T4 on today's blood work - follow up with pcp for futher evaluation hx right great toe osteomyelitis status post antibiotic Rx (2024) Full code DVT prophylaxis on hold for possible surgery today Time spent evaluating patient, direct bedside care, chart review, placing orders, interpretation of diagnostic studies, discussion with consultants, patient, and family members, as well as other required patient management activities is 50 minutes Please note the above document was generated using voice recognition software. It may contain grammatical, syntax or spelling errors. Any formal questions or concerns about the content, text or information contained within the body of this dictation should be directly addressed to the provider for clarification Admission and Anticipated Discharge Date Admission Date: July 24, 2025 Subjective So do we get that thomas I am you patient seen and examined at bedside. He reports that the pain is well-controlled on current medication. He reports some nausea, nasal congestion for which he was given medication. Blood pressure appeared to be on higher side likely secondary to pain. Review of Systems Review of Systems: All systems reviewed & are unremarkable except as noted in Subjective Physical Exam Physical Exam: Tertiary Survey: Subjective: Reports pain on the ankle CAGE-AID Screen: neg Objective: Lab Reviewed Imaging Reviewed Physical Exam: General: Appears comfortable - Alert: Yes - Oriented: X 3 - GCS 15: HEENT: - No pain/tenderness. - No lacerations/abrasions - No numbness/tingling - PERLAA. Normal Visual Acuity. No visua l field cuts. No nystagmus. No contact lenses. Normal hearing. No relative afferent pupillary defect. No facial asymmetry. Normal palatal elevation, uvula midline. Midline tongue protrusion. Shoulder shrug with 5/5 strength bilaterally. - Mucous membranes moist. Neck: - Midline Tenderness: No - Cleared C-Spine: Yes Thorax: - Pain/Tenderness: None - Lacerations/Abrasions: None - Swelling/Ecchymosis: None - Air/Bony Crepitus: None Cardiopulmonary: - Regular Rate and Rhythm. No murmurs, r ubs or gallops. - Breath sounds CTAB. No wheezes, rales, or rhonchi. - Symmetrical Chest Rise Abdomen - Pain/Tenderness: None - Lacerations/Abrasions: None - No abdominal distension - Abdominal rigidity/guarding: None - Bowel Sounds: Present, normal - Pelvis stable Back/Spine - Lacerations/Abrasions: None - Swelling/Ecchymosis: None - Pain/Tenderness: None - Step-offs: None Extremities: - RUE: No deformity. No lacerations/keon sions. No swelling/ecchymosis. No pain/tenderness. Full active and passive range of motion. Cop Breaker strength, elbow flexion/extension, shoulder flexion/extension/abduction/adduction/external rotation/internal rotation intact with 5/5 strength. Sensation intact to soft touch without deficit. - RLE: Deformity present; bandaged over. No overlying suitcase. - LUE: No deformity. No lacerations/keon sions. No swelling/ecchymosis. No pain/tenderness. Full active and passive range of motion. Hip flexion/extension, knee flexion/extension, ankle dorsiflexion/plantarflexion with 5/5 strength. Sensation intact to soft touch without deficit. PT pulse intact to palpation, cap refill in the hallux <2 seconds. Extremity warm and dry. - LLE: No deformity. No lacerations/keon sions. No swelling/ecchymosis. No pain/tenderness. Full active and passive range of motion. Hip flexion/extension, knee flexion/extension, ankle dorsiflexion/plantarflexion with 5/5 strength. Sensation intact to soft touch without deficit. PT pulse intact to palpation, cap refill in the hallux <2 seconds. Extremity warm and dry. Mental status Adequate for Full Exam: Yes C-Spine Cleared (Radiologically AND Clinically): Yes/ New Diagnoses Identified: n/a New Consults Required: n/a Results & Data Results & Data Vital Signs (Past 12 Hours) Vital Signs Temp Pulse Pulse Resp BP BP BP 07/25/25 11:09 36.4 C L 69 189/71 H 07/25/25 07:41 36.5 C 71 16 176/73 H 07/25/25 07:30 67 07/25/25 02:33 36.4 C L 68 16 144/72 H 07/25/25 00:20 36.9 C 66 16 168/80 H 07/25/25 00:11 64 07/24/25 23:56 73 16 168/75 H Pulse Ox O2 Del Method 07/25/25 11:09 98 Room Air 07/25/25 07:41 71 L Room Air 07/25/25 07:30 07/25/25 02:33 96 Room Air 07/25/25 00:20 97 Room Air 07/25/25 00:11 07/24/25 23:56 98 Room Air
[2025-07-25] MEDS ORDERED: KETAMINE HCL 10MG/ML SYR ONE (12:56)
[2025-07-25] MEDS ORDERED: DEXAMETHASONE SOD INJ 4 MG/ML VIAL ONE (12:56)
[2025-07-25] MEDS ORDERED: PROPOFOL IV EMULSION 10 MG/ML 20 ML VIAL IV ONE (12:56)
[2025-07-25] MEDS ORDERED: MIDAZOLAM HCL 1 MG/ML 2ML VIAL ONE (12:56)
[2025-07-25] MEDS ORDERED: SUGAMMADEX SODIUM 200 MG/2 ML VIAL IV ONE ×2 (12:56→14:08)
[2025-07-25] MEDS ORDERED: ROCURONIUM BROMIDE 10 MG/ML 5 ML VIAL IV ONE ×2 (12:56→14:08)
[2025-07-25] MEDS ORDERED: ONDANSETRON INJ 2 MG/ML 2 ML VIAL ONE (12:56)
--- NOTE | 2025-07-25 13:16 | Anesthesiology Consultation ---
Date of Service July 25, 2025 Assessment & Plan Chart Review Chart Review: Acceptable Risk for Surgery and Patient NOT seen in Pre Admission Testing Consults Requested none History Surgery Operation Date: 07/25/25 16:30 Proposed Procedures p Right Ankle External Fixator Application - Tim Jordan DO Height/Weight Height: 6 ft Weight: 142.2 kg Allergies Allergy/AdvReac Type Severity Reaction Status Date / Time exenatide Allergy Severe DIFFICULTY Verified 07/24/23 12:29 BREATHING phenol Allergy Severe DIFFICULTY Verified 07/24/23 12:29 BREATHING Sulfa (Sulfonamide Allergy Intermediate HIVES Verified 07/24/23 12:29 Antibiotics) doxycycline Allergy Mild Hives Verified 07/24/23 12:29 perflutren AdvReac Severe BACK PAIN Verified 07/24/23 12:29 ciprofloxacin [From Cipro] AdvReac Intermediate fast heart Verified 07/24/23 12:29 rate propylene glycol AdvReac Intermediate BACK PAIN Verified 07/24/23 12:29 Ldaiefb-TOU-ZaM Reductase AdvReac Intermediate ACHE PAIN Verified 07/24/23 12:29 Inhibitor [Fctuxlb-Ipn-Bzk Reductase Inhibitor] clindamycin AdvReac Mild MOUTH Verified 07/24/23 12:29 BURNING cefuroxime AdvReac Severe Verified 07/24/23 12:29 heart burn Medications Home Medications Medication Instructions Recorded Confirmed Last Taken azelastine 137 mcg (0.1 %) nasal 1 spray intranasal AMHS PRN 11/18/22 07/24/25 07/24/23 spray Congestion carvedilol 25 mg tablet 50 mg PO BID 11/18/22 07/24/25 07/23/25 09:00 cholecalciferol (vitamin D3) 50 50 mcg PO HS 11/18/22 07/24/25 07/23/25 09:00 mcg (2,000 unit) capsule (Vitamin D3) clopidogrel 75 mg tablet 75 mg PO DAILY 11/18/22 07/24/25 07/23/25 09:00 ezetimibe 10 mg tablet (Zetia) 10 mg PO DAILY 11/18/22 07/24/25 07/23/25 09:00 famotidine 20 mg tablet 20 mg PO HS 11/18/22 07/24/25 07/22/25 insulin aspart U-100 100 unit/mL 22 - 30 unit subcut TIDM 11/18/22 07/24/25 07/24/23 (3 mL) subcutaneous pen (Novolog FlexPen U-100 Insulin aspart) insulin glargine 100 unit/mL (3 60 - 70 unit subcut BID 11/18/22 07/24/25 07/22/25 21:00 mL) subcutaneous pen (Lantus Solostar U-100 Insulin) ipratropium bromide 21 mcg (0.03 2 spray intranasal BID 11/18/22 07/24/25 07/24/23 %) nasal spray levothyroxine 200 mcg tablet See Rx Instructions .Route .COMPLEX 11/18/22 07/24/25 07/23/25 06:30 omeprazole 40 mg capsule,delayed 40 mg PO QAM 11/18/22 07/24/25 07/23/25 09:00 release ondansetron 4 mg disintegrating 4 mg PO TID PRN Nausea 11/18/22 07/24/25 11/16/22 tablet zolpidem 10 mg tablet (Ambien) 10 mg PO HS 11/18/22 07/24/25 07/22/25 21:00 amlodipine 2.5 mg tablet See Rx Instructions .Route .COMPLEX 07/24/23 07/24/25 07/23/25 21:00 atorvastatin 10 mg tablet 10 mg PO QAM 07/24/23 07/24/25 07/24/25 09:00 furosemide 20 mg tablet 20 mg PO .M//F PRN Sleep 07/24/23 07/24/25 07/22/23 levothyroxine 75 mcg tablet See Rx Instructions .Route .COMPLEX 07/24/23 07/24/25 07/23/25 06:30 losartan 50 mg tablet 50 mg PO DAILY 07/24/23 07/24/25 07/22/25 21:00 metformin 500 mg tablet,extended 1,000 mg PO BID 07/24/23 07/24/25 07/23/25 09:00 release 24 hr Active Medications Generic Name Dose Route Start Last Admin Trade Name Freq PRN Reason Stop Dose Admin Azelastine HCl 1 sprays 07/25/25 04:20 07/25/25 05:17 Azelastine Hcl 0.1% Nasal 200 Sprays/27,400 Mcg Btl NA 08/24/25 04:19 1 sprays AMHS PRN Administration Congestion Carvedilol 50 mg 07/25/25 09:00 07/25/25 08:18 Carvedilol 25 Mg Tab PO 08/24/25 08:59 50 mg BID BRENNAN Administration Ezetimibe 10 mg 07/25/25 09:00 07/25/25 08:18 Ezetimibe 10 Mg Tab PO 08/24/25 08:59 10 mg DAILY BRENNAN Administration Promethazine HCl 12.5 mg in 50.5 mls @ 202 mls/hr 07/24/25 22:38 07/25/25 09:38 Phenergan IV 08/23/25 22:37 Infused Q6H PRN Infusion Nausea And Vomiting Sodium Chloride 1,000 mls @ 60 mls/hr 07/25/25 00:14 07/25/25 01:25 Nss IV 07/25/25 16:53 60 mls/hr .[id number] ONE Administration Insulin Aspart 0 units 07/25/25 00:20 07/25/25 13:13 Insulin Aspart Per Unit Charge SC 08/24/25 00:19 Not Given Q6 BRENNAN Insulin Glargine 30 units 07/25/25 00:15 07/25/25 08:16 Lantus Per Unit Charge SQ 08/24/25 00:14 30 units BID BRENNAN Administration Ipratropium Brooks 2 sprays 07/25/25 04:15 07/25/25 08:18 Ipratropium Brooks Nasal [place] 0.03% 30 Ml NA 08/24/25 04:14 2 sprays BID BRENNAN Administration Levothyroxine Sodium 75 mcg 07/25/25 06:30 07/25/25 06:21 Levothyroxine Sodium 75 Mcg Tablet PO 08/24/25 06:29 75 mcg DAILYBB BRENNAN Administration Levothyroxine Sodium 200 mcg 07/25/25 06:30 07/25/25 06:21 Levothyroxine Sodium 200 Mcg Tablet PO 08/24/25 06:29 200 mcg DAILYBB BRENNAN Administration Pantoprazole Sodium 40 mg 07/25/25 09:00 07/25/25 08:18 Pantoprazole 40 Mg Tab PO 08/24/25 08:59 40 mg QAM BRENNAN Administration Zolpidem Tartrate 10 mg 07/25/25 00:10 07/25/25 01:28 Zolpidem Tartrate 5 Mg Tab PO 08/24/25 00:14 10 mg HS PRN Administration insomnia Past Medical History Medical History Stroke-like symptoms Abnormal CT of the head Visual problems Neuropathic ulcer of toe of left foot Neuropathic ulcer of toe of left foot Acquired hallux valgus of right foot Acquired deformity of left foot Acquired deformity of right foot Diabetes mellitus with diabetic polyneuropathy Callus Hallux valgus (acquired), left foot Nausea and vomiting after administration of anesthetic agent History of anesthesia reaction difficulty getting enough anesthesia to get asleep and then stay asleep Chronic back pain Pancreatitis Hypertension NICM (nonischemic cardiomyopathy) Tinea cruris Past Family History Family History Father Family history of diabetes mellitus Mother Family history of diabetes mellitus Aunt Family history of diabetes mellitus Uncle Family history of diabetes mellitus Grandmother (Maternal) Family history of diabetes mellitus Other No family history of adverse response to anesthesia Past Surgical History Surgical History Hx of appendectomy (12/07/19) Laparoscopic Appendectomy Dr. Bañuelos 12/07/19 History of lung biopsy sarcoidosis History of wisdom tooth extraction History of tonsillectomy and adenoidectomy History of cardiac cath 01/2016 @ [facility]--no stents H/O esophagogastroduodenoscopy S/P cholecystectomy Hx of tonsillectomy Social History Smoking Status: Never smoker Do You Dip or Chew Tobacco: No Hx Alcohol Use: No Hx Substance Use: No substance use type: does not use Physical Exam Vital Signs Last Vital Signs Temp 36.4 C L 07/25/25 11:09 Pulse 69 07/25/25 11:09 Resp 16 07/25/25 07:41 BP 189/71 H 07/25/25 11:09 Pulse Ox 98 07/25/25 11:09 O2 Del Method Room Air 07/25/25 11:09 O2 Flow Rate 2 07/24/25 21:00 Testing Laboratory Results 07/25/25 06:06 07/25/25 06:06 PT 10.7 Seconds (9.0-12.0) 07/24/25 20:33 INR 1.0 (0.9-1.1) 07/24/25 20:33 APTT 29 Seconds (21-31) 07/24/25 20:33 Hemoglobin A1c 9.5 % (4.5-5.6) H 07/24/25 20:33 Urine Color Yellow 07/25/25 05:30 Urine Appearance Clear (Clear) 07/25/25 05:30 Urine pH 5.0 (4.5-7.5) 07/25/25 05:30 Ur Specific Harshaw 1.017 (1.000-1.030) 07/25/25 05:30 Urine Protein 1+ (Negative) H 07/25/25 05:30 Urine Glucose (UA) 2+ (Negative) H 07/25/25 05:30 Urine Ketones Negative (Negative) 07/25/25 05:30 Urine Nitrite Negative (Negative) 07/25/25 05:30 Ur Leukocyte Esterase Negative (Negative) 07/25/25 05:30 Urine WBC (Auto) 0-5 /hpf (0-5) 07/25/25 05:30 Urine RBC (Auto) 0-2 /hpf (0-2) 07/25/25 05:30 U Hyaline Cast (Auto) 0-2 /lpf (0-2) 07/25/25 05:30 U Epithel Cells (Auto) 0-2 /hpf (0-2) 07/25/25 05:30 Urine Bacteria (Auto) None Seen (None Seen) 07/25/25 05:30 Blood Type B Positive 07/25/25 00:21 Antibody Screen NEGATIVE 07/25/25 00:21 07/25/25 07/25/25 11:52 06:12 POC Glucose 162 H 200 H
--- NOTE | 2025-07-25 13:21 | Orthopedic Consultation ---
Date of Consultation July 25, 2025 Assessment & Plan (1) Bimalleolar ankle fracture: (2) Fall from standing: (3) Closed fracture dislocation of right ankle: (4) Asymptomatic hypertensive urgency: (5) ICD (implantable cardioverter-defibrillator) in place: (6) Brain TIA: (7) Acute renal failure superimposed on stage 3b chronic kidney disease: (8) VELMA (acute kidney injury): (9) HTN (hypertension): (10) Pulmonary sarcoidosis: (11) Acute renal failure: (12) Diabetes mellitus: (13) Obstructive sleep apnea: (14) Diabetic peripheral neuropathy associated with type 2 diabetes mellitus: (15) Left bundle branch block (LBBB) on electrocardiogram: (16) NICM (nonischemic cardiomyopathy): (17) HLD (hyperlipidemia): (18) GERD (gastroesophageal reflux disease): (19) S/P cholecystectomy: Dre Mistry is a 49-year-old gentleman who is quite medically complex and very sick who presented to the emergency department last evening after a fall wherein he sustained a right ankle fracture/dislocation. Patient's past medical history is significant for nonischemic cardiomyopathy, status post ICD placement, pulmonary sarcoidosis, pulmonary hypertension, hypertension, dyslipidemia, type 2 diabetes with significant peripheral neuropathy and renal disease, stage IV chronic kidney disease, multiple prior ulcers to the right foot. The patient was admitted to the hospital last evening for ambulatory dysfunction. Upon presentation the emergency department he was discovered to have sustained a bimalleolar ankle fracture/dislocation. He went on to have multiple attempts at closed reduction both by the emergency department staff as well as Dr. Rendon, the orthopedist on-call. The patient's ankle reduction remained unstable throughout. His most recent radiographs demonstrate continued talar subluxation laterally. Upon presentation the emergency department, the patient was noted to have an abrasion over the medial ankle. Per the emergency department staff as well as the on-call orthopedist, this was not felt to be an open fracture. He has not received antibiotics. I expressed to the patient that I will evaluate this Area intraoperatively and if needed, we will thoroughly irrigate this and start him on antibiotics. I had a long discussion with the patient regarding his current presentation. Discussed in great detail the pathoanatomy, pathophysiology, treatment options. Given the significant instability the patient's ankle, I do think that he will require more rigid stabilization than this splint is currently providing. My recommendation at this time is for closed reduction and application of external fixator with delayed definitive fixation. I expressed to the patient that the reason for not proceeding with immediate internal fixation is due to the significant swelling about his ankle. Even seem through the splint around his toes he has significant soft tissue swelling noted without a positive wrinkle sign. I think that proceeding with definitive fixation at this time would be unsafe. I had a long discussion with the patient regarding the risk of the surgery. There is risks include but are not limited to loss of life/limb, DVT/PE, incomplete relief of pain, need for additional surgery, iatrogenic injury to bone/nerve/tendon/vessel, incomplete reduction, requiring revision of external fixator. The alternative would be for repeat closed reduction and splinting, however believe given the fact that he has had multiple prior attempts at closed reduction and splinting that did not hold, I think that the risk of fracture displacement and then increased pressure on the wounds that he already has sustained about his lower extremity is quite high. The patient also understands that his risk of perioperative complications in this lower extremity is much higher than the general public because of his poorly controlled diabetes with an A1c of about 9 as well as his history of osteomyelitis in the toes of his right foot. All the patient's questions were answered to his satisfaction and he was agreeable to proceed with close reduction and application of external fixator. The patient understands that today's procedure would be only for application of external fixator in order to allow for the soft tissue swelling to monique appropriately such that definitive surgical management is optimal. The patient has been seen by the cardiology team for help managing his heart failure. He has been medically optimized by the medical team and deemed appropriate for surgical management. Today's surgical plan will include application of ankle spanning external fixator on the right ankle with close reduction. We will plan for further definitive surgical management in the future once the patient soft tissue swelling abates. I did explain to the patient that provided that he is able to mobilize safely while remaining nonweightbearing following surgery, he may be appropriate for discharge home, however he is unable to do so, he may require a short stay in a nursing facility until his soft tissues can be optimized. All the patient's questions were answered to his satisfaction. We will proceed to the operating room as soon as an OR is available History of Present Illness Reason for Consultation: right ankle fracture Requesting Physician: Dr Rendon Attending Physician: Masood Upton MD History of Present Illness Patient is a 49-year-old male presenting with right ankle deformity after a fall. Patient reports he was walking when he slipped on ice and his ankle had an immediate pain and deformity. He states that he fell onto his buttocks. Denies striking his head or loss of consciousness. at baseline, he is on aspirin and Plavix. Patient states that he has had a stroke previously and has deficits on his right side. He states he is normally ambulatory without any assistive devices. He states that he has neuropathy so he does not feel much in his right lower extremity. upon evaluation emergency department last evening he was discovered to have sustained an ankle fracture/dislocation. Multiple attempts at closed reduction were performed by the emergency department as well as the on-call orthopedist, Dr. Rendon and these were all unsuccessful at maintaining the reduction. Most recent reduction images demonstrate loss of reduction. On my evaluation this morning, the patient notes that he is having pain in his right ankle. He denies or any additional areas of pain. Since his admission, he has been seen by the cardiology team. Allergies Allergy/AdvReac Type Severity Reaction Status Date / Time exenatide Allergy Severe DIFFICULTY Verified 07/25/25 13:23 BREATHING phenol Allergy Severe DIFFICULTY Verified 07/25/25 13:23 BREATHING Sulfa (Sulfonamide Allergy Intermediate HIVES Verified 07/25/25 13:23 Antibiotics) doxycycline Allergy Mild Hives Verified 07/25/25 13:23 perflutren AdvReac Severe BACK PAIN Verified 07/25/25 13:23 ciprofloxacin [From Cipro] AdvReac Intermediate fast heart Verified 07/25/25 13:23 rate propylene glycol AdvReac Intermediate BACK PAIN Verified 07/25/25 13:23 Fhtdsnd-QDP-EyS Reductase AdvReac Intermediate ACHE PAIN Verified 07/25/25 13:23 Inhibitor [Chxafrh-Wjs-Zuv Reductase Inhibitor] clindamycin AdvReac Mild MOUTH Verified 07/25/25 13:23 BURNING cefuroxime AdvReac Severe Verified 07/25/25 13:23 heart burn Home Medications Medication Instructions Recorded Confirmed Type azelastine 137 mcg (0.1 %) nasal 1 spray intranasal AMHS PRN 11/18/22 07/24/25 History spray Congestion carvedilol 25 mg tablet 50 mg PO BID 11/18/22 07/24/25 History cholecalciferol (vitamin D3) 50 50 mcg PO HS 11/18/22 07/24/25 History mcg (2,000 unit) capsule (Vitamin D3) clopidogrel 75 mg tablet 75 mg PO DAILY 11/18/22 07/24/25 History ezetimibe 10 mg tablet (Zetia) 10 mg PO DAILY 11/18/22 07/24/25 History famotidine 20 mg tablet 20 mg PO HS 11/18/22 07/24/25 History insulin aspart U-100 100 unit/mL 22 - 30 unit subcut TIDM 11/18/22 07/24/25 History (3 mL) subcutaneous pen (Novolog FlexPen U-100 Insulin aspart) insulin glargine 100 unit/mL (3 60 - 70 unit subcut BID 11/18/22 07/24/25 History mL) subcutaneous pen (Lantus Solostar U-100 Insulin) ipratropium bromide 21 mcg (0.03 2 spray intranasal BID 11/18/22 07/24/25 History %) nasal spray levothyroxine 200 mcg tablet See Rx Instructions .Route .COMPLEX 11/18/22 07/24/25 History omeprazole 40 mg capsule,delayed 40 mg PO QAM 11/18/22 07/24/25 History release ondansetron 4 mg disintegrating 4 mg PO TID PRN Nausea 11/18/22 07/24/25 History tablet zolpidem 10 mg tablet (Ambien) 10 mg PO HS 11/18/22 07/24/25 History amlodipine 2.5 mg tablet See Rx Instructions .Route .COMPLEX 07/24/23 07/24/25 History atorvastatin 10 mg tablet 10 mg PO QAM 07/24/23 07/24/25 History furosemide 20 mg tablet 20 mg PO .M//F PRN Sleep 07/24/23 07/24/25 History levothyroxine 75 mcg tablet See Rx Instructions .Route .COMPLEX 07/24/23 07/24/25 History losartan 50 mg tablet 50 mg PO DAILY 07/24/23 07/24/25 History metformin 500 mg tablet,extended 1,000 mg PO BID 07/24/23 07/24/25 History release 24 hr Patient History Medical History Stroke-like symptoms Abnormal CT of the head Visual problems Neuropathic ulcer of toe of left foot Neuropathic ulcer of toe of left foot Acquired hallux valgus of right foot Acquired deformity of left foot Acquired deformity of right foot Diabetes mellitus with diabetic polyneuropathy Callus Hallux valgus (acquired), left foot Nausea and vomiting after administration of anesthetic agent History of anesthesia reaction difficulty getting enough anesthesia to get asleep and then stay asleep Chronic back pain Pancreatitis Hypertension NICM (nonischemic cardiomyopathy) Tinea cruris Surgical History Hx of appendectomy (12/07/19) Laparoscopic Appendectomy Dr. Bañuelos 12/07/19 History of lung biopsy sarcoidosis History of wisdom tooth extraction History of tonsillectomy and adenoidectomy History of cardiac cath 01/2016 @ [facility]--no stents H/O esophagogastroduodenoscopy S/P cholecystectomy Hx of tonsillectomy Family History Father Family history of diabetes mellitus Mother Family history of diabetes mellitus Aunt Family history of diabetes mellitus Uncle Family history of diabetes mellitus Grandmother (Maternal) Family history of diabetes mellitus Other No family history of adverse response to anesthesia Social History Smoking Status: Never smoker Second Hand Exposure: Yes (childhood); Do You Dip or Chew Tobacco: No; Hx Alcohol Use: No Hx Substance Use: No Preferred Language: Citizen Of [place] Communication Ability: Effective Habilitation Worker Required: No Beliefs That Will Affect Care: None Current Living Situation: Family Current Living Situation Comment: lives with his stepson Feels Safe at Home: Yes Assistive Devices: None Review of Systems Review of Systems: Negative less otherwise stated in HPI Physical Exam Physical Exam: on physical examination, the patient is currently resting in his splint. Per reports, the patient has a noted abrasion over his medial ankle, but no active bleeding noted. Patient demonstrates intact EHL and FHL function. Patient sensation is diminished throughout the entirety of his lower extremity in a stocking-like distribution which is at baseline per the patient. the patient's foot does demonstrate significant soft tissue swelling without a positive wrinkle sign. Results & Data Vital Signs (Past 12 Hours) Vital Signs Temp Pulse Pulse Resp BP BP Pulse Ox 07/25/25 11:09 36.4 C L 69 189/71 H 98 07/25/25 07:41 36.5 C 71 16 176/73 H 71 L 07/25/25 07:30 67 07/25/25 02:33 36.4 C L 68 16 144/72 H 96 O2 Del Method 07/25/25 11:09 Room Air 07/25/25 07:41 Room Air 07/25/25 07:30 07/25/25 02:33 Room Air Diagnostic Findings X-rays of the right ankle including initial films and multiple attempts at reduction were personally interpreted and reviewed. These demonstrate a bimalleolar ankle fracture/dislocation that was subsequently reduced, however the reduction has then been lost and the talus remains subluxed laterally at current. (1) Bimalleolar ankle fracture Encounter type: initial encounter Fracture type: closed Laterality: right Qualified Code(s): S82.841A - Displaced bimalleolar fracture of right lower leg, initial encounter for closed fracture (7) Acute renal failure superimposed on stage 3b chronic kidney disease Acute renal failure type: unspecified Qualified Code(s): N17.9 - Acute kidney failure, unspecified; N18.32 - Chronic kidney disease, stage 3b (9) HTN (hypertension) Hypertension type: unspecified Qualified Code(s): I10 - Essential (primary) hypertension
--- NOTE | 2025-07-25 13:40 | History & Physical Bridge Note ---
Date of Service July 25, 2025 History & Physical Bridge Note I have examined the patient, reviewed the History & Physical and in the interval since the performance of the History & Physical I have noted the following changes of clinical significance: Fede is a 49-year-old gentleman who is quite medically complex and very sick who presented to the emergency department last evening after a fall wherein he sustained a right ankle fracture/dislocation. Patient's past medical history is significant for nonischemic cardiomyopathy, status post ICD placement, pulmonary sarcoidosis, pulmonary hypertension, hypertension, dyslipidemia, type 2 diabetes with significant peripheral neuropathy and renal disease, stage IV chronic kidney disease, multiple prior ulcers to the right foot. The patient was admitted to the hospital last evening for ambulatory dysfunction. Upon presentation the emergency department he was discovered to have sustained a bimalleolar ankle fracture/dislocation. He went on to have multiple attempts at closed reduction both by the emergency department staff as well as Dr. Rendon, the orthopedist on-call. The patient's ankle reduction remained unstable throughout. His most recent radiographs demonstrate continued talar subluxation laterally. Upon presentation the emergency department, the patient was noted to have an abrasion over the medial ankle. Per the emergency department staff as well as the on-call orthopedist, this was not felt to be an open fracture. He has not received antibiotics. I expressed to the patient that I will evaluate this Area intraoperatively and if needed, we will thoroughly irrigate this and start him on antibiotics. I had a long discussion with the patient regarding his current presentation. Discussed in great detail the pathoanatomy, pathophysiology, treatment options. Given the significant instability the patient's ankle, I do think that he will require more rigid stabilization than this splint is currently providing. My recommendation at this time is for closed reduction and application of external fixator with delayed definitive fixation. I expressed to the patient that the reason for not proceeding with immediate internal fixation is due to the significant swelling about his ankle. Even seem through the splint around his toes he has significant soft tissue swelling noted without a positive wrinkle sign. I think that proceeding with definitive fixation at this time would be unsafe. I had a long discussion with the patient regarding the risk of the surgery. There is risks include but are not limited to loss of life/limb, DVT/PE, incomplete relief of pain, need for additional surgery, iatrogenic injury to bone/nerve/tendon/vessel, incomplete reduction, requiring revision of external fixator. The alternative would be for repeat closed reduction and splinting, however believe given the fact that he has had multiple prior attempts at closed reduction and splinting that did not hold, I think that the risk of fracture displacement and then increased pressure on the wounds that he already has sincere tained about his lower extremity is quite high. The patient also understands that his risk of perioperative complications in this lower extremity is much higher than the general public because of his poorly controlled diabetes with an A1c of about 9 as well as his history of osteomyelitis in the toes of his right foot. All the patient's questions were answered to his satisfaction and he was agreeable to proceed with close reduction and application of external fixator. The patient understands that today's procedure would be only for application of external fixator in order to allow for the soft tissue swelling to monique appropriately such that definitive surgical management is optimal. The patient has been seen by the cardiology team for help managing his heart failure. He has been medically optimized by the medical team and deemed appropriate for surgical management. Today's surgical plan will include application of ankle spanning external fixator on the right ankle with close reduction. We will plan for further definitive surgical management in the future once the patient soft tissue swelling abates. I did explain to the patient that provided that he is able to mobilize safely while remaining nonweightbearing following surgery, he may be appropriate for discharge home, however he is unable to do so, he may require a short stay in a nursing facility until his soft tissues can be optimized. All the patient's questions were answered to his satisfaction. We will proceed to the operating room as soon as an OR is available
[2025-07-25] MEDS ORDERED: ATROPINE SULFATE 0.1 MG/ML 10ML SYR IV PRN (13:44)
[2025-07-25] MEDS ORDERED: SUCCINYLCHOLINE CHLORIDE 20 MG/ML 10 ML VIAL IV ONE (13:54)
[2025-07-25] MEDS ORDERED: GLYCOPYRROLATE 0.2 MG/ML VIAL ONE (14:08)
[2025-07-25] MEDS ORDERED: HYDROmorphone INJ 2 MG/ML SYR/VIAL ONE (14:09)
[2025-07-25] MEDS: BUPIVACAINE 0.5 % 5 MG/1 ML MPF 30ML VIAL ONE (14:22)
[2025-07-25] MEDS ORDERED: PHENYLEPHRINE 100MCG/ML 5ML SYR ONE (14:27)
[2025-07-25] MEDS ORDERED: PHENYLEPHRINE HCL 10 MG/ML VIAL ONE (14:28)
--- NOTE | 2025-07-25 15:07 | Operative Report ---
Post Operative Report Pre & Post Diagnosis Operation Date: 07/25/25 16:30 Pre-Op Diagnosis: Right Ankle Fracture Post-Op Diagnosis: Right Ankle Fracture I identified the patient and participated in the time-out.: Yes Procedure Operation Date: 07/25/25 16:30 Actual Procedures p Right Ankle External Fixator Application(Right) - Tim Jordan DO 1. Closed reduction and application of right ankle external fixator 2. Application right below-knee splint 3. Physician directed fluoroscopy less than 1 hour Surgeon Tim Jordan DO [employer] Defense In[employer] None none Estimated Blood Loss 2 Findings Consistent with Post-Op Diagnosis Specimens none Complications none immediately apparent Disposition Disposition: Recovery Room Reinaldo Mistry is a 49-year-old gentleman who is quite medically complex and very sick who presented to the emergency department last evening after a fall wherein he sustained a right ankle fracture/dislocation. Patient's past medical history is significant for nonischemic cardiomyopathy, status post ICD placement, pulmonary sarcoidosis, pulmonary hypertension, hypertension, dyslipidemia, type 2 diabetes with significant peripheral neuropathy and renal disease, stage IV chronic kidney disease, multiple prior ulcers to the right foot. The patient was admitted to the hospital last evening for ambulatory dysfunction. Upon presentation the emergency department he was discovered to have sustained a bimalleolar ankle fracture/dislocation. He went on to have multiple attempts at closed reduction both by the emergency department staff as well as Dr. Rendon, the orthopedist on-call. The patient's ankle reduction remained unstable throughout. His most recent radiographs demonstrate continued talar subluxation laterally. Upon presentation the emergency department, the patient was noted to have an abrasion over the medial ankle. Per the emergency department staff as well as the on-call orthopedist, this was not felt to be an open fracture. He has not received antibiotics. I expressed to the patient that I will evaluate this Area intraoperatively and if needed, we will thoroughly irrigate this and start him on antibiotics. I had a long discussion with the patient regarding his current presentation. Discussed in great detail the pathoanatomy, pathophysiology, treatment options. Given the significant instability the patient's ankle, I do think that he will require more rigid stabilization than this splint is currently providing. My recommendation at this time is for closed reduction and application of external fixator with delayed definitive fixation. I expressed to the patient that the reason for not proceeding with immediate internal fixation is due to the significant swelling about his ankle. Even seem through the splint around his toes he has significant soft tissue swelling noted without a positive wrinkle sign. I think that proceeding with definitive fixation at this time would be unsafe. I had a long discussion with the patient regarding the risk of the surgery. There is risks include but are not limited to loss of life/limb, DVT/PE, incomplete relief of pain, need for additional surgery, iatrogenic injury to bone/nerve/tendon/vessel, incomplete reduction, requiring revision of external fixator. The alternative would be for repeat closed reduction and splinting, however believe given the fact that he has had multiple prior attempts at closed reduction and splinting that did not hold, I think that the risk of fracture displacement and then increased pressure on the wounds that he already has sustained about his lower extremity is quite high. The patient also understands that his risk of perioperative complications in this lower extremity is much higher than the general public because of his poorly controlled diabetes with an A1c of about 9 as well as his history of osteomyelitis in the toes of his right foot. All the patient's questions were answered to his satisfaction and he was agreeable to proceed with close reduction and application of external fixator. The patient understands that today's procedure would be only for application of external fixator in order to allow for the soft tissue swelling to monique appropriately such that definitive surgical management is optimal. The patient has been seen by the cardiology team for help managing his heart failure. He has been medically optimized by the medical team and deemed appropriate for surgical management. Today's surgical plan will include application of ankle spanning external fixator on the right ankle with close reduction. We will plan for further definitive surgical management in the future once the patient soft tissue swelling abates. I did explain to the patient that provided that he is able to mobilize safely while remaining nonweightbearing following surgery, he may be appropriate for discharge home, however he is unable to do so, he may require a short stay in a nursing facility until his soft tissues can be optimized. All the patient's questions were answered to his satisfaction. We will proceed to the operating room as soon as an OR is available Description of Procedure after informed consent was obtained, the patient was correctly identified in the preoperative holding suite, the operative site was marked with the surgeon's initials, the date of surgery, and the word yes. The patient was then taken to the operative suite. The department of anesthesia administered General Anesthesia. The patient was transferred from the [facility] to the operative table. All bony prominences were well-padded. Briefing and timeout was performed. All implants were available and sterile at the time. BRIEFING AND DEBRIEFING: Pre and post operative briefing and debriefing was performed. Introductions were made, goals of the procedure were discussed, questions and concerns were addressed. The operative site markings were identified and appropriate. A time [id number] was performed, the patient's correct identity was confirmed and the correct operative sites were identified. The patients pre-operative antibiotic dosing and administration was confirmed along with other SCIP measures. The team was polled at the completion of the surgery and all team members were in agreement that the procedure was without complication, the counts are correct, the wound class was identified and suggestions for improvement were shared. patient was transferred in supine fashion from hospital bed to the operative table. All bony promises well-padded. An SCD was placed on the left lower extremity and turned on. The left lower extremity was placed on eggcrate foam padding and was secured to the table. Bilateral upper extremities were placed on well-padded arm boards and a bump was placed on the ipsilateral right hip. Well-padded tourniquet was placed on the right thigh but was not inflated during this case. We cleansed the right lower extremity using chlorhexidine scrub brush and then prepped and draped the right lower extremity in standard sterile fashion using ChloraPrep. We began by examining the patient's skin. There was severe soft tissue swelling with no positive wrinkle sign. This confirmed our plan for application of external fixator. The patient's medial skin abrasion is quite small and located very distal to the fracture site. This is a very superficial skin abrasion without any active bleeding and does not represent an open fracture. We began by marking out the anatomy of the ankle planning for our 2 tibial pins approximately 5 fingerbreadths proximal to the ankle joint. We would use fluoroscopy to center incisions over the distal tibia just medial to the tibial crest. We would make an incision through skin dissect bluntly subcutaneous tissue using a hemostat and then through the drill guide drill with a 3.5 mm drill and then by hand placed a 5 mm blunt pin from the [employer] Ex-Fix set. We repeated this process approximately 2-1/2 cm proximal to the first pin ensuring that our pins were bicortical. We would then plan to place a centrally threaded pin within the calcaneus. We obtained a lateral radiograph of the ankle and marked an appropriate position within the calcaneus to place the pin. We incised sharply through the skin on the lateral side of the calcaneus dissecting bluntly down to the level of bone. We introduced the centrally threaded pin and advanced this on power until the threads were all. Within the calcaneus. We would then cut off the sharp tip and on the pins placed our pin to bar clamps. We then placed the 5 hole clamp between the 2 tibial pins with appropriately sized outriggers on this. We placed part of our clamps on these out rigors. We chose two bars that were appropriately sized for construction of our delta frame. We pulled traction and with reduction maneuvers on the lower extremity obtained a anatomic reduction of the ankle mortise. We then firmly secured the pin to bar clamps. And tested the stability of the ankle by picking up the ankle from the Ex-Fix. We checked maintain reduction fluoroscopically and we were satisfied. We then thoroughly irrigated the pin sites, cover the pin sites with Betadine soaked Adaptic, 4 x 4's fluffed, Kerlix for padding followed by sterile Webril and bulky cotton and applied a well-padded trilaminar below-knee splint using a posterior slab only to maintain the ankle at neutral dorsiflexion. We then held the ankle in neutral dorsiflexion while the splint cured. The patient tolerated this procedure well and was transferred to the PACU in stable condition. Prior to transportation to PACU, all counts were correct and a briefing was performed at the end of the case. Physician-directed fluoroscopy for Less than one hour was performed by myself to verify fracture alignment and the safe placement of all internal fixation. The final images saved to PACs showed views demonstrating satisfactory alignment of the fracture and stable internal fixation. Implant verification was performed by myself by reading and confirming the implant information on the packaging with the team before the sterile implants were opened. I was present for the entire procedure. Plan: Weight bearing status: nonweightbearing right lower extremity Wound care: keep pin sites clean and dry Range of motion: as tolerated of hip and knee VTE Prophylaxis: okay to resume from orthopedic standpoint Antibiotics: perioperative Ancef Pain Control: Multimodal Vitamin D Replacement: labs pending Discharge Plan: pending PT/OT Follow Up: pending discharge date. The patient will require at least 1 week of soft tissue rest in order to allow the swelling to monique to permit safe surgical passage. Should the patient be discharged home or to a nursing facility, I would plan to see him next week in the office for skin check and planning for definitive fixation I attest to the content of the Intraoperative Record and any orders documented therein. Any exceptions are noted below.
--- NOTE | 2025-07-25 15:07 | Fluoroscopy Report ---
FL ankle RT min 3V RTN CLINICAL HISTORY: EXTERNAL FIXATION RT ANKLE COMPARISON STUDY: 07/25/2025 FLUOROSCOPY TIME: 37 seconds FLUOROSCOPY IMAGES: 6 EXPOSURE DOSE: 2.1 mGy FINDINGS: Fluoroscopy was provided for placement of external fixator for right ankle fractures. IMPRESSION: Intraoperative fluoroscopy. ACT 112: Negative or not required by law. Electronically signed by: Saran Kulkarni M.D. 07/25/2025 3:05 PM
[2025-07-25] MEDS: DROPERIDOL 5 MG/2 ML VIAL IV PRN (15:16)
--- NOTE | 2025-07-25 15:54 | Anesthesiology Progress Note ---
Date of Service July 25, 2025 Anesthesia Post Procedure Vital Signs Vital Signs: Temp Pulse Pulse Pulse Resp BP BP 07/25/25 15:45 36.8 C 75 17 172/82 H 07/25/25 15:35 75 17 171/80 H 07/25/25 15:25 75 17 169/78 H 07/25/25 15:15 75 17 173/76 H 07/25/25 15:05 37.0 C 75 17 157/77 H 07/25/25 13:42 80 07/25/25 13:24 37.0 C 76 18 165/73 H 07/25/25 11:09 36.4 C L 69 189/71 H 07/25/25 07:41 36.5 C 71 16 07/25/25 07:30 67 07/25/25 02:33 36.4 C L 68 16 144/72 H 07/25/25 00:20 36.9 C 66 16 07/25/25 00:11 64 07/24/25 23:56 73 16 168/75 H 07/24/25 23:00 71 12 168/87 H 07/24/25 23:00 36.5 C 07/24/25 22:30 69 17 183/94 H 07/24/25 22:00 73 19 186/100 H 07/24/25 22:00 36.9 C 07/24/25 21:30 67 15 183/104 H 07/24/25 21:06 65 14 188/79 H 07/24/25 21:00 07/24/25 21:00 67 14 186/92 H 07/24/25 21:00 36.7 C 07/24/25 20:50 68 14 192/94 H 07/24/25 20:42 70 17 07/24/25 20:39 74 18 202/93 H 07/24/25 20:33 72 13 186/94 H 07/24/25 20:28 36.9 C 07/24/25 20:23 36.5 C 72 18 198/95 H BP Pulse Ox O2 Del Method O2 Flow Rate 07/25/25 15:45 95 Nasal Cannula 3 07/25/25 15:35 95 Oxymask 5 07/25/25 15:25 99 Oxymask 5 07/25/25 15:15 98 Oxymask 5 07/25/25 15:05 96 Oxymask 5 07/25/25 13:42 07/25/25 13:24 96 Room Air 07/25/25 11:09 98 Room Air 07/25/25 07:41 176/73 H 71 L Room Air 07/25/25 07:30 07/25/25 02:33 96 Room Air 07/25/25 00:20 168/80 H 97 Room Air 07/25/25 00:11 07/24/25 23:56 98 Room Air 07/24/25 23:00 97 Room Air 07/24/25 23:00 07/24/25 22:30 98 Room Air 07/24/25 22:00 98 Room Air 07/24/25 22:00 07/24/25 21:30 98 Room Air 07/24/25 21:06 99 Room Air 07/24/25 21:00 100 Room Air, Nasal Cannula 2 07/24/25 21:00 100 Room Air 07/24/25 21:00 07/24/25 20:50 99 Nasal Cannula 2 07/24/25 20:42 99 Room Air 07/24/25 20:39 97 Nasal Cannula 2 07/24/25 20:33 99 Room Air 07/24/25 20:28 07/24/25 20:23 99 Room Air Pain Intensity Right Ankle: Pain Intensity: 2 Transfer of Care Handoff Completed per policy Notes Mental Status: alert / awake / arousable Patient Amnestic to Procedure: Yes Nausea / Vomiting: adequately controlled Pain: adequately controlled Airway Patency, RR, SpO2: stable & adequate BP & HR: stable & adequate Hydration State: stable & adequate Anesthetic Complications: no major complications apparent
[2025-07-25] MEDS: FAMOTIDINE/PF 20 MG/2 ML VIAL IV ONE (16:40)
--- NOTE | 2025-07-25 17:29 | Electrocardiogram Report ---
Test Reason : Blood Pressure : */* mmHG Vent. Rate : 65 BPM Atrial Rate : 65 BPM P-R Int : 194 ms QRS Dur : 164 ms QT Int : 482 ms P-R-T Axes : 17 237 41 degrees QTcB Int : 501 ms Atrial-sensed ventricular-paced rhythm Biventricular pacemaker detected Abnormal ECG When compared with ECG of 31-Jul-2024 16:43, Vent. rate has increased by 3 bpm Confirmed by Young Allen ([id number]) on 07/25/2025 5:28:50 PM Referred By: REFERRED SELF Confirmed By: Young Allen
[2025-07-25] MEDS: FAMOTIDINE 20 MG TAB PO SCH (20:33)
[2025-07-25] MEDS: CHOLECALCIFEROL 25 MCG (1000 UNITS) TAB PO SCH (20:33)
[2025-07-25] MEDS: ACETAMINOPHEN 325 MG TAB PO PRN (20:34)
[2025-07-25] MEDS: HEPARIN SOD 5,000 UNIT/0.5 ML VIAL SQ SCH (21:04)
[2025-07-26 04:09] VITALS: TEMP 97.9
[2025-07-26] MEDS: ceFAZolin 3000MG 3,000 MG/72.5 ML BAG IV SCH (05:41)
[2025-07-26] MEDS: ATORVASTATIN 10 MG TAB PO SCH (08:23)
[2025-07-26 08:58] LABS: Hematocrit (blood only) 31.0 % (42.0-52.0); Hemoglobin 10.9 g/dL (14.0-18.0); Immature Granulocytes # (auto) 0.04 K/uL (0.01-0.20); Immature Granulocytes % (auto) 0.4 %; Mean Corpuscular Hemoglobin 28.7 pg (25.0-34.0); Mean Corpuscular Volume 81.6 fL (80.0-100.0); Platelet Count 206 K/uL (130-400); RDW Standard Deviation 37.1 fL (36.4-46.3); Red Blood Count 3.80 M/uL (4.70-6.10); White Blood Count 10.88 K/ul (4.8-10.8)
[2025-07-26] MEDS: CALCIUM CARBONATE 500 MG CHEWABLE TAB PO STA (09:13)
[2025-07-26] MEDS: FAMOTIDINE 20MG IV PUSH 20 MG/5 ML SYR IV ONE (09:13)
[2025-07-26 09:15] LABS: Anion Gap 9.0 (3-11); Blood Urea Nitrogen 45.0 mg/dl (6-23); Calcium 8.9 mg/dl (8.6-10.3); Carbon Dioxide 24.0 mmol/L (21-32); Chloride 103.0 mmol/L (98-107); Creatinine Clr Calc Pharmacy 50.2 ml/min; Glucose 284.0 mg/dl (70-99(Fasting)); Potassium 4.6 mmol/L (3.5-5.1); Sodium 136.0 mmol/L (136-145)
--- NOTE | 2025-07-26 10:09 | Orthopedic Progress Note ---
Date of Service July 26, 2025 Assessment & Plan (1) Bimalleolar ankle fracture: (2) Fall from standing: (3) Closed fracture dislocation of right ankle: (4) Asymptomatic hypertensive urgency: (5) ICD (implantable cardioverter-defibrillator) in place: (6) Brain TIA: (7) Acute renal failure superimposed on stage 3b chronic kidney disease: (8) VELMA (acute kidney injury): (9) HTN (hypertension): (10) Pulmonary sarcoidosis: (11) Acute renal failure: (12) Diabetes mellitus: (13) Obstructive sleep apnea: (14) Diabetic peripheral neuropathy associated with type 2 diabetes mellitus: (15) Left bundle branch block (LBBB) on electrocardiogram: (16) NICM (nonischemic cardiomyopathy): (17) HLD (hyperlipidemia): (18) GERD (gastroesophageal reflux disease): (19) S/P cholecystectomy: Plan 49-year-old medically complex individual who is now postoperative day #1 status post close reduction and external fixator placement. Patient soft tissue swelling was too great at the time of surgery yesterday to allow for definitive surgical management. He is resting comfortably in his Ex-Fix and splint. He is nonweightbearing on his right lower extremity. He will work with PT and OT. If he is able to ambulate safely while maintaining nonweightbearing, I am okay with him being discharged. I will plan to see him in the office early next week for skin check and to plan definitive management. Admission and Anticipated Discharge Date Admission Date: July 24, 2025 Subjective 49-year-old gentleman seen and examined at bedside. He is resting comfortably in his external fixator/splint. Denies significant pain. Has been working with occupational therapy. PT still pending. Review of Systems Review of Systems: Negative unless otherwise stated above Physical Exam Physical Exam: on physical examination, the patient is currently resting in his ex fix and splint. Patient demonstrates intact EHL and FHL function. Patient sensation is diminished throughout the entirety of his lower extremity in a stocking-like distribution which is at baseline per the patient. Results & Data Vital Signs (Past 12 Hours) Vital Signs Temp Pulse Resp BP Pulse Ox O2 Del Method 07/26/25 08:04 36.6 C 66 18 164/74 H 97 Room Air 07/26/25 04:07 36.6 C 68 16 144/69 H 96 Room Air 07/25/25 23:43 36.7 C 74 16 150/68 H 94 Room Air (1) Bimalleolar ankle fracture Encounter type: initial encounter Fracture type: closed Laterality: right Qualified Code(s): S82.841A - Displaced bimalleolar fracture of right lower leg, initial encounter for closed fracture (7) Acute renal failure superimposed on stage 3b chronic kidney disease Acute renal failure type: unspecified Qualified Code(s): N17.9 - Acute kidney failure, unspecified; N18.32 - Chronic kidney disease, stage 3b (9) HTN (hypertension) Hypertension type: unspecified Qualified Code(s): I10 - Essential (primary) hypertension
[2025-07-26 11:09] VITALS: RESP 20; O2SAT 95
--- NOTE | 2025-07-26 12:48 | Hospitalist Progress Note ---
Date of Service July 26, 2025 Assessment & Plan (1) Asymptomatic hypertensive urgency: Plan: Assessment and plan below following discussion of case with ED provider and reviewing patient history/pertinent normal/abnormal diagnostic test results. Hypertensive urgency Traumatic right ankle fracture Status post right ankle external fixator application on July 25, 2025 Patient presented to the hospital with slip is on ice; noted to have right ankle deformity. Denies any other injuries. CT headno acute finding Ankle x-ray shows by Bimalleolar fracture Plan to obtain PT OT; patient leaning towards going home. Will provide a prescription for bedside commode, rolling walker and manual wheelchair for case management Continue pain control DVT prophylaxis with heparin chronic systolic heart failure secondary to nonischemic cardiomyopathy status post ICD (EF 40%, TTE 2024), patient euvolemic-cardiology evaluated the patient; they recommend stopping amlodipine and starting hydralazine. 2AVB status post PPM- monitor on telemetry hyperlipidemia, on statin Rx pulmonary sarcoidosis, pulmonary hypertension, probable GONZALO (not on CPAP), no recent follow-up with [facility] specialist hx CVA, patient describes TIA symptoms from 2 weeks ago, imaging negative for new stroke ARF on CRI - Creatinine at baseline chronic anemia, hemoglobin at baseline DM 2 insulin requiring, suboptimal control as of recent hemoglobin A1c of 9.7 last July 2025 -on SSI here papillary cancer status post RAIU/surgery postsurgical hypothyroidism, low TSH with normal free T4 on today's blood work - follow up with pcp for futher evaluation hx right great toe osteomyelitis status post antibiotic Rx (2024) Full code DVT prophylaxis heparin Time spent evaluating patient, direct bedside care, chart review, placing orders, interpretation of diagnostic studies, discussion with consultants, patient, and family members, as well as other required patient management activities is 50 minutes Please note the above document was generated using voice recognition software. It may contain grammatical, syntax or spelling errors. Any formal questions or concerns about the content, text or information contained within the body of th is dictation should be directly addressed to the provider for clarification Admission and Anticipated Discharge Date Admission Date: July 24, 2025 Subjective Patient seen and examined at bedside. He reports he does not have any pain or discomfort. He is concerned about going home; would like to explore options regarding going to rehab. Review of Systems Review of Systems: All systems reviewed & are unremarkable except as noted in Subjective Physical Exam Physical Exam: Constitutional: WD/WN, vitals as above, NAD, sitting up in bed, pleasant, conversing easily Respiratory: normal respiratory effort, lungs clear to auscultation, no wheeze, rales, rhonchi. Normal insp/exp effort, no accessory muscle use Cardiovascular: RRR, no murmur, no edema Vessels: no JVD or carotid bruit Chest: normal inspection of chest Abdomen: normal bowel sounds, soft, nontender, no hepatosplenomegaly Musculoskeletal: External fixator and splint present on right leg with overlying bandage. Patient sensation is diminished; similar to his baseline secondary to diabetic neuropathy Skin: no rashes, warm and dry normal turgor Neurologic: PERRL, EOMI, accommodation nl, no face palsy, no dysarthria CN's II- XI intact bilaterally and moves all extremities Psychiatric: A+Ox3, euthymic affect Results & Data Results & Data Vital Signs (Past 12 Hours) Vital Signs Temp Pulse Pulse Resp BP Pulse Ox O2 Del Method 07/26/25 11:08 36.6 C 73 20 167/73 H 95 Room Air 07/26/25 08:15 Room Air 07/26/25 08:04 36.6 C 66 18 164/74 H 97 Room Air 07/26/25 08:00 64 07/26/25 04:07 36.6 C 68 16 144/69 H 96 Room Air
--- NOTE | 2025-07-26 13:56 | Discharge Summary ---
Date of Service July 26, 2025 Admission HPI Per Admitting Provider History obtained from patient, family, and records. Medical history significant for chronic systolic heart failure secondary to nonischemic cardiomyopathy status post ICD (EF 40%, TTE 2024), second-degree AV block status post PPM, hypertension, hyperlipidemia, pulmonary sarcoidosis, pulmonary hypertension, probable GONZALO (not on CPAP), CVA, CRI (baseline creatinine 2s), chronic anemia (baseline hemoglobin 11-12), DM 2 insulin requiring, papillary cancer status post surgery, postsurgical hypothyroidism, history of right great toe osteomyelitis status post antibiotic Rx, anxiety disorder. Last confinement November 2022 for TIA presenting as transient right sided weakness. 2 weeks ago, patient had transient aphasia symptoms associated with bilateral hand and feet numbness. Claims to be compliant with home medications. PCP recommended ED evaluation for possible recurrent TIA. Patient refused ER evaluation. No CT evidence of acute intracranial abnormality on outpatient imaging. Patient slipped on ice while walking outside. Patient noted right ankle deformity without unusual pain. Denies head trauma, LOC, chest pain, SOB. Highest SBP of 200s documented at the ER. Medical History as above Surgical History : Tonsillectomy/adenoidectomy, appendectomy, cholecystectomy, PPM, total thyroidectomy and neck dissection, dental surgery Family History : DM, heart disease, alcoholism Personal/Social history : Non-smoker, no EtOH intake, disabled Admission Exam Per Admitting Provider GENERAL: Comfortable, morbidly obese, no respiratory distress SKIN: Pallor,, warm HEENT: Pale palpebral conjunctivae, no ptosis, moist buccal mucosa NECK : Supple, short neck, no tenderness CHEST : Decreased breath sounds, no tenderness HEART : RRR, no obvious murmurs ABDOMEN: Some distention, nontender EXTREMITIES : RLE splint, palpable pulses, minimal LLE swelling without tenderness NEUROLOGIC : Coherent, no facial asymmetry, no other gross focality Principal Diagnosis Hypertensive urgency Traumatic right ankle fracture Status post right ankle external fixator application on July 25, 2025 Discharge Exam Constitutional: WD/WN, vitals as above, NAD, sitting up in bed, pleasant, conversing easily Respiratory: normal respiratory effort, lungs clear to auscultation, no wheeze, rales, rhonchi. Normal insp/exp effort, no accessory muscle use Cardiovascular: RRR, no murmur, no edema Vessels: no JVD or carotid bruit Chest: normal inspection of chest Abdomen: normal bowel sounds, soft, nontender, no hepatosplenomegaly Musculoskeletal: External fixator and splint present on right leg with overlying bandage. Patient sensation is diminished; similar to his baseline secondary to diabetic neuropathy Skin: no rashes, warm and dry normal turgor Neurologic: PERRL, EOMI, accommodation nl, no face palsy, no dysarthria CN's II- XI intact bilaterally and moves all extremities Psychiatric: A+Ox3, euthymic affect Discharge Data Allergies Allergy/AdvReac Type Severity Reaction Status Date / Time exenatide Allergy Severe DIFFICULTY Verified 07/25/25 13:23 BREATHING phenol Allergy Severe DIFFICULTY Verified 07/25/25 13:23 BREATHING Sulfa (Sulfonamide Allergy Intermediate HIVES Verified 07/25/25 13:23 Antibiotics) doxycycline Allergy Mild Hives Verified 07/25/25 13:23 perflutren AdvReac Severe BACK PAIN Verified 07/25/25 13:23 ciprofloxacin [From Cipro] AdvReac Intermediate fast heart Verified 07/25/25 13:23 rate propylene glycol AdvReac Intermediate BACK PAIN Verified 07/25/25 13:23 Mtldxvb-[id number]-JmS Reductase AdvReac Intermediate ACHE PAIN Verified 07/25/25 13:23 Inhibitor [Tbqxtyu-Qvk-Bll Reductase Inhibitor] clindamycin AdvReac Mild MOUTH Verified 07/25/25 13:23 BURNING cefuroxime AdvReac Severe Verified 07/25/25 13:23 heart burn Consultations 07/24/25 21:18 Consult Orthopedic Surgery Routine 07/24/25 22:35 ED Decision to Admit Stat 07/25/25 00:25 Consult Cardiology Routine Procedures Performed Operation Date: 07/25/25 16:30 Actual Procedures p Right Ankle External Fixator Application(Right) - Tim Jordan DO Ordered Studies 07/24/25 22:34 Fluoro Ankle [FL ankle RT min 3V RTN] Stat 07/25/25 00:18 CT head/brain wo con Stat 07/25/25 13:03 FL ankle RT min 3V RTN Routine Hospital Course (1) Asymptomatic hypertensive urgency: Assessment and plan below following discussion of case with ED provider and reviewing patient history/pertinent normal/abnormal diagnostic test results. Hypertensive urgency Traumatic right ankle fracture Status post right ankle external fixator application on July 25, 2025 Patient presented to the hospital with slip is on ice; noted to have right ankle deformity. Denies any other injuries. CT headno acute finding Ankle x-ray shows by Bimalleolar fracture Patient underwent surgery on July 25, 2025; no perioperative and immediate postoperative complication. Patient did not have any pain; has history of diabetic neuropathy; did not require any pain medication postoperatively. PT OT evaluation was done; patient wanted to go home. He reported that he has enough support at home. I discussed possibly stopping amlodipine and starting hydralazine as per recommendation by cardiology; patient would like to continue current meds for now and discuss that with his manager social responsibility as outpatient I discussed signs or symptoms of DVT; recommended patient to ensure that he also checks his legs every day as he has neuropathy; does not feel pain/discomfort. He verbalized understanding. Patient discharged home with instructions to follow-up with orthopedics and PCP Please note the above document was generated using voice recognition software. It may contain grammatical, syntax or spelling errors. Any formal questions or concerns about the content, text or information contained within the body of this dictation should be directly addressed to the provider for clarification Total Time Total Time Spent Total Time Spent (In Minutes): 45 Total Time Includes: Examination of the Patient, Discharge Planning, Medication Reconciliation, Communication With Other Providers and Other Discharge Plan Discharge Items Patient Disposition: Home - Self-Care Reason For Visit: HTN URG, ANKLE FX Discharge Diagnosis: Hypertensive urgency Traumatic right ankle fracture Status post right ankle external fixator application on July 25, 2025 Condition on Discharge: Fair Activity: Resume your previous activity Non-emergency contact: Primary Care Provider Call non-emergency contact if: you have any medication questions and your symptoms worsen Follow-up/Referrals: Tj Mace MD [Primary Care Provider] - (Date & Time 07/30/2025 10:00 AM Provider: Shant Sargent PA-C [facility], [facility] ) Diet: Regular and Carb Consistent or DM2 Addtl Attending Provider Instructions: You were admitted to the hospital due to a fracture of the right ankle for which you underwent surgery by Dr. Tim Jordan. Please follow-up with him. Follow-up with your primary care doctor as well. No changes have been made to your medication regimen Pending Studies at Discharge: No Stand-Alone Forms: My [facility] USMD, Smoking Cessation Medications and DC Order Prescriptions: Continued losartan 50 mg tablet 50 mg PO DAILY atorvastatin 10 mg tablet 10 mg PO QAM Rx Instructions: Tuesday ONLY amlodipine 2.5 mg tablet See Rx Instructions .ROUTE .COMPLEX Rx Instructions: 2.5mg at bedtime levothyroxine 75 mcg tablet See Rx Instructions .ROUTE .COMPLEX Rx Instructions: Take 75mcg tablet w/ 200mcg tablet by mouth once every morning to equal 275mcg furosemide 20 mg tablet 20 mg PO .M// PRN (Reason: Sleep) metformin 500 mg tablet extended release 24 hr 1,000 mg PO BID carvedilol 25 mg tablet 50 mg PO BID clopidogrel 75 mg tablet 75 mg PO DAILY omeprazole 40 mg capsule,delayed release(DR/EC) 40 mg PO QAM famotidine 20 mg tablet 20 mg PO HS levothyroxine 200 mcg tablet See Rx Instructions .ROUTE .COMPLEX Rx Instructions: Take 200mcg tablet w/ 75mcg tablet by mouth once every morning to equal 275mcg zolpidem [Ambien] 10 mg tablet 10 mg PO HS ondansetron 4 mg tablet,disintegrating 4 mg PO TID PRN (Reason: Nausea) insulin aspart U-100 [Novolog FlexPen U-100 Insulin] 100 unit/mL (3 mL) insulin pen 22 - 30 unit SUBCUT TIDM insulin glargine [Lantus Solostar U-100 Insulin] 100 unit/mL (3 mL) insulin pen 60 - 70 unit SUBCUT BID Rx Instructions: 80 units at night azelastine 137 mcg (0.1 %) aerosol,spray 1 spray INTRANASAL AMHS PRN (Reason: Congestion) ipratropium bromide 21 mcg (0.03 %) spray,non-aerosol 2 spray INTRANASAL BID ezetimibe [Zetia] 10 mg tablet 10 mg PO DAILY cholecalciferol (vitamin D3) [Vitamin D3] 50 mcg (2,000 unit) Capsule 50 mcg PO HS Admission Data Admit Date/Time: 07/24/25 22:59 Attending Provider: Masood Upton Admit Provider: Tito Fish Primary Care Provider: Tj Mace Other Providers: Tim Jordan; Tito Fish; Norma Pelaez; Kal Paz; Joe Linares; Kj Gao; Fede Juarez; Yash Mo; Rajani Oh; Anamaria Raymundo; Loan Guerrero; Carmen Cox; Norma Brunson; Sherman Monge; Forest Bruce; Donna Bazan; Clarissa Copeland; Farzana Vizcarra; Cory Harry; Benito Campoverde; Annabella Linares; Ana Desouza; Primitivo De Souza; Johnathan Gruber N
--- NOTE | 2025-07-26 14:44 | Cardiology Progress Note ---
Date of Service July 26, 2025 Assessment & Plan (1) Bimalleolar ankle fracture: (2) NICM (nonischemic cardiomyopathy): (3) ICD (implantable cardioverter-defibrillator) in place: (4) Labile blood pressure: (5) Preop cardiovascular exam: Plan Assessment: Medically complex 49 year old male admitted after slipping on ice and falling on his bottom step. further imaging shows evidence of bimalleolar right ankle fracture. He is awaiting orthopedic consult with foot/ankle/trauma specialist to determine if surgical intervention is needed. Cardiology has been consulted for request for a preoperative cardiac risk assessment. Preop cardiology evaluation Bimalleolar ankle fracture s/p Closed reduction and application of right ankle external fixator S/P Mechanical fall VELMA on CKD NICM S/P BIVICD HTN Obesity s/p ICD DM- poorly controlled h/o CVA with R hemiparesis recommendations: Patient has greater than 4 METS of activity with no anginal symptoms prior to this episode of mechanical fall on ice No further cardiac w/u is indicated at this time patient cleared as intermediate risk from cardiac standpoint for stated surgery DM optimization avoid fluid overload GDMT for HFrEF as tolerated correct and f/u electrolytes f/u renal function continue Coreg, statin DC Norvasc adjust dose of Hydralazine keeping systolic BP between 100-140 mmHg GDMT for HFrEF limited due to renal insufficiency avoid hypovolemia keep patient euvolemic DVT prophylaxis as per surgery restart ASA if and when ok with surgery dietary counseling salt restriction stable from cardiac standpoint f/u in cardiology clinic pot discharge please recall if needed will sign off Admission and Anticipated Discharge Date Admission Date: July 24, 2025 Subjective Patient on exam is lying in bed in NAD; no c/o cp, sob, palpitations, dizziness Post op day 1 Review of Systems Review of Systems: as per hpi Physical Exam Constitutional: well developed, well nourished and + overweight Neck: normal visual inspection and trachea midline Respiratory: normal respiratory effort, lungs clear to auscultation Cardiovascular: S1 S2, systolic murmur Skin: no rashes, warm and dry Psychiatric: A+Ox3, euthymic affect Results & Data Vital Signs (Past 12 Hours) Vital Signs Temp Pulse Pulse Resp BP Pulse Ox O2 Del Method 07/26/25 12:00 77 07/26/25 11:08 36.6 C 73 20 167/73 H 95 Room Air 07/26/25 08:15 Room Air 07/26/25 08:04 36.6 C 66 18 164/74 H 97 Room Air 07/26/25 08:00 64 07/26/25 04:07 36.6 C 68 16 144/69 H 96 Room Air Laboratory Results Laboratory Results WBC 10.88 K/ul (4.8-10.8) H 07/26/25 08:41 RBC 3.80 M/uL (4.70-6.10) L 07/26/25 08:41 Hgb 10.9 g/dL (14.0-18.0) L 07/26/25 08:41 POC Hgb 12.6 g/dl (14.0-18.0) L 07/24/25 20:35 Hct 31.0 % (42.0-52.0) L 07/26/25 08:41 POC Hct 37 % (42-52) L 07/24/25 20:35 MCV 81.6 fL (80.0-100.0) 07/26/25 08:41 MCH 28.7 pg (25.0-34.0) 07/26/25 08:41 MCHC 35.2 g/dL (32.0-36.0) 07/26/25 08:41 RDW Std Deviation 37.1 fL (36.4-46.3) 07/26/25 08:41 RDW Coeff of Titi 12.4 % (11.5-14.5) 07/26/25 08:41 Plt Count 206 K/uL (130-400) 07/26/25 08:41 MPV 9.4 fL (9.4-12.4) 07/26/25 08:41 Immature Gran % (Auto) 0.4 % 07/26/25 08:41 Neut % (Auto) 84.1 % 07/26/25 08:41 Lymph % (Auto) 6.2 % 07/26/25 08:41 Ellis % (Auto) 9.2 % 07/26/25 08:41 Eos % (Auto) 0.0 % 07/26/25 08:41 Baso % (Auto) 0.1 % 07/26/25 08:41 Neut # (Auto) 9.16 K/uL (1.40-6.50) H 07/26/25 08:41 Lymph # (Auto) 0.67 K/uL (1.20-3.40) L 07/26/25 08:41 Ellis # (Auto) 1.00 K/uL (0.11-0.59) H 07/26/25 08:41 Eos # (Auto) 0.00 K/uL (0.00-0.50) 07/26/25 08:41 Baso # (Auto) 0.01 K/uL (0.00-0.20) 07/26/25 08:41 Immature Gran # (Auto) 0.04 K/uL (0.01-0.20) 07/26/25 08:41 PT 10.7 Seconds (9.0-12.0) 07/24/25 20:33 INR 1.0 (0.9-1.1) 07/24/25 20:33 APTT 29 Seconds (21-31) 07/24/25 20:33 PTT Ratio 1.1 07/24/25 20:33 POC Sodium 138 mmol/L (135-144) 07/24/25 20:35 Sodium 136 mmol/L (136-145) 07/26/25 08:41 POC Potassium 4.8 mmol/L (3.3-5.0) 07/24/25 20:35 Potassium 4.6 mmol/L (3.5-5.1) 07/26/25 08:41 POC Chloride 107 mmol/L (101-112) 07/24/25 20:35 Chloride 103 mmol/L (98-107) 07/26/25 08:41 Carbon Dioxide 24 mmol/L (21-32) 07/26/25 08:41 POC Total CO2 22 mmol/L (24-31) L 07/24/25 20:35 Anion Gap 9 (3-11) 07/26/25 08:41 POC Anion Gap 15.0 mmol/L (16-25) L 07/24/25 20:35 POC BUN 48 mg/dl (7-18) H 07/24/25 20:35 BUN 45 mg/dl (6-23) H 07/26/25 08:41 Creatinine 2.56 mg/dl (0.6-1.4) H 07/26/25 08:41 POC Creatinine 3.4 mg/dl (0.6-1.3) H 07/24/25 20:35 Est Cr Clr Drug Dosing 50.2 ml/min 07/26/25 08:41 eGFR 29.50 07/26/25 08:41 BUN/Creatinine Ratio 17.6 (10-20) 07/26/25 08:41 Glucose 284 mg/dl (70-99(Fasting)) H 07/26/25 08:41 POC Glucose 214 mg/dl (70-99) H 07/26/25 12:00 POC Glucose (other) 252 mg/dl (70-99) H 07/24/25 20:35 Estimat Average Glucose 226 mg/dl 07/24/25 20:33 Hemoglobin A1c 9.5 % (4.5-5.6) H 07/24/25 20:33 Calcium 8.9 mg/dl (8.6-10.3) 07/26/25 08:41 POC Ioniz Calcium Jason 1.19 mmol/l (1.12-1.32) 07/24/25 20:35 Magnesium 1.5 mg/dl (1.7-2.4) L 07/24/25 20:33 Total Bilirubin 0.6 mg/dl (0.2-1.0) 07/24/25 20:33 AST 16 U/L (13-39) 07/24/25 20:33 ALT 20 U/L (7-52) 07/24/25 20:33 Alkaline Phosphatase 136 U/L (34-104) H 07/24/25 20:33 Total Creatine Kinase 139 U/L (30-223) 07/25/25 06:06 Total Protein 7.7 gm/dl (6.0-8.3) 07/24/25 20:33 Albumin 3.9 gm/dl (3.4-5.0) 07/24/25 20:33 Globulin 3.8 gm/dl (2.5-4.0) 07/24/25 20:33 Albumin/Globulin Ratio 1.0 (0.9-2) 07/24/25 20:33 25-OH Vitamin D Total 94.9 ng/ml (30-100) 07/25/25 16:21 TSH 0.218 uIu/ml (0.300-4.500) L 07/24/25 20:33 Free T4 1.19 ng/dl (0.61-1.60) 07/24/25 20:33 Urine Color Yellow 07/25/25 05:30 Urine Appearance Clear (Clear) 07/25/25 05:30 Urine pH 5.0 (4.5-7.5) 07/25/25 05:30 Ur Specific [place] 1.017 (1.000-1.030) 07/25/25 05:30 Urine Protein 1+ (Negative) H 07/25/25 05:30 Urine Glucose (UA) 2+ (Negative) H 07/25/25 05:30 Urine Ketones Negative (Negative) 07/25/25 05:30 Urine Blood 1+ (Negative) H 07/25/25 05:30 Urine Nitrite Negative (Negative) 07/25/25 05:30 Urine Bilirubin Negative (Negative) 07/25/25 05:30 Urine Urobilinogen Negative (Negative) 07/25/25 05:30 Ur Leukocyte Esterase Negative (Negative) 07/25/25 05:30 Urine WBC (Auto) 0-5 /hpf (0-5) 07/25/25 05:30 Urine RBC (Auto) 0-2 /hpf (0-2) 07/25/25 05:30 U Hyaline Cast (Auto) 0-2 /lpf (0-2) 07/25/25 05:30 U Epithel Cells (Auto) 0-2 /hpf (0-2) 07/25/25 05:30 Urine Bacteria (Auto) None Seen (None Seen) 07/25/25 05:30 Urine Comment 07/25/25 05:30 Blood Type B Positive 07/25/25 00:21 Antibody Screen NEGATIVE 07/25/25 00:21 Impressions Chest X-Ray 07/24/25 22:38 Exam(s): XR CXR 1 VIEW EXAM: XR Chest, 1 View CLINICAL HISTORY: renal failure. TECHNIQUE: Frontal view of the chest. COMPARISON: Portable chest single view 11/18/2022 FINDINGS: Lungs: No focal airspace consolidation. No radiographic evidence for florid pulmonary edema. Shallow inspiration. Pleural space: Unremarkable. No pneumothorax. No large pleural effusion. Heart: Stable cardiomegaly. Mediastinum: The mediastinal contours are stable and unremarkable. The trachea is midline. Bones/joints: Unremarkable. No acute fracture. Tubes, lines and devices: Left subclavian biventricular defibrillator pacer leads noted. IMPRESSION: No focal consolidation or acute cardiopulmonary process identified. Electronically signed by: Dick Malin MD 07/25/25 00:[address] 07/25/25 00:18 EXAM: CT head/brain wo con CLINICAL HISTORY: tia ffup TECHNIQUE: Multiple axial images are obtained from the skull base to the vertex without contrast. CT scan was performed according to ALARA (as low as reasonably achievable). COMPARISON: 12:21:46 [employer]INTENA[employer]CE [employer]PER[employer] 2ND SHIFT . FINDINGS: There is cerebral atrophy. No evidence of space occupying lesion, hemorrhage, edema, mass effect, midline shift, extra axial collection, or hydrocephalus is noted. Basal cisterns are symmetric and normal in size and configuration. There are scattered periventricular hypodensities as can be seen with chronic microvascular ischemic changes. The desai-white matter differentiation is preserved. Visualized paranasal sinuses and mastoid air cells are well aerated. Orbital contents are within normal limits. Bony structures are intact. IMPRESSION: 1. No evidence of acute intracranial abnormality is demonstrated. 2. Chronic microvascular ischemic changes.- mild interval progression noted. 3. Cerebral atrophy.-mild interval progression noted. Electronically signed by Luis Antonio Becker 07-25-2025 01:10 AM Ankle X-Ray 07/25/25 13:03 FL ankle RT min 3V RTN CLINICAL HISTORY: EXTERNAL FIXATION RT ANKLE COMPARISON STUDY: 07/25/2025 FLUOROSCOPY TIME: 37 seconds FLUOROSCOPY IMAGES: 6 EXPOSURE DOSE: 2.1 mGy FINDINGS: Fluoroscopy was provided for placement of external fixator for right ankle fractures. IMPRESSION: Intraoperative fluoroscopy. ACT 112: Negative or not required by law. Electronically signed by: Saran Kulkarni M.D. 07/25/2025 3:05 PM Diagnostic Findings CBC 07/26/25 Range/Units 08:41 WBC 10.88 H (4.8-10.8) K/ul RBC 3.80 L (4.70-6.10) M/uL Hgb 10.9 L (14.0-18.0) g/dL Hct 31.0 L (42.0-52.0) % Plt Count 206 (130-400) K/uL Neut # (Auto) 9.16 H (1.40-6.50) K/uL Lymph # (Auto) 0.67 L (1.20-3.40) K/uL Ellis # (Auto) 1.00 H (0.11-0.59) K/uL Eos # (Auto) 0.00 (0.00-0.50) K/uL Baso # (Auto) 0.01 (0.00-0.20) K/uL Comprehensive Metabolic Panel 07/26/25 Range/Units 08:41 Sodium 136 (136-145) mmol/L Potassium 4.6 (3.5-5.1) mmol/L Chloride 103 (98-107) mmol/L Carbon Dioxide 24 (21-32) mmol/L BUN 45 H (6-23) mg/dl Creatinine 2.56 H (0.6-1.4) mg/dl Glucose 284 H (70-99(Fasting)) mg/dl Calcium 8.9 (8.6-10.3) mg/dl Intake and Output 07/25/25 07/26/25 07/26/25 22:59 06:59 14:59 Intake Total 2456 / 2556.5 50 / 2556.5 1100 / 1100 Output Total 52 / 602 550 / 602 550 / 550 Balance 2404 / 1954.5 -500 / 1954.5 550 / 550 Intake: IV 916 / 966.5 Sodium Chloride 0.9% 1,000 ml @ 916 / 916 60 mls/hr IV .[id number] ONE Rx#: [id number] IV Perioperative 1300 / 1300 Oral 240 / 290 50 / 290 1100 / 1100 Output: Urine 50 / 600 550 / 600 550 / 550 Estimated Blood Loss 2 / 2 Other: Weight 143.5 kg Weight Measurement Method Built in [facility] Medications Administered Home Medications Medication Instructions Recorded Confirmed Last Taken azelastine 137 mcg (0.1 %) nasal 1 spray intranasal [facility] PRN 11/18/22 07/24/25 07/24/23 spray Congestion carvedilol 25 mg tablet 50 mg PO BID 11/18/22 07/24/25 07/23/25 09:00 cholecalciferol (vitamin D3) 50 50 mcg PO HS 11/18/22 07/24/25 07/23/25 09:00 mcg (2,000 unit) capsule (Vitamin D3) clopidogrel 75 mg tablet 75 mg PO DAILY 11/18/22 07/24/25 07/23/25 09:00 ezetimibe 10 mg tablet (Zetia) 10 mg PO DAILY 11/18/22 07/24/25 07/23/25 09:00 famotidine 20 mg tablet 20 mg PO HS 11/18/22 07/24/25 07/22/25 insulin aspart U-100 100 unit/mL 22 - 30 unit subcut TIDM 11/18/22 07/24/25 07/24/23 (3 mL) subcutaneous pen (Novolog FlexPen U-100 Insulin aspart) insulin glargine 100 unit/mL (3 60 - 70 unit subcut BID 11/18/22 07/24/25 07/22/25 21:00 mL) subcutaneous pen (Lantus Solostar U-100 Insulin) ipratropium bromide 21 mcg (0.03 2 spray intranasal BID 11/18/22 07/24/25 07/24/23 %) nasal spray levothyroxine 200 mcg tablet See Rx Instructions .Route .COMPLEX 11/18/22 07/24/25 07/23/25 06:30 omeprazole 40 mg capsule,delayed 40 mg PO QAM 11/18/22 07/24/25 07/23/25 09:00 release ondansetron 4 mg disintegrating 4 mg PO TID PRN Nausea 11/18/22 07/24/25 11/16/22 tablet zolpidem 10 mg tablet (Ambien) 10 mg PO HS 11/18/22 07/24/25 07/22/25 21:00 amlodipine 2.5 mg tablet See Rx Instructions .Route .COMPLEX 07/24/23 07/24/25 07/23/25 21:00 atorvastatin 10 mg tablet 10 mg PO QAM 07/24/23 07/24/25 07/24/25 09:00 furosemide 20 mg tablet 20 mg PO .M// PRN Sleep 07/24/23 07/24/25 07/22/23 levothyroxine 75 mcg tablet See Rx Instructions .Route .COMPLEX 07/24/23 07/24/25 07/23/25 06:30 losartan 50 mg tablet 50 mg PO DAILY 07/24/23 07/24/25 07/22/25 21:00 metformin 500 mg tablet,extended 1,000 mg PO BID 07/24/23 07/24/25 07/23/25 09:00 release 24 hr Active Medications Generic Name Dose Route Start Last Admin Trade Name Freq PRN Reason Stop Dose Admin Acetaminophen 650 mg 07/24/25 22:38 07/25/25 20:34 Acetaminophen 325 Mg Tab PO 08/23/25 22:37 650 mg QID PRN Administration pain/fever Atorvastatin Calcium 10 mg 07/26/25 09:00 07/26/25 08:23 Atorvastatin 10 Mg Tab PO 08/25/25 08:59 10 mg [id number] BRENNAN Administration Azelastine HCl 1 sprays 07/25/25 04:20 07/26/25 08:25 Azelastine Hcl 0.1% Nasal 200 Sprays/27,400 Mcg Btl NA 08/24/25 04:19 1 sprays AMHS PRN Administration Congestion Carvedilol 50 mg 07/25/25 09:00 07/26/25 08:23 Carvedilol 25 Mg Tab PO 08/24/25 08:59 50 mg BID BRENNAN Administration Ezetimibe 10 mg 07/25/25 09:00 07/26/25 08:24 Ezetimibe 10 Mg Tab PO 08/24/25 08:59 10 mg DAILY BRENNAN Administration Famotidine 20 mg 07/25/25 21:00 07/25/25 20:33 Famotidine 20 Mg Tab PO 08/24/25 20:59 20 mg HS BRENNAN Administration Heparin Sodium (Porcine) 5,000 units 07/25/25 22:00 07/26/25 13:04 Heparin Sod 5,000 Unit/0.5 Ml Vial SQ 08/24/25 21:59 5,000 units Q8 BRENNAN Administration Hydralazine HCl 25 mg 07/25/25 21:00 07/26/25 09:13 Hydralazine Hcl 25 Mg Tab PO 08/24/25 20:59 25 mg BID BRENNAN Administration Promethazine HCl 12.5 mg in 50.5 mls @ 202 mls/hr 07/24/25 22:38 07/25/25 09:38 Phenergan IV 08/23/25 22:37 Infused Q6H PRN Infusion Nausea And Vomiting Cefazolin Sodium 3,000 mg in 72.5 mls @ 130 mls/hr 07/26/25 06:00 07/26/25 05:41 Ancef 3000mg IV 07/27/25 05:59 Not Given PREOP [facility] Protocol Insulin Aspart 0 units 07/25/25 21:00 07/26/25 13:04 Insulin Aspart Per Unit Charge SC 08/24/25 20:59 4 units ACHS BRENNAN Administration Insulin Glargine 30 units 07/25/25 00:15 07/26/25 09:12 Lantus Per Unit Charge SQ 08/24/25 00:14 30 units BID BRENNAN Administration Ipratropium [place] 2 sprays 07/25/25 04:15 07/26/25 08:25 Ipratropium [place] Nasal [place] 0.03% 30 Ml NA 08/24/25 04:14 2 sprays BID BRENNAN Administration Levothyroxine Sodium 75 mcg 07/25/25 06:30 07/26/25 05:45 Levothyroxine Sodium 75 Mcg Tablet PO 08/24/25 06:29 75 mcg DAILYBB BRENNAN Administration Levothyroxine Sodium 200 mcg 07/25/25 06:30 07/26/25 05:45 Levothyroxine Sodium 200 Mcg Tablet PO 08/24/25 06:29 200 mcg DAILYBB BRENNAN Administration Pantoprazole Sodium 40 mg 07/25/25 09:00 07/26/25 08:24 Pantoprazole 40 Mg Tab PO 08/24/25 08:59 40 mg QAM BRENNAN Administration Vitamin D 50 mcg 07/25/25 21:00 07/25/25 20:33 Cholecalciferol 25 Mcg (1000 Units) Tab PO 08/24/25 20:59 50 mcg HS BRENNAN Administration Zolpidem Tartrate 10 mg 07/25/25 00:10 07/25/25 01:28 Zolpidem Tartrate 5 Mg Tab PO 08/24/25 00:14 10 mg HS PRN Administration insomnia PG Care Time/CCT Total # of Minutes Spent Total Time Spent with Patient: Total time spent is greater than 50% in coordination of care (as documented) at patient's floor/unit and/or counseling patient: Coding Level of Care Code 19153 SUB INP/OBS CARE 3/50MIN Diagnoses Closed bimalleolar fracture of right ankle, initial encounter S82.841A Encounter type: initial encounter Fracture type: closed Laterality: right NICM (nonischemic cardiomyopathy) I42.8 ICD (implantable cardioverter-defibrillator) in place Z95.810 Labile blood pressure R09.89 Preop cardiovascular exam Z01.810 (1) Bimalleolar ankle fracture Encounter type: initial encounter Fracture type: closed Laterality: right Qualified Code(s): S82.841A - Displaced bimalleolar fracture of right lower leg, initial encounter for closed fracture
[2025-07-26 15:38] VITALS: BP 176/73; PULSE 73
== END 2025-07-26 16:23 | disposition home health service (06) | DRG 563 ==
LOC: ED 20:22 → 2W 22:59